=== PATIENT | male | born 1945 | race Caucasian/White ===

== ENCOUNTER 2020-11-25 13:39 | Inpatient (IN) | payer OTHER ==
--- NOTE | 2020-11-25 14:43 | RAD REPORT ---
EXAM DESCRIPTION: CT - Spine Lumbar Wo Con - 11/25/2020 2:12 pm CLINICAL HISTORY: PAIN COMPARISON: None. TECHNIQUE: Thin section axial imaging of the lumbar spine was performed. Sagittal and coronal recon struction images were generated and reviewed. All CT scans are performed using dose optimization technique as appropriate and may include automated exposure control or mA/KV adjustment according to patient size. FINDINGS: T11 body shows approximately 20% wedge compression deformity. Posterior wall height is pre served. L1 body shows 60- 70% loss in height. Wall height is reduced approximately 20%. Calcification s are present in the T12-L1 disc. Anterior spurs are present. L2 body shows approximately 40% cesar gill fracture deformity. There is some buckling the posterior wall along the inferior aspect. There i s bony encroachment into the central canal. There is no comparison imaging available. No acute fracture line seen in the T11, L1 or L2 bodies to indicate acute status. MR imaging is the best option for assessing any active marrow edema. L3-S1 vertebral bodies are normal in height. Bilateral sacral ala fractures are present. Fracture lines are more distinct which would favor an acu te or subacute status. T10-T11 disc level: Disc bulge and endplate spurring changes are present. Foraminal stenosis suspecte d but no significant central spinal stenosis. T11-12 level: Disc bulge and endplate spurring changes are present. There is prominent right-sided fa cet degenerative change. Right foraminal stenosis is present without central spinal stenosis. T12-L1 level: Disc bulge and endplate spurring changes in the central canal are present with prominen t facet hypertrophy and ligamentous thickening. Central spinal stenosis to the 8-9 mm. No significant foraminal stenosis. L1-L2 level: Prominent posterior endplate spurring changes are present. Calcified ligaments are prese nt with facet hypertrophy. Spinal stenosis to 9 mm is present. Mild bilateral foraminal encroachment changes are present. L2-L3 level: Disc bulge and endplate spurring changes are present with facet degenerative change and ligamentous thickening. Central canal is 11-12 mm. Disc bulge and endplate spurring changes cause chris ateral foraminal stenosis. L3-4 level: Disc bulge and endplate spurring changes cause partial bilateral foraminal stenosis with borderline central spinal stenosis. L4-5 level: Prominent facet hypertrophy and ligamentous thickening present. Protruding disc material, disc bulge and endplate spurring changes are present. Central spinal stenosis to 9 mm present. L5-S1 level: Disc bulge and endplate spurring changes are present. Bilateral foraminal stenosis resul ts from these degenerative changes. No significant central spinal stenosis. IMPRESSION: Significant L1 and L2 compression fracture deformities with partial wedge compression of the T11 body. No acute fracture lines are seen to confirm an acute status. No comparison is availabl e. Follow-up outpatient MRI imaging could be performed to assess for any active vertebral body marrow edema. Severe degenerative changes are present in the spine with multiple levels of canal and foramen stenos is. No emergent cord compression findings at the thoracolumbar junction. Bilateral sacral ala fractures favored to be acute or subacute. MRI imaging could also be used to dionte luate the sacral ala.
--- NOTE | 2020-11-25 14:56 | RAD REPORT ---
EXAM DESCRIPTION: RAD - Pelvis - 11/25/2020 2:23 pm CLINICAL HISTORY: TRAUMA COMPARISON: Spine Lumbar Wo Con dated 11/25/2020 TECHNIQUE: AP imaging of the pelvis was obtained. FINDINGS: No gross fracture deformity of the bony pelvis. Moderate severity SI joint degenerative ch anges are present along with bilateral hip joint degenerative change. No proximal femur fracture is s een. Patient has prominent lower lumbar degenerative change detailed in separate report. Sacral ala are to o obscured by overlying bowel for accurate assessment. Arterial tree calcifications are present. IMPRESSION: Degenerative change without an acute pelvis or hip joint finding. Sacral ala are too obscured by bowel for accurate assessment.
--- NOTE | 2020-11-25 15:20 | EDPHYS ---
Physician Documentation [facility] Name: Felix Rangel Age: 75 yrs Sex: Male : 1945 Arrival Date: 11/25/2020 Time: 13:49 Bed 25 Private MD: ED Physician Aurelio Selby HPI: 11/25 14:06 This 75 yrs old Male presents to ER via EMS with complaints of Fall Injury. jr8 14:06 Details of fall: The patient fell from an upright position, while standing. Onset: The jr8 symptoms/episode began/occurred acutely, 1 week(s) ago. Associated injuries: The patient sustained injury to the low back, pain, pain with movement. Severity of symptoms: At their worst the symptoms were mild, in the emergency department the symptoms are unchanged. The patient has not experienced similar symptoms in the past. The patient has not recently seen a physician. Patient stated that he had mechanical fall last week landing on his buttock. Since then has had pain that is not resolving to the left buttock and low back region. Denies any other trauma or pain at this time . Historical: - Allergies: 13:51 No Known Allergies; ss - PMHx: 13:51 None; ss - Immunization history:: Adult Immunizations unknown. - Social history:: Smoking status: Patient denies any tobacco usage or history of. ROS: 14:06 Eyes: Negative for injury, pain, redness, and discharge, ENT: Negative for injury, jr8 pain, and discharge, Neck: Negative for injury, pain, and swelling, Cardiovascular: Negative for chest pain, palpitations, and edema, Respiratory: Negative for shortness of breath, cough, wheezing, and pleuritic chest pain, Abdomen/GI: Negative for abdominal pain, nausea, vomiting, diarrhea, and constipation, MS/Extremity: Negative for injury and deformity, Skin: Negative for injury, rash, and discoloration, Neuro: Negative for headache, weakness, numbness, tingling, and seizure. 14:06 Back: Positive for pain at rest, pain with movement, of the left low back. Exam: 14:06 Constitutional: This is a well developed, well nourished patient who is awake, alert, jr8 and in no acute distress. Cardiovascular: Regular rate and rhythm with a normal S1 and S2. No gallops, murmurs, or rubs. Normal PMI, no JVD. No pulse deficits. Respiratory: Lungs have equal breath sounds bilaterally, clear to auscultation and percussion. No rales, rhonchi or wheezes noted. No increased work of breathing, no retractions or nasal flaring. Abdomen/GI: Soft, non-tender, with normal bowel sounds. No distension or tympany. No guarding or rebound. No evidence of tenderness throughout. Skin: Warm, dry with normal turgor. Normal color with no rashes, no lesions, and no evidence of cellulitis. MS/ Extremity: Pulses equal, no cyanosis. Neurovascular intact. Full, normal range of motion. Neuro: Awake and alert, GCS 15, oriented to person, place, time, and situation. Cranial nerves II-XII grossly intact. Motor strength 5/5 in all extremities. Sensory grossly intact. 14:06 Back: pain, that is mild, of the left low back and left buttock , ROM is painful, vertebral tenderness, is not appreciated. Vital Signs: 13:49 BP 140 / 76; Pulse 77; Resp 18 S; Temp 98.8(O); Pulse Ox 96% on R/A; ss 14:00 BP 139 / 79; Pulse 76; Resp 16 S; Pulse Ox 97% on R/A; aa5 15:00 BP 136 / 74; Pulse 74; Resp 18 S; Pulse Ox 95% on R/A; aa5 15:55 BP 125 / 73; Pulse 74; Resp 16 S; Pulse Ox 95% on R/A; aa5 17:30 BP 126 / 72; Pulse 75; Resp 18; Temp 98.5(TE); Pulse Ox 96% on R/A; aa5 MDM: 13:49 Patient medically screened. [facility] 15:01 Data reviewed: vital signs, nurses notes, radiologic studies, CT scan, plain films. [facility] Data interpreted: Pulse oximetry: on room air is 96 %. Interpretation: normal. 15:01 Data reviewed: lab test result(s). Counseling: I had a detailed discussion with the [facility] patient and/or guardian regarding: the historical points, exam findings, and any diagnostic results supporting the discharge/admit diagnosis, lab results, radiology results, the need for further work-up and treatment in the hospital. ED course: Consulted Dr. Montes De Oca who will see patient. Patient will be admitted to Dr. Selby for further evaluation and hopefully SNF unit placement as patient still cannot ambulate or do ADLs from the sacral fractures. 11/25 15:20 Order name: CBC with Diff; Complete Time: 18:04 [facility] 11/25 15:20 Order name: Basic Metabolic Panel; Complete Time: 16:42 [facility] 11/25 13:50 Order name: XRAY Pelvis; Complete Time: 15:01 [facility] 11/25 16:35 Order name: SARS-COV-2 RT PCR; Complete Time: 16:42 [facility] 11/25 18:02 Order name: Manual Differential; Complete Time: 18:04 [facility] 11/25 13:50 Order name: CT Lumbar Spine Wo Con; Complete Time: 14:49 [facility] 11/25 15:20 Order name: CT Head Brain wo Cont; Complete Time: 16:04 [facility] 11/25 15:20 Order name: IV; Complete Time: 15:32 [facility] 11/25 16:38 Order name: CONS Physician Consult EDMA Administered Medications: No medications were administered Disposition: 18:24 Co-signature as Attending Physician, Aurelio Selby MD. rn Disposition: 11/25/20 15:19 Hospitalization ordered by J Carlos Selby for Inpatient Admission. Preliminary diagnosis are Fracture of unspecified parts of lumbosacral spine and pelvis - Sacral Ala, Difficulty in walking, not elsewhere classified. - Bed requested for Telemetry/MedSurg (Inpatient). - Status is Inpatient Admission. aa5 - Condition is Stable. - Problem is new. - Symptoms have improved. Signatures: Dispatcher [employer] EDMA Aurelio Selby MD MD rn Calderon, Audri, RN RN aa5 Jo Manjarrez RN RN ss Roszak, Josh, PA PA [facility] Corrections: (The following items were deleted from the chart) 15:18 15:01 Counseling: I had a detailed discussion with the patient and/or guardian yael regarding: the historical points, exam findings, and any diagnostic results supporting the discharge/admit diagnosis, radiology results, the need for outpatient follow up, a orthopedic surgeon, to return to the emergency department if symptoms worsen or persist or if there are any questions or concerns that arise at home, yael 15:45 15:30 CORONAVIRUS+MR.LAB.BRZ ordered. EDMS EDMS 17:18 15:19 Hospitalization Ordered by J Carlos Selby MD for Inpatient Admission. Preliminary aa5 diagnosis is Fracture of unspecified parts of lumbosacral spine and pelvis - Sacral Ala; Difficulty in walking, not elsewhere classified. Bed requested for Telemetry/MedSurg (Inpatient). Status is Inpatient Admission. Condition is Stable. Problem is new. Symptoms have improved. jr8 18:18 17:18 11/25/2020 15:19 Hospitalization Ordered by J Carlos Selby MD for Inpatient aa5 Admission. Preliminary diagnosis is Fracture of unspecified parts of lumbosacral spine and pelvis - Sacral Ala; Difficulty in walking, not elsewhere classified. Bed requested for Telemetry/MedSurg (Inpatient). Status is Inpatient Admission. Condition is Stable. Problem is new. Symptoms have improved. aa5
--- NOTE | 2020-11-25 15:20 | ER ---
Nurse's Notes [facility] Name: Felix Rangel Age: 75 yrs Sex: Male : 1945 Arrival Date: 11/25/2020 Time: 13:49 Bed 25 Private MD: Diagnosis: Fracture of unspecified parts of lumbosacral spine and pelvis-Sacral Ala;Difficulty in walking, not elsewhere classified Presentation: 11/25 13:49 Chief complaint: Patient states: fell 1 week ago, denies head injury. Pt c/o pain to ss left buttocks and left low back. 13:49 Coronavirus screen: At this time, the client does not indicate any symptoms associated ss with coronavirus-19. Ebola Screen: Patient negative for fever greater than or equal to 101.5 degrees Fahrenheit, and additional compatible Ebola Virus Disease symptoms. Initial Sepsis Screen: Does the patient meet any 2 criteria? No. Patient's initial sepsis screen is negative. Does the patient have a suspected source of infection? No. Patient's initial sepsis screen is negative. Risk Assessment: Do you want to hurt yourself or someone else? Patient reports no desire to harm self or others. Onset of symptoms was October 2020. 13:49 Acuity: TARIQ 4 ss 13:49 Method Of Arrival: EMS: [facility] Historical: - Allergies: 13:51 No Known Allergies; ss - PMHx: 13:51 None; ss - Immunization history:: Adult Immunizations unknown. - Social history:: Smoking status: Patient denies any tobacco usage or history of. Screenin:50 Abuse screen: Denies threats or abuse. Nutritional screening: No deficits noted. aa5 Tuberculosis screening: No symptoms or risk factors identified. Fall Risk Fall in past 12 months (25 points). Ambulatory Aid- Crutches/Cane/Walker (15 pts). Total Oconnor Fall Scale indicates Low Risk Score (25-44 pts). Fall prevention measures have been instituted. Side Rails Up X 2 Placed close to Nursing Station. Assessment: 13:50 General: Appears comfortable, Behavior is calm, cooperative. Pain: Complains of pain in aa5 left lower back and left gluteus amarilis Pain currently is 0 out of 10 on a pain scale. Pain began 1 week ago Is intermittent, Aggravated by increased activity, repositioning. Neuro: Level of Consciousness is awake, alert, obeys commands, Oriented to person, place, time, situation. Cardiovascular: Patient's skin is warm and dry. Respiratory: Airway is patent Respiratory effort is even, unlabored, Respiratory pattern is regular, symmetrical. GI: Abdomen is round non-distended. : No signs and/or symptoms were reported regarding the genitourinary system. EENT: No signs and/or symptoms were reported regarding the EENT system. Derm: Skin is pink, warm \T\ dry. Musculoskeletal: Range of motion: intact in all extremities. 14:13 Reassessment: Pt at radiology. aa5 15:32 Reassessment: Patient is alert, oriented x 3, equal unlabored respirations, skin aa5 warm/dry/pink. Pt to radiology via stretcher . 15:48 Reassessment: Patient is alert, oriented x 3, equal unlabored respirations, skin aa5 warm/dry/pink. 16:30 Reassessment: Patient is alert, oriented x 3, equal unlabored respirations, skin aa5 warm/dry/pink. 17:30 Reassessment: Patient is alert, oriented x 3, equal unlabored respirations, skin aa5 warm/dry/pink. 18:15 Reassessment: Patient is alert, oriented x 3, equal unlabored respirations, skin aa5 warm/dry/pink. Vital Signs: 13:49 BP 140 / 76; Pulse 77; Resp 18 S; Temp 98.8(O); Pulse Ox 96% on R/A; ss 14:00 BP 139 / 79; Pulse 76; Resp 16 S; Pulse Ox 97% on R/A; aa5 15:00 BP 136 / 74; Pulse 74; Resp 18 S; Pulse Ox 95% on R/A; aa5 15:55 BP 125 / 73; Pulse 74; Resp 16 S; Pulse Ox 95% on R/A; aa5 17:30 BP 126 / 72; Pulse 75; Resp 18; Temp 98.5(TE); Pulse Ox 96% on R/A; aa5 ED Course: 13:49 Patient arrived in ED. ss 13:49 Fabio Saunders PA is PHCP. jr8 13:49 Aurelio Selby MD is Attending Physician. jr8 13:49 Arm band placed on Patient placed in an exam room, on a stretcher. ss 13:50 Triage completed. ss 13:50 Patient has correct armband on for positive identification. Placed in gown. Bed in low aa5 position. Call light in reach. Side rails up X2. Pulse ox on. NIBP on. 13:54 Jo Manjarrez, RN is Primary Nurse. ss 14:12 CT Lumbar Spine Wo Con In Process Unspecified. EDMS 14:21 XRAY Pelvis In Process Unspecified. EDMS 15:18 J Carlos Selby MD is Hospitalizing Provider. jr8 15:34 COVID swab sent to lab. aa5 15:38 CT Head Brain wo Cont In Process Unspecified. EDMS 15:48 Initial lab(s) drawn, by ky, sent to lab. Inserted saline lock: 20 gauge in left aa5 antecubital area, using aseptic technique. Blood collected. 18:15 No provider procedures requiring assistance completed. Patient admitted, IV remains in aa5 place. Administered Medications: No medications were administered Outcome: 15:19 Decision to Hospitalize by Provider. jrKeri 18:15 Admitted to Med/surg accompanied by tech, via stretcher, with chart, Report called to camilo fields RN 18:15 Condition: stable 18:15 Instructed on the need for admit. 18:18 Patient left the ED. [facility] Signatures: Dispatcher [employer] Va Fitzgerald, RN RN [facility] Jo Manjarrez, RN RN Fabio Saunders, MARLEN GEE jrKeri
--- NOTE | 2020-11-25 15:54 | RAD REPORT ---
EXAM DESCRIPTION: CT - Head Brain Wo Cont - 11/25/2020 3:38 pm CLINICAL HISTORY: DIZZINESS COMPARISON: <Comparisons> TECHNIQUE: Axial 5 mm thick images of the head were obtained without IV contrast. All CT scans are performed using dose optimization technique as appropriate and may include automated exposure control or mA/KV adjustment according to patient size. FINDINGS: No intracranial hemorrhage, mass, edema or shift of mid-line structures. No acute infarcti on changes seen. No cortical edema or sulcal effacement. Patient has moderate severity atrophy with v entricles in proportion. Moderate severity chronic ischemic changes are present and could potentially mask nonhemorrhagic CVA. The atrophy and chronic ischemic changes have progressed since 1999. Arteri al tree physiologic calcifications are present. Mastoid air cells and visualized portions of the paranasal sinuses are clear. No acute bony findings. IMPRESSION: Moderate severity atrophy and moderate severity chronic ischemic change showing progress ion from the 2009 study. No mass, hemorrhage or acute intracranial finding identifiable. Chronic ischemic changes can mask nonhemorrhagic acute infarction. MR brain followup can be obtained if there is ongoing concern for acute ischemia.
[2020-11-25 16:08] LABS: Absolute Lymphocytes (CBC) 1.7 K/uL (0.7-4.9); Basophils % 1.3 % (0-1.3); Hematocrit 49.1 % (39.6-49.0); Lymphocytes % 15.7 % (15.3-44.8); MPV 8.3 fL (7.6-11.3); RBC Red Blood Cell Count 5.13 M/uL (4.33-5.43)
[2020-11-25 16:37] LABS: BUN Blood Urea Nitrogen 16 mg/dL (7-18); Bicarbonate 29 mmol/L (21-32); Glucose Level 91 mg/dL (74-106); Potassium 3.4 mmol/L (3.5-5.1); Sodium Level 143 mmol/L (136-145)
--- NOTE | 2020-11-25 16:48 | P.HP ---
Certification for Inpatient Patient admitted to: Inpatient With expected LOS: >2 Midnights Practitioner: I am a practitioner with admitting privileges, knowledge of patient current condition, hospital course, and medical plan of care. Services: Services provided to patient in accordance with Admission requirements found in Title 42 Section 412.3 of the Code of Federal Regulations Patient History Date of Service: 11/25/20 Reason for admission: b/l sacral ala fractures History of Present Illness: 75yo M, no significant past medical history but hasn't been to doctor in over 20 years. Presents 1 week after fall. Patient states he was walking into his home when he mis-stepped and somewhat twisted his ankle and fell to ground. No LOC, did not hit his head, was not dizzy or lightheaded. He reports L buttock pain when he tries to sit up or stand up. Pain is too severe to ambulate. No pain when he lays still. He has chronic b/l knee pain, worse on Left knee. Otherwise ROS negative. He takes a multi-vitamin, vit d, and zinc. Workup in ED revealed bilateral sacral ala fractures noted to be acute or subacute. multiple old compression fractures of lumbar spine. ED PA spoke with orthopedic surgeon who stated he would see patient in consult. - Past Medical/Surgical History Past Medical History: Patient denies medical history -: R foot surgery - Family History Family History: Reviewed- Non-Contributory (unable to recall) - Social History Smoking Status: Former smoker Alcohol use: Yes Place of Residence: Home (with ) Review of Systems 10-point ROS is otherwise unremarkable Physical Examination - Studies Laboratory Data (last 24 hrs) 11/25/20 15:47: Sodium 143, Potassium 3.4 L, BUN 16, Creatinine 0.66, Glucose 91 11/25/20 15:47: WBC 11.10 H, Hgb 16.6, Hct 49.1 H, Plt Count 255 Assessment and Plan - Advance Directives Does patient have a Living Will: No Does patient have a Durable POA for Healthcare: No Physician Review Additional Text: Physical Exam: Gen: NAD, AAOx3 HEENT: mile L redness of sclera, EOMI CV: RRR, no murmur Pulm: clear to auscultation bilaterally, nonlabored Abd: soft, NTND Ext: no edema, no tenderness in lower extremities, old surgical scar on R foot Neuro: CN II-XII grossly intact, str 5/5 thoughout, difficult to fully assess LLE secondary to pain limitation at hip, sensation intact Problem List: Bilateral sacral ala fractures, acute vs subacute multiple lumbar compression fractures -admit to med/surg -ortho consulted -mac for VTE prophylaxis -gentle IVF, pt has had decreased PO intake, appears somewhat dry -obtain CXR -labs pending -does not take any prescription medications -PT consulted -SW consulted - pt agreeable to SNF placement if needed, states daughter works at [employer] VTE: lovenox Code: full Dispo: ortho and PT eval, anticipate dc to SNF in a few days Time Spent Managing Pts Care (In Minutes): 60
[2020-11-25] MEDS ORDERED: ACETAMINOPHEN 500 MG TAB PO PRN (17:22)
[2020-11-25 18:02] LABS: Blood Morphology Comment NOT SEEN (NOT SEEN); Platelet Estimate ADEQ
--- NOTE | 2020-11-25 18:42 | RAD REPORT ---
EXAM DESCRIPTION: RAD - Chest Single View - 11/25/2020 6:29 pm CLINICAL HISTORY: fall, rib pain, chest pain COMPARISON: None TECHNIQUE: AP portable chest image was obtained 11/25/2020 6:29 pm . FINDINGS: Lungs are clear. Heart and vasculature are normal. No measurable pleural effusion and no p neumothorax. No acute aortic findings suspected. No gross rib deformity seen. Ribcage is not fully evaluated on portable imaging. If clinically warran lawanda, dedicated rib films could be obtained. Patient has significant bilateral shoulder joint degenera tive change. IMPRESSION: No acute cardiopulmonary process. No acute bone finding identified. Dedicated rib films could be obtained if warranted for more sensiti ve ribcage assessment.
[2020-11-25] MEDS: NA CHLORIDE 0.9% 1,000 ML IV SCH (18:53)
[2020-11-25 20:24] LABS: Urine Appearance CLOUDY (Clear); Urine Bilirubin NEGATIVE (Negative); Urine Blood NEGATIVE (Negative); Urine Color ORANGE (Yellow); Urine Glucose NEGATIVE (Negative); Urine Protein NEGATIVE (Negative); Urine pH 5.5 (5.0-7.0)
[2020-11-25 20:26] VITALS: BMI 29.1
[2020-11-25 20:26] LABS: Urine Microscopic Reflex ORDER UMIC
[2020-11-25 20:41] LABS: Urine Bacteria >50 /HPF (NONE SEEN); Urine Mucus 4+ /HPF (NONE SEEN); Urine RBC <5 /HPF (NONE SEEN)
[2020-11-25] MEDS ORDERED: POTASSIUM CL SA 10 MEQ TAB PO ONE (21:00)
[2020-11-26 06:30] LABS: Protime INR 1.09
[2020-11-26 06:34] LABS: Absolute Lymphocytes (CBC) 1.8 K/uL (0.7-4.9); Basophils % 2.6 % (0-1.3); Hematocrit 44.7 % (39.6-49.0); Lymphocytes % 17.1 % (15.3-44.8); MPV 8.6 fL (7.6-11.3); RBC Red Blood Cell Count 4.66 M/uL (4.33-5.43)
[2020-11-26] MEDS: NA CHLORIDE 0.9% 1,000 ML IV SCH ×2 (06:37→07:54)
[2020-11-26 06:52] LABS: ALT/SGPT 86 U/L (12-78); AST/SGOT 50 U/L (15-37); Albumin 2.8 g/dL (3.4-5.0); Alkaline Phosphatase 103 U/L (45-117); BUN Blood Urea Nitrogen 17 mg/dL (7-18); Bicarbonate 28 mmol/L (21-32); Bilirubin Total 1.5 mg/dL (0.2-1.0); Glucose Level 86 mg/dL (74-106); Magnesium 1.9 mg/dL (1.8-2.4); Phosphorus 2.6 mg/dL (2.5-4.9); Potassium 4.1 mmol/L (3.5-5.1); Protein, Total 6.4 g/dL (6.4-8.2); Sodium Level 141 mmol/L (136-145)
[2020-11-26] MEDS: ENOXAPARIN 40 MG/0.4 ML SQ SCH (07:54)
--- NOTE | 2020-11-26 09:51 | P.PN ---
Subjective Date of Service: 11/26/20 Chief Complaint: b/l sacral ala fractures Subjective: No new changes (patient reports feeling well, no new complaints, pain with movement, no nausea/vomiting/diarrhea.) Review of Systems 10-point ROS is otherwise unremarkable Physical Examination - Vital Signs Temperature: 96.9 F Blood Pressure: 132/60 Pulse: 71 Respirations: 18 Pulse Ox (%): 92 - Studies Laboratory Data (last 24 hrs) 11/25/20 15:47: Sodium 143, Potassium 3.4 L, BUN 16, Creatinine 0.66, Glucose 91 11/25/20 15:47: WBC 11.10 H, Hgb 16.6, Hct 49.1 H, Plt Count 255 Assessment & Plan Physician Review Additional Text: Physical Exam: Gen: NAD, AAOx3 HEENT: sclera anicteric, EOMI CV: RRR, no murmur Pulm: clear to auscultation bilaterally, nonlabored Abd: soft, NTND Ext: no edema, no tenderness in lower extremities, old surgical scar on R foot Neuro: CN II-XII grossly intact, str 5/5 thoughout, sensation intact Problem List: Bilateral sacral ala fractures, acute vs subacute multiple lumbar compression fractures mild vascular dementia UTi, cystitis -ortho consulted -lovenox for VTE prophylaxis -dc IVF, pt tolerating diet well -does not take any prescription medications -PT consulted -SW consulted - pt agreeable to SNF placement if needed, states daughter works at [employer] -UA suggestive of UTI, pt reports urinating more frequently, but otherwise denies any other symptoms of UTI, empirically started IV rocephin for now, will repeat UA VTE: lovenox Code: full Dispo: ortho and PT eval, anticipate dc to SNF in a few days Time Spent Managing Pts Care (In Minutes): 35
[2020-11-26] MEDS: CEFTRIAXONE/SWI 1gm 1 GM/10 ML SYR IVP SCH (10:32)
--- NOTE | 2020-11-26 15:07 | CON ---
Date of Consultation: 11/26/2020 Subjective: This is my first time seeing this patient to my knowledge. He is a 75-year-old male, wh o prior to admission was using a scooter for ambulation and was having difficulties with his left kne e at times, but unfortunately he says he fell injuring his left hip. He was unable to move after bhragav t and was brought to the Emergency Department. X-rays and CT scan demonstrated fairly significant de generative changes of his lumbar spine as well as probable old compression fractures and possible new or subacute acute sacral ala fractures without significant displacement. For further information, lupe stewart refer to the CT scan for the report. It should be noted that I do not treat the spine __ for the sacral ala fractures. Physical Examination: He has full range of motion of both lower extremities. He has no pain with movement or manipulation of the hips, although he is complaining of left-sided hip pain. This pain is primarily posterior in the region of the SI joint or posterior sacrum. He denies any numbness or tingling. Pain is primari ly left-sided. Assessment: A 75-year-old male with complaints of pain in the left hip. The left hip is probably mo re related to the left hemipelvis or sacral area. Whether or not he has any overlap from lumbar spin e pathology is uncertain. I will speak with Dr. Selby regarding further care, but I believe with reg doron to his pelvis, he can be weightbearing as tolerated; however, we will need pain relieving medicat ions as well as a walker. The patient and family have a lot of questions regarding discharge and soc ial care. I am not really able to address this, only thing I am really able to tell him is about neal gnosis and that operative intervention is not necessary and that immobilization is encouraged. They state they under stand things as presented. SE/MODL Voice ID: [id number] Report ID: [id number]
[2020-11-26 15:38] LABS: Urine Appearance CLEAR (Clear); Urine Blood NEGATIVE (Negative); Urine Color DK YELLOW (Yellow); Urine Glucose NEGATIVE (Negative); Urine Protein NEGATIVE (Negative); Urine Urobilinogen >=8.0 mg/dL (0.2-1.0)
[2020-11-26 16:30] LABS: Urine Bilirubin NEGATIVE (Negative); Urine Microscopic Reflex ORDER UMIC
[2020-11-26 16:31] LABS: Urine Bacteria <20 /HPF (NONE SEEN); Urine Mucus LIGHT /HPF (NONE SEEN); Urine RBC NONE SEEN /HPF (NONE SEEN)
[2020-11-27] MEDS: ENOXAPARIN 40 MG/0.4 ML SQ SCH (08:10)
[2020-11-27] MEDS: CEFTRIAXONE/SWI 1gm 1 GM/10 ML SYR IVP SCH (08:11)
--- NOTE | 2020-11-27 12:01 | P.PN ---
Subjective Date of Service: 11/27/20 Chief Complaint: b/l sacral ala fractures Subjective: No new changes (feeling well, continues with L buttock pain with weightbearing / movement. otherwise without complaints. tolerating diet, reports urinating without issue) Review of Systems 10-point ROS is otherwise unremarkable Physical Examination - Vital Signs Temperature: 97.2 F Blood Pressure: 116/56 Pulse: 56 Respirations: 16 Pulse Ox (%): 96 Assessment & Plan Physician Review Additional Text: Physical Exam: Gen: NAD, AAOx3 HEENT: sclera anicteric, EOMI CV: RRR, no murmur Pulm: clear to auscultation bilaterally, nonlabored Abd: soft, NTND Ext: no edema, no tenderness in lower extremities, old surgical scar on R foot Neuro: CN II-XII grossly intact, str 5/5 thoughout, sensation intact in b/l legs Problem List: Bilateral sacral ala fractures, acute vs subacute multiple lumbar compression fractures mild vascular dementia UTi, cystitis -ortho consulted, ok for weightbearing as tolerated -lovenox for VTE prophylaxis -does not take any prescription medications -tramadol ordered to use prior to working with PT -PT consulted -SW consulted - pt agreeable to SNF placement if needed, states daughter works at [employer] -UA suggestive of UTI, pt reports urinating more frequently, but otherwise denies any other symptoms of UTI, empirically started IV rocephin for now -MRI ordered for today to eval multiple lumbar compression fractures of indeterminate age, eval compression - pt denies weakness/numbness/or lower back pain VTE: Lovenox Code: full Dispo: PT eval, anticipate dc to SNF in a few days Time Spent Managing Pts Care (In Minutes): 35
--- NOTE | 2020-11-27 12:12 | RAD REPORT ---
EXAM DESCRIPTION: MRI - Lumbar Spine Wo Con- 11/27/2020 11:13 am CLINICAL HISTORY: spinal stenosis, fracture age Back pain, radiculopathy COMPARISON: Spine Lumbar Wo Con dated 11/25/2020 FINDINGS: Significant compression deformities of L1 and L2 are noted, without significant marrow filemon ma, indicating that these are likely chronic. The conus medullaris terminates at a normal level. No thickening of the cauda equina or clumping of nerve roots seen. L1-2 level: Endplate osteophyte and posterior disc bulge with mild facet and ligamentum flavum hypert rophy mildly narrows the central canal. L2-3 level: Small endplate osteophyte with posterior disc bulge is seen and mild facet ligamentum fla vum hypertrophy moderately narrows the central canal. L3-4 level: Mild posterior disc bulge is seen with moderate facet hypertrophy. Mild central canal renee rowing is evident. L4-5 level: Left central/ paracentral 4-5 mm disc herniation is noted resulting in left lateral reces s stenosis and mild central canal narrowing. L5-S1 level: Moderate to large central disc herniation measuring 7 mm is present with moderate facet hypertrophy, resulting in right lateral recess stenosis. IMPRESSION: Significant L1 and L2 compression fractures have a chronic appearance. There is signific ant spondylosis and throughout the lumbar spine, most notable at L4-5 and L5-S1.
[2020-11-27] MEDS: TRAMADOL HCL 50 MG TAB PO PRN (13:08)
[2020-11-28] MEDS: CEFTRIAXONE/SWI 1gm 1 GM/10 ML SYR IVP SCH (07:49)
[2020-11-28] MEDS: ENOXAPARIN 40 MG/0.4 ML SQ SCH (07:50)
--- NOTE | 2020-11-28 09:34 | RAD REPORT ---
EXAM DESCRIPTION: US - Liver Only - 11/28/2020 9:24 am CLINICAL HISTORY: Elevated LFT COMPARISON: No comparisons TECHNIQUE: Sonographic evaluation of the right upper quadrant was performed as a dedicated liver ult rasound study. FINDINGS: Liver shows a diffuse coarsened increased hepatic echotexture with a decrease in sonograph ic penetrance. This is a pattern typical for prominent fatty infiltration. No focal liver lesions see n though sensitivity is decreased with this degree of fatty infiltration. No portal vein abnormality seen. The spleen is 15-16 cm in size. No abnormal capsule nodularity seen. Spleen is 11-12 cm with no focal splenic lesion identifiable. IMPRESSION: Diffuse fatty infiltration of a normal size liver. No focal liver lesions seen though se nsitivity is decreased with this degree of fatty infiltration.
[2020-11-28] MEDS: TRAMADOL HCL 50 MG TAB PO PRN (09:35)
--- NOTE | 2020-11-28 15:30 | P.PN ---
Subjective Date of Service: 11/28/20 Chief Complaint: b/l sacral ala fractures Patient reports significant pain with sitting. MRI of the pelvis result reviewed: Fractures appear to be chronic. Physical Examination - Vital Signs Temperature: 97.4 F Blood Pressure: 138/67 Pulse: 67 Respirations: 16 Pulse Ox (%): 96 - Physical Exam General: Alert, In no apparent distress, Oriented x3 HEENT: Mucous membr. moist/pink Respiratory: Clear to auscultation bilaterally, Normal air movement Cardiovascular: Regular rate/rhythm, Normal S1 S2, Edema (Bilateral lower extremities) Gastrointestinal: Soft and benign, Non-distended Musculoskeletal: No swelling Integumentary: No rashes Neurological: Normal strength at 5/5 x4 extr Assessment And Plan - Current Problems (Diagnosis) (1) Sacral fracture, closed Current Visit: Yes Status: Acute (2) Alcoholic liver disease Current Visit: Yes Status: Acute Physician Review Additional Text: Problem List: Bilateral sacral ala fractures, acute vs subacute multiple lumbar compression fractures mild vascular dementia UTi, cystitis -Seen by ortho ok for weightbearing as tolerated. No surgical intervention. -lovenox for VTE prophylaxis -pain medication as needed. Premedicate with analgesia before PT. -PT as tolerated. -SW consulted - pt agreeable to SNF placement if needed, states daughter works at [employer] -UA suggestive of UTI, pt reports urinating more frequently. Patient received a dose of IV Rocephin. Antibiotics switched to Macrobid. -elevated LFT. Liver ultrasound shows fatty liver likely secondary to chronic alcohol use. VTE: Lovenox Code: full Dispo: PT eval, anticipate dc to SNF.
[2020-11-28] MEDS: NITROFURAN MACRO 100 MG CAP PO SCH (16:51)
[2020-11-29 05:53] LABS: Absolute Lymphocytes (CBC) 2.5 K/uL (0.7-4.9); Basophils % 2.2 % (0-1.3); Hematocrit 41.5 % (39.6-49.0); Lymphocytes % 23.7 % (15.3-44.8); MPV 8.5 fL (7.6-11.3); RBC Red Blood Cell Count 4.36 M/uL (4.33-5.43)
[2020-11-29 06:15] LABS: BUN Blood Urea Nitrogen 15 mg/dL (7-18); Bicarbonate 27 mmol/L (21-32); Glucose Level 98 mg/dL (74-106); Potassium 3.4 mmol/L (3.5-5.1); Sodium Level 143 mmol/L (136-145)
[2020-11-29 08:09] LABS: Blood Morphology Comment NOT SEEN (NOT SEEN); Platelet Estimate ADEQ
[2020-11-29] MEDS: NITROFURAN MACRO 100 MG CAP PO SCH ×2 (08:32→16:32)
[2020-11-29] MEDS: ENOXAPARIN 40 MG/0.4 ML SQ SCH (08:33)
[2020-11-29] MEDS ORDERED: POTASSIUM CL SA 10 MEQ TAB PO ONE (09:00)
--- NOTE | 2020-11-29 13:07 | P.PN ---
Subjective Date of Service: 11/29/20 Chief Complaint: b/l sacral ala fractures Patient reports significant pain with sitting. No other complain. Physical Examination - Vital Signs Temperature: 98.2 F Blood Pressure: 136/73 Pulse: 62 Respirations: 16 Pulse Ox (%): 95 - Physical Exam General: Alert, In no apparent distress Neck: JVD not distended Respiratory: Clear to auscultation bilaterally, Normal air movement Cardiovascular: No edema, Regular rate/rhythm, Normal S1 S2 Gastrointestinal: Normal bowel sounds, Soft and benign, Non-distended, No tenderness Musculoskeletal: No swelling, No tenderness Integumentary: No rashes Neurological: Normal strength at 5/5 x4 extr Assessment And Plan - Current Problems (Diagnosis) (1) Sacral fracture, closed Current Visit: Yes Status: Acute (2) Alcoholic liver disease Current Visit: Yes Status: Acute Physician Review Additional Text: Problem List: Bilateral sacral ala fractures, acute vs subacute multiple lumbar compression fractures mild vascular dementia UTi, cystitis -Seen by ortho weightbearing as tolerated recommended. No surgical interven tion. -lovenox for VTE prophylaxis -pain medication as needed. Premedicate with analgesia before PT. -PT as tolerated. -SW consulted - pt agreeable to SNF placement if needed. -UA suggestive of UTI, pt reports urinating more frequently. Patient received a dose of IV Rocephin. Antibiotics switched to Macrobid. -elevated LFT. Liver ultrasound shows fatty liver likely secondary to chronic alcohol use. VTE: Lovenox Code: full Dispo: Anticipate dc to SNF.
[2020-11-29] MEDS: TRAMADOL HCL 50 MG TAB PO PRN (16:32)
[2020-11-30] MEDS: NITROFURAN MACRO 100 MG CAP PO SCH ×2 (07:39→16:54)
[2020-11-30] MEDS: ENOXAPARIN 40 MG/0.4 ML SQ SCH (07:40)
[2020-11-30] MEDS: TRAMADOL HCL 50 MG TAB PO PRN (10:17)
--- NOTE | 2020-11-30 17:43 | P.PN ---
Subjective Date of Service: 11/30/20 Chief Complaint: b/l sacral ala fractures No major changes from yesterday Physical Examination - Vital Signs Temperature: 97.3 F Blood Pressure: 132/60 Pulse: 59 Respirations: 18 Pulse Ox (%): 96 - Physical Exam General: Alert, In no apparent distress HEENT: Mucous membr. moist/pink Neck: JVD not distended Respiratory: Clear to auscultation bilaterally, Normal air movement Cardiovascular: No edema, Regular rate/rhythm, Normal S1 S2 Gastrointestinal: Normal bowel sounds, Soft and benign, No tenderness Neurological: Normal strength at 5/5 x4 extr, Cranial nerves 3-12 intact Assessment And Plan - Current Problems (Diagnosis) (1) Sacral fracture, closed Current Visit: Yes Status: Acute (2) Alcoholic liver disease Current Visit: Yes Status: Acute Physician Review Additional Text: Problem List: Bilateral sacral ala fractures, acute vs subacute multiple lumbar compression fractures mild vascular dementia UTi, cystitis -Seen by ortho. weightbearing as tolerated recommended. No surgical intervention. -lovenox for VTE prophylaxis -pain medication as needed. Premedicate with analgesia before PT. -PT as tolerated. -SW consulted - pt agreeable to SNF placement if needed. -UA suggestive of UTI, pt reports urinating more frequently. Patient received a dose of IV Rocephin. Antibiotics switched to Macrobid. -elevated LFT. Liver ultrasound shows fatty liver likely secondary to chronic alcohol use. VTE: Lovenox Code: full Dispo: Anticipate dc to SNF.
[2020-12-01] MEDS: ENOXAPARIN 40 MG/0.4 ML SQ SCH (08:14)
[2020-12-01] MEDS: NITROFURAN MACRO 100 MG CAP PO SCH ×2 (08:15→17:21)
--- NOTE | 2020-12-01 10:15 | P.PN ---
Subjective Date of Service: 12/01/20 Chief Complaint: b/l sacral ala fractures No major changes from yesterday. Patient report less pain. Physical Examination - Vital Signs Temperature: 97 F Blood Pressure: 118/57 Pulse: 64 Respirations: 16 Pulse Ox (%): 95 - Physical Exam General: Alert, In no apparent distress HEENT: Mucous membr. moist/pink Neck: JVD not distended Respiratory: Clear to auscultation bilaterally, Normal air movement Cardiovascular: No edema, Regular rate/rhythm, Normal S1 S2 Gastrointestinal: Soft and benign, Non-distended, No tenderness Musculoskeletal: No swelling Integumentary: No rashes Neurological: Normal strength at 5/5 x4 extr Assessment And Plan - Current Problems (Diagnosis) (1) Sacral fracture, closed Current Visit: Yes Status: Acute (2) Alcoholic liver disease Current Visit: Yes Status: Acute Physician Review Additional Text: Problem List: Bilateral sacral ala fractures, acute vs subacute multiple lumbar compression fractures mild vascular dementia UTi, cystitis -Weightbearing as tolerated recommended by ortho. No surgical intervention. -lovenox for VTE prophylaxis -pain medication as needed. Premedicate with analgesia before PT. -PT as tolerated. Increase activity as tolerated -UA suggestive of UTI, pt reports urinating more frequently. Patient received a dose of IV Rocephin. Antibiotics switched to Macrobid. -patient to complete 7 days of oral antibiotics. -elevated LFT. Liver ultrasound shows fatty liver likely secondary to chronic alcohol use. VTE: Lovenox Code: full Dispo: Awaiting SNF placement.
[2020-12-02] MEDS: NITROFURAN MACRO 100 MG CAP PO SCH ×2 (08:35→17:16)
[2020-12-02] MEDS: ENOXAPARIN 40 MG/0.4 ML SQ SCH (08:35)
--- NOTE | 2020-12-02 12:43 | P.PN ---
Subjective Date of Service: 12/02/20 Chief Complaint: b/l sacral ala fractures No new complain Patient has pain mostly with hip flexion. Physical Examination - Vital Signs Temperature: 97.3 F Blood Pressure: 129/64 Pulse: 68 Respirations: 18 Pulse Ox (%): 96 - Physical Exam General: Alert, In no apparent distress Neck: JVD not distended Respiratory: Clear to auscultation bilaterally, Normal air movement Cardiovascular: No edema, Regular rate/rhythm, Normal S1 S2 Gastrointestinal: Soft and benign, Non-distended, No tenderness Musculoskeletal: No swelling Neurological: Normal strength at 5/5 x4 extr Assessment And Plan - Current Problems (Diagnosis) (1) Sacral fracture, closed Current Visit: Yes Status: Acute (2) Alcoholic liver disease Current Visit: Yes Status: Acute Physician Review Additional Text: Problem List: Bilateral sacral ala fractures, acute vs subacute multiple lumbar compression fractures mild vascular dementia UTi, cystitis -Weightbearing as tolerated recommended by ortho. No surgical intervention. -lovenox for VTE prophylaxis -pain medication as needed. Premedicate with analgesia before PT. -PT as tolerated. Increase activity as tolerated -UA suggestive of UTI, pt reports urinating more frequently. Patient received a dose of IV Rocephin and then switched to Macrobid. -patient to complete 7 days of oral antibiotics. -elevated LFT. Liver ultrasound shows fatty liver likely secondary to chronic alcohol use. VTE: Lovenox Code: full Dispo: Awaiting SNF placement.
[2020-12-03 06:14] LABS: Absolute Lymphocytes (CBC) 2.1 K/uL (0.7-4.9); Basophils % 2.9 % (0-1.3); Lymphocytes % 18.8 % (15.3-44.8); MPV 8.3 fL (7.6-11.3); RBC Red Blood Cell Count 4.55 M/uL (4.33-5.43)
[2020-12-03 06:32] LABS: BUN Blood Urea Nitrogen 11 mg/dL (7-18); Bicarbonate 27 mmol/L (21-32); Glucose Level 99 mg/dL (74-106); Potassium 3.8 mmol/L (3.5-5.1); Sodium Level 143 mmol/L (136-145)
[2020-12-03 08:19] LABS: Phosphorus 2.9 mg/dL (2.5-4.9)
[2020-12-03] MEDS ORDERED: POTASSIUM 25 MEQ EFFERV TAB PO ONE (09:00)
[2020-12-03] MEDS: NITROFURAN MACRO 100 MG CAP PO SCH ×2 (09:28→16:39)
[2020-12-03] MEDS: ENOXAPARIN 40 MG/0.4 ML SQ SCH (09:29)
[2020-12-03 10:40] LABS: Blood Morphology Comment NOT SEEN (NOT SEEN); Platelet Estimate ADEQ; Platelets, Giant PRESENT
--- NOTE | 2020-12-03 13:03 | P.PN ---
Subjective Date of Service: 12/03/20 Chief Complaint: b/l sacral ala fractures No new complain Patient has pain mostly with hip flexion and sitting.. Physical Examination - Vital Signs Temperature: 97.2 F Blood Pressure: 123/56 Pulse: 57 Respirations: 16 Pulse Ox (%): 96 - Physical Exam General: Alert, In no apparent distress HEENT: Mucous membr. moist/pink Neck: JVD not distended Respiratory: Clear to auscultation bilaterally, Normal air movement Cardiovascular: No edema, Regular rate/rhythm, Normal S1 S2 Gastrointestinal: Soft and benign, Non-distended, No tenderness Musculoskeletal: No swelling Neurological: Normal strength at 5/5 x4 extr Assessment And Plan - Current Problems (Diagnosis) (1) Sacral fracture, closed Current Visit: Yes Status: Acute (2) Alcoholic liver disease Current Visit: Yes Status: Acute Physician Review Additional Text: Problem List: Bilateral sacral ala fractures, acute vs subacute multiple lumbar compression fractures mild vascular dementia UTi, cystitis -Weightbearing as tolerated recommended by ortho. -lovenox for VTE prophylaxis -pain medication as needed. Premedicate with analgesia before PT. -PT as tolerated. Increase activity as tolerated -UA suggestive of UTI. Patient received a dose of IV Rocephin and then switched to Macrobid. -patient to complete 7 days of oral antibiotics. -elevated LFT. Liver ultrasound shows fatty liver likely secondary to chronic alcohol use. VTE: Lovenox Code: full Dispo: Awaiting SNF placement.
[2020-12-04 06:34] LABS: BUN Blood Urea Nitrogen 14 mg/dL (7-18); Bicarbonate 31 mmol/L (21-32); Glucose Level 100 mg/dL (74-106); Potassium 3.8 mmol/L (3.5-5.1); Sodium Level 143 mmol/L (136-145)
[2020-12-04] MEDS: NITROFURAN MACRO 100 MG CAP PO SCH (08:47)
[2020-12-04] MEDS: ENOXAPARIN 40 MG/0.4 ML SQ SCH (08:48)
[2020-12-04] MEDS ORDERED: POTASSIUM 25 MEQ EFFERV TAB PO ONE (09:00)
[2020-12-04 09:25] VITALS: O2SAT 94
[2020-12-04] MEDS ORDERED: HYDROCODONE/APAP 5/325 MG TAB PO PRN (11:04)
--- NOTE | 2020-12-04 12:32 | P.DS ---
Admission Date: 11/25/20 Discharge Date: 12/04/20 Disposition: TRANSFER TO [facility] Discharge Condition: FAIR Reason for Admission: b/l sacral ala fractures - Problems (1) Sacral fracture, closed Status: Acute (2) Alcoholic liver disease Status: Acute (3) E. coli UTI Status: Acute (4) Compression fx, lumbar spine Status: Acute Brief History of Present Illness: 75 yo M, no significant past medical history but hasn't been to doctor in over 20 years. Presents 1 week after fall. Patient states he was walking into his home when he mis-stepped and somewhat twisted his ankle and fell to ground. No LOC, did not hit his head, was not dizzy or lightheaded. Pain had been too severe to ambulate per patient. No pain when he lays still. Workup in ED revealed bilateral sacral ala fractures noted to be acute or subacute. multiple old compression fractures of lumbar spine. Patient admitted to the medical floor with orthopedic consultation. Hospital Course: Bilateral sacral ala fractures, acute vs subacute multiple lumbar compression fractures mild vascular dementia UTi, cystitis -patient seen by orthopedic surgery Weightbearing as tolerated recommended by ortho. -placed on lovenox for VTE prophylaxis -pain medication treated with oral [place]. Recommended premedication with analgesia before PT. -pain most severe with hip flexion and sitting. He underwent multiple PT sessions. -UA suggestive of UTI. Patient received a dose of IV Rocephin and then switched to Macrobid. -he will need to complete 7 days of oral antibiotics. -elevated LFT. Liver ultrasound shows fatty liver likely secondary to chronic alcohol use. No alcohol withdrawal symptoms during the hospital stay. -patient clinically stable for discharge. Vital Signs/Physical Exam: Temp Pulse Resp BP Pulse Ox 97.4 F 62 18 137/60 96 12/04/20 08:00 12/04/20 08:00 12/04/20 12:14 12/04/20 08:00 12/04/20 12:14 General: Alert, In no apparent distress, Oriented x3 HEENT: Mucous membr. moist/pink Neck: JVD not distended Respiratory: Clear to auscultation bilaterally, Normal air movement Cardiovascular: No edema, Regular rate/rhythm, Normal S1 S2 Capillary refill: <2 Seconds Gastrointestinal: Normal bowel sounds, Soft and benign, Non-distended Musculoskeletal: No swelling, No contractures Integumentary: No erythema Neurological: Normal strength at 5/5 x4 extr Laboratory Data at Discharge: WBC 11.10 K/uL (4.3-10.9) H 12/03/20 05:34 Hgb 14.9 g/dL (13.6-17.9) 12/03/20 05:34 Hct 43.0 % (39.6-49.0) 12/03/20 05:34 Plt Count 245 K/uL (152-406) 12/03/20 05:34 PT 12.5 SECONDS (9.5-12.5) 11/26/20 05:22 INR 1.09 11/26/20 05:22 Sodium 143 mmol/L (136-145) 12/04/20 05:32 Potassium 3.8 mmol/L (3.5-5.1) 12/04/20 05:32 BUN 14 mg/dL (7-18) 12/04/20 05:32 Creatinine 0.61 mg/dL (0.55-1.3) 12/04/20 05:32 Glucose 100 mg/dL (74-106) 12/04/20 05:32 Phosphorus 2.9 mg/dL (2.5-4.9) 12/03/20 05:34 Magnesium 2.0 mg/dL (1.8-2.4) 12/03/20 05:34 Total Bilirubin 1.5 mg/dL (0.2-1.0) H 11/26/20 05:22 AST 50 U/L (15-37) H 11/26/20 05:22 ALT 86 U/L (12-78) H 11/26/20 05:22 Alkaline Phosphatase 103 U/L (45-117) 11/26/20 05:22 Home Medications: Enoxaparin Sodium [Lovenox 40 MG INJ*] 40 mg SQ DAILY #30 syr 12/04/20 Hydrocodone 5/APAP 325 [[place] 5/325*] 1 tab PO Q6H PRN #30 tab 12/04/20 Nitrofuran Macro [Macrobid*] 100 mg PO BIDWM #10 cap 12/04/20 New Medications: Enoxaparin Sodium [Lovenox 40 MG INJ*] 40 mg SQ DAILY #30 syr Nitrofuran Macro [Macrobid*] 100 mg PO BIDWM #10 cap Hydrocodone 5/APAP 325 [[place] 5/325*] 1 tab PO Q6H PRN #30 tab PRN Reason: Pain Scale 5-7 (Moderate) Diet: Regular Activity: Weight bearing as tolerated Followup: Po Montes De Oca MD [ACTIVE - CAN ADMIT] - NONE,NONE [Primary Care Provider] - Time spent managing pt's care (in minutes): 40
[2020-12-04 14:10] VITALS: BP 133/60; TEMP 98
== END 2020-12-04 13:49 | DRG 552 ==
LOC: ER 13:39 → ERHOLD 16:38 → 2ND 18:02
PROVIDERS: ADMIT Hospitalist; ATTEND Internal Medicine
DX: S32.10XA Unspecified fracture of sacrum, initial encounter for closed fracture (principal); N30.00 Acute cystitis without hematuria; S32.009A Unspecified fracture of unspecified lumbar vertebra, initial encounter for closed fracture; W19.XXXA Unspecified fall, initial encounter; F01.50 Vascular dementia, unspecified severity, without behavioral disturbance, psychotic disturbance, mood disturbance, and anxiety; K70.9 Alcoholic liver disease, unspecified; B96.20 Unspecified Escherichia coli [E. coli] as the cause of diseases classified elsewhere; Z20.828 Contact with and (suspected) exposure to other viral communicable diseases
CPT/HCPCS: 36415; 70450; 71045; 72131; 72148; 72170; 76705; 80048; 80053; 81003; 81015; 83735; 84100; 84132; 84145; 84439; 84443; 85025; 85610; 86140; 87077; 87086; 87088; 87186; 94760; 97110; 97161; 97530; 99285; J0696; J1650; J7030; U0003

== ENCOUNTER 2021-05-25 06:48 | Emergency (ER) | payer OTHER ==
--- NOTE | 2021-05-25 07:40 | RAD REPORT ---
EXAM DESCRIPTION: CT - [id number] - 05/25/2021 7:23 am CLINICAL HISTORY: Trauma, head and neck injury. fall COMPARISON: [id number] dated 02/17/2010; CTFACIAL BONES W MPR dated 02/17/2010; HEAD BRAIN W O CONTRAST dated 02/17/2010 TECHNIQUE: Axial 5 mm thick images of the head were obtained. Axial 2 mm thick images of the cervical spine were obtained with sagittal and coronal reconstruction images generated and reviewed. All CT scans are performed using dose optimization technique as appropriate and may include automated exposure control or mA/KV adjustment according to patient size. FINDINGS: CT HEAD WITHOUT CONTRAST: Moderate chronic small vessel ischemic changes. Cerebral atrophy. Age indeterminate right basal gangl ia lacunar infarct. Intracranial atherosclerosis. No acute intracranial hemorrhage. No mass effect or midline shift. The paranasal sinuses and mastoids are clear.The calvarium is intact. CT CERVICAL SPINE WITHOUT CONTRAST: No fracture or subluxation.No prevertebral soft tissues swelling is identified. Multilevel cervical s pondylosis with varying degrees of neural foraminal narrowing. IMPRESSION: No acute intracranial hemorrhage or skull fracture. Age-indeterminate but favored remote right basal ganglia lacunar infarct. No acute fracture or traumatic malalignment of the cervical spine.
--- NOTE | 2021-05-25 08:20 | RAD REPORT ---
EXAM DESCRIPTION: RAD - Pelvis - 05/25/2021 8:08 am CLINICAL HISTORY: fall COMPARISON: Pelvis dated 11/25/2020; Wrist Right 3 View dated 05/25/2021 FINDINGS: No acute fracture. No malalignment. Moderate bilateral acetabular degenerative changes. Pe ripheral vascular calcifications. Moderate stool in the rectum. Probably subacute left obturator ring fractures. IMPRESSION: No acute pelvic fractures identified. Subacute appearing healing obturator ring fracture s on the left noted.
--- NOTE | 2021-05-25 08:22 | RAD REPORT ---
EXAM DESCRIPTION: RAD - Wrist Right 3 View - 05/25/2021 8:08 am CLINICAL HISTORY: fall COMPARISON: No comparisons FINDINGS: No acute fracture. No malalignment. Radiocarpal and ulnar carpal joint space narrowing. No nspecific cystic changes in the lunate likely related to degenerative changes. IMPRESSION: No acute osseous abnormality involving the right wrist.
[2021-05-25] MEDS ORDERED: TETANUS & DIPHTHERIA TOX,ADULT 0.5 ML VIAL ONE (09:07)
--- NOTE | 2021-05-25 09:15 | ER ---
Nurse's Notes [facility] Name: Felix Rangel Age: 75 yrs Sex: Male : 1945 Arrival Date: 05/25/2021 Time: 06:50 Bed 5 Private MD: Diagnosis: Fall on same level, unspecified;Abrasion of right forearm;Abrasion of lower leg Presentation: 05/25 07:11 Chief complaint: Patient states: Tripped on raised ledge of rachele at 0330 this ll1 morning. Skin tears to R arm, and reports buttocks pain. Both knees have abrasions "from crawling" on the floor after the fall. No LOC or head injury. Coronavirus screen: Vaccine status: Patient reports receiving the 2nd dose of the covid vaccine. Client denies travel out of the [place] in the last 14 days. At this time, the client does not indicate any symptoms associated with coronavirus-19. Ebola Screen: Patient denies travel to an Ebola-affected area in the 21 days before illness onset. Initial Sepsis Screen: Does the patient have a suspected source of infection? Yes: Skin breakdown/wound. Risk Assessment: Do you want to hurt yourself or someone else? Patient reports no desire to harm self or others. Onset of symptoms was May 25, 2021. 07:11 Method Of Arrival: Wheelchair ll1 07:11 Acuity: TARIQ 3 ll1 09:29 Initial Sepsis Screen: Does the patient meet any 2 criteria? No. Patient's initial ap3 sepsis screen is negative. Historical: - Allergies: 07:10 No Known Allergies; ll1 - PMHx: 07:10 Hypertensive disorder; blockage L carotid; ll1 - Immunization history:: Client reports receiving the 2nd dose of the Covid vaccine. - Social history:: Smoking status: Patient/guardian denies using tobacco, the patient reports quitting approximately 20 years ago. Screenin:52 Abuse screen: Denies threats or abuse. Nutritional screening: No deficits noted. ap3 Tuberculosis screening: No symptoms or risk factors identified. Fall Risk Fall in past 12 months (25 points). Secondary diagnosis (15 points) impaired mobility, No IV (0 pts). Ambulatory Aid- None/Bed Rest/Nurse Assist (0 pts). Gait- Impaired (20 pts.). Mental Status- Oriented to own ability (0 pts). Total Oconnor Fall Scale indicates High Risk Score (45 or more points). Fall prevention measures have been instituted. Side Rails Up X 2 Placed Close to Nursing Station Frequent Obs/Assessments Occuring Family Present and informed to notify staff if the need to leave the bedside As available patient and family educated on Fall Prevention Program and Strategies. Assessment: 07:50 General: Appears in no apparent distress. Behavior is calm, cooperative. Pain: Denies ap3 pain. Neuro: Level of Consciousness is awake, alert, obeys commands, Oriented to person, place, time, situation. Cardiovascular: Patient's skin is warm and dry. Respiratory: Airway is patent. Derm: Wound noted right arm, left arm and left leg. Injury Description: fall from standing. 09:00 Reassessment: Patient and/or family updated on plan of care and expected duration. Pain ap3 level reassessed. Patient is alert, oriented x 3, equal unlabored respirations, skin warm/dry/pink. 09:09 Reassessment: Wound care completed to chris arms and chris knees per PA. Wound care to: 1 aa5 skin tear to right elbow, 1 skin tear to right upper arm, 1 small skin tears to left FA, and multiple abrasions to chris knees cleaned with saline, dressed with Neosporin/nonadherent dressing/and Tegaderm, pt tolerated well. . Vital Signs: 07:11 Weight 75.75 kg; Height 5 ft. 10 in. (177.80 cm); ll1 07:51 BP 152 / 102; Pulse 96; Resp 18; Temp 97.6(TE); Pulse Ox 97% on R/A; ap3 08:12 BP 91 / 63; Pulse 77; Pulse Ox 98% on R/A; ap3 09:00 BP 101 / 70; Pulse 92; Pulse Ox 99% on R/A; ap3 07:11 Body Mass Index 23.96 (75.75 kg, 177.80 cm) ll1 ED Course: 06:50 Patient arrived in ED. wm 07:01 Dylan Brown PA is PHCP. chepem 07:02 Jerrod De La Rosa MD is Attending Physician. jmm 07:10 Arm band placed on Patient placed in an exam room, on a stretcher. ll1 07:13 Triage completed. ll1 07:21 Dulce Millan is Primary Nurse. kc4 07:23 CT Head C Spine In Process Unspecified. EDMS 07:52 Patient has correct armband on for positive identification. Bed in low position. Call ap3 light in reach. Side rails up X2. Adult w/ patient. Pulse ox on. Sitter at bedside. Door closed. Noise minimized. Warm blanket given. 08:08 Pelvis XRAY In Process Unspecified. EDMS 08:08 Wrist Right 3 View XRAY In Process Unspecified. EDMS 09:29 Patient did not have IV access during this emergency room visit. ap3 09:29 No provider procedures requiring assistance completed. ap3 Administered Medications: 08:45 Drug: Tetanus-Diphtheria Toxoid Adult 0.5 ml {Steel Barrel [employer]amer: [employer]. Exp: aa5 12/08/2022. Lot #: [id number]. } Route: IM; Site: right deltoid; 09:23 Follow up: Response: No adverse reaction aa5 Outcome: 09:14 Discharge ordered by . [facility] 09:29 Discharged to home via wheelchair, with family. ap3 09:29 Condition: good 09:29 Discharge instructions given to patient, family, Instructed on discharge instructions, follow up and referral plans. Demonstrated understanding of instructions, follow-up care. 09:39 Patient left the ED. mh5 Signatures: Dispatcher [employer] EDMS Dylan Brown PA PA jmm Calderon, Audri, RN RN yaw5 Regina Dickerson 5 Andree Givens RN RN ap3 Reuben Hwang RN RN 1 Heather Loaiza Dulce Millan kc4
--- NOTE | 2021-05-25 09:15 | EDPHYS ---
Physician Documentation [facility] Name: Felix Rangel Age: 75 yrs Sex: Male : 1945 Arrival Date: 05/25/2021 Time: 06:50 Bed 5 Private MD: ED Physician Jerrod De La Rosa HPI: 05/25 08:27 This 75 yrs old Male presents to ER via Wheelchair with complaints of Fall jmm Injury. 08:27 Details of fall: The patient fell from an upright position. Onset: The symptoms/episode jmm began/occurred acutely. Associated injuries: The patient sustained. Patient complains of pain to his buttocks and right wrist after tripping from a standing position. Historical: - Allergies: 07:10 No Known Allergies; ll1 - PMHx: 07:10 Hypertensive disorder; blockage L carotid; ll1 - Immunization history:: Client reports receiving the 2nd dose of the Covid vaccine. - Social history:: Smoking status: Patient/guardian denies using tobacco, the patient reports quitting approximately 20 years ago. ROS: 08:27 Constitutional: Negative for fever, chills, and weight loss, Cardiovascular: Negative jmm for chest pain, palpitations, and edema, Respiratory: Negative for shortness of breath, cough, wheezing, and pleuritic chest pain. 08:27 MS/extremity: Positive for pain. 08:27 All other systems are negative. Exam: 08:27 Head/Face: atraumatic. Eyes: EOMI, no conjunctival erythema appreciated ENT: Moist jmm Mucus Membranes Neck: Trachea midline, Supple Chest/axilla: Normal chest wall appearance and motion. Cardiovascular: Regular rate and rhythm. No edema appreciated Respiratory: Normal respirations, no respiratory distress appreciated Abdomen/GI: Non distended, soft Back: Normal ROM 08:27 Constitutional: The patient appears in no acute distress, alert, awake. 08:27 Skin: injury, abrasion(s), right wrist, knees bilaterally. 08:27 Neuro: Orientation: is normal, Mentation: is normal, Memory: is normal. 08:27 Psych: Behavior/mood is pleasant, cooperative. Vital Signs: 07:11 Weight 75.75 kg; Height 5 ft. 10 in. (177.80 cm); ll1 07:51 BP 152 / 102; Pulse 96; Resp 18; Temp 97.6(TE); Pulse Ox 97% on R/A; ap3 08:12 BP 91 / 63; Pulse 77; Pulse Ox 98% on R/A; ap3 09:00 BP 101 / 70; Pulse 92; Pulse Ox 99% on R/A; ap3 07:11 Body Mass Index 23.96 (75.75 kg, 177.80 cm) ll1 MDM: 07:06 Patient medically screened. [facility] 08:30 Data reviewed: vital signs, nurses notes. Counseling: I had a detailed discussion with gustabo the patient and/or guardian regarding: the historical points, exam findings, and any diagnostic results supporting the discharge/admit diagnosis, radiology results, the need for outpatient follow up, to return to the emergency department if symptoms worsen or persist or if there are any questions or concerns that arise at home. 05/25 07:07 Order name: Pelvis XRAY; Complete Time: 08:23 [facility] 05/25 07:07 Order name: CT Head C Spine; Complete Time: 07:44 [facility] 05/25 07:07 Order name: Wrist Right 3 View XRAY; Complete Time: 08:23 [facility] 05/25 08:27 Order name: Wound Care; Complete Time: 09:09 [facility] Administered Medications: 08:45 Drug: Tetanus-Diphtheria Toxoid Adult 0.5 ml {Leather Skinner: [employer]. Exp: aa5 12/08/2022. Lot #: [id number]. } Route: IM; Site: right deltoid; 09:23 Follow up: Response: No adverse reaction aa5 Disposition: 05/26 04:43 Co-signature as Attending Physician, Jerrod De La Rosa MD. mh7 Disposition Summary: 05/25/21 09:14 Discharge Ordered Location: Home jm Condition: Stable jm Diagnosis - Fall on same level, unspecified jmm - Abrasion of right forearm jmm - Abrasion of lower leg jm Followup: [facility] - With: Private Physician - When: 2 - 3 days - Reason: Recheck today's complaints, Continuance of care, Re-evaluation by your physician Discharge Instructions: - Discharge Summary Sheet jmm - Abrasion jmm - Fall Prevention in the Home, Adult [facility] Forms: - Medication Reconciliation Form [facility] - Thank You Letter jmm - Antibiotic Education jmm - Prescription Opioid Use [facility] Signatures: Dispatcher [employer] Dylan Sorto PA PA jmm Calderon, Audri RN RN aa5 Reuben Hwang RN RN ll1 Jerrod De La Rosa MD MD mh7
[2021-05-25 09:45] VITALS: TEMP 97.6
[2021-05-25 09:48] VITALS: BP 101/70; O2SAT 99
== END 2021-05-25 09:39 | disposition home or self-care (01) ==
LOC: ER 06:48
DX: S50.811A Abrasion of right forearm, initial encounter (principal); S80.812A Abrasion, left lower leg, initial encounter; W01.0XXA Fall on same level from slipping, tripping and stumbling without subsequent striking against object, initial encounter; I10 Essential (primary) hypertension; Z23 Encounter for immunization
CPT/HCPCS: 70450; 72125; 72170; 90471; 90714; 99284

== ENCOUNTER → 2021-05-25 | Day surgery (SDC) | payer OTHER ==
[2021-05-24 11:00] LABS: Absolute Lymphocytes (CBC) 1.9 K/uL (0.7-4.9); Hematocrit 49.6 % (39.6-49.0); Lymphocytes % 18.1 % (15.3-44.8); MPV 8.3 fL (7.6-11.3); RBC Red Blood Cell Count 5.28 M/uL (4.33-5.43)
[2021-05-24 11:13] LABS: Protime INR 1.03
[2021-05-24 11:14] LABS: BUN Blood Urea Nitrogen 12 mg/dL (7-18); Bicarbonate 29 mmol/L (21-32); Glucose Level 123 mg/dL (74-106); Potassium 3.9 mmol/L (3.5-5.1); Sodium Level 144 mmol/L (136-145)
--- NOTE | 2021-05-24 11:38 | RAD REPORT ---
EXAM DESCRIPTION: RAD - Chest Pa And Lat (2 Views) - 05/24/2021 11:18 am CLINICAL HISTORY: PRE OP, pending heart catheterization COMPARISON: Portable November 25 TECHNIQUE: Frontal and lateral views of the chest were obtained. FINDINGS: The lungs are clear of mass or consolidation. No new or enlarging mediastinal or hilar mas s. Chronic interstitial lung pattern matches comparison. Heart size is normal and central vasculatu re is within normal limits. No pleural effusion or pneumothorax seen. No acute bony finding noted. No aortic abnormality. IMPRESSION: No acute cardiopulmonary process. No significant change from comparison study.
[2021-05-24 12:17] LABS: Blood Morphology Comment NOT SEEN (NOT SEEN); Platelet Estimate ADEQ; Platelets, Giant NOTED; White Blood Cell Scan OK (OK)
== END ==
LOC: CCL 05:37
DX: I67.9 Cerebrovascular disease, unspecified (principal); I48.91 Unspecified atrial fibrillation; R01.1 Cardiac murmur, unspecified; I49.3 Ventricular premature depolarization; Z20.822 Contact with and (suspected) exposure to COVID-19
CPT/HCPCS: 93005; 85025; 80048; 36415; 85610; 85730; 71046; U0003

== ENCOUNTER 2021-06-11 13:36 | Inpatient (IN) | payer OTHER ==
--- OUTSIDE RECORDS SUMMARY | 2021-06-11 13:39 | XMS REPORT | Continuity of Care Document ---
:1945 Author Organization [facility] t Address [address] [place] [address] [place] [id number] Care Team Providers Name Role Phone Unavailable Unavailable Unavailable Problems This patient has no known problems. Allergies, Adverse Reactions, Alerts This patient has no known allergies or adverse reactions. Medications This patient has no known medications. Procedures This patient has no known procedures. Results This patient has no known results.
[2021-06-11 14:15] LABS: Urine Blood Negative (Negative); Urine Glucose Negative (Negative); Urine Protein Negative (Negative); Urine Specific Gravity 1.025 (1.005-1.030); Urine pH 5.5 (5.0-7.0)
[2021-06-11] MEDS ORDERED: CEFTRIAXONE 1000 MG/VIAL ONE (14:48)
[2021-06-11] MEDS ORDERED: NA CHLORIDE 0.9% 1,000 ML ONE (14:48)
[2021-06-11 14:55] LABS: Absolute Lymphocytes (CBC) 1.6 K/uL (0.7-4.9); Basophils % 0.8 % (0-1.3); Hematocrit 39.5 % (39.6-49.0); Lymphocytes % 8.3 % (15.3-44.8); MPV 8.2 fL (7.6-11.3); RBC Red Blood Cell Count 4.17 M/uL (4.33-5.43)
[2021-06-11 15:07] LABS: Urine Bacteria LOADED /HPF (NONE SEEN); Urine RBC <5 /HPF (NONE SEEN)
[2021-06-11 15:07] LABS: BUN Blood Urea Nitrogen 21 mg/dL (7-18); Bicarbonate 30 mmol/L (21-32); Glucose Level 115 mg/dL (74-106); Potassium 3.5 mmol/L (3.5-5.1); Sodium Level 142 mmol/L (136-145)
[2021-06-11 15:09] LABS: Protime INR 1.21
--- NOTE | 2021-06-11 15:35 | ER ---
Nurse's Notes [facility] Name: Felix Rangel Age: 75 yrs Sex: Male : 1945 Arrival Date: 06/11/2021 Time: 13:40 Bed 17 Private MD: Diagnosis: UTI/ Urinary tract infection, site not specified;Delirium due to known physiological condition;Dehydration;Effusion, left knee;Effusion, right knee Presentation: 06/11 13:40 Chief complaint: EMS states: Presents to ED via [facility], patient transferred sl2 from home - lives with - chief c/o bilateral leg pain - as well as left knee pain. Patient fell 1 week ago and has not been able to ambulate secondary to severe pain. Patients family c/o foul smelling urine and requests to r/o UTI - however patient denies dysuria or urinary frequency. Coronavirus screen: Vaccine status: Patient reports receiving the 2nd dose of the covid vaccine. Ebola Screen: Patient negative for fever greater than or equal to 101.5 degrees Fahrenheit, and additional compatible Ebola Virus Disease symptoms Patient denies exposure to infectious person. Patient denies travel to an Ebola-affected area in the 21 days before illness onset. No symptoms or risks identified at this time. Initial Sepsis Screen: Does the patient meet any 2 criteria? No. Patient's initial sepsis screen is negative. Does the patient have a suspected source of infection? No. Patient's initial sepsis screen is negative. Risk Assessment: Do you want to hurt yourself or someone else? Patient reports no desire to harm self or others. Onset of symptoms is unknown. 13:40 Method Of Arrival: EMS: [facility] sl2 13:40 Acuity: TARIQ 2 sl2 Triage Assessment: 13:49 General: Appears uncomfortable, obese, unkempt, Behavior is calm, cooperative, sl2 appropriate for age. Pain: Complains of pain in right leg and left leg, left knee Pain does not radiate. Pain currently is 8 out of 10 on a pain scale. at worst was 10 out of 10 on a pain scale. Quality of pain is described as burning, aching, sharp, Pain began gradually, 1 week ago Is continuous, Alleviated by rest, Aggravated by increased activity, repositioning, weight bearing, Noted to be grimacing, resistant to movement, Also complains of decreased appetite. EENT: No deficits noted. Neuro: No deficits noted. Level of Consciousness is awake, alert, obeys commands, Oriented to person, place, time, situation, Appropriate for age. Cardiovascular: No deficits noted. Capillary refill Rhythm is regular. Respiratory: No deficits noted. Airway is patent Trachea midline Respiratory effort is even, labored, Respiratory pattern is regular, symmetrical. GI: Abdomen is round obese, Bowel sounds present X 4 quads. Abd is soft and non tender X 4 quads. : Reports foul smelling urine. Derm: No deficits noted. Musculoskeletal: Reports pain in right leg and left leg, left knee. 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 - Social history:: Smoking status: unknown. - Family history:: not pertinent. - Hospitalizations: : No recent hospitalization is reported. Screenin:45 Abuse screen: Denies threats or abuse. Nutritional screening: No deficits noted. tw2 Tuberculosis screening: No symptoms or risk factors identified. Fall Risk Secondary diagnosis (15 points) impaired mobility. Assessment: 17:20 Derm: Skin is fragile, is thin, with poor turgor has skin tears on bilateral upper sl2 extremities Skin is dry, Skin is pink, warm \\T\\ dry. Skin temperature is warm Wound noted pelvis, back of left arm, back of right arm, posterior chest, back of left leg, back of right leg and back Other: escoriation and skin tears in various stages of healing with scabbing noted to aforementioned areas. 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 17:20 Musculoskeletal: Reports. sl2 17:40 Reassessment: Bed bath given - patient has severe dry and flaky skin - multiple sl2 excoriations and skin tears noted to bilateral upper and lower extremities and back in various stages of healing with scabbing noted. Skin has poor turgor. Stage 1 pressure ulcer noted to gluteal folds and coccyx. Severe fungal ulceration noted to mons penis, posterior aspect of penile shaft and testicles, EDP Dr Zarate called to bedside for assessment of wound. Dry sterile dressing placed to skin tear to left upper extremity. 19:55 Reassessment: Patient appears in no apparent distress at this time. General: Appears in cc4 no apparent distress. Behavior is calm, cooperative. Pain: Denies pain. Neuro: No deficits noted. Level of Consciousness is awake, alert, obeys commands, Oriented to person, place, situation. Derm: Skin has skin tears on Multiple generalized hemorrhagic areas with multiple skin tears noted of skin; no active bleeding. Musculoskeletal: Capillary refill < 3 seconds, Range of motion: limited in all extremities, BLE with edema noted bilateral knees. # 20 g saline lock noted intact right FA with no s/sx's of infiltration noted of site.Report telephoned to EDER Matias OF med-surg \\T\\ transported via stretcher to # 216; NAD. Vital Signs: 13:40 BP 115 / 68; Pulse 93; Resp 18; Temp 98.4(O); Pulse Ox 97% on R/A; sl2 13:45 BP 115 / 68; Pulse 97; Resp 18; Temp 97.9(TE); Pulse Ox 97% on R/A; tw2 14:20 BP 102 / 66; Pulse 85; Resp 18; Pulse Ox 97% on R/A; sl2 15:00 BP 112 / 69; Pulse 94; Resp 18; Pulse Ox 97% on R/A; sl2 16:00 BP 106 / 66; Pulse 87; Resp 18; Pulse Ox 97% on R/A; sl2 17:00 BP 107 / 70; Pulse 88; Resp 18; Temp 98.6; Pulse Ox 100% on R/A; sl2 18:15 BP 102 / 58; Pulse 83; Resp 18; Temp 98.4; Pulse Ox 97% on R/A; sl2 18:40 BP 124 / 57; Pulse 82; Resp 18; Pulse Ox 97% on R/A; sl2 19:30 BP 101 / 59; Pulse 90; Resp 20; Temp 99.4; Pulse Ox 96% on R/A; cc4 ED Course: 13:40 Patient arrived in ED. 5 13:40 Virginia Nicholson, RN is Primary Nurse. sl2 13:42 Aurelio Selby MD is Attending Physician. rn 13:42 Patient has correct armband on for positive identification. Bed in low position. Call 5 light in reach. Side rails up X2. Pillow given. graduate student instructor on. Pulse ox on. NIBP on. 13:48 Triage completed. sl2 13:49 Arm band placed on. sl2 14:04 COVID-19 SARS RT PCR (Document "Date of Onset" if Symptomatic) Sent. [facility] 14:04 COVID swab sent to lab. [facility] 14:18 Urine Dipstick-Ancillary Sent. [facility] 14:19 Urine Culture Sent. [facility] 14:19 Urine Microscopic Only Sent. [facility] 14:30 Initial lab(s) drawn, by sc, sent to lab. First set of blood cultures drawn by sc, 2 Second set of blood cultures drawn by sc, Urine collected: clean catch specimen, clear, tea colored. Inserted saline lock: 20 gauge in right forearm, using aseptic technique. 15:33 Abrahan Fall MD is Hospitalizing Provider. rn 16:14 XRAY Knee LEFT 3 view In Process Unspecified. EDMS 16:14 XRAY Knee RIGHT 3 view In Process Unspecified. EDMS 16:15 XRAY Ankle LEFT 3 view In Process Unspecified. EDMS 16:15 XRAY Ankle RIGHT 3 view In Process Unspecified. EDMS 18:29 No provider procedures requiring assistance completed. sl2 19:55 Patient admitted, IV remains in place. cc4 Administered Medications: 14:34 Drug: NS 0.9% 1000 ml Route: IV; Rate: 1000 ml; Site: right forearm; sl2 17:07 Follow up: Response: No adverse reaction; IV Status: Completed infusion; IV Intake: sl2 1000ml 14:45 Drug: Rocephin (cefTRIAXone) 1 grams Route: IV; Rate: calculated rate; Site: right sl2 forearm; 17:07 Follow up: Response: No adverse reaction; IV Status: Completed infusion; IV Intake: [id number] Intake: 17:07 IV: 10ml; Total: 10ml. sl2 17:07 IV: 1000ml; Total: 1010ml. sl2 Outcome: 15:34 Decision to Hospitalize by Provider. rn 19:55 Admitted to Med/surg accompanied by tech, via stretcher, room 216, Report called to cc4 EDER Matias. 19:55 Condition: stable 19:55 Instructed on the need for admit, Demonstrated understanding of instructions. 20:04 Patient left the ED. em Signatures: Dispatcher [employer] Lico Kennedy, RN RN Aurelio Carroll MD MD rn Alee Maldonado, RN RN tw2 Regina Dickerson [facility] Sabine Hernandez RN RN cc4 Virginia Nicholson, RN RN sl2
--- NOTE | 2021-06-11 15:35 | EDPHYS ---
Physician Documentation [facility] Name: Felix Rangel Age: 75 yrs Sex: Male : 1945 Arrival Date: 06/11/2021 Time: 13:40 Bed 17 Private MD: ED Physician Aurelio Selby HPI: 06/11 14:35 This 75 yrs old Male presents to ER via EMS with complaints of Altered mental rn status. 14:35 The patient presents with confusion, hallucinations. Onset: The symptoms/episode rn began/occurred at an unknown time. Possible causes: unknown. Associated signs and symptoms: Pertinent positives: confusion, weakness, Pertinent negatives: abdominal pain, chest pain, headache, seizure. Current symptoms: In the emergency department the patient's symptoms are unchanged from the initial presentation. The patient has experienced similar episodes in the past. The patient has not recently seen a physician. Daughter states patient with altered mental status and hallucinating for the last few days. Has seen spiders crawling on him and on the ceiling. History of recurrent UTIs. No fever. No head injury. States fell about 2 weeks ago and has been staying in bed since then due to bilateral knee pain. Also not eating or drinking much lately.. 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 - Social history:: Smoking status: unknown. - Family history:: not pertinent. - Hospitalizations: : No recent hospitalization is reported. ROS: 14:35 Constitutional: Negative for fever, chills, and weight loss, Eyes: Negative for injury, rn pain, redness, and discharge, Neck: Negative for injury, pain, and swelling, Cardiovascular: Negative for chest pain, palpitations, and edema, Respiratory: Negative for shortness of breath, cough, wheezing, and pleuritic chest pain, Abdomen/GI: Negative for abdominal pain, nausea, vomiting, diarrhea, and constipation, Back: Negative for injury and pain, : + strong odor to urine MS/Extremity: + pain to bilateral knees Skin: Negative for injury, rash, and discoloration, Neuro: Negative for headache, numbness, tingling, and seizure. Exam: 14:35 Constitutional: This is a well developed, well nourished patient who is awake, alert, rn and in no acute distress. Head/Face: Normocephalic, atraumatic. Eyes: Periorbital areas with no swelling, redness, or edema. ENT: dry MM Cardiovascular: Regular rate and rhythm. No pulse deficits. Respiratory: No increased work of breathing, no retractions or nasal flaring. Abdomen/GI: Soft, non-tender Skin: Warm, dry MS/ Extremity: Pulses equal, no cyanosis. Neurovascular intact. Painful ROM bilateral knees with bilateral knee effusions Vital Signs: 13:40 BP 115 / 68; Pulse 93; Resp 18; Temp 98.4(O); Pulse Ox 97% on R/A; sl2 13:45 BP 115 / 68; Pulse 97; Resp 18; Temp 97.9(TE); Pulse Ox 97% on R/A; tw2 14:20 BP 102 / 66; Pulse 85; Resp 18; Pulse Ox 97% on R/A; sl2 15:00 BP 112 / 69; Pulse 94; Resp 18; Pulse Ox 97% on R/A; sl2 16:00 BP 106 / 66; Pulse 87; Resp 18; Pulse Ox 97% on R/A; sl2 17:00 BP 107 / 70; Pulse 88; Resp 18; Temp 98.6; Pulse Ox 100% on R/A; sl2 18:15 BP 102 / 58; Pulse 83; Resp 18; Temp 98.4; Pulse Ox 97% on R/A; sl2 18:40 BP 124 / 57; Pulse 82; Resp 18; Pulse Ox 97% on R/A; sl2 19:30 BP 101 / 59; Pulse 90; Resp 20; Temp 99.4; Pulse Ox 96% on R/A; cc4 MDM: 13:42 Patient medically screened. rn 15:32 Differential Diagnosis: electrolyte abnormality, UTI, volume depletion. Data reviewed: rn vital signs, nurses notes, lab test result(s), and as a result, I will admit patient. Data interpreted: environmental monitoring specialist: rate is 94 beats/min, rhythm is normal sinus rhythm, regular, with no ectopy, Interpretation: normal rate, normal rhythm, Pulse oximetry: on room air is 97 %. Interpretation: normal. Counseling: I had a detailed discussion with the patient and/or guardian regarding: the historical points, exam findings, and any diagnostic results supporting the discharge/admit diagnosis, lab results, the need for further work-up and treatment in the hospital. Response to treatment: the patient's symptoms have mildly improved after treatment, and as a result, I will admit patient. Admission orders: after a detailed discussion of the patient's condition and case, the admit orders are written by me. 06/11 13:50 Order name: CBC with Diff; Complete Time: 15:30 06/11 13:50 Order name: Basic Metabolic Panel; Complete Time: 15:30 06/11 13:50 Order name: Protime (+inr); Complete Time: 15:30 06/11 13:50 Order name: Ptt, Activated; Complete Time: 15:30 06/11 13:50 Order name: Urine Culture 06/11 13:50 Order name: Urine Microscopic Only; Complete Time: 15:30 06/11 13:50 Order name: Procalcitonin; Complete Time: 17:29 06/11 13:50 Order name: Lactate; Complete Time: 15:30 06/11 13:50 Order name: Blood Culture Adult (2) 06/11 13:50 Order name: COVID-19 SARS RT PCR (Document "Date of Onset" if Symptomatic); Complete rn Time: 17:29 06/11 14:15 Order name: Urine Dipstick-Ancillary; Complete Time: 14:33 [facility] 06/11 14:15 Order name: Urine Dipstick-Ancillary [facility] 06/11 15:06 Order name: XRAY Knee LEFT 3 view; Complete Time: 17:29 06/11 19:41 Order name: Lactate Sepsis 2 HR Follow-up [facility] 06/11 13:50 Order name: IV Start; Complete Time: 14:44 06/11 13:50 Order name: Urine Dipstick-Ancillary (obtain specimen); Complete Time: 14:18 06/11 15:06 Order name: XRAY Knee RIGHT 3 view; Complete Time: 17:29 06/11 15:30 Order name: XRAY Ankle LEFT 3 view; Complete Time: 17:29 06/11 15:30 Order name: XRAY Ankle RIGHT 3 view; Complete Time: 17:29 rn 06/11 17:53 Order name: Physical Therapy Consult; Complete Time: 19:32 EDMS Administered Medications: 14:34 Drug: NS 0.9% 1000 ml Route: IV; Rate: 1000 ml; Site: right forearm; sl2 17:07 Follow up: Response: No adverse reaction; IV Status: Completed infusion; IV Intake: sl2 1000ml 14:45 Drug: Rocephin (cefTRIAXone) 1 grams Route: IV; Rate: calculated rate; Site: right sl2 forearm; 17:07 Follow up: Response: No adverse reaction; IV Status: Completed infusion; IV Intake: [id number] Disposition Summary: 06/11/21 15:34 Hospitalization Ordered Hospitalization Status: Inpatient Admission rn Provider: Abrahan Fall rn [facility] rn Condition: Stable rn Problem: new rn Symptoms: have improved rn Bed/Room Type: Standard rn Room Assignment: 216(06/11/21 19:24) cg Diagnosis - UTI/ Urinary tract infection, site not specified rn - Delirium due to known physiological condition rn - Dehydration rn - Effusion, left knee rn - Effusion, right knee rn Forms: - Medication Reconciliation Form rn - SBAR form rn Signatures: Dispatcher [employer] EDMS Aurelio Selby MD MD rn Garcia, Cindy, RN RN Sabine Villaseñor RN RN 4 Virginia Nicholson RN RN sl2 Corrections: (The following items were deleted from the chart) 19:24 15:34 rn cg
--- NOTE | 2021-06-11 17:11 | RAD REPORT ---
EXAM DESCRIPTION: RAD - Knee Right 3 View - 06/11/2021 4:14 pm CLINICAL HISTORY: Pain;Swelling COMPARISON: No comparisons FINDINGS: No fracture, dislocation or periosteal reaction.Moderately large joint effusion is present . There is significant lateral compartment narrowing with concavity to the lateral tibial plateau. Mo derately prominent lateral compartment marginal spurs are present. Mild medial compartment marginal s purring. There significant spurs along the margins of the patella. Meniscal and chondral calcificatio ns are present in the medial compartment. Dense arterial tree calcifications are present. No suspicious soft tissue finding. IMPRESSION: Severe right knee joint degenerative changes most pronounced in the lateral compartment. Moderate severity joint effusion. Clinical concerns for internal derangement or occult bony injury could be further assessed with MR im aging.
--- NOTE | 2021-06-11 17:12 | RAD REPORT ---
EXAM DESCRIPTION: RAD - Knee Left 3 View - 06/11/2021 4:14 pm CLINICAL HISTORY: Pain;Swelling COMPARISON: No comparisons FINDINGS: No fracture, dislocation or periosteal reaction.Moderate-sized joint effusion is present. Medial and lateral compartment narrowing is present with mild to moderate marginal spurs. There is co ncavity to the lateral tibial plateau. Compartmental degenerative changes are less pronounced than se en in the right knee. Patella marginal spurs are present. No soft tissue abnormality. IMPRESSION: Prominent multi compartment knee joint degenerative change with moderate size joint effu gill. No acute findings seen. Clinical concerns for internal derangement or occult bony injury could be further assessed with MR im aging.
--- NOTE | 2021-06-11 17:19 | RAD REPORT ---
EXAM DESCRIPTION: RAD - Ankle Right 3 View - 06/11/2021 4:15 pm CLINICAL HISTORY: PAIN COMPARISON: No comparisons FINDINGS: No fracture, dislocation or periosteal reaction. Osteopenic changes are evident. Tibiotala r joint space is preserved. Degenerative marginal spurring changes are present around the ankle joint . No pathologic change. No significant soft tissue swelling. IMPRESSION: Right ankle osteopenic and degenerative changes with no acute finding.
--- NOTE | 2021-06-11 17:21 | RAD REPORT ---
EXAM DESCRIPTION: RAD - Ankle Left 3 View - 06/11/2021 4:15 pm CLINICAL HISTORY: PAIN COMPARISON: Ankle Right 3 View dated 06/11/2021 FINDINGS: No fracture, dislocation or periosteal reaction. No joint effusion seen. No joint space na rrowing. No significant degenerative changes seen around the ankle joint. Moderate-sized plantar spur is present. IMPRESSION: No acute left ankle finding. No significant degenerative change. Moderate-sized plantar spur.
--- NOTE | 2021-06-11 17:48 | P.HP ---
Certification for Inpatient Patient admitted to: Inpatient With expected LOS: >2 Midnights Patient will require the following post-hospital care: None Practitioner: I am a practitioner with admitting privileges, knowledge of patient current condition, hospital course, and medical plan of care. Services: Services provided to patient in accordance with Admission requirements found in Title 42 Section 412.3 of the Code of Federal Regulations Patient History Date of Service: 06/11/21 Reason for admission: Bilateral knee joint effusion; UTI; altered mental status History of Present Illness: This patient is a 75-year-old gentleman who came to the hospital with altered mental status. He was not feeling like himself and his brought him into the emergency room for further evaluation. In the emergency room patient had bilateral joint effusion. She also has a urinary tract infection. Patient is current on IV antibiotic therapy. Initial also needs arthrocentesis. Will probably do injections of long winter no purulent drainage. Patient be admitted to the hospital for further evaluation. Will get physical therapy evaluation as well. Allergies No Known Allergies Allergy (Verified 05/24/21 10:07) Home Medications: Enoxaparin Sodium [Lovenox 40 MG INJ*] 40 mg SQ DAILY #30 syr 12/04/20 Hydrocodone 5/APAP 325 [[place] 5/325*] 1 tab PO Q6H PRN #30 tab 12/04/20 Nitrofuran Macro [Macrobid*] 100 mg PO BIDWM #10 cap 12/04/20 - Past Medical/Surgical History Diabetic: No -: none -: R foot surgery - Family History Father Family History: Reviewed- Non-Contributory Mother Medical History: Hypertension - Social History Smoking Status: Never smoker Alcohol use: Yes CD- Drugs: No Review of Systems 10-point ROS is otherwise unremarkable Physical Examination - Vital Signs Temperature: 98 F Blood Pressure: 140/80 Pulse: 80 Respirations: 18 Pulse Ox (%): 96 - Physical Exam General: Alert, In no apparent distress, Oriented x3 HEENT: Atraumatic, PERRLA, Mucous membr. moist/pink, EOMI, Sclerae nonicteric Neck: Supple, 2+ carotid pulse no bruit, No LAD, Without JVD or thyroid abnormality Respiratory: Clear to auscultation bilaterally, Normal air movement Cardiovascular: Regular rate/rhythm, Normal S1 S2, No murmurs Gastrointestinal: Normal bowel sounds, Soft and benign, Non-distended, No tenderness Musculoskeletal: No clubbing, Swelling (bilateral knee), Tenderness (bilateral knee) Integumentary: No rashes Neurological: Normal speech, Normal tone, Sensation intact, Cranial nerves 3-12 intact, Normal affect, Abnormal gait, Abnormal strength Lymphatics: No axilla or inguinal lymphadenopathy - Studies Laboratory Data (last 24 hrs) 06/11/21 14:18: PT 14.0 H, INR 1.21, APTT 31.1 06/11/21 14:18: Sodium 142, Potassium 3.5, BUN 21 H, Creatinine 0.69, Glucose 115 H 06/11/21 14:18: WBC 19.70 H, Hgb 13.1 L, Hct 39.5 L, Plt Count 491 H Assessment & Plan - Problems (Diagnosis) (1) AMS (altered mental status) Current Visit: Yes Status: Acute (2) Bilateral knee effusions Current Visit: Yes Status: Acute (3) UTI (urinary tract infection) Current Visit: Yes Status: Acute (4) Toxic encephalopathy Current Visit: Yes Status: Acute - Plan 1. Continue with IV antibiotic 2. Monitor electrolytes 3. Orthopedic consultations if there is concern for septic effusion 4. Gentle IV hydration 5. Monitor CBC 6. Strict blood sugar monitoring 7. Pain control 8. Arthrocentesis in the morning 9. GI and DVT prophylaxis Discharge Plan: Home Plan to discharge in: Greater than 2 days - Advance Directives Does patient have a Living Will: No Does patient have a Durable POA for Healthcare: No - Code Status/Comfort Care Code Status Assessed: Yes Code Status: Full Code Critical Care: No Time Spent Managing PTS Care (In Minutes): 45
[2021-06-11] MEDS ORDERED: ACETAMINOPHEN 500 MG TAB PO PRN (17:49)
[2021-06-11] MEDS ORDERED: ONDANSETRON 4 MG/2 ML VIAL IV PRN (17:49)
[2021-06-11] MEDS ORDERED: HYDROCORTISONE SUC 100 MG INJ IV ONE (17:53)
[2021-06-11 20:51] VITALS: BMI 25.9
[2021-06-11] MEDS: NA CHLORIDE 0.9% 1,000 ML IV SCH (20:53)
[2021-06-11] MEDS: HYDROCORTISONE SUC 100 MG INJ IV SCH (20:53)
[2021-06-11] MEDS ORDERED: POTASSIUM 25 MEQ EFFERV TAB PO ONE (22:42)
[2021-06-11] MEDS: CEFTRIAXONE 1,000 MG in NA CHLORIDE 0.9% 50 ML IVPB SCH (23:12)
[2021-06-12 05:41] LABS: Absolute Lymphocytes (CBC) 1.5 K/uL (0.7-4.9); Basophils % 0.6 % (0-1.3); Hematocrit 28.1 % (39.6-49.0); Lymphocytes % 10.7 % (15.3-44.8); MPV 7.9 fL (7.6-11.3); RBC Red Blood Cell Count 2.99 M/uL (4.33-5.43)
[2021-06-12 06:05] LABS: ALT/SGPT 73 U/L (12-78); AST/SGOT 46 U/L (15-37); Albumin 1.3 g/dL (3.4-5.0); Alkaline Phosphatase 112 U/L (45-117); BUN Blood Urea Nitrogen 22 mg/dL (7-18); Bicarbonate 29 mmol/L (21-32); Glucose Level 101 mg/dL (74-106); Magnesium 2.1 mg/dL (1.8-2.4); NT PRO-BNP 294 pg/mL (<450); Potassium 3.7 mmol/L (3.5-5.1); Protein, Total 5.1 g/dL (6.4-8.2); Sodium Level 144 mmol/L (136-145)
[2021-06-12 06:15] LABS: Protime INR 1.26
[2021-06-12] MEDS ORDERED: POTASSIUM 25 MEQ EFFERV TAB PO ONE (06:25)
[2021-06-12] MEDS: NA CHLORIDE 0.9% 1,000 ML IV SCH ×2 (06:39→20:27)
[2021-06-12 08:49] LABS: Blood Morphology Comment NOT SEEN (NOT SEEN); Platelet Estimate ADEQ
[2021-06-12 08:53] LABS: Phosphorus 3.3 mg/dL (2.5-4.9)
[2021-06-12] MEDS: HYDROCORTISONE SUC 100 MG INJ IV SCH ×2 (09:22→20:26)
[2021-06-12] MEDS ORDERED: LIDOCAINE 1% MPF 5 ML VIAL IM ONE (10:08)
[2021-06-12] MEDS ORDERED: TRIAMCINOLONE ACETON 40 MG/ML VIAL IM ONE (10:30)
[2021-06-12 10:52] VITALS: O2SAT 97
[2021-06-12] MEDS: CEFTRIAXONE 1,000 MG in NA CHLORIDE 0.9% 50 ML IVPB SCH ×2 (11:26→21:53)
[2021-06-12] MEDS: ENOXAPARIN 40 MG/0.4 ML SQ SCH (17:35)
[2021-06-12] MEDS ORDERED: CEFTRIAXONE 1000 MG/VIAL ONE (21:44)
[2021-06-12] MEDS ORDERED: NA CHLORIDE 0.9% 50 ML ONE (21:46)
[2021-06-13] MEDS: HYDROCORTISONE SUC 100 MG INJ IV SCH ×2 (09:39→20:18)
[2021-06-13] MEDS: ENOXAPARIN 40 MG/0.4 ML SQ SCH (09:40)
[2021-06-13] MEDS ORDERED: NA CHLORIDE 0.9% 50 ML ONE (10:56)
[2021-06-13] MEDS ORDERED: CEFTRIAXONE 1000 MG/VIAL ONE (10:56)
[2021-06-13] MEDS: CEFTRIAXONE 1,000 MG in NA CHLORIDE 0.9% 50 ML IVPB SCH (10:59)
[2021-06-13] MEDS: NA CHLORIDE 0.9% 1,000 ML IV SCH ×2 (11:00→23:59)
[2021-06-13] MEDS ORDERED: TRIAMCINOLONE ACETON 40 MG/ML VIAL IM ONE (15:39)
[2021-06-13] MEDS ORDERED: LIDOCAINE 1% MPF 5 ML VIAL IM ONE (15:40)
[2021-06-13] MEDS: AMOX/K CLAV 875 MG TAB PO SCH (20:18)
[2021-06-14 04:45] LABS: ALT/SGPT 52 U/L (12-78); AST/SGOT 34 U/L (15-37); Albumin 1.3 g/dL (3.4-5.0); Alkaline Phosphatase 89 U/L (45-117); BUN Blood Urea Nitrogen 18 mg/dL (7-18); Bicarbonate 26 mmol/L (21-32); Bilirubin Total 0.6 mg/dL (0.2-1.0); Glucose Level 101 mg/dL (74-106); Magnesium 2.1 mg/dL (1.8-2.4); Phosphorus 3.1 mg/dL (2.5-4.9); Potassium 3.6 mmol/L (3.5-5.1); Protein, Total 4.8 g/dL (6.4-8.2); Sodium Level 143 mmol/L (136-145)
[2021-06-14] MEDS ORDERED: POTASSIUM CL SA 10 MEQ TAB PO ONE (04:55)
[2021-06-14] MEDS: AMOX/K CLAV 875 MG TAB PO SCH (09:39)
[2021-06-14] MEDS: HYDROCORTISONE SUC 100 MG INJ IV SCH (09:39)
[2021-06-14] MEDS: ENOXAPARIN 40 MG/0.4 ML SQ SCH (09:39)
--- NOTE | 2021-06-14 10:12 | P.PN ---
Subjective Date of Service: 06/12/21 Patient is doing well. Will proceed with aspiration of the left knee today. Continue with physical therapy and arranging for residential facility. Review of Systems 10-point ROS is otherwise unremarkable Physical Examination - Vital Signs Temperature: 97.1 F Blood Pressure: 125/63 Pulse: 58 Respirations: 20 Pulse Ox (%): 99 - Physical Exam General: Alert, In no apparent distress, Oriented x3 HEENT: Atraumatic, PERRLA, EOMI Neck: Supple, JVD not distended Respiratory: Diminished Cardiovascular: Regular rate/rhythm, Normal S1 S2, No murmurs Gastrointestinal: Normal bowel sounds, Soft and benign, Non-distended, No tenderness Musculoskeletal: No clubbing, Swelling, Erythema, Tenderness, Warmth Integumentary: No rashes Neurological: Normal speech, Normal tone, Sensation intact, Cranial nerves 3-12 intact, Abnormal gait, Abnormal strength - Studies Microbiology Data (last 24 hrs): 06/11/21 14:10 Clean Catch Urine [place] Count - Final >100,000 CFU/ML. 06/11/21 14:10 Clean Catch Urine - Final Escherichia Coli Gram Neg [facility] Medications List Reviewed: Yes Assessment & Plan - Problems (Diagnosis) (1) AMS (altered mental status) Current Visit: Yes Status: Acute (2) Bilateral knee effusions Current Visit: Yes Status: Acute (3) UTI (urinary tract infection) Current Visit: Yes Status: Acute (4) Toxic encephalopathy Current Visit: Yes Status: Acute - Plan Continue with plan of care as mentioned below: 1. Continue with IV antibiotic; neuro status has improved 2. Continue with Monitoring electrolytes 3. No evidence of septic joint. Most likely gouty arthropathy; IV steroids and lidocaine injection 4. Hep-Lock IV in the morning 5. Monitor CBC 6. Strict blood sugar monitoring 7. Pain control 8. GI and DVT prophylaxis Discharge Plan: Home Plan to discharge in: Greater than 2 days - Advance Directives Does patient have a Living Will: No Does patient have a Durable POA for Healthcare: No - Code Status/Comfort Care Code Status: Full Code Critical Care: No Time Spent Managing PTS Care (In Minutes): 35
--- NOTE | 2021-06-14 10:13 | P.OP ---
Preoperative diagnosis: Left knee joint effusion Postoperative diagnosis: Gouty arthropathy Primary procedure: Left knee arthrocentesis Anesthesia: 1% lidocaine Estimated blood loss: 0 Operative Technique: Left knee arthrocentesis Complications: None Fluids & blood products: 35 cc of joint effusion removed; clear Transferred to: Other (Bedside) Condition: Good
--- NOTE | 2021-06-14 10:15 | P.PN ---
Subjective Date of Service: 06/13/21 Right knee pain is improved. Plan to perform left knee arthrocentesis today. Patient denies any complaints. Review of Systems 10-point ROS is otherwise unremarkable Physical Examination - Vital Signs Temperature: 97.1 F Blood Pressure: 125/63 Pulse: 58 Respirations: 20 Pulse Ox (%): 99 - Physical Exam General: Alert, In no apparent distress HEENT: Atraumatic, PERRLA, EOMI Neck: Supple, JVD not distended Respiratory: Clear to auscultation bilaterally, Normal air movement Cardiovascular: Regular rate/rhythm, Normal S1 S2 Gastrointestinal: Normal bowel sounds, No tenderness Musculoskeletal: Swelling (Right knee effusion), Tenderness Integumentary: Other (Diffuse bruising) Neurological: Sensation intact, Cranial nerves 3-12 intact - Studies Microbiology Data (last 24 hrs): 06/11/21 14:10 Clean Catch Urine [place] Count - Final >100,000 CFU/ML. 06/11/21 14:10 Clean Catch Urine - Final Escherichia Coli Gram Neg [facility] Medications List Reviewed: Yes Assessment & Plan - Problems (Diagnosis) (1) AMS (altered mental status) Current Visit: Yes Status: Acute (2) Bilateral knee effusions Current Visit: Yes Status: Acute (3) UTI (urinary tract infection) Current Visit: Yes Status: Acute (4) Toxic encephalopathy Current Visit: Yes Status: Acute - Plan Continue with plan of care as mentioned below: 1. Continue with IV antibiotic; neuro status has improved 2. Continue with Monitoring electrolytes 3. Right knee arthrocentesis today 4. Hep-Lock IV in the morning 5. Monitor CBC 6. Strict blood sugar monitoring 7. Pain control 8. GI and DVT prophylaxis Discharge Plan: Home Plan to discharge in: Greater than 2 days - Advance Directives Does patient have a Living Will: No Does patient have a Durable POA for Healthcare: No - Code Status/Comfort Care Code Status: Full Code Critical Care: No Time Spent Managing PTS Care (In Minutes): 35
--- NOTE | 2021-06-14 10:17 | P.OP ---
Preoperative diagnosis: Right knee joint effusion Postoperative diagnosis: Right knee joint effusion-gouty arthropathy Primary procedure: right knee arthrocentesis Anesthesia: 1% lidocaine Estimated blood loss: 0 Operative Technique: Right knee arthrocentesis Complications: None Transferred to: Other (At bedside) Condition: Good
[2021-06-14 20:01] VITALS: BP 135/63; TEMP 98.6
--- NOTE | 2021-06-17 19:59 | P.DS ---
Discharge Date: 06/14/21 Disposition: TRANSFER TO SNF - MEDICAL Discharge Condition: GOOD Reason for Admission: Bilateral knee joint effusion; UTI; altered mental status - Problems (1) AMS (altered mental status) Status: Acute (2) Bilateral knee effusions Status: Acute (3) UTI (urinary tract infection) Status: Acute (4) Toxic encephalopathy Status: Acute Brief History of Present Illness: This patient is a 75-year-old gentleman who came to the hospital with altered mental status. He was not feeling like himself and his brought him into the emergency room for further evaluation. In the emergency room patient had bilateral joint effusion. She also has a urinary tract infection. Patient is current on IV antibiotic therapy. Initial also needs arthrocentesis. Will probably do injections of long winter no purulent drainage. Patient be admitted to the hospital for further evaluation. Will get physical therapy evaluation as well. Hospital Course: Patient is clinically doing well. Patient had bilateral arthrocentesis. Patient is feeling better and pain is improving. Continue with physical therapy. Patient needs outpatient follow with Orthopedic for surgery. Patient mentation is improved to and will continue with antibiotic therapy. Vital Signs/Physical Exam: Temp Pulse Resp BP Pulse Ox 98.6 F 90 16 135/63 94 06/14/21 12:00 06/14/21 12:00 06/14/21 12:00 06/14/21 12:00 06/14/21 12:00 General: Alert, In no apparent distress, Oriented x3 Laboratory Data at Discharge: WBC 13.90 K/uL (4.3-10.9) H D 06/12/21 05:08 Hgb 9.4 g/dL (13.6-17.9) L D 06/12/21 05:08 Hct 28.1 % (39.6-49.0) L D 06/12/21 05:08 Plt Count 313 K/uL (152-406) D 06/12/21 05:08 PT 14.5 SECONDS (9.5-12.5) H 06/12/21 05:08 INR 1.26 06/12/21 05:08 APTT 25.9 SECONDS (24.3-36.9) 06/12/21 05:08 Sodium 143 mmol/L (136-145) 06/14/21 03:58 Potassium 3.6 mmol/L (3.5-5.1) 06/14/21 03:58 BUN 18 mg/dL (7-18) 06/14/21 03:58 Creatinine 0.47 mg/dL (0.55-1.3) L 06/14/21 03:58 Glucose 101 mg/dL (74-106) 06/14/21 03:58 Phosphorus 3.1 mg/dL (2.5-4.9) 06/14/21 03:58 Magnesium 2.1 mg/dL (1.8-2.4) 06/14/21 03:58 Total Bilirubin 0.6 mg/dL (0.2-1.0) 06/14/21 03:58 AST 34 U/L (15-37) 06/14/21 03:58 ALT 52 U/L (12-78) 06/14/21 03:58 Alkaline Phosphatase 89 U/L (45-117) 06/14/21 03:58 Home Medications: Carvedilol [Coreg] 1 tab PO BID 06/12/21 Allopurinol 300 mg PO DAILY #30 tablet 06/14/21 Amox/Clavulanate [Augmentin 875-125 Tab*] 875 mg PO BID #14 tab 06/14/21 Colchicine [Colcrys *] 0.6 mg PO BID #20 tab 06/14/21 predniSONE [Prednisone*] 20 mg PO DAILY #7 tab 06/14/21 New Medications: Allopurinol 300 mg PO DAILY #30 tablet Amox/Clavulanate [Augmentin 875-125 Tab*] 875 mg PO BID #14 tab Colchicine [Colcrys *] 0.6 mg PO BID #20 tab predniSONE [Prednisone*] 20 mg PO DAILY #7 tab Physician Discharge Instructions: OK TO DC IV AND DC HOME FOLLOW-UP WITH PRIMARY CARE PROVIDER IN 1-2 WEEKS FOLLOW-UP WITH Orthopedic surgery in 2 weeks RETURN TO THE ER IF symptoms worsen CALL or TEXT DR. JUNE AT [phone] IF ANY QUESTIONS REGARDING HOSPITAL STAY. PLEASE CALL THE FLOOR AT [phone] IF ANY MEDICATION OR NURSING QUESTIONS. Diet: AHA Activity: Weight bearing as tolerated Followup: JULIA PORTER [Primary Care Provider] - Time spent managing pt's care (in minutes): 35
== END 2021-06-14 13:48 | DRG 689 ==
LOC: ER 13:36 → ERHOLD 17:49 → 2ND 19:31
PROVIDERS: ADMIT Hospitalist; ATTEND Hospitalist
PROC: 0S9D3ZX Drainage of Left Knee Joint, Percutaneous Approach, Diagnostic (ICD-10-PCS; principal; 2021-06-12)
PROC: 0S9C3ZX Drainage of Right Knee Joint, Percutaneous Approach, Diagnostic (ICD-10-PCS; 2021-06-13)
DX: N39.0 Urinary tract infection, site not specified (principal); G92.9 Unspecified toxic encephalopathy; B96.20 Unspecified Escherichia coli [E. coli] as the cause of diseases classified elsewhere; M10.9 Gout, unspecified; E86.0 Dehydration; Z20.822 Contact with and (suspected) exposure to COVID-19
CPT/HCPCS: 36415; 80048; 80053; 81003; 81015; 83605; 83735; 83880; 84100; 84145; 84439; 84443; 85025; 85610; 85730; 87040; 87070; 87077; 87086; 87088; 87186; 96365; 96366; 97110; 97161; 99285; J1650; J1720; J3301; J7030; U0003

== ENCOUNTER 2021-07-19 15:57 | Emergency (ER) | payer OTHER ==
--- OUTSIDE RECORDS SUMMARY | 2021-07-19 16:00 | XMS REPORT | Continuity of Care Document ---
:1945 Author Organization [facility] t Address [address] [place] [address] [place] [id number] Care Team Providers Name Role Phone Unavailable Unavailable Unavailable Problems This patient has no known problems. Allergies, Adverse Reactions, Alerts This patient has no known allergies or adverse reactions. Medications This patient has no known medications. Procedures This patient has no known procedures. Results This patient has no known results.
[2021-07-19] MEDS ORDERED: ACETAMINOPHEN 500 MG TAB ONE (16:55)
[2021-07-19] MEDS ORDERED: NA CHLORIDE 0.9% 1,000 ML ONE (17:04)
[2021-07-19 17:39] LABS: BUN Blood Urea Nitrogen 24 mg/dL (7-18); Bicarbonate 28 mmol/L (21-32); Glucose Level 98 mg/dL (74-106); Potassium 3.9 mmol/L (3.5-5.1); Sodium Level 138 mmol/L (136-145)
[2021-07-19 17:42] LABS: Absolute Lymphocytes (CBC) 1.7 K/uL (0.7-4.9); Hematocrit 37.2 % (39.6-49.0); Lymphocytes % 26.8 % (15.3-44.8); MPV 7.9 fL (7.6-11.3); RBC Red Blood Cell Count 3.91 M/uL (4.33-5.43)
--- NOTE | 2021-07-19 18:04 | RAD REPORT ---
EXAM DESCRIPTION: Christian Single View07/19/2021 5:54 pm CLINICAL HISTORY: cough COMPARISON: April 2021 FINDINGS: The lungs appear clear of acute infiltrate. The heart is normal size IMPRESSION: No acute abnormalities displayed
--- NOTE | 2021-07-19 18:14 | ER ---
Nurse's Notes [facility] Name: Felix Rangel Age: 75 yrs Sex: Male : 1945 Arrival Date: 07/19/2021 Time: 16:05 Bed 19 Private MD: Diagnosis: SARS-associated coronavirus as the cause of diseases classified elsewhere Presentation: 07/19 16:17 Chief complaint: Patient states: COVID +. Pt has no complaints at this time other than ss he is just tired. assisted staff told EMS personnel that they would like him to have antibiotics. Coronavirus screen: Client presents with at least one sign or symptom that may indicate coronavirus-19. Standard/surgical mask placed on the client. Provider contacted for isolation considerations. Ebola Screen: Patient denies exposure to infectious person. Patient denies travel to an Ebola-affected area in the 21 days before illness onset. Initial Sepsis Screen: Does the patient meet any 2 criteria? No. Patient's initial sepsis screen is negative. Does the patient have a suspected source of infection? No. Patient's initial sepsis screen is negative. Risk Assessment: Do you want to hurt yourself or someone else? Patient reports no desire to harm self or others. Onset of symptoms is unknown. 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 - Social history:: Smoking status: Patient denies any tobacco usage or history of. Screenin:40 Abuse screen: Denies threats or abuse. Nutritional screening: No deficits noted. tw2 Tuberculosis screening: No symptoms or risk factors identified. Fall Risk Secondary diagnosis (15 points) impaired mobility. Assessment: 16:52 Reassessment: provider at bedside at this time. tw2 17:15 General: Appears in no apparent distress. Behavior is calm, cooperative, appropriate tw2 for age. Pain: Denies pain. Neuro: Level of Consciousness is awake, alert, obeys commands, Oriented to person, place, time, situation. Cardiovascular: Patient's skin is warm and dry. Respiratory: Reports shortness of breath at rest cough that is persistent Breath sounds with wheezes bilaterally. Derm: Skin is dry, multiple skin tears noted. pt has right foot wrapped with kerlix upon arrival to er. 17:44 Reassessment: Patient appears in no apparent distress at this time. No changes from tw2 previously documented assessment. Patient and/or family updated on plan of care and expected duration. Pain level reassessed. 18:18 Reassessment: Patient appears in no apparent distress at this time. No changes from tw2 previously documented assessment. Patient and/or family updated on plan of care and expected duration. Pain level reassessed. 18:18 Reassessment: spoke to EDER Bartlett at [facility] to inform of pts discharge back to their 2 facility. she stated that they could not take the pt back because he was covid positive. pt arrived covid positive and i stated he was seen, treated, being discharged and transportation has been arranged back to their facility. she said she would have their DON call back. 19:00 Reassessment: Spoke with [facility] Heather GALEAS who states they cannot ss accommodate patient at this time because he has COVID and are working with patients family and their health data administrator to have patient transferred to another facility. 07/20 07:12 Reassessment: Spoke with [facility] staff member who states that they are ss unaware of any arrangements made for patient to return and states that the Heather RICE will be in at 0800 this morning. 08:20 Reassessment: Diet tray ordered for patient. GUDELIA Romero states that patient eats a regular diet. Pt has been accepted according to Heather to [facility] in [place] and states that she is waiting to here back from Facility when payment plan has been set up and Nurse to Nurse reports has been given and transportation arranged. Unknown ETA. Vital Signs: 07/19 16:17 BP 107 / 69; Pulse 90; Resp 16; Temp 100.7(O); Pulse Ox 95% on R/A; Weight 78.02 kg; ss Pain 0/10; 17:42 BP 95 / 54; Pulse 88; Resp 17; Pulse Ox 95% on R/A; tw2 18:17 BP 101 / 62; Pulse 86; Resp 20; Pulse Ox 95% on R/A; tw2 18:44 Temp 99.3(O); tw2 23:00 BP 104 / 68; Pulse 72; Resp 19; Temp 98.4; Pulse Ox 96% on R/A; mr2 07/20 02:00 BP 108 / 64; Pulse 66; Resp 17; Temp 98.3; Pulse Ox 98% on R/A; mr2 06:43 BP 94 / 51; Pulse 71; Resp 19; Temp 98.4; Pulse Ox 96% on R/A; mr2 07:42 BP 99 / 59; Pulse 68; Resp 18; Pulse Ox 95% on R/A; tw2 10:33 BP 99 / 54; Pulse 87; Temp 98.9(O); Pulse Ox 95% on R/A; tw2 12:55 BP 109 / 51; Pulse 83; Resp 17; Pulse Ox 95% on R/A; tw2 ED Course: 07/19 16:05 Patient arrived in ED. eb 16:05 Bed in low position. Call light in reach. flight superintendent on. Pulse ox on. NIBP on. tw2 Warm blanket given. 16:19 Triage completed. ss 16:19 Arm band placed on right wrist. ss 16:40 Alee Maldonado, RN is Primary Nurse. tw2 16:43 Fabio Saunders PA is PHCP. jr8 16:43 Hugo Solomon MD is Attending Physician. jr8 17:15 Inserted saline lock: 20 gauge in right antecubital area, using aseptic technique. tw2 Blood collected. 17:17 Basic Metabolic Panel Sent. tw2 17:17 CBC with Diff Sent. tw2 17:54 XRAY Chest (1 view) In Process Unspecified. EDMS 18:20 No provider procedures requiring assistance completed. tw2 20:30 Primary Nurse role handed off by Alee Maldonado, EDER cs9 07/20 06:43 Caleb Blackwood, RN is Primary Nurse. mr2 07:42 Primary Nurse role handed off by Caleb Blackwood RN tw2 07:42 Alee Maldonado RN is Primary Nurse. tw2 10:34 Report given to EDER Crisostomo at [facility]. tw2 12:56 IV discontinued, intact, bleeding controlled, No redness/swelling at site. Pressure tw2 dressing applied. Administered Medications: 07/19 17:15 Drug: Tylenol 1000 mg Route: PO; tw2 18:44 Follow up: Temp 99.3 Oral tw2 17:17 Drug: NS 0.9% 1000 ml Route: IV; Rate: 1 bolus; Site: right antecubital; tw2 18:44 Follow up: Response: No adverse reaction; IV Status: Completed infusion; IV Intake: tw2 1000ml Intake: 18:44 IV: 1000ml; Total: 1000ml. tw2 Outcome: 18:14 Discharge ordered by MD. conley 07/20 12:56 Transferred by ground EMS tw2 Condition: stable Instructed on the need for transfer. 12:56 Patient left the ED. tw2 Signatures: Dispatcher [employer] EDMS Jo Manjarrez RN RN Fabio Saunders PA PA jr8 Alee Maldonado RN RN tw2 Latrice Marrufo Mike RN RN mr2 Alena Engle [facility]
--- NOTE | 2021-07-19 18:14 | EDPHYS ---
Physician Documentation [facility] Name: Felix Rangel Age: 75 yrs Sex: Male : 1945 Arrival Date: 07/19/2021 Time: 16:05 Bed 19 Private MD: ED Physician Hugo Solomon HPI: 07/19 17:17 This 75 yrs old Unknown Male presents to ER via EMS with complaints of fever. jr8 17:17 The patient reports fever, with an emergency department temperature of 100.7 degrees jr8 Fahrenheit. Onset: The symptoms/episode began/occurred acutely, today. This is a 75-year-old male patient that presented to the emergency room for evaluation for Covid. [facility] staff stated that someone had tested positive so have been testing other residents. Patient was rapid tested at his alf today and tested positive. Patient denies any symptoms at this time but family wanted him further evaluated. Upon arrival to emergency room patient hemodynamically stable but does have mild fever present. Continues to remain asymptomatic otherwise at this time.. 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 - Social history:: Smoking status: Patient denies any tobacco usage or history of. ROS: 17:17 Eyes: Negative for injury, pain, redness, and discharge, ENT: Negative for injury, jr8 pain, and discharge, Neck: Negative for injury, pain, and swelling, Cardiovascular: Negative for chest pain, palpitations, and edema, Respiratory: Negative for shortness of breath, cough, wheezing, and pleuritic chest pain, Abdomen/GI: Negative for abdominal pain, nausea, vomiting, diarrhea, and constipation, Back: Negative for injury and pain, MS/Extremity: Negative for injury and deformity, Skin: Negative for injury, rash, and discoloration, Neuro: Negative for headache, weakness, numbness, tingling, and seizure. Exam: 17:17 Constitutional: This is a well developed, well nourished patient who is awake, alert, jr8 and in no acute distress. Neck: Trachea midline, no thyromegaly or masses palpated, and no cervical lymphadenopathy. Supple, full range of motion without nuchal rigidity, or vertebral point tenderness. No Meningismus. Cardiovascular: Regular rate and rhythm with a normal S1 and S2. No gallops, murmurs, or rubs. Normal PMI, no JVD. No pulse deficits. Respiratory: Lungs have equal breath sounds bilaterally, clear to auscultation and percussion. No rales, rhonchi or wheezes noted. No increased work of breathing, no retractions or nasal flaring. Abdomen/GI: Soft, non-tender, with normal bowel sounds. No distension or tympany. No guarding or rebound. No evidence of tenderness throughout. Skin: Warm, dry with normal turgor. Normal color with no rashes, no lesions, and no evidence of cellulitis. MS/ Extremity: Pulses equal, no cyanosis. Neurovascular intact. Full, normal range of motion. Mild erythema noted to the right foot with bandage covering. Patient has been on antibiotics for infected foot. Neuro: Awake and alert, GCS 15, oriented to person, place, time, and situation. Cranial nerves II-XII grossly intact. Motor strength 5/5 in all extremities. Sensory grossly intact. Vital Signs: 16:17 BP 107 / 69; Pulse 90; Resp 16; Temp 100.7(O); Pulse Ox 95% on R/A; Weight 78.02 kg; ss Pain 0/10; 17:42 BP 95 / 54; Pulse 88; Resp 17; Pulse Ox 95% on R/A; tw2 18:17 BP 101 / 62; Pulse 86; Resp 20; Pulse Ox 95% on R/A; tw2 18:44 Temp 99.3(O); tw2 23:00 BP 104 / 68; Pulse 72; Resp 19; Temp 98.4; Pulse Ox 96% on R/A; mr2 07/20 02:00 BP 108 / 64; Pulse 66; Resp 17; Temp 98.3; Pulse Ox 98% on R/A; mr2 06:43 BP 94 / 51; Pulse 71; Resp 19; Temp 98.4; Pulse Ox 96% on R/A; mr2 07:42 BP 99 / 59; Pulse 68; Resp 18; Pulse Ox 95% on R/A; tw2 10:33 BP 99 / 54; Pulse 87; Temp 98.9(O); Pulse Ox 95% on R/A; tw2 12:55 BP 109 / 51; Pulse 83; Resp 17; Pulse Ox 95% on R/A; tw2 MDM: 07/19 16:43 Patient medically screened. jr8 18:13 Data reviewed: vital signs, nurses notes, lab test result(s), radiologic studies, plain jr8 films. Data interpreted: Pulse oximetry: on room air is 95 %. Interpretation: normal. Counseling: I had a detailed discussion with the patient and/or guardian regarding: the historical points, exam findings, and any diagnostic results supporting the discharge/admit diagnosis, lab results, radiology results, the need for outpatient follow up, a family practitioner, to return to the emergency department if symptoms worsen or persist or if there are any questions or concerns that arise at home. ED course: Hemodynamically stable. Oxygen saturation between 95 to 97%. Fever is coming down. Patient has no increased work of breathing and currently remains asymptomatic at this time. There is no focal pneumonia on chest x-ray. We will send him home to follow-up with his PCP at the alf and to continue symptomatic treatment for Covid.. 07/19 17:02 Order name: CBC with Diff; Complete Time: 18:26 tw2 07/19 17:02 Order name: Basic Metabolic Panel; Complete Time: 18:12 tw2 07/19 17:03 Order name: XRAY Chest (1 view); Complete Time: 18:12 tw2 07/19 18:22 Order name: CBC Smear Scan; Complete Time: 18:26 EDMS 07/19 17:02 Order name: IV Start; Complete Time: 17:17 tw2 07/20 08:05 Order name: Diet Mech. Soft (chopped); Complete Time: 08:05 eb Administered Medications: 17:15 Drug: Tylenol 1000 mg Route: PO; tw2 18:44 Follow up: Temp 99.3 Oral tw2 17:17 Drug: NS 0.9% 1000 ml Route: IV; Rate: 1 bolus; Site: right antecubital; tw2 18:44 Follow up: Response: No adverse reaction; IV Status: Completed infusion; IV Intake: tw2 1000ml Disposition Summary: 07/19/21 18:14 Discharge Ordered Location: Home jr8 Problem: new jr8 Symptoms: have improved jr8 Condition: Stable jr8 Diagnosis - SARS-associated coronavirus as the cause of diseases classified elsewhere jr8 Followup: jr8 - With: Private Physician - When: 5 - 6 days - Reason: Recheck today's complaints, Continuance of care, Re-evaluation by your physician Discharge Instructions: - Discharge Summary Sheet jr8 - COVID-19 jr8 - 10 Things You Can Do to Manage Your COVID-19 Symptoms at Home - [facility] jr8 Forms: - Medication Reconciliation Form jr8 - Thank You Letter jr8 - Antibiotic Education jr8 - Prescription Opioid Use jr8 - SBAR form tw2 Addendum: 07/24/2021 13:12 Co-signature as Attending Physician, Hugo Solomon MD I agree with the assessment and k dr plan of care. Signatures: Dispatcher [employer] EDMS Hugo Solomon MD MD [facility] Jo Manjarrez RN RN Fabio Saunders PA PA jr8 Alee Maldonado RN RN tw2 Corrections: (The following items were deleted from the chart) 07/19 17:19 17:17 This is a 75-year-old male patient that presented to the emergency room for jr8 evaluation for Covid. Patient was rapid tested at his alf today and tested positive. Patient denies any symptoms at this time but family wanted him further evaluated. Upon arrival to emergency room patient hemodynamically stable but does have mild fever present. Continues to remain asymptomatic otherwise at this time.. jr8
[2021-07-19 18:22] LABS: Blood Morphology Comment NOT SEEN (NOT SEEN); Platelet Estimate ADEQ; White Blood Cell Scan OK (OK)
[2021-07-20 13:13] VITALS: O2SAT 95
[2021-07-20 13:15] VITALS: TEMP 98.9
[2021-07-20 13:16] VITALS: BP 109/51
== END 2021-07-20 12:56 | disposition home or self-care (01) ==
LOC: ER 15:57
DX: U07.1 COVID-19 (principal); I10 Essential (primary) hypertension
CPT/HCPCS: 85025; 80048; 36415; 71045; 96360; 99285; J7030

== ENCOUNTER 2023-08-22 03:35 | Inpatient (IN) | payer OTHER ==
--- OUTSIDE RECORDS SUMMARY | 2023-08-22 03:40 | XMS REPORT | Continuity of Care Document ---
Author Name Unknown Address [address] [facility] [address] [place] [address] [facility] Address [address] [facility] [address] [place] [address] Care Team Providers Care Plate Washer Name Role Phone PCP, PATIENT DOES NOT HAVE A Primary Care Physic kervin Unavailable ALISSON MEZA Attending Clinician Unavailumberto aragon _BAHC_Todd_J Attending Clinician Unavailable CLAYTON MONTES DE OCA Attending Clinician Unavailable Alisson Meza MD Attending Clinician [phone] Doctor Unassigned, Sattley Attending Clinician Bibi Galindo Attending Clinician [phone] Dony Neville MD Attending Clinician [phone] DONY NEVILLE Attending Clinician UnavailDONY Mata Attending Clinician UnavailBIBI Mckeon Attending Clinician Unavailable Lashawn Dior MD Attending Clinician [phone] LASHAWN DIOR Attending Clinician Unavailable ELIJAH SORIA Attending Clinician Unavailable ELIJAH SORIA Attending Clinician Unavailable Logan WHITLEY, Afmia Attending Clinician [phone] Joyce Castellon MD Attending Clinician [phone] GC_[email or web address]_J Admitting Clinician Unavailable JOYCE CASTELLON Admitting Clinician Unavail able Joyce Castellon MD Admitting Clinician [phone] ALISSON MEZA Admitting Clinician Unavaila ble Payers Payer Name Policy Type Policy Number Effective Date Expirati on Date Source [place]: [employer] [id number] 2010 00:00:00 [employer] [place]MEDICA[place]PLACEMENT - HMO) [id number] 2022 00:00:00 2023 00:00:00 MEDICARE PART A \\T\\ B [id number] 2010 00:00:00 [facility] [id number] 2022 00:00:00 2023 00:00:00 MED[place] [id number] Problems Condition Name Condition Details Condition Category Status Onset Date Resolution Date Last Treatment Date Treating Clinician Comments Source Essential hypertensi on Essential hypertensi on Disease Active 09-06 00:00: 00 Overview: Formattin g of this note might be different from the original. Added automatic ally from request for surgery [id number] [facility] Encounter for pre-operat brenda cardiovasc ular clearance Encounter for pre-operat brenda cardiovasc ular clearance Disease Active 09-06 00:00: 00 Overview: Formattin g of this note might be different from the original. Added automatic ally from request for surgery [id number] [facility] Abnormal ECG Abnormal ECG Disease Active 09-06 00:00: 00 Overview: Formattin g of this note might be different from the original. Added automatic ally from request for surgery [id number] [facility] ECHEVARRIA (dyspnea on exertion) ECHEVARRIA (dyspnea on exertion) Disease Active 09-06 00:00: 00 Overview: Formattin g of this note might be different from the original. Added automatic ally from request for surgery [id number] [facility] Stenosis of carotid artery, unspecifie d laterality Stenosis of carotid artery, unspecifie d laterality Disease Active 09-06 00:00: 00 Overview: Formattin g of this note might be different from the original. Added automatic ally from request for surgery [id number] [facility] Abnormal nuclear stress test Abnormal nuclear stress test Disease Active 09-06 00:00: 00 Overview: Formattin g of this note might be different from the original. Added automatic ally from request for surgery [id number] [facility] No known active problems No known active problems Disease [facility] Allergies, Adverse Reactions, Alerts Allergy Name Allergy Type Status Severity Reaction(s) Onset Date Inactive Date Treating Clinician Comments Source NO KNOWN ALLERGIE S Drug Class Active [facility] Social History Social Habit Start Date Stop Date Quantity Comments Source History SDOH Social Connections Get Together [facility] History SDOH Social Connections J[facility] History SDOH Social Connections Membership [facility] History SDOH Social Connections Meetings [facility] Gender identity [facility] Sexual orientation U [facility] History of Social function 2023-05-05 00:00:00 2023-05-05 00:00:00 [facility] History SDOH Alcohol Frequency 2022-10-12 00:00:00 2022-10-12 00:00:00 1 [facility] History SDOH Alcohol Std Drinks 2022-10-12 00:00:00 2022-10-12 00:00:00 0 [facility] History SDOH Alcohol Binge 2022-10-12 00:00:00 2022-10-12 00:00:00 1 [facility] History SDOH Social Connections Phone 2022-10-12 00:00:00 2022-10-12 00:00:00 5 [facility] History SDOH Social Connections Living 2022-10-12 00:00:00 2022-10-12 00:00:00 3 [facility] History SDOH Physical Activity DPW 2022-10-12 00:00:00 2022-10-12 00:00:00 0 [facility] History SDOH Physical Activity MPS 2022-10-12 00:00:00 2022-10-12 00:00:00 0 [facility] History SDOH Financial 2022-10-12 00:00:00 2022-10-12 00:00:00 5 [facility] History SDOH Food Worry 2022-10-12 00:00:00 2022-10-12 00:00:00 1 [facility] History SDOH Food Scarcity 2022-10-12 00:00:00 2022-10-12 00:00:00 1 [facility] History SDOH Transport Med 2022-10-12 00:00:00 2022-10-12 00:00:00 2 [facility] History SDOH Transport Non-Med 2022-10-12 00:00:00 2022-10-12 00:00:00 2 [facility] Exposure to SARS-CoV-2 (event) 2022-10-01 00:00:00 2022-10-11 08:37:00 Not sure [facility] Tobacco use and exposure 2022-10-11 00:00:00 2022-10-11 00:00:00 Smokeless tobacco non-user [facility] Sex Assigned At 1945 00:00:00 1945 00:00:00 [facility] Smoking Status Start Date Stop Date Source Tobacco smoking consumption unknown [facility] Never smoked tobacco [facility] Medications Ordered Medication Name Filled Medication Name Start Date Stop Date Current Medication? Ordering Clinician Indication Dosage Frequency Signature (SIG) Comments Components Source memantine (NAMENDA) 10 mg tablet 2022-07 14:38: 14 Yes 10mg Take 1 tablet by mouth in the morning. [facility] LORATADINE ORAL 2022-07 14:38: 14 Yes Take by mouth. [facility] carboxymeth ylcellulose sodium (REFRESH TEARS OPHTHALMIC) 2022-07 14:38: [address] in each eye. [facility] SENNOSIDES ORAL 2022-07 14:38: 14 Yes Take by mouth. [facility] memantine (NAMENDA) 10 mg tablet 2022-07 14:38: 14 Yes 10mg Take 1 tablet by mouth in the morning. [facility] LORATADINE ORAL 2022-07 14:38: 14 Yes Take by mouth. [facility] carboxymeth ylcellulose sodium (REFRESH TEARS OPHTHALMIC) 2022-07 14:38: [address] in each eye. [facility] SENNOSIDES ORAL 2022-07 14:38: 14 Yes Take by mouth. [facility] memantine (NAMENDA) 10 mg tablet 2022-07 14:38: 14 Yes 10mg Take 1 tablet by mouth in the morning. [facility] LORATADINE ORAL 2022-07 14:38: 14 Yes Take by mouth. [facility] carboxymeth ylcellulose sodium (REFRESH TEARS OPHTHALMIC) 2022-07 14:38: [address] in each eye. [facility] SENNOSIDES ORAL 2022-07 14:38: 14 Yes Take by mouth. [facility] memantine (NAMENDA) 10 mg tablet 2022-07 14:38: 14 Yes 10mg Take 1 tablet by mouth in the morning. [facility] aspirin 81 mg EC tablet 2022-07 14:34: 56 Yes 81mg Take 1 tablet by mouth in the morning. [facility] atorvastati n 40 mg tablet 2022-07 14:34: 56 Yes 40mg Take 1 tablet by mouth at bedtime. [facility] acetaminoph en (TYLENOL ORAL) 2022-07 14:34: 56 Yes Take by mouth. [facility] aspirin 81 mg EC tablet 2022-07 14:34: 56 Yes 81mg Take 1 tablet by mouth in the morning. [facility] atorvastati n 40 mg tablet 2022-07 14:34: 56 Yes 40mg Take 1 tablet by mouth at bedtime. [facility] acetaminoph en (TYLENOL ORAL) 2022-07 14:34: 56 Yes Take by mouth. [facility] aspirin 81 mg EC tablet 2022-07 14:34: 56 Yes 81mg Take 1 tablet by mouth in the morning. [facility] atorvastati n 40 mg tablet 2022-07 14:34: 56 Yes 40mg Take 1 tablet by mouth at bedtime. [facility] acetaminoph en (TYLENOL ORAL) 2022-07 14:34: 56 Yes Take by mouth. [facility] aspirin 81 mg EC tablet 2022-07 14:34: 56 Yes 81mg Take 1 tablet by mouth in the morning. [facility] atorvastati n 40 mg tablet 2022-07 14:34: 56 Yes 40mg Take 1 tablet by mouth at bedtime. [facility] aspirin 81 mg EC tablet 2022-07 14:13: 53 Yes 81mg Take 1 tablet by mouth in the morning. [facility] atorvastati n 40 mg tablet 2022-07 14:13: 53 Yes 40mg Take 1 tablet by mouth at bedtime. [facility] aspirin 81 mg EC tablet 2022-07 14:13: 53 Yes 81mg Take 1 tablet by mouth in the morning. [facility] atorvastati n 40 mg tablet 2022-07 14:13: 53 Yes 40mg Take 1 tablet by mouth at bedtime. [facility] aspirin 81 mg EC tablet 2022-07 14:13: 53 Yes 81mg Take 1 tablet by mouth in the morning. [facility] atorvastati n 40 mg tablet 2022-07 14:13: 53 Yes 40mg Take 1 tablet by mouth at bedtime. [facility] aspirin 81 mg EC tablet 2022-07 14:13: 53 Yes 81mg Take 1 tablet by mouth in the morning. [facility] atorvastati n 40 mg tablet 2022-07 0 14:13: 53 Yes 40mg Take 1 tablet by mouth at bedtime. [facility] atropine 1 % ophthalmic drops 2022-07 0 00:00: 00 Yes [facility] atropine 1 % ophthalmic drops 2022-07 0 00:00: 00 Yes [facility] atropine 1 % ophthalmic drops 2022-07 0 00:00: 00 Yes [facility] triamcinolo ne acetonide (KENALOG) injection 40 mg 2022-07 0 22:45: 00 05-05 21:50 :00 No [id number] 40mg Unive rs [facility] triamcinolo ne acetonide (KENALOG) injection 40 mg 2022-07 0 22:45: 00 05-05 21:50 :00 No [id number] 40mg 40 mg, Intramuscu lar, ONCE, 1 dose, On Fri05/05/23 at 1745, Routine [facility] triamcinolo ne acetonide (KENALOG) injection 40 mg 2022-07 0 22:45: 00 05-05 21:50 :00 No [id number] 40mg Unive [facility] triamcinolo ne acetonide (KENALOG) injection 40 mg 2022-07 22:45: 00 05-05 21:50 :00 No [id number] 40mg 40 mg, Intramuscu lar, ONCE, 1 dose, On Fri05/05/23 at 1745, Routine [facility] clotrimazol e-betametha sone cream 03-19 00:00: 00 Yes [id number] Apply to area(s) 2 (two) times daily. [facility] clotrimazol e-betametha sone cream 0 03-19 00:00: 00 Yes [id number] Apply to area(s) 2 (two) times daily. [facility] clotrimazol e-betametha sone cream 0 03-19 00:00: 00 Yes [id number] Apply to area(s) 2 (two) times daily. [facility] clotrimazol e-betametha sone cream 03-19 00:00: 00 Yes [id number] Apply to area(s) 2 (two) times daily. [facility] clotrimazol e-betametha sone cream 3-0 8-23 00:00: 00 Yes [id number] Apply to area(s) 2 (two) times daily. [facility] clotrimazol e-betametha sone cream 3-0 823 00:00: 00 Yes [id number] Apply to area(s) 2 (two) times daily. [facility] clotrimazol e-betametha sone cream 2022-0 823 00:00: 00 Yes [id number] Apply to area(s) 2 (two) times daily. [facility] clotrimazol e-betametha sone cream 2022-0 8 00:00: 00 Yes [id number] Apply to area(s) 2 (two) times daily. [facility] clotrimazol e-betametha sone cream 3-0 8 00:00: 00 Yes [id number] Apply to area(s) 2 (two) times daily. [facility] clotrimazol e-betametha sone cream 3-0 8 00:00: 00 Yes [id number] Apply to area(s) 2 (two) times daily. [facility] clotrimazol e-betametha sone cream 3-0 823 00:00: 00 Yes [id number] Apply to area(s) 2 (two) times daily. [facility] clotrimazol e-betametha sone cream 3-0 823 00:00: 00 Yes [id number] Apply to area(s) 2 (two) times daily. [facility] clotrimazol e-betametha sone cream 3-0 8-23 00:00: 00 Yes [id number] Apply to area(s) 2 (two) times daily. [facility] clotrimazol e-betametha sone cream 2023-0 8-23 00:00: 00 Yes [id number] Apply to area(s) 2 (two) times daily. [facility] clotrimazol e-betametha sone cream 03-19 00:00: 00 03-30 04:59 :00 No [id number] Apply to area(s) 2 (two) times daily for 10 days. [facility] clotrimazol e-betametha sone cream 03-19 00:00: 00 03-30 04:59 :00 No [id number] Apply to area(s) 2 (two) times daily for 10 days. [facility] clotrimazol e-betametha sone cream 0 03-19 00:00: 00 03-19 00:00 :00 No [id number] Apply to area(s) 2 (two) times daily for 10 days. [facility] clotrimazol e-betametha sone cream 03-19 00:00: 00 03-19 00:00 :00 No [id number] Apply to area(s) 2 (two) times daily for 10 days. [facility] memantine (NAMENDA) 10 mg tablet 2022-0 03-18 14:33: 34 Yes 10mg Take 1 tablet by mouth in the morning. [facility] memantine (NAMENDA) 10 mg tablet 2022-0 - 14:33: 34 Yes 10mg Take 1 tablet by mouth in the morning. [facility] memantine (NAMENDA) 10 mg tablet 2022-0 8- 14:33: 34 Yes 10mg Take 1 tablet by mouth in the morning. [facility] memantine (NAMENDA) 10 mg tablet 2022-0 8- 14:33: 34 Yes 10mg Take 1 tablet by mouth in the morning. [facility] memantine (NAMENDA) 10 mg tablet 2022-0 8- 14:33: 34 Yes 10mg Take 1 tablet by mouth in the morning. [facility] memantine (NAMENDA) 10 mg tablet 2022-0 8-22 14:33: 34 Yes 10mg Take 1 tablet by mouth in the morning. [facility] memantine (NAMENDA) 10 mg tablet 2022-0 03-18 14:33: 34 Yes 10mg Take 1 tablet by mouth in the morning. [facility] memantine (NAMENDA) 10 mg tablet 2022-0 03-18 14:33: 34 Yes 10mg Take 1 tablet by mouth in the morning. [facility] memantine (NAMENDA) 10 mg tablet 2022-0 03-18 14:33: 34 Yes 10mg Take 1 tablet by mouth in the morning. [facility] memantine (NAMENDA) 10 mg tablet 2022-0 03-18 14:33: 34 Yes 10mg Take 1 tablet by mouth in the morning. [facility] memantine (NAMENDA) 10 mg tablet 2022-0 03-18 14:33: 34 Yes 10mg Take 1 tablet by mouth in the morning. [facility] memantine (NAMENDA) 10 mg tablet 0 03-18 14:33: 34 Yes 10mg Take 1 tablet by mouth in the morning. [facility] aspirin 81 mg EC tablet 2022-0 03-18 14:30: 43 Yes 81mg Take 1 tablet by mouth in the morning. [facility] atorvastati n 40 mg tablet 2022-0 03-18 14:30: 43 Yes 40mg Take 1 tablet by mouth at bedtime. [facility] aspirin 81 mg EC tablet 2022-0 03-18 14:30: 43 Yes 81mg Take 1 tablet by mouth in the morning. [facility] atorvastati n 40 mg tablet 2022-0 03-18 14:30: 43 Yes 40mg Take 1 tablet by mouth at bedtime. [facility] aspirin 81 mg EC tablet 2022-0 03-18 14:30: 43 Yes 81mg Take 1 tablet by mouth in the morning. [facility] atorvastati n 40 mg tablet 2022-0 03-18 14:30: 43 Yes 40mg Take 1 tablet by mouth at bedtime. [facility] aspirin 81 mg EC tablet 2022-0 03-18 14:30: 43 Yes 81mg Take 1 tablet by mouth in the morning. [facility] atorvastati n 40 mg tablet 3-0 03-18 14:30: 43 Yes 40mg Take 1 tablet by mouth at bedtime. [facility] aspirin 81 mg EC tablet 3-0 03-18 14:30: 43 Yes 81mg Take 1 tablet by mouth in the morning. [facility] atorvastati n 40 mg tablet 3-0 03-18 14:30: 43 Yes 40mg Take 1 tablet by mouth at bedtime. [facility] aspirin 81 mg EC tablet 3-0 03-18 14:30: 43 Yes 81mg Take 1 tablet by mouth in the morning. [facility] atorvastati n 40 mg tablet 3-0 03-18 14:30: 43 Yes 40mg Take 1 tablet by mouth at bedtime. [facility] aspirin 81 mg EC tablet 3-0 03-18 14:30: 43 Yes 81mg Take 1 tablet by mouth in the morning. [facility] atorvastati n 40 mg tablet 3-0 03-18 14:30: 43 Yes 40mg Take 1 tablet by mouth at bedtime. [facility] aspirin 81 mg EC tablet 2022-0 03-18 14:30: 43 Yes 81mg Take 1 tablet by mouth in the morning. [facility] atorvastati n 40 mg tablet 2022-0 03-18 14:30: 43 Yes 40mg Take 1 tablet by mouth at bedtime. [facility] hydrocortis one 10 mg tablet 3-0 02-25 00:00: 00 Yes [facility] hydrocortis one 10 mg tablet 3-0 8 00:00: 00 Yes [facility] hydrocortis one 10 mg tablet 3-0 02-25 00:00: 00 Yes [facility] hydrocortis one 10 mg tablet 3-0 02-25 00:00: 00 Yes [facility] hydrocortis one 10 mg tablet 3-0 8 00:00: 00 Yes [facility] hydrocortis one 10 mg tablet 3-0 8- 00:00: 00 Yes [facility] hydrocortis one 10 mg tablet 3-0 8- 00:00: 00 Yes [facility] hydrocortis one 10 mg tablet 3-0 8- 00:00: 00 Yes [facility] hydrocortis one 10 mg tablet 2022-0 8- 00:00: 00 Yes [facility] hydrocortis one 10 mg tablet 3-0 8- 00:00: 00 Yes [facility] hydrocortis one 10 mg tablet 3-0 8- 00:00: 00 Yes [facility] hydrocortis one 10 mg tablet 2022-0 8- 00:00: 00 Yes [facility] hydrocortis one 10 mg tablet 3-0 8- 00:00: 00 Yes [facility] hydrocortis one 10 mg tablet 3-0 8- 00:00: 00 Yes [facility] hydrocortis one 10 mg tablet 2022-0 8- 00:00: 00 Yes [facility] hydrocortis one 10 mg tablet 3-0 8- 00:00: 00 Yes [facility] albuterol 90 mcg/actuati on inhaler 3-0 6-25 00:00: 00 Yes [facility] albuterol 90 mcg/actuati on inhaler 3-0 6- 00:00: 00 Yes [facility] albuterol 90 mcg/actuati on inhaler 2023-0 6-25 00:00: 00 Yes [facility] albuterol 90 mcg/actuati on inhaler 3-0 6-25 00:00: 00 Yes [facility] albuterol 90 mcg/actuati on inhaler 3-0 6-25 00:00: 00 Yes [facility] albuterol 90 mcg/actuati on inhaler 2023-0 6- 00:00: 00 Yes [facility] albuterol 90 mcg/actuati on inhaler 3-0 6-25 00:00: 00 Yes [facility] albuterol 90 mcg/actuati on inhaler 2022-0 625 00:00: 00 Yes [facility] albuterol 90 mcg/actuati on inhaler 2022-0 625 00:00: 00 Yes [facility] albuterol 90 mcg/actuati on inhaler 0 6 00:00: 00 Yes [facility] albuterol 90 mcg/actuati on inhaler 2022-0 6-25 00:00: 00 Yes [facility] albuterol 90 mcg/actuati on inhaler 2022-0 6 00:00: 00 Yes [facility] albuterol 90 mcg/actuati on inhaler 2022-0 01-19 00:00: 00 Yes [facility] albuterol 90 mcg/actuati on inhaler 0 01-19 00:00: 00 Yes [facility] albuterol 90 mcg/actuati on inhaler 0 01-19 00:00: 00 Yes [facility] albuterol 90 mcg/actuati on inhaler 0 01-19 00:00: 00 Yes [facility] clopidogreL (PLAVIX) 75 mg tablet 75 mg 10-13 14:00: 00 Yes 75mg 75 mg, Oral, DAILY, First dose on 10/13/22 at 0900, Until Discontinu ed, Routine [facility] clopidogreL (PLAVIX) 75 mg tablet 75 mg 10-13 14:00: 00 10-12 23:01 :02 No 75mg 75 mg, Oral, DAILY, First dose on 10/13/22 at 0900, Until Discontinu ed, Routine [facility] atorvastati n (LIPITOR) tablet 40 mg 10-13 02:00: 00 Yes 40mg 40 mg, Oral, QHS, First dose on 10/12/22 at 2100, Until Discontinu ed, Routine [facility] atorvastati n (LIPITOR) tablet 40 mg 10-13 02:00: 00 10-12 23:01 :02 No 40mg 40 mg, Oral, QHS, First dose on 10/12/22 at 2100, Until Discontinu ed, Routine [facility] clopidogreL 75 mg tablet 3-0 3-19 00:00: 00 01-12 04:59 :00 No [id number] 75mg Take 1 tablet by mouth in the morning for 90 days. [facility] clopidogreL 75 mg tablet 2022-0 -19 00:00: 00 01-12 04:59 :00 No [id number] 75mg Take 1 tablet by mouth in the morning for 90 days. [facility] clopidogreL 75 mg tablet 2022-0 -19 00:00: 00 01-12 04:59 :00 No [id number] 75mg Take 1 tablet by mouth in the morning for 90 days. [facility] clopidogreL 75 mg tablet 2022-0 19 00:00: 00 01-12 04:59 :00 No [id number] 75mg Take 1 tablet by mouth in the morning for 90 days. [facility] clopidogreL 75 mg tablet 2022-0 19 00:00: 00 01-12 04:59 :00 No [id number] 75mg Take 1 tablet by mouth in the morning for 90 days. [facility] aspirin 81 mg EC tablet 2022-0 18 16:00: 58 Yes 81mg Take 1 tablet by mouth in the morning. [facility] atorvastati n 40 mg tablet 2022-0 18 16:00: 58 Yes 40mg Take 1 tablet by mouth at bedtime. [facility] aspirin 81 mg EC tablet 2022-0 18 16:00: 58 Yes 81mg Take 1 tablet by mouth in the morning. [facility] atorvastati n 40 mg tablet 2022-0 18 16:00: 58 Yes 40mg Take 1 tablet by mouth at bedtime. [facility] aspirin 81 mg EC tablet 2022-0 18 16:00: 58 Yes 81mg Take 1 tablet by mouth in the morning. [facility] atorvastati n 40 mg tablet 2022-0 18 16:00: 58 Yes 40mg Take 1 tablet by mouth at bedtime. [facility] aspirin 81 mg EC tablet 0 10-12 16:00: 58 Yes 81mg Take 1 tablet by mouth in the morning. [facility] atorvastati n 40 mg tablet 2022-0 18 16:00: 58 Yes 40mg Take 1 tablet by mouth at bedtime. [facility] aspirin 81 mg EC tablet 10-12 16:00: 58 Yes 81mg Take 1 tablet by mouth in the morning. [facility] atorvastati n 40 mg tablet 2022-0 10-12 16:00: 58 Yes 40mg Take 1 tablet by mouth at bedtime. [facility] allopurinoL (ZYLOPRIM) tablet 100 mg 10-12 14:00: 00 Yes 100mg 100 mg, Oral, DAILY, First dose on 10/12/22 at 0900, Until Discontinu ed, Routine [facility] aspirin chewable tablet 81 mg 10-12 14:00: 00 Yes 81mg 81 mg, Oral, DAILY, First dose on 10/12/22 at 0900, Until Discontinu ed, Routine [facility] clopidogreL (PLAVIX) 300 mg tablet 300 mg 10-12 14:00: 00 10-12 13:55 :00 No 300mg 300 mg, Oral, ONCE, 1 dose, On 10/12/22 at 0900, Routine [facility] allopurinoL (ZYLOPRIM) tablet 100 mg 10-12 14:00: 00 10-12 23:01 :02 No 100mg 100 mg, Oral, DAILY, First dose on 10/12/22 at 0900, Until Discontinu ed, Routine [facility] clopidogreL (PLAVIX) 300 mg tablet 300 mg 10-12 14:00: 00 10-12 13:55 :00 No 300mg 300 mg, Oral, ONCE, 1 dose, On 10/12/22 at 0900, Routine [facility] aspirin chewable tablet 81 mg 18 14:00: 00 10-12 23:01 :02 No 81mg 81 mg, Oral, DAILY, First dose on Fri10/12/22 at 0900, Until Discontinu ed, Routine [facility] carvediloL (COREG) tablet 3.125 mg 3-0 18 13:30: 00 Yes 3.125mg 3.125 mg, Oral, BID MEALS, First dose on Fri10/12/22 at 0830, Until Discontinu ed, Routine [facility] carvediloL (COREG) tablet 3.125 mg 2022-0 18 13:30: 00 10-12 23:01 :02 No 3.125mg 3.125 mg, Oral, BID MEALS, First dose on 10/12/22 at 0830, Until Discontinu ed, Routine [facility] melatonin (MELATIN) tablet 3 mg 2022-0 18 02:00: 00 Yes 3mg 3 mg, Oral, QHS, First dose on Fri10/11/22 at 2100, Until Discontinu ed, Routine [facility] mirtazapine (REMERON) tablet 15 mg 2022-0 18 02:00: 00 Yes 15mg 15 mg, Oral, QHS, First dose on Fri10/11/22 at 2100, Until Discontinu ed, Routine [facility] donepeziL (ARICEPT) tablet 10 mg 2022-0 18 02:00: 00 Yes 10mg 10 mg, Oral, QHS, First dose on Fri10/11/22 at 2100, Until Discontinu ed, Routine [facility] melatonin (MELATIN) tablet 3 mg 2022-0 18 02:00: 00 10-12 23:01 :02 No 3mg 3 mg, Oral, QHS, First dose on Fri10/11/22 at 2100, Until Discontinu ed, Routine [facility] mirtazapine (REMERON) tablet 15 mg 3-0 -18 02:00: 00 10-12 23:01 :02 No 15mg 15 mg, Oral, QHS, First dose on Fri10/11/22 at 2100, Until Discontinu ed, [facility] 10 mg 10-12 02:00: 00 10-12 23:01 :02 No 10mg 10 mg, Oral, QHS, First dose on Fri10/11/22 at 2100, Until Discontinu ed, [facility]BRILINTA[facility] tablet 90 mg 10-12 01:00: 00 10-12 02:45 :00 No 90mg 90 mg, Oral, BID, 1 dose, First dose on Fri10/11/22 at 2000, Routine [facility] ticagrelor (BRILINTA) tablet 90 mg 10-12 01:00: 00 10-12 02:45 :00 No 90mg 90 mg, Oral, BID, 1 dose, First dose on Fri10/11/22 at 2000, Routine [facility] NaCl 0.9% (NS) IV infusion 1,000 mL 10-11 23:00: 00 Yes 1000mL at 75 mL/hr, IV Infusion, CONTINUOUS , Starting on Fri10/11/22 at 1800, Until Discontinu ed, Routine [facility] NaCl 0.9% (NS) IV infusion 1,000 mL 10-11 23:00: 00 10-12 23:01 :02 No 1000mL at 75 mL/hr, IV Infusion, CONTINUOUS , Starting on Fri10/11/22 at 1800, Until Fri10/12/22 at 1801, Routine [facility] famotidine (PEPCID AC) tablet 20 mg 10-11 22:45: 24 Yes 20mg 20 mg, Oral, BIDPRN, Starting on Fri10/11/22 at 1745, Until Discontinu ed, Routine, Indigestio n, Heartburn [facility] ondansetron (ZOFRAN (PF)) injection 4 mg 10-11 22:45: 24 Yes 4mg 4 mg, Slow IV Push, Q6HPRN, Starting on Fri10/11/22 at 1745, Until Discontinu ed, Routine, Nausea and Vomiting (N/V) [facility] bisacodyL (DULCOLAX) tablet 10 mg 2022-10-11 22:45: 24 Yes 10mg 10 mg, Oral, QDAILYPRN, Starting on Fri10/11/22 at 1745, Until Discontinu ed, Routine, Constipati on [facility] morpHINE (2 mg/mL) injection 4 mg 10-11 22:45: 24 10-12 22:44 :24 No 4mg 4 mg, Slow IV Push, Q4HPRN, Starting on Fri10/11/22 at 1745, Until 10/12/22 at 1744, Routine, Pain (scale 7-10) [facility] famotidine (PEPCID AC) tablet 20 mg 10-11 22:45: 24 10-12 23:01 :02 No 20mg 20 mg, Oral, BIDPRN, Starting on Fri10/11/22 at 1745, Until 10/12/22 at 1801, Routine, Indigestio n, Heartburn [facility] ondansetron (ZOFRAN (PF)) injection 4 mg 10-11 22:45: 24 10-12 23:01 :02 No 4mg 4 mg, Slow IV Push, Q6HPRN, Starting on Fri10/11/22 at 1745, Until 10/12/22 at 1801, Routine, Nausea and Vomiting (N/V) [facility] bisacodyL (DULCOLAX) tablet 10 mg 10-11 22:45: 24 10-12 23:01 :02 No 10mg 10 mg, Oral, QDAILYPRN, Starting on Fri10/11/22 at 1745, Until 10/12/22 at 1801, Routine, Constipati on [facility] morpHINE (2 mg/mL) injection 4 mg 2022-10-11 22:45: 24 10-12 22:44 :24 No 4mg 4 mg, Slow IV Push, Q4HPRN, Starting on Fri10/11/22 at 1745, Until 10/12/22 at 1744, Routine, Pain (scale 7-10) [facility] acetaminoph en (TYLENOL) tablet 650 mg 10-11 22:45: 23 Yes 650mg 650 mg, Oral, Q6HPRN, Starting on Fri10/11/22 at 1745, Until Discontinu ed, Routine, Pain (scale 1-3) [facility] HYDROcodone -acetaminop hen (NORCO 5) 5-325 mg tablet 1 tablet 10-11 22:45: 23 10-13 22:44 :23 No 1{tbl} 1 tablet, Oral, Q6HPRN, Starting on Fri10/11/22 at 1745, Until 10/13/22 at 1744, Routine, Pain (scale 4-6) [facility] HYDROcodone -acetaminop hen (NORCO 5) 5-325 mg tablet 1 tablet 10-11 22:45: 23 10-12 23:01 :02 No 1{tbl} 1 tablet, Oral, Q6HPRN, Starting on Fri10/11/22 at 1745, Until 10/12/22 at 1801, Routine, Pain (scale 4-6) [facility] acetaminoph en (TYLENOL) tablet 650 mg 10-11 22:45: 23 10-12 23:01 :02 No 650mg 650 mg, Oral, Q6HPRN, Starting on Fri10/11/22 at 1745, Until 10/12/22 at 1801, Routine, Pain (scale 1-3) [facility] atorvastati n (LIPITOR) tablet 40 mg 10-11 19:15: 00 10-12 02:45 :00 No 40mg 40 mg, Oral, ONCE, 1 dose, On Fri10/11/22 at 1415, Routine [facility] atorvastati n (LIPITOR) tablet 40 mg 10-11 19:15: 00 10-12 02:45 :00 No 40mg 40 mg, Oral, ONCE, 1 dose, On Fri10/11/22 at 1415, Routine [facility] iopamidol (ISOVUE 370-500 mL) injection 10-11 18:16: 28 10-11 18:17 :17 No ONCE INTRA PROCEDURE, Starting on Fri10/11/22 at 1316, Until Fri10/11/22 at 1317, Routine, CV Intraproce dure [facility] ticagrelor (BRILINTA) tablet 10-11 17:51: 37 10-11 18:17 :17 No ONCE INTRA PROCEDURE, Starting on Fri10/11/22 at 1251, Until Fri10/11/22 at 1317, Routine, CV Intraproce dure [facility] NaCl 0.9% (NS) bolus infusion 10-11 17:41: 36 10-11 17:41 :36 No CONTINUOUS PRN, Starting on Fri10/11/22 at 1241, Until Discontinu ed, STAT, CV Intraproce dure [facility] heparin 1,000 unit/mL injection 10-11 17:35: 12 10-11 18:17 :17 No ONCE INTRA PROCEDURE, Starting on Fri10/11/22 at 1235, Until Fri10/11/22 at 1317, Routine, CV Intraproce dure [facility] nitroglycer in (TRIDIL) 2 mg in 10 mL D5W for Cardiac Cath 10-11 17:34: 48 10-11 18:17 :17 No ONCE INTRA PROCEDURE, Starting on Fri10/11/22 at 1234, Until Fri10/11/22 at 1317, Routine, CV Intraproce dure [facility] lidocaine 1% (PF) (XYLOCAINE) injection 10-11 17:32: 51 10-11 18:17 :17 No ONCE INTRA PROCEDURE, Starting on Fri10/11/22 at 1232, Until Fri10/11/22 at 1317, Routine, CV Intraproce dure [facility] midazolam (VERSED) injection 10-11 17:30: 38 10-11 18:17 :17 No ONCE INTRA PROCEDURE, Starting on Fri10/11/22 at 1230, Until Fri10/11/22 at 1317, Routine, CV Intraproce dure [facility] FENTanyl PF (SUBLIMAZE (PF)) injection 10-11 17:30: 25 10-11 18:17 :17 No ONCE INTRA PROCEDURE, Starting on Fri10/11/22 at 1230, Until Fri10/11/22 at 1317, Routine, CV Intraproce dure [facility] aspirin tablet 325 mg 10-11 15:45: 00 10-11 15:08 :00 No 325mg 325 mg, Oral, ONCE, 1 dose, On Fri10/11/22 at 1045, Routine [facility] aspirin tablet 325 mg 10-11 15:45: 00 10-11 15:08 :00 No 325mg 325 mg, Oral, ONCE, 1 dose, On Fri10/11/22 at 1045, Routine [facility] aspirin 81 mg EC tablet 2021-07 12:49: 19 Yes 81mg Take 81 mg by mouth in the morning. [facility] atorvastati n (LIPITOR) 40 mg tablet 2021-07 12:49: 19 Yes 40mg Take 40 mg by mouth at bedtime. [facility] aspirin 81 mg EC tablet 2021-07 12:49: 19 Yes 81mg Take 81 mg by mouth in the morning. [facility] atorvastati n (LIPITOR) 40 mg tablet 2021-07 12:49: 19 Yes 40mg Take 40 mg by mouth at bedtime. [facility] aspirin 81 mg EC tablet 2021-07 12:49: 19 Yes 81mg Take 81 mg by mouth in the morning. [facility] atorvastati n (LIPITOR) 40 mg tablet 2021-07 12:49: 19 Yes 40mg Take 40 mg by mouth at bedtime. [facility] aspirin 81 mg EC tablet 2021-07 12:49: 19 Yes 81mg Take 81 mg by mouth in the morning. [facility] atorvastati n (LIPITOR) 40 mg tablet 2021-07 12:49: 19 Yes 40mg Take 40 mg by mouth at bedtime. [facility] aspirin 81 mg EC tablet 2021-07 12:49: 19 Yes 81mg Take 81 mg by mouth in the morning. [facility] atorvastati n (LIPITOR) 40 mg tablet 2021-07 12:49: 19 Yes 40mg Take 40 mg by mouth at bedtime. [facility] aspirin 81 mg EC tablet 2021-07 12:49: 19 Yes 81mg Take 81 mg by mouth in the morning. [facility] atorvastati n (LIPITOR) 40 mg tablet 2021-07 12:49: 19 Yes 40mg Take 40 mg by mouth at bedtime. [facility] aspirin 81 mg EC tablet 2021-07 12:49: 19 Yes 81mg Take 81 mg by mouth in the morning. [facility] atorvastati n (LIPITOR) 40 mg tablet 2021-07 12:49: 19 Yes 40mg Take 40 mg by mouth at bedtime. [facility] aspirin 81 mg EC tablet 2021-07 12:49: 19 Yes 81mg Take 81 mg by mouth in the morning. [facility] atorvastati n (LIPITOR) 40 mg tablet 2021-07 12:49: 19 Yes 40mg Take 40 mg by mouth at bedtime. [facility] aspirin 81 mg EC tablet 2021-07 12:49: 19 Yes 81mg Take 81 mg by mouth in the morning. [facility] atorvastati n (LIPITOR) 40 mg tablet 2021-07 12:49: 19 Yes 40mg Take 40 mg by mouth at bedtime. [facility] aspirin 81 mg EC tablet 2021-07 12:49: 19 Yes 81mg Take 81 mg by mouth in the morning. [facility] atorvastati n (LIPITOR) 40 mg tablet 2021-07 12:49: 19 Yes 40mg Take 40 mg by mouth at bedtime. [facility] aspirin 81 mg EC tablet 2021-07 12:49: 19 Yes 81mg Take 81 mg by mouth in the morning. [facility] atorvastati n (LIPITOR) 40 mg tablet 2021-07 12:49: 19 Yes 40mg Take 40 mg by mouth at bedtime. [facility] tc 99m-pertech netate injection 42.5 millicurie 2021-07 17:00: 00 07-09 16:49 :00 No [id number] 42.5mCi 42.5 millicurie , Intravenou s, ONCE, 1 dose, On Fri07/09/22 at 1100, Routine [facility] regadenoson (LEXISCAN) injection 0.4 mg 2021-07 16:30: 00 07-09 16:49 :00 No [id number] .4mg 0.4 mg, IV Push, ONCE, 1 dose, On Fri07/09/22 at 1030, Routine
retail team member approving Restricted medication : ALISSON MEZA [facility] tc 99m-tetrofo smin (MYOVIEW) injection 16 millicurie 2021-07 15:15: 00 07-09 15:04 :00 No [id number] 16mCi 16 millicurie , Intravenou s, ONCE, 1 dose, On Fri07/09/22 at 0915, Routine [facility] iopamidol (ISOVUE 370-500 mL) injection 85 mL 2021-07 17:00: 00 07-05 15:40 :00 No [id number] 85mL 85 mL, Intravenou s, ONCE, 1 dose, On Fri07/05/22 at 1100, Routine [facility] donepeziL 10 mg tablet 04-19 00:00: 00 Yes [id number] [facility] donepeziL 10 mg tablet 04-19 00:00: 00 Yes [id number] [facility] donepeziL 10 mg tablet 2-0 04-19 00:00: 00 Yes [id number] [facility] donepeziL 10 mg tablet 2-0 04-19 00:00: 00 Yes [id number] [facility] donepeziL 10 mg tablet 2-0 04-19 00:00: 00 Yes [id number] [facility] donepeziL 10 mg tablet 2-0 04-19 00:00: 00 Yes [id number] [facility] donepeziL 10 mg tablet 2-0 04-19 00:00: 00 Yes [id number] [facility] donepeziL 10 mg tablet 2-0 04-19 00:00: 00 Yes [id number] [facility] donepeziL 10 mg tablet 2-0 04-19 00:00: 00 Yes [id number] [facility] donepeziL 10 mg tablet 2-0 04-19 00:00: 00 Yes [id number] [facility] donepeziL 10 mg tablet 2-0 04-19 00:00: 00 Yes [id number] [facility] donepeziL 10 mg tablet 2021-0 04-19 00:00: 00 Yes [facility] donepeziL 10 mg tablet 2021-0 04-19 00:00: 00 Yes [id number] [facility] donepeziL 10 mg tablet 2-0 04-19 00:00: 00 Yes [id number] [facility] donepeziL 10 mg tablet 2-0 04-19 00:00: 00 Yes [id number] [facility] donepeziL 10 mg tablet 2-0 04-19 00:00: 00 Yes [id number] [facility] donepeziL 10 mg tablet 2-0 04-19 00:00: 00 Yes [id number] [facility] donepeziL 10 mg tablet 2-0 04-19 00:00: 00 Yes [id number] [facility] donepeziL 10 mg tablet 2-0 04-19 00:00: 00 Yes [id number] [facility] donepeziL 10 mg tablet 2022-0 04-19 00:00: 00 Yes [id number] [facility] donepeziL 10 mg tablet 2-0 04-19 00:00: 00 Yes [id number] [facility] donepeziL 10 mg tablet 2-0 04-19 00:00: 00 Yes [id number] [facility] donepeziL 10 mg tablet 2022-0 04-19 00:00: 00 Yes [id number] [facility] donepeziL 10 mg tablet 2-0 04-19 00:00: 00 Yes [id number] [facility] donepeziL 10 mg tablet 2-0 04-19 00:00: 00 Yes [id number] [facility] donepeziL 10 mg tablet 2-0 04-19 00:00: 00 Yes [id number] [facility] donepeziL 10 mg tablet 2-0 04-19 00:00: 00 Yes [id number] [facility] donepeziL 10 mg tablet 2-0 04-19 00:00: 00 Yes [id number] [facility] donepeziL 10 mg tablet 2-0 04-19 00:00: 00 Yes [id number] [facility] donepeziL 10 mg tablet 2-0 04-19 00:00: 00 Yes [id number] [facility] donepeziL 10 mg tablet 2-0 04-19 00:00: 00 Yes [id number] [facility] donepeziL 10 mg tablet 2-0 04-19 00:00: 00 Yes [id number] [facility] donepeziL 10 mg tablet 2-0 04-19 00:00: 00 Yes [id number] [facility] donepeziL 10 mg tablet 2-0 04-19 00:00: 00 Yes [id number] [facility] donepeziL 10 mg tablet 2-0 04-19 00:00: 00 Yes [id number] [facility] donepeziL 10 mg tablet 2022-0 04-19 00:00: 00 Yes [id number] [facility] donepeziL 10 mg tablet 0 04-19 00:00: 00 Yes [id number] [facility] donepeziL 10 mg tablet 0 04-19 00:00: 00 Yes [id number] [facility] donepeziL 10 mg tablet 0 04-19 00:00: 00 Yes [id number] [facility] donepeziL 10 mg tablet 0 04-19 00:00: 00 Yes [id number] [facility] donepeziL 10 mg tablet 0 04-19 00:00: 00 Yes [id number] [facility] donepeziL 10 mg tablet 0 04-19 00:00: 00 Yes [id number] [facility] donepeziL 10 mg tablet 0 04-19 00:00: 00 Yes [id number] [facility] donepeziL 10 mg tablet 0 04-19 00:00: 00 Yes [id number] [facility] donepeziL 10 mg tablet 0 04-19 00:00: 00 Yes [id number] [facility] donepeziL 10 mg tablet 0 04-19 00:00: 00 Yes [id number] [facility] allopurinoL 300 mg tablet 0 04-09 00:00: 00 Yes [id number] [facility] allopurinoL 300 mg tablet 0 04-09 00:00: 00 Yes [id number] [facility] allopurinoL 300 mg tablet 0 04-09 00:00: 00 Yes [id number] [facility] allopurinoL 300 mg tablet 0 04-09 00:00: 00 Yes [id number] [facility] allopurinoL 300 mg tablet 0 04-09 00:00: 00 Yes [id number] [facility] allopurinoL 300 mg tablet 0 04-09 00:00: 00 Yes [id number] [facility] allopurinoL 300 mg tablet 0 04-09 00:00: 00 Yes [id number] [facility] allopurinoL 300 mg tablet 2021-0 04-09 00:00: 00 Yes [id number] [facility] allopurinoL 300 mg tablet 0 04-09 00:00: 00 Yes [id number] [facility] allopurinoL 300 mg tablet 0 04-09 00:00: 00 Yes [facility] allopurinoL 300 mg tablet 0 04-09 00:00: 00 Yes [id number] [facility] allopurinoL 300 mg tablet 0 04-09 00:00: 00 Yes [id number] [facility] allopurinoL 300 mg tablet 0 04-09 00:00: 00 Yes [id number] [facility] allopurinoL 300 mg tablet 0 04-09 00:00: 00 Yes [id number] [facility] allopurinoL 300 mg tablet 0 04-09 00:00: 00 Yes [id number] [facility] allopurinoL 300 mg tablet 0 04-09 00:00: 00 Yes [id number] [facility] allopurinoL 300 mg tablet 0 04-09 00:00: 00 Yes [id number] [facility] allopurinoL 300 mg tablet 0 04-09 00:00: 00 Yes [id number] [facility] allopurinoL 300 mg tablet 0 04-09 00:00: 00 Yes [id number] [facility] allopurinoL 300 mg tablet 0 04-09 00:00: 00 Yes [id number] [facility] allopurinoL 300 mg tablet 2021-0 04-09 00:00: 00 Yes [id number] [facility] allopurinoL 300 mg tablet 0 04-09 00:00: 00 Yes [id number] [facility] allopurinoL 300 mg tablet 2021-0 04-09 00:00: 00 Yes [id number] [facility] allopurinoL 300 mg tablet 2021-0 04-09 00:00: 00 Yes [id number] [facility] allopurinoL 300 mg tablet 2021-0 13 00:00: 00 Yes [id number] [facility] allopurinoL 300 mg tablet 2021-0 04-09 00:00: 00 Yes [id number] [facility] allopurinoL 300 mg tablet 2021-0 04-09 00:00: 00 Yes [id number] [facility] allopurinoL 300 mg tablet 2021-0 04-09 00:00: 00 Yes [id number] [facility] allopurinoL 300 mg tablet 2021-0 04-09 00:00: 00 Yes [id number] [facility] allopurinoL 300 mg tablet 2021-0 04-09 00:00: 00 Yes [id number] [facility] allopurinoL 300 mg tablet 2021-0 04-09 00:00: 00 Yes [id number] [facility] allopurinoL 300 mg tablet 2021-0 04-09 00:00: 00 Yes [id number] [facility] allopurinoL 300 mg tablet 2021-0 04-09 00:00: 00 Yes [id number] [facility] allopurinoL 300 mg tablet 2021-0 04-09 00:00: 00 Yes [id number] [facility] allopurinoL 300 mg tablet 2021-0 04-09 00:00: 00 Yes [id number] [facility] allopurinoL 300 mg tablet 2021-0 04-09 00:00: 00 Yes [id number] [facility] allopurinoL 300 mg tablet 2021-0 04-09 00:00: 00 Yes [id number] [facility] allopurinoL 300 mg tablet 2021-0 04-09 00:00: 00 Yes [id number] [facility] allopurinoL 300 mg tablet 2021-0 04-09 00:00: 00 Yes [id number] [facility] allopurinoL 300 mg tablet 2021-0 04-09 00:00: 00 Yes [id number] [facility] allopurinoL 300 mg tablet 2021-0 04-09 00:00: 00 Yes [id number] [facility] allopurinoL 300 mg tablet 2021-0 -13 00:00: 00 Yes [id number] [facility] allopurinoL 300 mg tablet 2021-0 -13 00:00: 00 Yes [id number] [facility] allopurinoL 300 mg tablet 2-0 -13 00:00: 00 Yes [id number] [facility] allopurinoL 300 mg tablet 2021-0 -13 00:00: 00 Yes [id number] [facility] allopurinoL 300 mg tablet 2-0 13 00:00: 00 Yes [id number] [facility] carvediloL 6.25 mg tablet 2021-0 03-31 00:00: 00 Yes [id number] [facility] carvediloL 6.25 mg tablet 2-0 - 00:00: 00 Yes [id number] [facility] carvediloL 6.25 mg tablet 2-0 -04 00:00: 00 Yes [id number] [facility] carvediloL 6.25 mg tablet 2021-0 -04 00:00: 00 Yes [id number] [facility] carvediloL 6.25 mg tablet 2021-0 -04 00:00: 00 Yes [id number] [facility] carvediloL 6.25 mg tablet 2021-0 -04 00:00: 00 Yes [id number] [facility] carvediloL 6.25 mg tablet 2-0 9-04 00:00: 00 Yes [id number] [facility] carvediloL 6.25 mg tablet 2-0 9-04 00:00: 00 Yes [id number] [facility] carvediloL 6.25 mg tablet 2-0 -04 00:00: 00 Yes [id number] [facility] carvediloL 6.25 mg tablet 2-0 -04 00:00: 00 Yes [id number] [facility] carvediloL 6.25 mg tablet 2-0 9-04 00:00: 00 Yes [facility] carvediloL 6.25 mg tablet 2-0 04 00:00: 00 Yes [id number] [facility] carvediloL 6.25 mg tablet 2021-0 904 00:00: 00 Yes [id number] [facility] carvediloL 6.25 mg tablet 2021-0 03-31 00:00: 00 Yes [id number] [facility] carvediloL 6.25 mg tablet 2021-0 03-31 00:00: 00 Yes [id number] [facility] carvediloL 6.25 mg tablet 2021-0 03-31 00:00: 00 Yes [id number] [facility] carvediloL 6.25 mg tablet 2021-0 03-31 00:00: 00 Yes [id number] [facility] carvediloL 6.25 mg tablet 2021-0 03-31 00:00: 00 Yes [id number] [facility] carvediloL 6.25 mg tablet 2021-0 - 00:00: 00 Yes [id number] [facility] carvediloL 6.25 mg tablet 2021-0 03-31 00:00: 00 Yes [id number] [facility] carvediloL 6.25 mg tablet 2021-0 03-31 00:00: 00 Yes [id number] [facility] carvediloL 6.25 mg tablet 2021-0 03-31 00:00: 00 Yes [id number] [facility] carvediloL 6.25 mg tablet 2021-0 9-04 00:00: 00 Yes [id number] [facility] carvediloL 6.25 mg tablet 2021-0 9-04 00:00: 00 Yes [id number] [facility] carvediloL 6.25 mg tablet 2-0 -04 00:00: 00 Yes [id number] [facility] carvediloL 6.25 mg tablet 2021-0 9-04 00:00: 00 Yes [id number] [facility] carvediloL 6.25 mg tablet 2-0 9-04 00:00: 00 Yes [id number] [facility] carvediloL 6.25 mg tablet 0 03-31 00:00: 00 Yes [id number] [facility] carvediloL 6.25 mg tablet 03-31 00:00: 00 Yes [id number] [facility] carvediloL 6.25 mg tablet 03-31 00:00: 00 Yes [id number] [facility] carvediloL 6.25 mg tablet 03-31 00:00: 00 Yes [id number] [facility] carvediloL 6.25 mg tablet 03-31 00:00: 00 Yes [id number] [facility] carvediloL 6.25 mg tablet 03-31 00:00: 00 Yes [id number] [facility] carvediloL 6.25 mg tablet 03-31 00:00: 00 Yes [id number] [facility] carvediloL 6.25 mg tablet 03-31 00:00: 00 Yes [id number] [facility] carvediloL 6.25 mg tablet 03-31 00:00: 00 Yes [id number] [facility] carvediloL 6.25 mg tablet 03-31 00:00: 00 Yes [id number] [facility] carvediloL 6.25 mg tablet 0 03-31 00:00: 00 Yes [id number] [facility] carvediloL 6.25 mg tablet 0 03-31 00:00: 00 Yes [id number] [facility] carvediloL 6.25 mg tablet 0 03-31 00:00: 00 Yes [id number] [facility] carvediloL 6.25 mg tablet 03-31 00:00: 00 Yes [id number] [facility] carvediloL 6.25 mg tablet 0 03-31 00:00: 00 Yes [id number] [facility] carvediloL 6.25 mg tablet 03-31 00:00: 00 Yes [id number] [facility] [place] [facility] carvediloL 6.25 mg tablet 03-31 00:00: 00 Yes [id number] [facility] [place] [facility] carvediloL 6.25 mg tablet 03-31 00:00: 00 Yes [id number] [facility] carvediloL 6.25 mg tablet 03-31 00:00: 00 Yes [id number] [facility] mirtazapine 15 mg tablet 03-30 00:00: 00 Yes [id number] [facility] mirtazapine 15 mg tablet 03-30 00:00: 00 Yes [id number] [facility] mirtazapine 15 mg tablet 03-30 00:00: 00 Yes [id number] [facility] mirtazapine 15 mg tablet 03-30 00:00: 00 Yes [id number] [facility] [place] [facility] mirtazapine 15 mg tablet 03-30 00:00: 00 Yes [id number] [facility] mirtazapine 15 mg tablet 03-30 00:00: 00 Yes [id number] [facility] mirtazapine 15 mg tablet 03-30 00:00: 00 Yes [id number] [facility] mirtazapine 15 mg tablet 03-30 00:00: 00 Yes [id number] [facility] mirtazapine 15 mg tablet 03-30 00:00: 00 Yes [id number] [facility] mirtazapine 15 mg tablet 03-30 00:00: 00 Yes [id number] [facility] mirtazapine 15 mg tablet 03-30 00:00: 00 Yes [id number] [facility] mirtazapine 15 mg tablet 03-30 00:00: 00 Yes [id number] [facility] mirtazapine 15 mg tablet 03-30 00:00: 00 Yes [id number] [facility] mirtazapine 15 mg tablet 0 03-30 00:00: 00 Yes [facility] mirtazapine 15 mg tablet 0 03-30 00:00: 00 Yes [id number] [facility] mirtazapine 15 mg tablet 0 03-30 00:00: 00 Yes [id number] [facility] mirtazapine 15 mg tablet 0 03-30 00:00: 00 Yes [id number] [facility] mirtazapine 15 mg tablet 0 03-30 00:00: 00 Yes [id number] [facility] mirtazapine 15 mg tablet 0 03-30 00:00: 00 Yes [id number] [facility] mirtazapine 15 mg tablet 03-30 00:00: 00 Yes [id number] [facility] mirtazapine 15 mg tablet 0 03-30 00:00: 00 Yes [id number] [facility] mirtazapine 15 mg tablet 03-30 00:00: 00 Yes [id number] [facility] mirtazapine 15 mg tablet 03-30 00:00: 00 Yes [id number] [facility] mirtazapine 15 mg tablet 03-30 00:00: 00 Yes [id number] [facility] mirtazapine 15 mg tablet 0 03-30 00:00: 00 Yes [id number] [facility] mirtazapine 15 mg tablet 0 03-30 00:00: 00 Yes [id number] [facility] mirtazapine 15 mg tablet 0 03-30 00:00: 00 Yes [id number] [facility] mirtazapine 15 mg tablet 0 03-30 00:00: 00 Yes [id number] [facility] mirtazapine 15 mg tablet 0 03-30 00:00: 00 Yes [id number] [facility] mirtazapine 15 mg tablet 03-30 00:00: 00 Yes [id number] [facility] mirtazapine 15 mg tablet 0 03-30 00:00: 00 Yes [id number] [facility] mirtazapine 15 mg tablet 03-30 00:00: 00 Yes [id number] [facility] mirtazapine 15 mg tablet 0 03-30 00:00: 00 Yes [id number] [facility] mirtazapine 15 mg tablet 0 03-30 00:00: 00 Yes [id number] [facility] mirtazapine 15 mg tablet 03-30 00:00: 00 Yes [id number] [facility] mirtazapine 15 mg tablet 03-30 00:00: 00 Yes [id number] [facility] mirtazapine 15 mg tablet 03-30 00:00: 00 Yes [id number] [facility] mirtazapine 15 mg tablet 03-30 00:00: 00 Yes [id number] [facility] mirtazapine 15 mg tablet 03-30 00:00: 00 Yes [id number] [facility] mirtazapine 15 mg tablet 03-30 00:00: 00 Yes [id number] [facility] mirtazapine 15 mg tablet 03-30 00:00: 00 Yes [id number] [facility] mirtazapine 15 mg tablet 03-30 00:00: 00 Yes [id number] [facility] mirtazapine 15 mg tablet 0 03-30 00:00: 00 Yes [id number] [facility] mirtazapine 15 mg tablet 03-30 00:00: 00 Yes [id number] [facility] mirtazapine 15 mg tablet 03-30 00:00: 00 Yes [id number] [facility] mirtazapine 15 mg tablet 0 03-30 00:00: 00 Yes [id number] [facility] cephALEXin 250 mg capsule 2-0 8-20 00:00: 00 Yes [id number] [facility] cephALEXin 250 mg capsule 2-0 8-20 00:00: 00 Yes [id number] [facility] cephALEXin 250 mg capsule 2-0 8-20 00:00: 00 Yes [id number] [facility] cephALEXin 250 mg capsule 2-0 8-20 00:00: 00 Yes [id number] [facility] cephALEXin 250 mg capsule 2-0 8-20 00:00: 00 Yes [id number] [facility] cephALEXin 250 mg capsule 2-0 8-20 00:00: 00 Yes [id number] [facility] cephALEXin 250 mg capsule 2-0 8-20 00:00: 00 Yes [id number] [facility] cephALEXin 250 mg capsule 2-0 8-20 00:00: 00 Yes [id number] [facility] cephALEXin 250 mg capsule 2-0 8-20 00:00: 00 Yes [id number] [facility] cephALEXin 250 mg capsule 2-0 8-20 00:00: 00 Yes [id number] [facility] cephALEXin 250 mg capsule 2-0 8-20 00:00: 00 Yes [facility] cephALEXin 250 mg capsule 2-0 8-20 00:00: 00 Yes [id number] [facility] cephALEXin 250 mg capsule 2-0 8-20 00:00: 00 Yes [id number] [facility] cephALEXin 250 mg capsule 2-0 8-20 00:00: 00 Yes [id number] [facility] cephALEXin 250 mg capsule 2-0 8-20 00:00: 00 Yes [id number] [facility] cephALEXin 250 mg capsule 2-0 8-20 00:00: 00 07-16 00:00 :00 No [id number] [facility] Vital Signs Vital Name Observation Time Observation Value Comments S ource Systolic blood pressure 2023-06-12 20:38:00 117 mm[Hg] [facility] Diastolic blood pressure 2023-06-12 20:38:00 60 mm[Hg] [facility] Heart rate 2023-06-12 20:38:00 83 /[facility] 2023-06-12 20:38:00 18 /min [facility] Body height 2023-06-12 20:38:00 180.3 cm [facility] weight 2023-06-12 20:38:00 74.844 kg [facility] 2023-06-12 20:38:00 23.01 kg/m2 [facility] Systolic blood pressure 2023-05-26 19:16:00 109 mm[Hg] [facility] Diastolic blood pressure 2023-05-26 19:16:00 60 mm[Hg] [facility] Heart rate 2023-05-26 19:16:00 88 /min [facility] 2023-05-26 19:16:00 180.3 cm [facility] 2023-05-26 19:16:00 74.844 kg [facility] BMI 2023-05-26 19:16:00 23.01 kg/m2 [facility] Oxygen saturation in Arterial blood by Pulse oximetry 2023-05-26 19:16:00 84 /min [facility] Systolic blood pressure 2023-05-26 19:16:00 109 mm[Hg] [facility] Diastolic blood pressure 2023-05-26 19:16:00 60 mm[Hg] [facility] Heart rate 2023-05-26 19:16:00 88 /min [facility] height 2023-05-26 19:16:00 180.3 cm [facility] weight 2023-05-26 19:16:00 74.844 kg [facility] BMI 2023-05-26 19:16:00 23.01 kg/m2 [facility] O[facility] saturation in Arterial blood by Pulse oximetry 2023-05-26 19:16:00 84 /min [facility] Body weight 2023-05-05 21:15:00 80.74 kg [facility] BMI 2023-05-05 21:15:00 24.83 kg/m2 [facility] Systolic blood pressure 2023-03-18 19:29:00 129 mm[Hg] [facility] Diastolic blood pressure 2023-03-18 19:29:00 72 mm[Hg] [facility] Heart rate 2023-03-18 19:29:00 86 /min Unive [facility] Body temperature 2023-03-18 19:29:00 36.83 Jessie [facility] Respiratory rate 2023-03-18 19:29:00 18 /min [facility] Oxygen saturation in Arterial blood by Pulse oximetry 2023-03-18 19:29:00 93 /min [facility] Systolic blood pressure 2022-10-12 16:33:00 115 mm[Hg] [facility] Diastolic blood pressure 2022-10-12 16:33:00 52 mm[Hg] [facility] Heart rate 2022-10-12 16:33:00 59 /min Unive [facility] Body temperature 2022-10-12 16:33:00 36.83 Jessie [facility] Respiratory rate 2022-10-12 16:33:00 16 /min [facility] Oxygen saturation in Arterial blood by Pulse oximetry 2022-10-12 16:33:00 95 /min [facility] Body height 2022-10-12 00:36:00 180.3 cm [facility] Body weight 2022-10-12 00:36:00 81.103 kg [facility] BMI 2022-10-12 00:36:00 24.94 kg/m2 [facility] Systolic blood pressure 2022-10-11 14:24:00 105 mm[Hg] [facility] Diastolic blood pressure 2022-10-11 14:24:00 45 mm[Hg] [facility] Heart rate 2022-10-11 14:24:00 74 /min Unive [facility] Body temperature 2022-10-11 14:24:00 36.56 Jessie [facility] Respiratory rate 2022-10-11 14:24:00 10 /min [facility] Body height 2022-10-11 14:24:00 180.3 cm [facility] Body weight 2022-10-11 14:24:00 83.915 kg [facility] BMI 2022-10-11 14:24:00 24.94 kg/m2 [facility] Oxygen saturation in Arterial blood by Pulse oximetry 2022-10-11 14:24:00 88 /min [facility] Systolic blood pressure 2022-07-15 16:17:00 120 mm[Hg] [facility] Diastolic blood pressure 2022-07-15 16:17:00 62 mm[Hg] [facility] Heart rate 2022-07-15 16:17:00 83 /min Unive [facility] Body temperature 2022-07-15 16:17:00 36.61 Jessie [facility] Respiratory rate 2022-07-15 16:17:00 18 /min [facility] Body weight 2022-07-15 16:17:00 83.915 kg [facility] BMI 2022-07-15 16:17:00 25.80 kg/m2 [facility] Oxygen saturation in Arterial blood by Pulse oximetry 2022-07-15 16:17:00 96 /min [facility] Systolic blood pressure 2022-04-22 16:43:00 134 mm[Hg] [facility] Diastolic blood pressure 2022-04-22 16:43:00 64 mm[Hg] [facility] Heart rate 2022-04-22 16:43:00 87 /min Unive [facility] Body temperature 2022-04-22 16:43:00 36.33 Jessie [facility] Respiratory rate 2022-04-22 16:43:00 20 /min [facility] Body height 2022-04-22 16:43:00 180.3 cm [facility] Body weight 2022-04-22 16:43:00 83.915 kg [facility] BMI 2022-04-22 16:43:00 25.80 kg/m2 [facility] Oxygen saturation in Arterial blood by Pulse oximetry 2022-04-22 16:43:00 93 /min [facility] Procedures Procedure Date / Time Performed Performing Clinician Source HB ECG ROUTINE & RHYTHM STRIP 2023-05-26 19:12:12 Alisson Meza [facility] AUTHORIZATION TO RELEASE PHI TO [facility] 2023-05-26 05:01:00 Doctor Unassigned, Sattley [facility] CONSENT/REFUSAL FOR DIAGNOSIS AND TREATMENT 2023-05-05 21:06:09 Doctor Unassigned, [place]ley [facility] MAGNESIUM 2022-10-12 09:57:00 Etsella [facility] BASIC METABOLIC PANEL (NA, K, CL, CO2, GLUCOSE, BUN, CREATININE, CA) 2022-10-12 09:57:00 Estella [facility] LIPID PANEL (40501)(TOTAL CHOLESTEROL, TRIGLYCERIDES, HDL) 2022-10-12 09:57:00 Kaleigh Jcarlos [facility] CBC WITH DIFF 2022-10-12 09:57:00 [facility] 2022-10-12 09:57:00 Estella [facility] BASIC METABOLIC PANEL (NA, K, CL, CO2, GLUCOSE, BUN, CREATININE, CA) 2022-10-12 09:57:00 Estella [facility] LIPID PANEL (91121)(TOTAL CHOLESTEROL, TRIGLYCERIDES, HDL) 2022-10-12 09:57:00 Kaleigh Jcarlos [facility] CBC WITH DIFF 2022-10-12 09:57:00 Elijah Soria [facility] POCT ACT LOW RANGE 2022-10-11 19:08:00 Estella [facility] CARDIAC CATHETERIZATION 2022-10-11 18:09:00 Se teresa Meza [facility] CARDIAC CATHETERIZATION 2022-10-11 18:09:00 Se teresa Meza [facility] CATH PROCEDURE LOG 2022-10-11 17:32:41 Alisson Meza [facility] CATH PROCEDURE LOG 2022-10-11 17:32:41 Alisson Meza [facility] POCT ACT LOW RANGE 2022-10-11 17:04:00 LoganShawnmia [facility] BASIC METABOLIC PANEL (NA, K, CL, CO2, GLUCOSE, BUN, CREATININE, CA) 2022-10-11 14:01:00 [facility] CBC WITHOUT DIFF 2022-10-11 14:01:00 [facility] 2022-10-11 14:01:00 Logan, A faq [facility] BASIC METABOLIC PANEL (NA, K, CL, CO2, GLUCOSE, BUN, CREATININE, CA) 2022-10-11 14:01:00 [facility] CBC WITHOUT DIFF 2022-10-11 14:01:00 [facility]ylar [facility]illa [facility] 2022-10-11 14:01:00 Logan, A faq [facility] CONSENT/REFUSAL FOR DIAGNOSIS AND TREATMENT 2022-10-11 13:39:35 Doctor Unassigned, [place]ley [facility] EXTERNAL PROVIDER - ADC CARDIOLOGY 2022-10-07 05:01:00 Doctor Unassigned, [place] [facility] EXTERNAL PROVIDER - [facility] CARDIOLOGY 2022-10-02 06:01:00 Doctor Unassigned, [place] [facility] AUTHORIZATION FOR RELEASE OF PHI 2022-07-16 06:01:00 Doctor Unassigned, Sattley [facility] MYOCARDIUM PERFUSION STRESS AND REST 2022-07-09 17:33:00 Alisson Meza [facility] MYOCARDIUM PERFUSION STRESS AND REST 2022-07-09 17:33:00 Alisson Meza [facility] MYOCARDIUM PERFUSION STRESS AND REST 2022-07-09 17:33:00 Alisson Meza [facility] MYOCARDIUM PERFUSION STRESS AND REST 2022-07-09 17:33:00 Alisson Meza [facility] HB CREATININE SERUM/BLOOD FOR IMAGING 2022-07-05 16:18:00 Alisson Meza [facility] CT ANGIOGRAM NECK 2022-07-05 15:40:00 Alisson Meza [facility] MEDICAL RELEASE/CLEARANCE FORMS 2022-06-14 06:01:00 Doctor Unassigned, [place] [facility] HB ECG ROUTINE & RHYTHM STRIP 2022-04-22 16:51:22 Alisson Meza [facility] ASSIGNMENT OF BENEFITS 2022-04-22 16:27:17 Docto r Unassigned, [place]ley [facility] Encounters Start Date/Time End Date/Time Encounter Type Admission Type Attending Clinicians Care Facility Care Department Encounter ID Source 2023-08-18 00:00:00 2023-08-18 00:00:00 Outpatient GC_BAHC_Tod d_J PRIV PRIV [id number] [facility] 2023-08-14 00:00:00 2023-08-14 00:00:00 Outpatient GC_BAHC_Tod d_J PRIV PRIV [id number] [facility] 2023-08-09 00:00:00 2023-08-09 00:00:00 Outpatient GC_BAHC_Tod d_J PRIV PRIV [id number] [facility] 2023-06-12 14:45:00 2023-06-12 14:57:44 Outpatient R CLAYTON MONTES DE OCA [facility] [id number] [facility] 2023-06-12 14:45:00 2023-06-12 14:57:44 Office Visit Clayton Montes De Oca [facility] 1.2.840.114 350.1.13.10 4.2.7.2.686 [id number] [facility] 2023-06-05 00:00:00 2023-06-05 00:00:00 Outpatient GC_BAHC_Tod d_J PRIV PRIV [id number] [facility] 2023-06-05 00:00:00 2023-06-05 00:00:00 Outpatient GC_BAHC_Tod d_J [facility] [id number] [facility] 2023-06-05 00:00:00 2023-06-05 00:00:00 Outpatient GC_BAHC_Tod d_J [facility] [id number] [facility] 2023-06-05 00:00:00 2023-06-05 00:00:00 Outpatient GC_BAHC_Tod d_J [facility] [id number] [facility] 2023-05-29 13:45:00 2023-05-29 13:45:00 Outpatient R CLAYTON MONTES DE O[facility] [id number] [facility] 2023-05-27 00:00:00 2023-05-27 00:00:00 Telephone Alisson Meza [facility] 1..840.114 350.1.13.10 4.2.7.2.686 [id number] [facility] 2023-05-26 14:00:00 2023-05-26 14:30:47 Outpatient R LAISSON MEZA [facility] [id number] [facility] 2023-05-26 14:00:00 2023-05-26 14:30:47 Office Visit Alisson Meza [facility] 1..840.114 350.1.13.10 4.2.7.2.686 [id number] [facility] 2023-05-26 00:00:00 2023-05-26 00:00:00 Orders Only Doctor Unassigned, Sattley [facility] 1..840.114 350.1.13.10 4.2.7.2.686 [id number] [facility] 2023-05-14 00:00:00 2023-05-14 00:00:00 Outpatient GC_BAHC_Tod d_J [facility] [id number] [facility] 2023-05-14 00:00:00 2023-05-14 00:00:00 Outpatient GC_BAHC_Tod d_J PRIV PRIV [id number] [facility] 2023-05-14 00:00:00 2023-05-14 00:00:00 Outpatient GC_BAHC_Tod d_J PRIV PRIV [id number] [facility] 2023-05-05 16:17:05 2023-05-05 23:59:00 Hospital Encounter Bibi Kimble Jayne [facility] 1.2.840.114 350.1.13.10 4.2.7.2.686 [id number] [facility] 2023-05-05 16:15:00 2023-05-05 16:30:00 Office Visit Bibi Kimble Craig L [facility] 1.2.840.114 350.1.13.10 4.2.7.2.686 [id number] [facility] 2023-05-05 16:15:00 2023-05-05 16:15:00 Outpatient DONY PAUL CRAIG [facility] [id number] [facility] 2023-05-05 00:00:00 2023-05-05 00:00:00 Orders Only Doctor Unassigned, [place] [facility] 1.2.840.114 350.1.13.10 4.2.7.2.686 [id number] [facility] 2023-04-24 13:00:00 2023-04-24 13:00:00 Outpatient BIBI DUMONT [facility] [id number] [facility] 2023-04-12 00:00:00 2023-04-12 00:00:00 Outpatient GC_BAHC_Tod d_J PRIV PRIV [id number] [facility] 2023-04-12 00:00:00 2023-04-12 00:00:00 Outpatient GC_BAHC_Tod d_J PRIV PRIV [id number] [facility] 2023-04-12 00:00:00 2023-04-12 00:00:00 Outpatient GC_BAHC_Tod d_J PRIV PRIV [id number] [facility] 2023-04-03 00:00:00 2023-04-03 00:00:00 Outpatient GC_BAHC_Tod d_J PRIV PRIV [id number] [facility] 2023-04-03 00:00:00 2023-04-03 00:00:00 Outpatient GC_BAHC_Tod d_J PRIV PRIV [id number] [facility] 2023-03-19 00:00:00 2023-03-19 00:00:00 [facility] 1.2.840.114 350.1.13.10 4.2.7.2.686 [id number] [facility] 2023-03-18 14:30:00 2023-03-18 15:00:07 [id number] 2023-03-18 14:30:00 2023-03-18 15:00:07 Office Visit Fei Diorth [facility] 1.2.840.114 350.1.13.10 4.2.7.2.686 [id number] [facility] 2023-03-13 00:00:00 2023-03-13 00:00:00 Outpatient GC_BAHC_Tod d_J PRIV PRIV [id number] [facility] 2023-03-13 00:00:00 2023-03-13 00:00:00 Outpatient GC_BAHC_Tod d_J PRIV PRIV [id number] [facility] 2023-03-13 00:00:00 2023-03-13 00:00:00 Outpatient GC_BAHC_Tod d_J PRIV PRIV [id number] [facility] 2023-03-13 00:00:00 2023-03-13 00:00:00 Outpatient GC_BAHC_Tod d_J PRIV PRIV [id number] [facility] 2023-02-05 00:00:00 2023-02-05 00:00:00 Outpatient GC_BAHC_Tod d_J PRIV PRIV [id number] [facility] 2023-02-05 00:00:00 2023-02-05 00:00:00 Outpatient GC_BAHC_Tod d_J PRIV PRIV [id number] [facility] 2023-02-05 00:00:00 2023-02-05 00:00:00 Outpatient GC_BAHC_Tod d_J PRIV PRIV [id number] [facility] 2023-02-05 00:00:00 2023-02-05 00:00:00 Outpatient GC_BAHC_Tod d_J PRIV PRIV [id number] [facility] 2023-02-05 00:00:00 2023-02-05 00:00:00 Outpatient GC_BAHC_Tod d_J PRIV PRIV [id number] [facility] 2023-02-05 00:00:00 2023-02-05 00:00:00 Outpatient GC_BAHC_Tod d_J PRIV PRIV [id number] [facility] 2023-02-05 00:00:00 2023-02-05 00:00:00 Outpatient GC_BAHC_Tod d_J PRIV PRIV [id number] [facility] 2023-01-27 00:00:00 2023-01-27 00:00:00 Outpatient GC_BAHC_Tod d_J PRIV PRIV [id number] [facility] 2023-01-27 00:00:00 2023-01-27 00:00:00 Outpatient GC_BAHC_Tod d_J PRIV PRIV [id number] [facility] 2023-01-17 00:00:00 2023-01-17 00:00:00 Outpatient GC_BAHC_Tod d_J PRIV PRIV [id number] [facility] 2023-01-17 00:00:00 2023-01-17 00:00:00 Outpatient GC_BAHC_Tod d_J PRIV PRIV [id number] [facility] 2023-01-17 00:00:00 2023-01-17 00:00:00 Outpatient GC_BAHC_Tod d_J PRIV PRIV [id number] [facility] 2022-12-27 00:00:00 2022-12-27 00:00:00 Outpatient GC_BAHC_Tod d_J PRIV PRIV [id number] [facility] 2022-12-27 00:00:00 2022-12-27 00:00:00 Outpatient GC_BAHC_Tod d_J PRIV PRIV [id number] [facility] 2022-12-27 00:00:00 2022-12-27 00:00:00 Outpatient GC_BAHC_Tod d_J PRIV PRIV [id number] [facility] 2022-12-27 00:00:00 2022-12-27 00:00:00 Outpatient GC_BAHC_Tod d_J PRIV PRIV [id number] [facility] 2022-12-27 00:00:00 2022-12-27 00:00:00 Outpatient GC_BAHC_Tod d_J PRIV PRIV [id number] [facility] 2022-12-25 00:00:00 2022-12-25 00:00:00 Outpatient GC_BAHC_Tod d_J PRIV PRIV [id number] [facility] 2022-12-20 00:00:00 2022-12-20 00:00:00 Outpatient GC_BAHC_Tod d_J PRIV PRIV [id number] [facility] 2022-12-20 00:00:00 2022-12-20 00:00:00 Outpatient GC_BAHC_Tod d_J PRIV PRIV [id number] [facility] 2022-12-19 00:00:00 2022-12-19 00:00:00 Outpatient GC_BAHC_Tod d_J PRIV [facility] [id number] [facility] 2022-10-13 00:00:00 2022-10-13 00:00:00 Case Management Alisson Meza [facility] 1.2840.114 350.1.13.10 4.2.7.2.686 [id number] [facility] 2022-10-11 08:44:00 2022-10-12 15:00:00 Outpatient R ESTELLA, ELIJAH SORIA, ELIJAH [facility] JUDY [id number] [facility] 2022-10-11 08:44:00 2022-10-12 15:00:00 [facility] 1.2.840.114 350.1.13.10 4.2.7.2.686 [id number] [facility] 2022-10-11 10:51:00 2022-10-11 11:51:[address] [facility] ([facility]) 1.2.840.114 350.1.13.10 4.2.7.2.686 [id number] [facility] 2022-10-11 00:00:00 2022-10-11 00:00:00 Orders Only Doctor Unassigned, [place] [facility] 1.2840.114 350.1.13.10 4.2.7.2.686 [id number] [id number] [facility] 2022-10-07 00:00:00 2022-10-07 00:00:00 Orders Only Doctor Unassigned, [place] [facility] 1.2840.114 350.1.13.10 4.2.7.2.686 [id number] [facility] 2022-10-02 11:00:00 2022-10-02 11:00:00 Outpatient R ALISSON MEZA [facility] [id number] [facility] 2022-10-02 00:00:00 2022-10-02 00:00:00 Orders Only Doctor Unassigned, [place] [facility] 1.2.840.114 350.1.13.10 4.2.7.2.686 [id number] [id number] [facility] 2022-10-01 00:00:00 2022-10-01 00:00:00 Telephone Alisson Meza JohnsonFernanda [facility] 1.2.840.114 350.1.13.10 4.2.7.2.686 [id number] [facility] 2022-08-15 00:00:00 2022-08-15 00:00:00 Telephone Alisson Meza LoriFernandaFernanda [facility] 1.2.840.114 350.1.13.10 4.2.7.2.686 [id number] [id number] [facility] 2022-07-16 00:00:00 2022-07-16 00:00:00 Telephone Nilo Enrikemiguel angel JohnsonFernanda [facility] 1.2.840.114 350.1.13.10 4.2.7.2.686 [id number] [id number] [facility] 2022-07-16 00:00:00 2022-07-16 00:00:00 Orders Only Doctor Unassigned, [place] [facility] 1.2.840.114 350.1.13.10 4.2.7.2.686 [id number] [id number] [facility] 2022-07-15 10:00:00 2022-07-15 10:35:47 Outpatient R ALISSON MEZA [facility] [id number] [facility] 2022-07-15 10:00:00 2022-07-15 10:35:47 Office Visit Alisson Meza [facility] 1.2.840.114 350.1.13.10 4.2.7.2.686 [id number] [facility] 2022-07-11 00:00:00 2022-07-11 00:00:00 Telephone Alisson Meza [facility] 1.2.840.114 350.1.13.10 4.2.7.2.686 [id number] [facility] 2022-07-09 09:01:24 2022-07-09 23:59:00 Hospital Encounter Alisson Meza [facility] 1.2.840.114 350.1.13.10 4.2.7.2.686 [id number] [facility] 2022-07-09 08:59:51 2022-07-09 09:00:00 Hospital Encounter Alisson Meza [facility] 1.2.840.114 350.1.13.10 4.2.7.2.686 [id number] [facility] 2022-07-09 08:58:59 2022-07-09 08:58:59 Hospital Encounter Alisson Meza [facility] 1.2.840.114 350.1.13.10 4.2.7.2.686 [id number] [facility] 2022-07-09 08:58:12 2022-07-09 08:58:12 Hospital Encounter Alisson Meza [facility] 1.2.840.114 350.1.13.10 4.2.7.2.686 [id number] [facility] 2022-07-09 08:58:12 2022-07-09 08:58:12 Outpatient R ALISSON MEZA [facility] [id number] [facility] 2022-07-05 08:52:21 2022-07-05 23:59:00 Outpatient R ALISSON MEZA [facility] [id number] [facility] 2022-07-05 08:52:21 2022-07-05 23:59:00 Hospital Encounter Alisson Meza [facility] 1.2.840.114 350.1.13.10 4.2.7.2.686 [id number] [facility] 2022-06-19 00:00:00 2022-06-19 00:00:00 Telephone Alisson Meza [facility] 1.2.840.114 350.1.13.10 4.2.7.2.686 [id number] [facility] 2022-06-14 00:00:00 2022-06-14 00:00:00 Orders Only Doctor Unassigned, [place] [facility] 1.2.840.114 350.1.13.10 4.2.7.2.686 [id number] [id number] [facility] 2022-06-13 00:00:00 2022-06-13 00:00:00 Telephone Alisson MezaFernanda [facility] 1.2.840.114 350.1.13.10 4.2.7.2.686 [id number] [facility] 2022-06-05 10:00:00 2022-06-05 23:59:00 Outpatient R ALISSON MEZA [facility] [id number] [facility] 2022-05-20 09:00:00 2022-05-20 09:00:00 Outpatient ALISSON THURMAN [facility] [id number] [facility] 2022-05-16 09:00:00 2022-05-16 09:00:00 Outpatient R ALISSON MEZA [facility] [id number] [facility] 2022-05-03 11:00:00 2022-05-03 11:00:00 Outpatient R ALISSON MEZA [facility] [id number] [facility] 2022-04-24 00:00:00 2022-04-24 00:00:00 Telephone Alisson MezaFernanda [facility] 1.2.840.114 350.1.13.10 4.2.7.2.686 [id number] [facility] 2022-04-22 11:30:00 2022-04-22 15:42:32 Outpatient R ALISSON MEZA [facility] [id number] [facility] 2022-04-22 11:30:00 2022-04-22 15:42:32 Office Visit Alisson MezaFernanda [facility] 1.2.840.114 350.1.13.10 4.2.7.2.686 [id number] [facility] 2022-04-22 00:00:00 2022-04-22 00:00:00 Orders Only Doctor Unassigned, [place] [facility] 1.2.840.114 350.1.13.10 4.2.7.2.686 [id number] [facility] Results Test Description Test Time Test Comments Results Result Co mments Source [facility] LOW [id number] 22:49:52* Test Item Value Reference Range Interpretation Comme nts ACTLR (test code = 0296019596) 187 See_Comment H [Automated messa ge] The system which generated this result transmitted reference range: 89 - 169 Seconds. The reference range was not used to interpret this result as normal/abnormal. Lab Interpretation (test code = 22909-4) Abnormal [facility]OL[facility] PAN[facility] (NA, K, CL, CO2, GLUCOSE, BUN, CREATININE, CA)2022-10-11 14:33:11* Test Item Value Reference Range Interpretation Comme nts NA (test code = 8327449415) 138 mmol/L 135-145 K (test code = 7619691786) 3.7 mmol/L 3.5-5.0 CL (test code = 6964479122) 104 mmol/L 98-108 CO2 TOTAL (test code = 2287139194) 31 mmol/L 23-31 AGAP (test code = 8724494738) 3 2-16 BUN (test code = 7093829961) 17 mg/dL 7-23 GLUCOSE (test code = 3203823989) 100 mg/dL 70-110 CREATININE (test code = 3055679737) 0.87 mg/dL 0.60-1.25 CALCIUM (test code = 1982815831) 8.6 mg/dL 8.6-10.6 eGFR (test code = 0914072347) 85.3 mL/min/1.73m2 RUBEN (test code = RUBEN) Association of Glomerular Filtration Rate (GFR) and Staging of Kidney Disease* + + +- +| GFR (mL/min/1.73 m2) ?| With Kidney Damage ?| ?Without Kidney Damage+ ------+ ----+ ------+| ?>90 ?| ?Stage one ?| ? Normal ?+ -+ + -+| ?60-89 ?| ?Stage two ?| ? Decreased GFR ? + + +- +| ?30-59 ?| ?Stage three ?| ? Stage three ? + + +- +| ?15-29 ?| ?Stage four ? | ? Stage four ?+ -+ + -+| ?<15 (or dialysis) ? ?| ?Stage five ? | ? Stage five ?+ -+ + -+ *Each stage assumes the associated GFR level has been in effect for at least three months. ?Stages 1 to 5, with or without kidney disease, indicate chronic kidney disease. Notes: Determination of stages one and two (with eGFR >59mL/min/1.73 m2) requires estimation of kidney damage for at least three months as defined by structural or functional abnormalities of the kidney, manifested by either:Pathological abnormalities or Markers of kidney damage (including abnormalities in the composition of the blood or urine or abnormalities in imaging tests). [facility] METABOLIC PANEL (NA, K, CL, CO2, GLUCOSE, BUN, CREATININE, CA)2022-10-11 14:33:11* Test Item Value Reference Range Interpretation Comme nts NA (test code = 3471314434) 138 mmol/L 135-145 K (test code = 9856906932) 3.7 mmol/L 3.5-5.0 CL (test code = 5061414469) 104 mmol/L 98-108 CO2 TOTAL (test code = 2376637777) 31 mmol/L 23-31 AGAP (test code = 5337117128) 3 2-16 BUN (test code = 0300282210) 17 mg/dL 7-23 GLUCOSE (test code = 3314192002) 100 mg/dL 70-110 CREATININE (test code = 9971864307) 0.87 mg/dL 0.60-1.25 CALCIUM (test code = 5050589377) 8.6 mg/dL 8.6-10.6 eGFR (test code = 3384605789) 85.3 mL/min/1.73m2 RUBEN (test code = RUBEN) Association of Glomerular Filtration Rate (GFR) and Staging of Kidney Disease* + + +- +| GFR (mL/min/1.73 m2) ?| With Kidney Damage ?| ?Without Kidney Damage+ ------+ ----+ ------+| ?>90 ?| ?Stage one ?| ? Normal ?+ -+ + -+| ?60-89 ?| ?Stage two ?| ? Decreased GFR ? + + +- +| ?30-59 ?| ?Stage three ?| ? Stage three ? + + +- +| ?15-29 ?| ?Stage four ? | ? Stage four ?+ -+ + -+| ?<15 (or dialysis) ? ?| ?Stage five ? | ? Stage five ?+ -+ + -+ *Each stage assumes the associated GFR level has been in effect for at least three months. ?Stages 1 to 5, with or without kidney disease, indicate chronic kidney disease. Notes: Determination of stages one and two (with eGFR >59mL/min/1.73 m2) requires estimation of kidney damage for at least three months as defined by structural or functional abnormalities of the kidney, manifested by either:Pathological abnormalities or Markers of kidney damage (including abnormalities in the composition of the blood or urine or abnormalities in imaging tests). [facility] Time / [id number] 14:28:09* Test Item Value Reference Range Interpretation Comme nts PROTIME PATIENT (test code = 5964-2) 12.9 See_Comment H [Automated [employer]] The system which generated this result transmitted reference range: 10.1 - 12.6 Seconds. The reference range was not used to interpret this result as normal/abnormal. INR (test code = 6301-6) 1.2 Normal INR <1.1; Warfarin Therapeutic range 2.0 to 3.0 or 2.5 to 3.5, depending upon the indications. Lab Interpretation (test code = 24056-0) Abnormal [facility] Time / [id number] 14:28:09* Test Item Value Reference Range Interpretation Comme nts PROTIME PATIENT (test code = 5964-2) 12.9 See_Comment H [Automated [employer]] The system which generated this result transmitted reference range: 10.1 - 12.6 Seconds. The reference range was not used to interpret this result as normal/abnormal. INR (test code = 6301-6) 1.2 Normal INR <1.1; Warfarin Therapeutic range 2.0 to 3.0 or 2.5 to 3.5, depending upon the indications. Lab Interpretation (test code = 35219-3) Abnormal [facility] WITHOUT [id number] 14:09:49* Test Item Value Reference Range Interpretation Comme nts WBC (test code = 6690-2) 13.18 See_Comment H [Automated message] The system which generated this result transmitted reference range: 4.20 - 10.70 10*3/?L. The reference range was not used to interpret this result as normal/abnormal. RBC (test code = 789-8) 4.45 See_Comment [Automated message] The system which generated this result transmitted reference range: 4.26 - 5.52 10*6/?L. The reference range was not used to interpret this result as normal/abnormal. HGB (test code = 718-7) 13.1 g/dL 12.2-16.4 HCT (test code = 4544-3) 42.4 % 38.4-49.3 MCH (test code = 785-6) 29.4 pg 26.1-32.7 MCV (test code = 787-2) 95.3 fL 81.7-95.6 MCHC (test code = 786-4) 30.9 g/dL 31.2-35.0 L PLT (test code = 777-3) 277 See_Comment [Automated message] The system which generated this result transmitted reference range: 150 - 328 10*3/?L. The reference range was not used to interpret this result as normal/abnormal. MPV (test code = 56697-9) 9.3 fL 9.8-13.0 L RDW-CV (test code = 788-0) 15.3 % 12.1-15.4 RDW-SD (test code = 34017-4) 53.8 fL 38.5-51.6 H NRBC x10^3 (test code = 2781916935) See_Comment [Automated messa ge] The system which generated this result transmitted reference range: 10*3/?L. The reference range was not used to interpret this result as normal/abnormal. NRBC/100 WBC (test code = 1216825148) 0.0 See_Comment [Automated [employer] ge] The system which generated this result transmitted reference range: 0.0 - 10.0 /100 WBCs. The reference range was not used to interpret this result as normal/abnormal. IPF % (test code = 4896711355) Lab Interpretation (test code = 96144-0) Abnormal [facility] WITHOUT [id number] 14:09:49* Test Item Value Reference Range Interpretation Comme nts WBC (test code = 6690-2) 13.18 See_Comment H [Automated message] The system which generated this result transmitted reference range: 4.20 - 10.70 10*3/?L. The reference range was not used to interpret this result as normal/abnormal. RBC (test code = 789-8) 4.45 See_Comment [Automated message] The system which generated this result transmitted reference range: 4.26 - 5.52 10*6/?L. The reference range was not used to interpret this result as normal/abnormal. HGB (test code = 718-7) 13.1 g/dL 12.2-16.4 HCT (test code = 4544-3) 42.4 % 38.4-49.3 MCH (test code = 785-6) 29.4 pg 26.1-32.7 MCV (test code = 787-2) 95.3 fL 81.7-95.6 MCHC (test code = 786-4) 30.9 g/dL 31.2-35.0 L PLT (test code = 777-3) 277 See_Comment [Automated message] The system which generated this result transmitted reference range: 150 - 328 10*3/?L. The reference range was not used to interpret this result as normal/abnormal. MPV (test code = 93385-1) 9.3 fL 9.8-13.0 L RDW-CV (test code = 788-0) 15.3 % 12.1-15.4 RDW-SD (test code = 24800-5) 53.8 fL 38.5-51.6 H NRBC x10^3 (test code = 2832412327) See_Comment [Automated [employer]] The system which generated this result transmitted reference range: 10*3/?L. The reference range was not used to interpret this result as normal/abnormal. NRBC/100 WBC (test code = 1587200413) 0.0 See_Comment [Automated [employer] ge] The system which generated this result transmitted reference range: 0.0 - 10.0 /100 WBCs. The reference range was not used to interpret this result as normal/abnormal. IPF % (test code = 3728041169) Lab Interpretation (test code = 90496-5) Abnormal [facility] [id number] 17:59:13* Test Item Value Reference Range Interpretation Comme nts POCT Creatinine (test code = 9657304080) 0.9 mg/dL 0.6-1.3 Lab Interpretation (test cod e = 15182-4) [facility] Notes Date/Time Note Provider Source 2023-03-19 09:17:35 39a2U0H25ePuMQH0U6TS ouegXyzB/dXt/Dz xWn8d4s+hHa3Rj3aXSzRjRPc8DojA4183-0 09:17:35 RX resent at this time and spouse notified. 77179-1Rekzvmpml encounter IimwZQ8089-61-75E16:18:54Telephone encounter NoteTXT1.2.840.405303.1.13.104.2.7. 2.556309|[id number] for patient qzjk49267-9ByosOPMILDGQ[address] HbrrL[id number] 8UZFWGIENHJQOIIXZSVNVRQ0322-10-94Q0 9:18:541.2.840.766130.1.72.3.15|1.2 .840.754622.1.13.104.2.7.2.727879_1 [id number] [facility] 2023-03-19 08:56:39 yIBxgUGEEP0j6eFKv7q4 nYTlXJChBW2ZGbL hOvgzxLNnPDd4tGaK9JtPFQfUlu7S2007-4 08:56:39 Patient called asking about cream that was said to be prescribed but the pharmacy states no medication was called in. Please advise. 87869-8Gbdgncecp encounter EulzFG6520-23-87L64:08:14Telephone encounter NoteTXT1.2.840.949751.1.13.104.2.7. 2.089037|[id number] for patient psxa42650-5WcnuLL875457430Enyxcz L [address] UlzfRjhqevbmyEigdzqovzTMMK411593933 9EERWRYDHUMDOAFENGTHYTA5071-29-99A5 9:08:141.2.840.225367.1.72.3.15|1.2 .840.984358.1.13.104.2.7.2.727879_1 [id number] [address] [place]ada [facility]"
[2023-08-22] MEDS ORDERED: NA CHLORIDE 0.9% 500 ML ONE (04:07)
[2023-08-22 04:45] LABS: Absolute Lymphocytes (CBC) 1.4 K/uL (0.7-4.9); Hematocrit 27.2 % (39.6-49.0); Lymphocytes % 10.9 % (15.3-44.8); MCV 87.6 fL (80-100); MPV 8.1 fL (7.6-11.3); Platelets 217 thou/uL (152-406); RBC Red Blood Cell Count 3.11 M/uL (4.33-5.43)
[2023-08-22 04:48] LABS: Protime INR 1.15
[2023-08-22] MEDS ORDERED: CEFTRIAXONE 1000 MG/VIAL ONE (04:53)
[2023-08-22] MEDS ORDERED: VANCOMYCIN 1 GM/VIAL ONE ×2 (04:53→11:16)
[2023-08-22] MEDS ORDERED: NA CHLORIDE 0.9% 50 ML ONE (04:54)
[2023-08-22] MEDS ORDERED: NA CHLORIDE 0.9% 250 ML ONE ×3 (04:54→11:18)
[2023-08-22 04:55] LABS: Albumin 1.7 g/dL (3.4-5.0); Bilirubin Total 0.6 mg/dL (0.2-1.0); Protein, Total 5.4 g/dL (6.4-8.2)
[2023-08-22 04:56] LABS: Potassium 2.5 mEq/L (3.5-5.1)
[2023-08-22 04:57] LABS: Specific Gravity 1.011 (1.005-1.030); Urine Bacteria None Seen /HPF (<20); Urine Bilirubin NEGATIVE (Negative); Urine Blood 3+ (Negative); Urine Clarity Extremely Turbid (Clear); Urine Color Yellow (Yellow); Urine Glucose NEGATIVE (Negative); Urine Mucus Slight /HPF (None Seen); Urine Protein NEGATIVE (Negative); Urine RBC 21-50 /HPF (None Seen); Urine Urobilinogen Normal (Normal)
[2023-08-22] MEDS ORDERED: KCL 20 MEQ/100 mL IVPB 100 ML IV ONE (06:12)
[2023-08-22] MEDS ORDERED: NOREPINEPHRINE BITARTRATE/D5W 4 MG/250 ML BAG IV ONE ×2 (07:01→21:48)
[2023-08-22 07:05] LABS: Platelet Estimate ADEQ
[2023-08-22 07:06] LABS: Anisocytosis 1+; Blood Morphology Comment NOTED (NOT SEEN)
--- NOTE | 2023-08-22 07:13 | EDPHYS ---
Physician Documentation [facility] Name: Felix Rangel Age: 77 yrs Sex: Male : 1945 Arrival Date: 08/22/2023 Time: 03:35 Bed 5 Private MD: ED Physician Hugo Solomon HPI: 08/22 03:53 This 77 yrs old Male presents to ER via Unassigned with complaints of weakness. kdr 05:59 Patient was brought to the hospital by EMS who [facility]. Patient is reported to normally be ANO x 3 but tonight was lethargic. He was noted to be 88% on room air. EMS placed the patient on 2 L nasal cannula and he improved his oxygenation. According to EMS he was poorly conversive however he did seem to answer questions posed in the very simple fashion with mostly yes or noes. Patient otherwise did not appear acutely ill. Patient has significant ecchymosis throughout his body.. Onset: The symptoms/episode began/occurred just prior to arrival. Severity of symptoms: At their worst the symptoms were mild moderate just prior to arrival, in the emergency department the symptoms are unchanged. It is unknown whether or not the patient has had similar symptoms in the past. It is unknown whether or not the patient has recently seen a physician. Historical: - Allergies: 04:16 No Known Allergies; tm6 - PMHx: 04:16 blockage L carotid; Hypertensive disorder; Congestive heart failure; Dementia; tm6 hyperlipidemia; Gout; - PSHx: 04:16 Stented artery; tm6 - Immunization history:: Adult Immunizations up to date. - Social history:: Smoking status: unknown. ROS: 05:59 Unable to obtain ROS due to altered mental status, baseline dementia, kdr Exam: 06:18 Constitutional: This is a well developed, well nourished patient who is awake, slow to kdr respond but in no acute distress. Very mildly verbal - answers questions with simple responses Head/Face: Normocephalic, atraumatic. Eyes: Pupils equal round and reactive to light, extra-ocular motions intact. Lids and lashes normal. Conjunctiva and sclera are non-icteric and not injected. Cornea within normal limits. Periorbital areas with no swelling, redness, or edema. Neck: Trachea midline, no thyromegaly or masses palpated, and no cervical lymphadenopathy. Supple, full range of motion without nuchal rigidity, or vertebral point tenderness. No Meningismus. Chest/axilla: Normal chest wall appearance and motion. Nontender with no deformity. No lesions are appreciated. Cardiovascular: Regular rate and rhythm with a normal S1 and S2. No gallops, murmurs, or rubs. Normal PMI, no JVD. No pulse deficits. 06:18 Respiratory: the patient does not display signs of respiratory distress, Respirations: normal, Breath sounds: rales, rhonchi, that are mild, are heard in the right posterior upper lobe, right posterior middle lobe and right posterior lower lobe, Vital Signs: 04:14 BP 98 / 50; Pulse 80; Resp 18; Temp 97.9(O); Pulse Ox 100% on 3 lpm NC; tm6 04:29 BP 92 / 40; Pulse 71; Pulse Ox 100% on 3 lpm NC; tm6 05:06 BP 87 / 44; Pulse 77; Resp 17; Temp 98.2; Pulse Ox 100% on 3 lpm NC; tm6 06:19 BP 92 / 58; Pulse 86; Resp 18; Temp 98.2(Ca); Pulse Ox 100% on 2 lpm NC; tm6 06:21 Weight 98.88 kg; Height 5 ft. 11 in. ; tm6 07:01 BP 76 / 43; Pulse 67; Resp 18; Pulse Ox 98% on R/A; ld1 07:14 BP 128 / 53; Pulse 67; Resp 18; Pulse Ox 100% on 2 lpm NC; ld1 07:24 BP 121 / 54; Pulse 67; Resp 18; Pulse Ox 100% on R/A; ld1 06:21 Body Mass Index 30.40 (98.88 kg, 180.34 cm) tm6 Procedures: 05:40 Central Line: the site was prepped with Betadine, a triple lumen catheter was inserted, kdr in the right femoral vein, in 2 attempts. placement was verified, by blood return, the site was dressed with Tegaderm, using sterile technique, the patient tolerated the procedure, well. MDM: 05:40 Data reviewed: vital signs, nurses notes, lab test result(s), radiologic studies. kdr Consideration of Admission/Observation Patient was admitted/placed on observation. Escalation of care including admission/observation considered. Management of patient was discussed with the following:. 07:12 Patient medically screened. kdr 08/22 03:52 Order name: Blood Culture Adult (2) kdr 08/22 03:52 Order name: CBC with Diff; Complete Time: 07:07 kdr 08/22 03:52 Order name: CMP; Complete Time: 05:55 kdr 08/22 03:52 Order name: Lactate w/ 2H reflex if indic.; Complete Time: 05:55 kdr 08/22 03:52 Order name: Protime (+inr); Complete Time: 05:55 kdr 08/22 03:52 Order name: Ptt, Activated; Complete Time: 05:55 kdr 08/22 03:52 Order name: Urinalysis w/ reflexes; Complete Time: 05:55 kdr 08/22 04:48 Order name: Manual Differential; Complete Time: 07:07 EDMS 08/22 05:18 Order name: Urine Culture EDMS 08/22 08:37 Order name: Basic Metabolic Panel EDMS 08/22 08:37 Order name: Basic Metabolic Panel EDMS 08/22 08:37 Order name: Basic Metabolic Panel EDMS 08/22 08:37 Order name: Basic Metabolic Panel EDMS 08/22 08:37 Order name: Basic Metabolic Panel EDMS 08/22 08:37 Order name: CBC with Automated Diff EDMS 08/22 08:37 Order name: CBC with Automated Diff EDMS 08/22 08:37 Order name: CBC with Automated Diff EDMS 08/22 08:37 Order name: CBC with Automated Diff EDMS 08/22 08:37 Order name: CBC with Automated Diff EDMS 08/22 08:37 Order name: Magnesium EDMS 08/22 08:37 Order name: Magnesium EDMS 08/22 08:37 Order name: Magnesium EDMS 08/22 08:37 Order name: Magnesium EDMS 08/22 08:37 Order name: Magnesium EDMS 08/22 08:37 Order name: NT PRO-BNP EDMS 08/22 08:37 Order name: NT PRO-BNP EDMS 08/22 08:37 Order name: NT PRO-BNP EDMS 08/22 08:37 Order name: NT PRO-BNP EDMS 08/22 08:37 Order name: NT PRO-BNP EDMS 08/22 09:42 Order name: Troponin High Sensitivity EDMS 08/22 09:42 Order name: NT PRO-BNP EDMS 08/22 09:42 Order name: Lactate w/ 2H reflex if indic. EDMT 08/22 03:52 Order name: Chest Single View XRAY [facility] 08/22 05:02 Order name: Chest Abd Pelvis Wo Con EDMT 08/22 03:52 Order name: EKG; Complete Time: 03:53 [facility] 08/22 08:33 Order name: CONS Physician Consult [facility] 08/22 03:52 Order name: Accucheck; Complete Time: 05:52 [facility] 08/22 03:52 Order name: Cardiac monitoring; Complete Time: 04:14 [facility] 08/22 03:52 Order name: EKG - Nurse/Tech; Complete Time: 04:47 [facility] 08/22 03:52 Order name: IV Saline Lock - Large Bore; Complete Time: 04:33 [facility] 08/22 03:52 Order name: Labs collected and sent; Complete Time: 04:33 [facility] 08/22 03:52 Order name: O2 Per Protocol; Complete Time: 04:14 [facility] 08/22 03:52 Order name: O2 Sat Monitoring; Complete Time: 04:14 [facility] 08/22 03:52 Order name: Vital Signs; Complete Time: 04:33 [facility] 08/22 03:55 Order name: Ramirez; Complete Time: 04:14 kdr Administered Medications: 04:14 Drug: NS 0.9% IV 500 ml IV at bolus once Route: IV; Rate: bolus; Site: right hand; tm6 05:04 Drug: Rocephin - Rocephin (cefTRIAXone) IVPB 1 grams IVPB once over 30 mins; (mix in 50 tm6 mL NS) Route: IVPB; Infused Over: 30 mins; Site: left hand; 06:18 Drug: vancoMYCIN IVPB 1 grams IVPB once over 2 hrs Route: IVPB; Infused Over: 2 hrs; tm6 Site: left hand; 06:18 Drug: Potassium Chloride IV 20 mEq IV at calculated rate once; administer over 1-2 tm6 hours Route: IV; Rate: calculated rate; Site: right femoral; 07:05 Drug: Norepinephrine IV 0.1 mcg/kg/min IV at calculated rate See Administration ld1 Instructions; (Standard concentration 4 mg / 250 mL D5W); Recommended max rate 3 mcg/kg/min; Titrate 0.05 mcg/kg/min as often as every 5 minutes to achieve goal (see titration policy); Goal parameter MAP greater than 65 mmHg. Route: IV; Rate: calculated rate; Site: right femoral; Disposition Summary: 08/22/23 07:12 Hospitalization Ordered Notes: Hospitalization Status: Inpatient Admission kdr Provider: Abrahan Fall Location: Intensive Care Unit kdr Condition: Guarded kdr Problem: new kdr Symptoms: have improved kdr Bed/Room Type: Standard [facility] Room Assignment: 4-(08/22/23 09:07) eb Diagnosis - Altered mental status, unspecified kdr - Hypokalemia kdr - Renal Insufficiency kdr - UTI/ Urinary tract infection, site not specified kdr - Pneumonia, unspecified organism kdr - Hypotension, unspecified kdr Forms: - Medication Reconciliation Form kdr - SBAR form kdr - Leadership Thank You Letter kdr Signatures: Dispatcher [employer] EDMT Hugo Solomon MD MD kdr Botello, Elizabeth eb Sims, Lauren RN RN ld1 Mary Snell RN RN tm6 Corrections: (The following items were deleted from the chart) 05:02 04:01 Chest Abdomen Pelvis W Con+CT.RAD.BRZ ordered. [facility] EDMT 09:07 07:12 kdr eb
--- NOTE | 2023-08-22 07:13 | ER ---
Nurse's Notes [facility] Name: Felix Rangel Age: 77 yrs Sex: Male : 1945 Arrival Date: 08/22/2023 Time: 03:35 Bed 5 Private MD: Diagnosis: Altered mental status, unspecified;Hypokalemia;Renal Insufficiency;UTI/ Urinary tract infection, site not specified;Pneumonia, unspecified organism;Hypotension, unspecified Presentation: 08/22 04:14 Chief complaint: EMS states: toned out by nursing facility. Patient is normally A\\T\\Ox3, tm6 but lethargic overnight. Was 88% on RA, EMS placed 2L NC. Coronavirus screen: Vaccine status: Patient reports receiving the 2nd dose of the covid vaccine. Ebola Screen: Patient negative for fever greater than or equal to 101.5 degrees Fahrenheit, and additional compatible Ebola Virus Disease symptoms Patient denies exposure to infectious person. Patient denies travel to an Ebola-affected area in the 21 days before illness onset. No symptoms or risks identified at this time. Initial Sepsis Screen: Does the patient meet any 2 criteria? Systolic BP < 90 mmHg. Altered Mental Status. Yes Does the patient have a suspected source of infection? Yes: Skin breakdown/wound. Risk Assessment: Do you want to hurt yourself or someone else? Patient reports no desire to harm self or others. Onset of symptoms was August 22, 2023. 04:14 Method Of Arrival: EMS: [facility] tm6 04:14 Acuity: TARIQ 2 tm6 Triage Assessment: 04:16 General: Appears in no apparent distress. Behavior is calm, cooperative, quiet. Pain: tm6 Denies pain. EENT: No signs and/or symptoms were reported regarding the EENT system. Neuro: Level of Consciousness is awake, obeys commands, lethargic, Oriented to none. Cardiovascular: Capillary refill < 3 seconds Patient's skin is warm and dry. Rhythm is atrial fibrillation. 04:29 Respiratory: Airway is patent Respiratory effort is even, unlabored, Respiratory tm6 pattern is regular, symmetrical, Parent/caregiver reports the patient having 88% on RA. GI: Abdomen is round non-distended. : No signs and/or symptoms were reported regarding the genitourinary system. Derm: Skin has skin tears on throughout body. Musculoskeletal: No signs and/or symptoms reported regarding the musculoskeletal system. Historical: - Allergies: 04:16 No Known Allergies; tm6 - PMHx: 04:16 blockage L carotid; Hypertensive disorder; Congestive heart failure; Dementia; tm6 hyperlipidemia; Gout; - PSHx: 04:16 Stented artery; tm6 - Immunization history:: Adult Immunizations up to date. - Social history:: Smoking status: unknown. Screenin:[facility] ED Fall Risk Assessment (Adult) History of falling in the last 3 months, tm6 including since admission No falls in past 3 months (0 pts). Abuse screen: Denies threats or abuse. Denies injuries from another. Nutritional screening: No deficits noted. Tuberculosis screening: No symptoms or risk factors identified. Assessment: 04:31 Reassessment: see triage assessment. tm6 07:00 Reassessment: blood and saturation noted to patients right femoral central line rs5 dressing, noted. . 07:05 Reassessment:. General: Appears in no apparent distress. Behavior is calm, cooperative. rs5 Pain: Denies pain. Neuro: Level of Consciousness is awake, alert, obeys commands, Oriented to person, place, time, situation. Cardiovascular: Heart tones S1 S2 present Patient's skin is warm and dry. Rhythm is regular. Respiratory: Reports cough that is productive, Airway is patent Respiratory effort is even, unlabored, Respiratory pattern is regular, symmetrical. GI: Bowel sounds present X 4 quads. Abd is soft and non tender X 4 quads. Patient currently denies nausea, vomiting. : Ramirez in place to gravity drainage 300 ml of clear jean carlos urine noted in urine collection chamber. EENT: No signs and/or symptoms were reported regarding the EENT system. Derm: Skin has skin tears on numerous skin tears noted throughout patients body Skin is pink, warm \\T\\ dry. Musculoskeletal: No signs and/or symptoms reported regarding the musculoskeletal system. 07:30 Reassessment: To bedside for central line dressing change, dressing removed, central rs5 line cleansed, and clean central line dressing applied using sterile procedure. Pt tolerated procedure well, denies pain. Gurgling noted to back of patient throat. Pt suctioned. Clear secretions noted in suction container. Pt states "Before I felt mucous or secretions in the back of my throat, I feel much better now.". 08:35 Reassessment: Patient and/or family updated on plan of care and expected duration. Pain rs5 level reassessed. Patient is alert, oriented x 3, equal unlabored respirations, skin warm/dry/pink. Patient denies pain at this time. Family at bedside. 09:20 Neuro: Level of Consciousness is awake, alert, obeys commands, Oriented to person, rs5 place, time, situation. Cardiovascular: Rhythm is regular. Respiratory: Respiratory effort is even, unlabored, Respiratory pattern is regular, symmetrical. Vital Signs: 04:14 BP 98 / 50; Pulse 80; Resp 18; Temp 97.9(O); Pulse Ox 100% on 3 lpm NC; tm6 04:29 BP 92 / 40; Pulse 71; Pulse Ox 100% on 3 lpm NC; tm6 05:06 BP 87 / 44; Pulse 77; Resp 17; Temp 98.2; Pulse Ox 100% on 3 lpm NC; tm6 06:19 BP 92 / 58; Pulse 86; Resp 18; Temp 98.2(Ca); Pulse Ox 100% on 2 lpm NC; tm6 06:21 Weight 98.88 kg; Height 5 ft. 11 in. ; tm6 07:01 BP 76 / 43; Pulse 67; Resp 18; Pulse Ox 98% on R/A; ld1 07:14 BP 128 / 53; Pulse 67; Resp 18; Pulse Ox 100% on 2 lpm NC; ld1 07:24 BP 121 / 54; Pulse 67; Resp 18; Pulse Ox 100% on R/A; ld1 06:21 Body Mass Index 30.40 (98.88 kg, 180.34 cm) tm6 ED Course: 03:50 Patient arrived in ED. kmf 03:50 Hguo Solomon MD is Attending Physician. kdr 04:16 Triage completed. tm6 04:28 Chest Single View XRAY In Process Unspecified. EDMS 04:29 Arm band placed on right wrist. tm6 04:31 Patient has correct armband on for positive identification. Placed in gown. Bed in low tm6 position. Side rails up X2. Provided Education on: plan of care. Client placed on continuous cardiac and pulse oximetry monitoring. NIBP monitoring applied. nuclear monitoring technician on. Noise minimized. Warm blanket given. 04:31 No provider procedures requiring assistance completed. Inserted saline lock: 20 gauge tm6 in right antecubital area, using aseptic technique. Maintain EMS IV. Dressing intact. Good blood return noted. Site clean \\T\\ dry. Gauge \\T\\ site: 20g L hand. 05:00 Assisted provider with central line placement. Set up central line tray. Triple lumen ld1 line placed in right femoral. Line placed by Hugo Solomon MD Placement verified by blood return, Dressed with Tegaderm, Patient tolerated well. 05:04 Mary Snell RN is Primary Nurse. tm6 05:05 Ramirez cath inserted, using sterile technique, 16 Fr., by mn, balloon inflated, to tm6 gravity drainage, urine specimen collected. returned jean carlos urine. Patient tolerated well. 06:05 Chest Abd Pelvis Wo Con In Process Unspecified. EDMS 07:09 Abrahan Fall MD is Hospitalizing Provider. kdr 09:50 Patient admitted, IV remains in place. ld1 Administered Medications: 04:14 Drug: NS 0.9% IV 500 ml IV at bolus once Route: IV; Rate: bolus; Site: right hand; tm6 05:04 Drug: Rocephin - Rocephin (cefTRIAXone) IVPB 1 grams IVPB once over 30 mins; (mix in 50 tm6 mL NS) Route: IVPB; Infused Over: 30 mins; Site: left hand; 06:18 Drug: vancoMYCIN IVPB 1 grams IVPB once over 2 hrs Route: IVPB; Infused Over: 2 hrs; tm6 Site: left hand; 06:18 Drug: Potassium Chloride IV 20 mEq IV at calculated rate once; administer over 1-2 tm6 hours Route: IV; Rate: calculated rate; Site: right femoral; 07:05 Drug: Norepinephrine IV 0.1 mcg/kg/min IV at calculated rate See Administration ld1 Instructions; (Standard concentration 4 mg / 250 mL D5W); Recommended max rate 3 mcg/kg/min; Titrate 0.05 mcg/kg/min as often as every 5 minutes to achieve goal (see titration policy); Goal parameter MAP greater than 65 mmHg. Route: IV; Rate: calculated rate; Site: right femoral; Medication: 04:31 VIS not applicable for this client. tm6 Output: 05:05 Urine: 1700ml (Ramirez); Total: 1700ml. tm6 Outcome: 07:12 Decision to Hospitalize by Provider. kdr 09:49 Admitted to ICU accompanied by nurse, accompanied by tech, via stretcher, room 4, ld1 Report called to EDER Guerrero 09:49 Condition: stable 09:49 Instructed on the need for admit, 09:50 Patient left the ED. ld1 Signatures: Dispatcher [employer] EDMS Hugo Solomon MD MD [facility] Shirley Scott RN RN ld1 Michele Lima RN RN rs5 Ginna Ordoñez [facility] Mary Snell RN RN tm6 Corrections: (The following items were deleted from the chart) 08:23 07:30 Reassessment: To bedside for central line dressing change, pt tolerated procedure rs5 well. rs5
--- NOTE | 2023-08-22 07:58 | P.HP ---
Certification for Inpatient Patient admitted to: Inpatient With expected LOS: >2 Midnights <Abrahan Fall - Last Filed: 08/22/23 23:32> Patient History Date of Service: 08/22/23 Reason for admission: hypotensive History of Present Illness: 77-year-old male with past medical history significant for hypertensive disorder, left carotid blockage s/p stents who came to the hospital from the custodial with complaints of cough. Patient was found to be hypotensive while in the ER (75/51). He was treated and was fluid responsive. Patient was seem with is at the bedside, both parties are poor historians, - Past Medical/Surgical History Diabetic: No -: Cardiac stent 10/11/22 -: HTN -: R foot surgery - Family History Mother -: Hypertension - Social History Alcohol use: Yes CD- Drugs: No Caffeine use: Yes <Ivon Gonzales - Last Filed: 08/22/23 08:56> Date of Service: 08/22/23 <Abrahan Fall - Last Filed: 08/22/23 23:32> Allergies No Known Allergies Allergy (Verified 05/24/21 10:07) Home Medications: Allopurinol 300 mg PO DAILY #30 tablet 06/14/21 Acetaminophen [Tylenol Extra Strength] 1,000 mg PO DAILY 10/19/22 Ammonium Lactate [Skin Treatment] 1 luana TD DAILY 10/19/22 Aspirin 81 mg PO DAILY 10/19/22 Atorvastatin Calcium [Lipitor] 40 mg PO DAILY 10/19/22 Clopidogrel Bisulfate [Plavix] 75 mg PO DAILY 10/19/22 Donepezil HCl [Aricept] 10 mg PO DAILY 10/19/22 Loratadine [Claritin*] 10 mg PO DAILY 10/19/22 Memantine HCl [Namenda] 10 mg PO BID 10/19/22 Mirtazapine [Remeron] 15 mg PO BEDTIME 10/19/22 Polyvinyl Alcohol [Artificial Tears] 2 drop OPTH TID PRN 10/19/22 guaiFENesin [Celsa-Tussin] 10 ml PO Q6HP PRN 10/19/22 Albuterol Neb [Proventil 0.083% Neb Soln] 2.5 mg NEB [id number] PRN amp 04/08/23 Ensure Enlive 237 ml PO BID can 11/02/22 Hydrocortisone [Cortef*] 10 mg PO BID #0 tab 11/02/22 Ipratropium Neb [Atrovent*] 0.5 mg NEB [id number] PRN amp 11/02/22 Mark [Mark*] 1 pkt PO BID 11/02/22 Senosides [Senokot*] 17.2 mg PO BID tab 11/02/22 Physical Examination - Studies Laboratory Data (last 24 hrs) 08/22/23 08/22/23 08/22/23 04:24 04:24 04:24 WBC 13.30 H Hgb 8.8 L Hct 27.2 L Plt Count 217 PT 12.6 H INR 1.15 APTT 26.7 Sodium 142 Potassium 2.5 L* BUN 30 H Creatinine 1.96 H Glucose 90 Total Bilirubin 0.6 AST 13 L ALT 12 L Alkaline Phosphatase 84 <Ivon Gonzales - Last Filed: 08/22/23 08:56> - Studies Laboratory Data (last 24 hrs) 08/22/23 08/22/23 08/22/23 04:24 04:24 04:24 WBC 13.30 H Hgb 8.8 L Hct 27.2 L Plt Count 217 PT 12.6 H INR 1.15 APTT 26.7 Sodium 142 Potassium 2.5 L* BUN 30 H Creatinine 1.96 H Glucose 90 Total Bilirubin 0.6 AST 13 L ALT 12 L Alkaline Phosphatase 84 <Abrahan Fall - Last Filed: 08/22/23 23:32> Assessment and Plan - Plan - Plan Assessment/Plan Severe sepsis with no shock UTI Hypertension NSTEMI LIZ Chronic wound Plan Admit to ICU on Levophed, goal MAP of 65 Continue IV antibiotics Levaquin, Zosyn Continue IV fluids, albumin Nephrology consulted recommendation appreciated Cardiology consulted recommendations appreciated Infectious disease consulted recommendations appreciated Blood cultures and urine cultures pending Troponin and lactic pending Wound care consulted for wound management DVT PPX- heparin subq Full code Discharge Plan: [facility] Plan to discharge in: 48 Hours Discharge Plan: [facility] - Advance Directives Does patient have a Living Will: No Does patient have a Durable POA for Healthcare: No - Code Status/Comfort Care Code Status: Full Code Critical Care: No Time Spent Managing Pts Care (In Minutes): 55 <Ivon Gonzales - Last Filed: 08/22/23 08:56> Critical Care: Yes Time Spent Managing Pts Care (In Minutes): 60 <Abrahan Fall - Last Filed: 08/22/23 23:32> Date of Service: 08/22/23 Chart is been reviewed. Patient was seen and examined in the intensive care unit. Agree with findings as mentioned above. Patient is a 77-year-old gentleman who came to the hospital with severe hypotension. Patient was living at the custodial and was found to be very lethargic. Patient normally is awake and alert oriented to person place and time. However, patient was difficult to arouse. When they checked his blood pressure in the intensive care unit his blood pressure was found to be 70s over 50s. Patient is laying in bed and very slow to interact. Family is at bedside. They state he normally has much more interactive. Patient with diffuse ecchymoses on his arms and chest wall and his lower extremity. Patient's coagulations are slightly elevated and patient's platelets are normal. Patient is also anemic with a normocytic normochromic anemia. Patient was also found to have some acute renal insufficiency with severe hypoalbuminemia. There is no proteinuria. This may be related to severe malnourishment although over the last year patient's weight is actually increased from 170 pounds to 210 pounds. This may be a lot of th ird spacing creating the weight. At this time, there is multiple consultants on the case including nephrology for patient's prerenal azotemia, infectious disease for possible atypical pneumonia, as well as pulmonary. Patient also is hypotensive and requiring vasopressor support with Levophed. Will continue to wean this down. Will hold off on any antihypertensives at this time. Echocardiogram was done a year ago with normal ejection fraction, but this will need to be repeated as it has been greater than a year. Patient's diffusely weak and emaciated and will need aggressive physical therapy. Patient's long- term prognosis is poor if patient's physical activity does not increase. At this time, patient will need management in the intensive care unit. Critical care time spent on patient's care throughout the day was approximately 60 minutes. Neuro: Altered mental status secondary to unknown etiology. Possible toxic encephalopathy. CT head pending. Patient's pro time and albumin level are altered so we will check an ammonia level as well. Patient with a questionable history of dementia as per home medication list has a mention of Aricept and Namenda. senior care medications are pending review. Cardiovascular: Patient is hypotensive; will need hemodynamic support with Levophed. Echocardiogram pending. Monitor hemodynamics and rhythm closely. Pulmonary: Possible atypical pneumonia on CT imaging. Patient slightly hypoxic. Continue with antibiotic support and check a procalcitonin level. Monitor O2 sats closely as well as hypercapnia. Gastrointestinal/nutrition: Patient with severe malnutrition; continue with protein supplementation. Monitor albumin level. Will need to do a calorie count. Questionable liver pathology. Patient with elevated coagulation profile and hypoalbuminemia. However bilirubin is normal. Abdominal ultrasound Nephrology/FEN: Patient with prerenal azotemia. Patient also with severe hypoalbuminemia most likely related to malnourishment. Will get a renal ultrasound as well. Family concerned about postobstructive renal failure. Strict I's and O's. Gentle hydration and monitor closely for third spacing. Electrolytes with severe hypokalemia and so we will supplement. Nutritional support as mentioned above. Calorie count pending. Dermatology; patient with diffuse ecchymosis; could be related to coagulation. Protime slightly elevated. Rheumatologic; patient with a history of gouty arthropathy; continue with allopurinol Endocrinology: Patient with a questionable history of adrenal insufficiency; check cortisol level. Try to get home medication list from nursing facility. Possibly has been on cortisone. Will also check thyroid studies. Should be able to reverse hypotension if patient is agreeable insufficient with aggressive IV hydrocortisone. Hematologic; patient with anemia and leukocytosis. Anemia workup pending. Continue with antibiotic for leukocytosis. Psychiatry; continue with Remeron for depression. May be able to assist with appetite. <Abrahan Fall - Last Filed: 08/22/23 23:32>
[2023-08-22] MEDS ORDERED: ALBUTEROL 2.5 MG/3 ML NEB SOL NEB PRN (08:32)
[2023-08-22] MEDS ORDERED: IPRATROPIUM BROM 0.5MG/2.5ML NEB PRN (08:32)
[2023-08-22] MEDS ORDERED: ACETAMINOPHEN 500 MG TAB PO PRN (08:32)
[2023-08-22] MEDS ORDERED: ONDANSETRON 4 MG/2 ML VIAL IV PRN (08:32)
[2023-08-22] MEDS ORDERED: ALBUMIN HUMAN 25% 100 ML IV ONE ×2 (08:44→23:07)
[2023-08-22] MEDS ORDERED: Levofloxacin 750mg IV 750 MG/150 ML BAG IV SCH (09:00)
[2023-08-22] MEDS ORDERED: PIPER TAZO 3.375 GM in NA CHLORIDE 0.9% 100 ML IV SCH (09:00)
--- NOTE | 2023-08-22 09:10 | P.CNS ---
Date of Consult: 08/22/23 Reason for Consult: Abnormal CT scan Chief Complaint: hypotensive History of Present Illness: Patient is 77 years of age lives in a prison nonverbal at the bedside both of them are very poor historians apparently he was experiencing low blood pressure came into the emergency room patient denies any complaints although he is severely bruised in his arms and his legs leave his head by a wheelchair of congestive heart failure Allergies No Known Allergies Allergy (Verified 05/24/21 10:07) Home Medications: Allopurinol 300 mg PO DAILY #30 tablet 06/14/21 Acetaminophen [Tylenol Extra Strength] 1,000 mg PO DAILY 10/19/22 Ammonium Lactate [Skin Treatment] 1 luana TD DAILY 10/19/22 Aspirin 81 mg PO DAILY 10/19/22 Atorvastatin Calcium [Lipitor] 40 mg PO DAILY 10/19/22 Clopidogrel Bisulfate [Plavix] 75 mg PO DAILY 10/19/22 Donepezil HCl [Aricept] 10 mg PO DAILY 10/19/22 Loratadine [Claritin*] 10 mg PO DAILY 10/19/22 Memantine HCl [Namenda] 10 mg PO BID 10/19/22 Mirtazapine [Remeron] 15 mg PO BEDTIME 10/19/22 Polyvinyl Alcohol [Artificial Tears] 2 drop OPTH TID PRN 10/19/22 guaiFENesin [Celsa-Tussin] 10 ml PO Q6HP PRN 10/19/22 Albuterol Neb [Proventil 0.083% Neb Soln] 2.5 mg NEB [id number] PRN amp 11/02/22 Ensure Enlive 237 ml PO BID can 11/02/22 Hydrocortisone [Cortef*] 10 mg PO BID #0 tab 11/02/22 Ipratropium Neb [Atrovent*] 0.5 mg NEB [id number] PRN amp 11/02/22 Mark [Mark*] 1 pkt PO BID 11/02/22 Senosides [Senokot*] 17.2 mg PO BID tab 11/02/22 - Past Medical/Surgical History Diabetic: No -: Cardiac stent 10/11/22 -: HTN -: Dementia -: History of carotid artery stenosis -: R foot surgery - Family History Mother Medical History: Hypertension - Social History Smoking Status: Unknown if ever smoked Alcohol use: Yes CD- Drugs: No Caffeine use: Yes Review of Systems is unable to be obtained Physical Examination General: Alert, Cooperative Respiratory: Clear to auscultation bilaterally Cardiovascular: Regular rate/rhythm, Abnormal S3, Edema (Significant edema with bruising) Gastrointestinal: Normal bowel sounds, Soft and benign, Non-distended Laboratory Data (last 24 hrs) 08/22/23 08/22/23 08/22/23 04:24 04:24 04:24 WBC 13.30 H Hgb 8.8 L Hct 27.2 L Plt Count 217 PT 12.6 H INR 1.15 APTT 26.7 Sodium 142 Potassium 2.5 L* BUN 30 H Creatinine 1.96 H Glucose 90 Total Bilirubin 0.6 AST 13 L ALT 12 L Alkaline Phosphatase 84 - Problems (1) Hypotension Current Visit: Yes Status: Acute Plan: Patient is 77 years of age a poor historian admitted with hypotension and findings and close severe generalized bruising may be due to the Plavix she is got significant lower extremity edema advises oxygenation is satisfactory chest x-ray is clear no significant findings on CT scan of the chest hypokalemia noted renal failure possibly acute last creatinine in October was normal patient is mildly anemic white count elevated most likely he has urosepsis DC Zosyn there is no evidence of pneumonia instead add vancomycin due to hypotension continue with levofloxacin agree with low-dose IV fluids for now no evidence of diverticulitis on CT scan Qualifiers: Hypotension type: other hypotension type Qualified Code(s): I95.89 - Other hypotension
--- NOTE | 2023-08-22 09:11 | P.CNS ---
Date of Consult: 08/22/23 Reason for Consult: septic shock Chief Complaint: hypotensive History of Present Illness: Patient is a 77 yo male with a past medical history of hypertension, left carotid blockage s/p stents. dementia and recurrent UTIs who presented to the ED from [facility] with complaints of cough and altered mental status. He was found to be hypotensive in the ED with BP of 76/43. WBC 13.3. acute kidney injury Cr 1.96. Patient was admitted to ICU for sepsis secondary to suspected urinary tract infection, started on levophed. Urinalysis suggestive of UTI. Urine and blood cultures ordered. Patient was started on empiric antibiotics. Infectious disease consulted. Allergies No Known Allergies Allergy (Verified 05/24/21 10:07) Home medications list reviewed: Yes Home Medications: Allopurinol 300 mg PO DAILY #30 tablet 06/14/21 Acetaminophen [Tylenol Extra Strength] 1,000 mg PO DAILY 10/19/22 Ammonium Lactate [Skin Treatment] 1 luana TD DAILY 10/19/22 Aspirin 81 mg PO DAILY 10/19/22 Atorvastatin Calcium [Lipitor] 40 mg PO DAILY 10/19/22 Clopidogrel Bisulfate [Plavix] 75 mg PO DAILY 10/19/22 Donepezil HCl [Aricept] 10 mg PO DAILY 10/19/22 Loratadine [Claritin*] 10 mg PO DAILY 10/19/22 Memantine HCl [Namenda] 10 mg PO BID 10/19/22 Mirtazapine [Remeron] 15 mg PO BEDTIME 10/19/22 Polyvinyl Alcohol [Artificial Tears] 2 drop OPTH TID PRN 10/19/22 guaiFENesin [Celsa-Tussin] 10 ml PO Q6HP PRN 10/19/22 Albuterol Neb [Proventil 0.083% Neb Soln] 2.5 mg NEB [id number] PRN amp 11/02/22 Ensure Enlive 237 ml PO BID can 11/02/22 Hydrocortisone [Cortef*] 10 mg PO BID #0 tab 11/02/22 Ipratropium Neb [Atrovent*] 0.5 mg NEB [id number] PRN amp 11/02/22 Mark [Mark*] 1 pkt PO BID 11/02/22 Senosides [Senokot*] 17.2 mg PO BID tab 11/02/22 - Past Medical/Surgical History Diabetic: No -: Cardiac stent 10/11/22 -: HTN -: R foot surgery - Family History Mother Medical History: Hypertension - Social History Smoking Status: Unknown if ever smoked Alcohol use: Yes CD- Drugs: No Caffeine use: Yes Review of Systems is unable to be obtained Physical Examination General: In no apparent distress, Oriented x1, Confused, Other (lethargic) HEENT: Atraumatic, Normocephalic, Other (dry mucous membranes) Respiratory: Diminished, Other (Unlabored respirations on 2L nasal cannula) Cardiovascular: Regular rate/rhythm, Edema (BLE 2+) Gastrointestinal: Normal bowel sounds, Non-distended, No tenderness Integumentary: Other (ecchymosis generalized/scattered bilateral upper and lower extremities. Skin tears. ) Neurological: Dementia Urinary: Ramirez catheter Laboratory Data 08/22/23 08/22/23 08/22/23 04:24 04:24 04:24 WBC 13.30 H Hgb 8.8 L Hct 27.2 L Plt Count 217 PT 12.6 H INR 1.15 APTT 26.7 Sodium 142 Potassium 2.5 L* BUN 30 H Creatinine 1.96 H Glucose 90 Total Bilirubin 0.6 AST 13 L ALT 12 L Alkaline Phosphatase 84 Microbiology Data - Reviewed Imagings Data: - CT chest abdomen pelvis without contrast 08/22: "There are a few scattered reticular-nodular and mild groundglass opacities bilaterally which are nonspecific but can been seen with atypical infection. Right middle lobe and bibasilar atelectasis. Peribronchial thickening. Sigmoid diverticulitis." - Venous ultrasound 08/22: No DVT in either lower extremity noted Conclusions/Impression: Problem List Sepsis secondary to acute urinary tract infection Acute Kidney Injury Hypotension Hypokalemia Hypocalcemia Dementia Hx carotid stents Sepsis secondary to suspected urinary tract infection - Urinalysis 08/22: [extremely turbid; LE 250 ; RBC 21-50 ; WBC 10-20] - Urine culture 08/22: pending - Blood cultures 08/22: pending - Currently on Cefepime and Vancomycin (started 08/22) Concern for Pneumonia - CT chest abdomen pelvis without contrast 08/22: "There are a few scattered reticular-nodular and mild groundglass opacities bilaterally which are nonspecific but can been seen with atypical infection. Right middle lobe and bibasilar atelectasis. Peribronchial thickening. Sigmoid diverticulitis." - O2 saturation on room air 88%. Currently on 2L nasal cannula spo2 100%. - Covid Pending - influenza pending - pulmonology following Leukocytosis with left shift Afebrile LIZ: - nephrology following Recommendations - Continue Cefepime and Vancomycin for now. - Follow up with final culture results. Will adjust antibiotics as appropriate. - renally dose medications - electrolyte replacement per protocol - wean off supplemental O2 as tolerated - daily CBC and BMP Case discussed with Carmen Beckford
[2023-08-22] MEDS ORDERED: VANCOMYCIN 1 GM in NA CHLORIDE 0.9% 250 ML IVPB ONE (09:15)
[2023-08-22 09:41] LABS: Troponin High Sensitivity 19.8 pg/mL (<58.9)
--- NOTE | 2023-08-22 11:10 | P.CNS ---
Date of Consult: 08/22/23 Reason for Consult: LIZ, hypokalemia Requesting Physician: Ivon Gonzales Chief Complaint: hypotensive History of Present Illness: Pt is a 77-year-old [place] male who is a chronic [facility] resident and who is not able to provide any significant medical history but per the records has a hx of possible hypertensive disorder, chronic peripheral edema, multiple skin bruising/tears and other who was referred to the ER it appears for hypotension and other. Pt was admitted to the ICU for suspected sepsis and renal service consulted for LIZ, hypokalemia. Ramirez placed in the ER, UA abnormal. Pt is currently on pressor support. Allergies No Known Allergies Allergy (Verified 05/24/21 10:07) Home Medications: Allopurinol 300 mg PO DAILY #30 tablet 06/14/21 Acetaminophen [Tylenol Extra Strength] 1,000 mg PO DAILY 10/19/22 Ammonium Lactate [Skin Treatment] 1 luana TD DAILY 10/19/22 Aspirin 81 mg PO DAILY 10/19/22 Atorvastatin Calcium [Lipitor] 40 mg PO DAILY 10/19/22 Clopidogrel Bisulfate [Plavix] 75 mg PO DAILY 10/19/22 Donepezil HCl [Aricept] 10 mg PO DAILY 10/19/22 Loratadine [Claritin*] 10 mg PO DAILY 10/19/22 Memantine HCl [Namenda] 10 mg PO BID 10/19/22 Mirtazapine [Remeron] 15 mg PO BEDTIME 10/19/22 Polyvinyl Alcohol [Artificial Tears] 2 drop OPTH TID PRN 10/19/22 guaiFENesin [Celsa-Tussin] 10 ml PO Q6HP PRN 10/19/22 Albuterol Neb [Proventil 0.083% Neb Soln] 2.5 mg NEB [id number] PRN amp 11/02/22 Ensure Enlive 237 ml PO BID can 11/02/22 Hydrocortisone [Cortef*] 10 mg PO BID #0 tab 11/02/22 Ipratropium Neb [Atrovent*] 0.5 mg NEB [id number] PRN amp 11/02/22 Mark [Mark*] 1 pkt PO BID 11/02/22 Senosides [Senokot*] 17.2 mg PO BID tab 11/02/22 - Past Medical/Surgical History Diabetic: No -: Cardiac stent 10/11/22 -: HTN -: Dementia -: History of carotid artery stenosis -: R foot surgery - Family History Mother Medical History: Hypertension - Social History Smoking Status: Unknown if ever smoked Alcohol use: Yes CD- Drugs: No Caffeine use: Yes Review of Systems is unable to be obtained Physical Examination Temp Pulse Resp BP Pulse Ox 98.2 F 67 18 121/54 L 08/22/23 06:19 08/22/23 07:24 08/22/23 07:24 08/22/23 07:24 General: Other (Appears chronically ill) HEENT: Atraumatic, Normocephalic, Other (LFNC, dry mucosa) Neck: Supple Respiratory: Normal air movement, Other (Non tachypnec, no rales anteriorly) Cardiovascular: Regular rate/rhythm, Edema Gastrointestinal: Soft and benign, Non-distended, No tenderness Musculoskeletal: Other (Pitting edema of the distal LE, shins are non tender) Integumentary: Other (Significant ecchymoses, bruising, poor skin turgor, skin tears, other blotchy non raised purplish patches across LE) Neurological: Other (Lethargic but awake, responds briefly, consfused, unclear baseline) Laboratory Data (last 24 hrs) 08/22/23 08/22/23 08/22/23 04:24 04:24 04:24 WBC 13.30 H Hgb 8.8 L Hct 27.2 L Plt Count 217 PT 12.6 H INR 1.15 APTT 26.7 Sodium 142 Potassium 2.5 L* BUN 30 H Creatinine 1.96 H Glucose 90 Total Bilirubin 0.6 AST 13 L ALT 12 L Alkaline Phosphatase 84 Conclusions/Impression: A/P) 1. Acute or sub-acute Stage 1 LIZ 2nd to hypotension, intravascular volume depletion, sepsis, other. Cont gentle hydration and trend renal function tests 2. Non oliguric with abnormal findings in urine unspecified. Possibly representing cystitis vs other active sediment. Will check spot urine 3. Hypotension in the setting of suspected septic shock with possible sources of infection including urine and skin tears. Blood and urine collected for cultures, empiric Abx ordered by primary team 4. Severe hypokalemia presumably in the setting of chronic diuretic use at [facility] for chronic peripheral edema. Will obtain med list from [facility]. Cont repletion with IV KCl. Check Mg level. Check phos level 5. Pressor support management per primary team 6. Rash unspecified -blotchy purplish patches across LE aside from other extensive ecchymoses. Unclear if representing possible livedo reticularis or other vasculitic rash, will check complement and limited serology Robert Pond MD, MARK
[2023-08-22] MEDS: POTASSIUM CL 40 MEQ in NA CHLORIDE 0.9% 500 ML IV SCH ×2 (11:20→18:38)
[2023-08-22] MEDS: NA CHLORIDE 0.9% 1,000 ML IV SCH (11:20)
--- NOTE | 2023-08-22 12:11 | RAD REPORT ---
EXAM DESCRIPTION: US - Extrem Venous W Compress Smith - 08/22/2023 11:41 am CLINICAL HISTORY: Bilateral lower extremity edema COMPARISON: None. TECHNIQUE: Real-time sonographic evaluation of the bilateral lower extremity deep venous systems was performed. FINDINGS: Normal compressibility, flow augmentation, phasic flow and spontaneous flow is identified in both the left and right lower extremity deep venous systems. No intraluminal filling defects seen. IMPRESSION: No DVT in either lower extremity.
--- NOTE | 2023-08-22 13:37 | RAD REPORT ---
EXAM DESCRIPTION: CT - Chest Abd Pelvis Wo Con - 08/22/2023 6:41 am CLINICAL HISTORY: The patient is 77 years old and is Male; sepsis TECHNIQUE: Axial computed tomography images of the chest, abdomen and pelvis without intravenous con trast. Sagittal and coronal reformatted images were created and reviewed. This CT exam was perfor med using one or more of the following dose reduction techniques: automated exposure control, adjus tment of the mA and/or kV according to patient size, and/or use of iterative reconstruction technique . COMPARISON: No relevant prior studies available. FINDINGS: CHEST: Lungs: There are a few scattered reticular-nodular and mild groundglass opacities bilaterally whi ch are nonspecific but can be seen with atypical infection. Right middle lobe and bibasilar atelectasis. Peribronchial thickening. Pleural space: Unremarkable. No significant effusion. No pneumothorax. Heart: Coronary artery calcification. No cardiomegaly. No significant pericardial effusion. ABDOMEN: Liver: Unremarkable. Gallbladder and bile ducts: Unremarkable. No calcified stones. No ductal dilation. Pancreas: Unremarkable. No ductal dilation. Spleen: Unremarkable. No splenomegaly. Adrenals: Unremarkable. No mass. Kidneys and ureters: Nonobstructing calcifications in the kidneys. Stomach and bowel: Sigmoid diverticulosis. No obstruction. No mucosal thickening. PELVIS: Appendix: No findings to suggest acute appendicitis. Bladder: Ramirez catheter in the bladder. No stones. Reproductive: Unremarkable as visualized. CHEST, ABDOMEN and PELVIS: Intraperitoneal space: Unremarkable. No significant fluid collection. No free air. Bones/joints: Old rib fractures bilaterally. Disc space narrowing with degenerative endplate changes in the spine. 70% vertebral body height loss centrally at L2. 70% vertebral body height loss centrally at L1. No dislocation. Soft tissues: Gynecomastia. Vasculature: Scattered atherosclerotic vascular calcifications. Lymph nodes: Unremarkable. No enlarged lymph nodes. Tubes, lines and devices: Right femoral venous catheter. IMPRESSION: 1. There are a few scattered reticular-nodular and mild groundglass opacities bilatera lly which are nonspecific but can be seen with atypical infection. 2. Right middle lobe and bibasilar atelectasis. 3. Peribronchial thickening. 4. Sigmoid diverticulosis. 5. Additional non-emergent findings as above. Electronically signed by: Felix Bolton MD 08/22/2023 06:31 AM GREY STOCK RECORDER Due to temporary technical issues with the PACS/Fluency reporting system, reports are being signed by the in house radiologists without review as a courtesy to insure prompt reporting. The interpreting radiologist is fully responsible for the content of the report.
[2023-08-22] MEDS: CEFEPIME 1 GM in NA CHLORIDE 0.9% 100 ML IV SCH ×2 (14:52→22:29)
[2023-08-22] MEDS: NOREPINEPHRINE BITARTRATE/D5W 4 MG/250 ML BAG IV SCH ×2 (14:53→22:29)
--- NOTE | 2023-08-22 19:47 | RAD REPORT ---
EXAM DESCRIPTION: RAD - Chest Single View - 08/22/2023 4:26 am CLINICAL HISTORY: 77 years Male, possible sepsis COMPARISON: Chest x-ray report performed on 10/28/2022. The image was unavailable for review. TECHNIQUE: Single portable x-ray view of the chest performed on 08/22/2023 4:15 AM FINDINGS: Lungs are well expanded. There are interstitial and alveolar opacities within the inferior hemithoraces greater on the right and there appears to be obscuration of the right lateral costophre lorenzo sulcus. Findings may be due to fibrosis, atelectasis and/or inflammatory changes. There is no raquel dence of a pneumothorax. The cardiac silhouette is normal in size and configuration. The mediastinal contours are normal. No acute osseous abnormality is identified. There are degenerative changes of the shoulders. No focal soft tissue abnormalities are seen. Lines and tubes: None. Free air: None identified, IMPRESSION: Interstitial and alveolar opacities within the inferior hemithoraces greater on the righ t and there appears to be obscuration of the right lateral costophrenic sulcus. Findings may be due t o fibrosis, atelectasis and/or inflammatory changes. Electronically signed by: Lala Drake DO 08/22/2023 04:30 AM PAYROLL REPRESENTATIVE Due to temporary technical issues with the PACS/Fluency reporting system, reports are being signed by the in house radiologists without review as a courtesy to insure prompt reporting. The interpreting radiologist is fully responsible for the content of the report.
[2023-08-22] MEDS ORDERED: NA CHLORIDE 0.9% 100 ML ONE (21:48)
[2023-08-22] MEDS ORDERED: CEFEPIME 1 GM/VIAL ONE (21:48)
[2023-08-23] MEDS ORDERED: NA CHLORIDE 0.9% 1,000 ML ONE (01:45)
[2023-08-23] MEDS ORDERED: NOREPINEPHRINE BITARTRATE/D5W 4 MG/250 ML BAG IV ONE ×3 (01:45→18:33)
[2023-08-23] MEDS ORDERED: ALBUMIN HUMAN 25% 0 ML IV ONE (01:46)
[2023-08-23] MEDS: NA CHLORIDE 0.9% 1,000 ML IV SCH (01:48)
[2023-08-23] MEDS: NOREPINEPHRINE BITARTRATE/D5W 4 MG/250 ML BAG IV SCH ×3 (03:15→18:34)
[2023-08-23 04:52] LABS: Absolute Lymphocytes (CBC) 1.8 K/uL (0.7-4.9); Hematocrit 25.8 % (39.6-49.0); Lymphocytes % 11.5 % (15.3-44.8); MCV 87.3 fL (80-100); MPV 8.3 fL (7.6-11.3); Platelets 276 thou/uL (152-406); RBC Red Blood Cell Count 2.96 M/uL (4.33-5.43)
[2023-08-23 04:54] LABS: RBC Red Blood Cell Count 2.94 M/uL (4.33-5.43)
[2023-08-23 05:09] LABS: Protime INR 1.23
[2023-08-23 05:26] LABS: AST/SGOT 22 U/L (15-37); Alkaline Phosphatase 69 U/L (45-117); BUN Blood Urea Nitrogen 15 mg/dL (7-18); Bicarbonate 26 mEq/L (21-32); Bilirubin Direct 0.3 mg/dL (0-0.2); Bilirubin Indirect, Calculated 0.5 mg/dL (0.2-0.8); Bilirubin Total 0.8 mg/dL (0.2-1.0); Glomerular Filtration Rate 88 ml/min (=/>90); Glucose Level 137 mg/dL (74-106); Magnesium 1.5 mg/dL (1.6-2.4); NT PRO-BNP 2041 pg/mL (<450); Potassium 2.8 mEq/L (3.5-5.1); Protein, Total 5.3 g/dL (6.4-8.2); Sodium Level 143 mEq/L (136-145)
[2023-08-23 05:28] LABS: ALT/SGPT < 10 U/L (16-61)
[2023-08-23 05:38] LABS: C-Reactive Protein 79.8 mg/L (<3.00); Ferritin 1117.7 ng/mL (26-388); Troponin High Sensitivity 27.5 pg/mL (<58.9)
[2023-08-23 05:43] LABS: Thyroid Stimulating Hormone 5.95 uIU/mL (0.358-3.740)
--- NOTE | 2023-08-23 09:16 | RAD REPORT ---
EXAM DESCRIPTION: [facility] Single View08/23/2023 5:48 am CLINICAL HISTORY: Chest pain COMPARISON: August 22, 2023 FINDINGS: Mild bilateral pulmonary opacities partially resolved Heart is normal size IMPRESSION: Partial resolution the mild bilateral pulmonary opacities
[2023-08-23] MEDS: CEFEPIME 1 GM in NA CHLORIDE 0.9% 100 ML IV SCH ×2 (10:20→21:01)
--- NOTE | 2023-08-23 11:49 | P.PN ---
Subjective Date of Service: 08/23/23 Chief Complaint: Shock Patient's condition is stable still he still requiring Levophed. Alert responsive cooperative Review of Systems General: Weakness Physical Examination - Vital Signs Temperature: 97.2 F Blood Pressure: 102/40 Pulse: 63 Respirations: 20 Pulse Ox (%): 95 - Physical Exam General: Alert, Oriented x3 Neck: Supple Respiratory: Clear to auscultation bilaterally Cardiovascular: Edema Integumentary: Other (Patient has extensive bruising) Neurological: Normal speech Assessment And Plan - Current Problems (Diagnosis) (1) Hypotension Current Visit: Yes Status: Acute Plan: Patient is 77 years of age extensive bruising admitted with hypotension so far cultures are all negative still on Levophed we will add low-dose of IV steroids white count is elevated patient's chest x-ray is clear able to tolerate a bolus of normal saline on his home medication he is on hydrocortisone at home may have underlying adrenal insufficiency doubt sepsis she has extensive bruising Qualifiers: Hypotension type: other hypotension type Qualified Code(s): I95.89 - Other hypotension
[2023-08-23] MEDS ORDERED: ALBUMIN HUMAN 25% 200 ML IV ONE (12:00)
[2023-08-23] MEDS ORDERED: HYDROCORTISONE SUC 100 MG INJ IV ONE (12:00)
[2023-08-23] MEDS ORDERED: WATER FOR INJ,STERILE 10 ML ONE (12:36)
[2023-08-23] MEDS ORDERED: HYDROCORTISONE SUC 100 MG INJ ONE ×2 (12:36→20:59)
[2023-08-23] MEDS ORDERED: NA CHLORIDE 0.9% 500 ML ONE (12:37)
[2023-08-23] MEDS ORDERED: ALBUMIN HUMAN 25% 50 ML IV ONE ×2 (12:37→12:54)
[2023-08-23] MEDS ORDERED: NA CHLORIDE 0.9% 500 ML IV ONE (12:38)
[2023-08-23] MEDS ORDERED: ALBUTEROL 2.5 MG/3 ML NEB SOL NEB PRN (12:39)
[2023-08-23] MEDS ORDERED: IPRATROPIUM BROM 0.5MG/2.5ML NEB PRN (12:40)
[2023-08-23] MEDS: JUVEN PACKET PO SCH ×2 (12:49→21:01)
[2023-08-23] MEDS: allopurinoL 300 MG TAB PO SCH (13:01)
[2023-08-23] MEDS: NACHLORIDE 0.45% 1,000 ML with POTASSIUM CL 40 MEQ IV SCH ×2 (15:20)
[2023-08-23 15:37] LABS: Magnesium 1.4 mg/dL (1.6-2.4); Potassium 2.7 mEq/L (3.5-5.1)
--- NOTE | 2023-08-23 16:08 | PN ---
Date of Progress Note: 08/23/2023 Subjective: The patient is seen and examined at bedside. He is not on any pressors at this time, bu t he is getting intermittent boluses of IV fluids. Blood pressures are running in the 100-120 range. He is not on any pressors. Objective: HEENT: Atraumatic head. Lungs: Clear to auscultation. Diminished breath sounds. Extremities: Extensive bruising and extensive skin ulceration and tears in his lower extremities and much worse in right lower extremity than left lower extremity. He appears to be poorly conditioned and his is at bedside giving much of the history. Laboratory Data: At this time showing creatinine of 0.89, improving from 1.96. Potassium still winston ins low at 2.8 from 2.5 after receiving 100 mEq of potassium chloride. His iron levels are consisten t with some iron deficiency and current signs of inflammation with increased ferritin. C-reactive pr otein was noted to be elevated. Procalcitonin was also noted to be high. CBC showing WBC count of 1 5,000, hemoglobin of 8.4, hematocrit of 25.8, and platelet count of 276. Current Medications: Include albumin p.r.n. for hypotension, he is receiving hydrocortisone 50 mg ev amber 12 hours, vancomycin 1.75 g every 36 hours and he was on Levophed and he is also on cefepime 1 g every 12 hours. Impression: 1.Hypokalemia, likely secondary to use of diuretics as outpatient and ongoing sepsis. At this point , the patient will need aggressive potassium replacement. I have requested Nursing to recheck his po tassium levels again as he has not gotten any replacement since morning with a potassium of 2.7. He will possibly need maintenance IV fluids with potassium to improve his hypokalemia. Encourage p.o. i ntake. 2.Hypotension secondary to sepsis, possibly from skin infection versus UTI. The patient is currentl y getting antibiotics and will be monitored closely. Plan: Overall the patient's prognosis remains poor. He has very poor hygiene with very severe decon ditioning noted. We will recheck his potassium and magnesium levels and continue to replace his pota ssium with gentle hydration. Antibiotics have been given for treatment of sepsis and we will continu e to follow up closely. VV/MODL Voice ID: [id number] Report ID: [id number]
[2023-08-23] MEDS ORDERED: POTASSIUM CL 40 MEQ in NA CHLORIDE 0.9% 500 ML IV ONE (17:00)
[2023-08-23] MEDS ORDERED: VANCOMYCIN 1.75 GM in NA CHLORIDE 0.9% 500 ML IVPB SCH (21:00)
[2023-08-23] MEDS ORDERED: KCL 20 MEQ/100 mL IVPB 20 MEQ/100 ML BAG IV SCH (21:00)
[2023-08-23] MEDS: MIRTAZAPINE 15 MG TAB PO SCH (21:02)
[2023-08-23] MEDS: HYDROCORTISONE SUC 100 MG INJ IV SCH (21:02)
[2023-08-23] MEDS ORDERED: Magnesium Sulfate 2gm IVPB 2 G/50 ML BAG IV ONE (23:00)
[2023-08-24 00:24] LABS: UR PROTEIN 17.7 mg/dL (<11.9)
[2023-08-24 01:15] LABS: Urine Protein/Creatinine Ratio 1.36 ratio (<0.15)
[2023-08-24] MEDS: NOREPINEPHRINE BITARTRATE/D5W 4 MG/250 ML BAG IV SCH (04:04)
[2023-08-24] MEDS: NACHLORIDE 0.45% 1,000 ML with POTASSIUM CL 40 MEQ IV SCH ×6 (04:05→23:40)
[2023-08-24 05:07] LABS: Absolute Lymphocytes (CBC) 0.8 K/uL (0.7-4.9); Hematocrit 23.1 % (39.6-49.0); Lymphocytes % 7.7 % (15.3-44.8); MCV 87.2 fL (80-100); MPV 8.3 fL (7.6-11.3); Platelets 222 thou/uL (152-406); RBC Red Blood Cell Count 2.65 M/uL (4.33-5.43)
[2023-08-24 05:10] LABS: Protime INR 1.1
[2023-08-24 05:28] LABS: Potassium 3.2 mEq/L (3.5-5.1)
[2023-08-24 07:25] LABS: Blood Morphology Comment NOTED (NOT SEEN); Hypochromasia 1+; Ovalocytes 1+; Platelet Estimate ADEQ
[2023-08-24] MEDS ORDERED: POTASSIUM CL SA 10 MEQ TAB PO ONE (08:13)
[2023-08-24] MEDS ORDERED: HYDROCORTISONE SUC 100 MG INJ ONE ×2 (08:24→20:29)
[2023-08-24] MEDS ORDERED: KCL 20 MEQ/100 mL IVPB 300 ML IV ONE (08:35)
[2023-08-24] MEDS: JUVEN PACKET PO SCH ×2 (08:40→20:33)
[2023-08-24] MEDS: CEFEPIME 1 GM in NA CHLORIDE 0.9% 100 ML IV SCH ×2 (08:40→20:32)
[2023-08-24] MEDS: HYDROCORTISONE SUC 100 MG INJ IV SCH ×2 (08:40→20:32)
[2023-08-24] MEDS: allopurinoL 300 MG TAB PO SCH (08:40)
[2023-08-24] MEDS: KCL 20 MEQ/100 mL IVPB 20 MEQ/100 ML BAG IV SCH ×3 (08:40→12:00)
[2023-08-24] MEDS ORDERED: NA CHLORIDE 0.9% 500 ML IV ONE ×2 (09:44→10:33)
[2023-08-24] MEDS ORDERED: NA CHLORIDE 0.9% 500 ML ONE (09:47)
[2023-08-24 10:48] VITALS: BMI 26.9
[2023-08-24] MEDS ORDERED: ALBUMIN HUMAN 25% 200 ML IV ONE (12:00)
[2023-08-24] MEDS: MIRTAZAPINE 15 MG TAB PO SCH (20:32)
[2023-08-24] MEDS: ENSURE HIGH PROTEIN 237 ML CAN PO SCH (20:33)
[2023-08-25 05:14] LABS: Absolute Lymphocytes (CBC) 0.7 K/uL (0.7-4.9); Hematocrit 20.7 % (39.6-49.0); MCV 86.9 fL (80-100); MPV 8.4 fL (7.6-11.3); Platelets 181 thou/uL (152-406); RBC Red Blood Cell Count 2.38 M/uL (4.33-5.43)
[2023-08-25 05:31] LABS: Protime INR 1.09
[2023-08-25 05:38] LABS: Magnesium 1.6 mg/dL (1.6-2.4); Potassium 3.9 mEq/L (3.5-5.1)
[2023-08-25 06:01] LABS: Phosphorus 1.4 mg/dL (2.5-4.9)
--- NOTE | 2023-08-25 06:29 | P.PN ---
Date of Service: 08/23/23 Subjective Patient is clinically doing well. Patient denies any new complaints. Patient looks to be doing a little bit better. Patient did eat a little bit of food last night. Will consult dietary for nutritional support Physical Examination -Vitals Reviewed -Physical exam General: Pleasantly confused but he does answer a lot of her questions. HEENT: Normocephalic/atraumatic Respiratory: Basilar crackles Cardiovascular: Regular rate/rhythm, Edema (BLE 2+) Gastrointestinal: Normal bowel sounds, Non-distended, No tenderness Integumentary: Ecchymosis generalized/scattered bilateral upper and lower extremities. Skin tears Neurological: Dementia; patient does answer questions fairly well. Patient moves all extremities Urinary: Ramirez catheter Assessment and Plan -Assessment/Plan Assessment/Plan Severe sepsis/septic shock UTI Dementia Toxic encephalopathy NSTEMI LIZ Chronic wound Anemia Gout Depression Neuro: Altered mental status secondary to unknown etiology. Possible toxic encephalopathy. CT head pending. Patient's pro time and albumin level are altered so we will check an ammonia level as well. Patient with a questionable history of dementia as per home medication list has a mention of Aricept and Namenda. long-term medications are pending review. Patient mental status has improved. Cardiovascular: Patient is hypotensive; will need hemodynamic support with Levophed. Echocardiogram pending. Monitor hemodynamics and rhythm closely. Continue weaning off of Levophed. Pulmonary: Possible atypical pneumonia on CT imaging. Patient slightly hypoxic. Continue with antibiotic support and check a procalcitonin level. Monitor O2 sats closely as well as hypercapnia. Respiratory status is stable. Gastrointestinal/nutrition: Patient with severe malnutrition; continue with protein supplementation. Monitor albumin level. Will need to do a calorie count. Questionable liver pathology. Patient with elevated coagulation profile and hypoalbuminemia. However bilirubin is normal. Abdominal ultrasound pending. Nutritional status has improved. Nephrology/FEN: Renal function improved. Electrolytes seem to be stable. P otassium was corrected. Dermatology; patient with diffuse ecchymosis; could be related to coagulation. Protime slightly elevated. Monitor skin condition. Rheumatologic; patient with a history of gouty arthropathy; continue with allopurinol Endocrinology: Patient with a questionable history of adrenal insufficiency; check cortisol level. Try to get home medication list from nursing facility. Possibly has been on cortisone. Will also check thyroid studies. Started on IV steroids and patient's blood pressure is improved. Hematologic; patient with anemia and leukocytosis. Anemia workup pending. Continue with antibiotic for leukocytosis. Labs continue to correct. Psychiatry; continue with Remeron for depression. May be able to assist with appetite. Seems to be fairly stable Critical Care: Yes Time Spent Managing Pts Care (In Minutes): 35
--- NOTE | 2023-08-25 06:40 | P.PN ---
Date of Service: 08/24/23 Subjective Patient continues to improve. Patient nutritional status has improved. Blood pressure is also improved. Patient's blood pressure is stable and patient has been weaned off of Levophed. Physical Examination -Vitals Reviewed -Physical exam General: Pleasantly confused but he does answer a lot of her questions. HEENT: WNL Respiratory: Minimal crackles but otherwise clear Cardiovascular: Regular rate/rhythm, Edema (BLE 2+) Gastrointestinal: Normal bowel sounds, Non-distended, No tenderness Integumentary: Ecchymosis generalized/scattered bilateral upper and lower extremities. Skin tears Neurological: Dementia; patient does answer questions fairly well. Patient moves all extremities; lower extremity weakness Urinary: Ramirez catheter Assessment and Plan -Assessment/Plan Assessment/Plan Severe sepsis/septic shock UTI Dementia Toxic encephalopathy NSTEMI LIZ Chronic wound Anemia Gout Depression Neuro: Altered mental status secondary to unknown etiology. Possible toxic encephalopathy. CT head pending. Patient's pro time and albumin level are altered so we will check an ammonia level as well. Patient with a questionable history of dementia as per home medication list has a mention of Aricept and Namenda. prison medications are pending review. Patient mental status has improved. Patient with generalized weakness of the lower extremities. Will start physical therapy Cardiovascular: Patient is hypotensive; will need hemodynamic support with Levophed. Echocardiogram pending. Monitor hemodynamics and rhythm closely. Co ntinue weaning off of Levophed. Pulmonary: Possible atypical pneumonia on CT imaging. Patient slightly hypoxic. Continue with antibiotic support and check a procalcitonin level. Monitor O2 sats closely as well as hypercapnia. Respiratory status is stable. Repeat chest x-ray Gastrointestinal/nutrition: Patient with severe malnutrition; continue with protein supplementation. Monitor albumin level. Will need to do a calorie count. Questionable liver pathology. Patient with elevated coagulation profile and hypoalbuminemia. However bilirubin is normal. Abdominal ultrasound pending. Nutritional status has improved. Continue monitoring nutritional status. Nephrology/FEN: Renal function improved. Electrolytes seem to be stable. Potassium was corrected. Dermatology; patient with diffuse ecchymosis; could be related to coagulation. Protime slightly elevated. Monitor skin condition. Rheumatologic; patient with a history of gouty arthropathy; continue with allopurinol Endocrinology: Patient with a questionable history of adrenal insufficiency; check cortisol level. Try to get home medication list from nursing facility. Possibly has been on cortisone. Will also check thyroid studies. Started on IV steroids and patient's blood pressure is improved. Hematologic; patient with anemia and leukocytosis. Anemia workup pending. Continue with antibiotic for leukocytosis. Labs continue to correct. Psychiatry; continue with Remeron for depression. May be able to assist with appetite. Seems to be fairly stable Critical Care: Yes Time Spent Managing Pts Care (In Minutes): 35
[2023-08-25] MEDS ORDERED: MAGNESIUM SULFATE 1 gm IVPB 1 GM/100 ML BAG IV ONE ×2 (07:00→09:29)
--- NOTE | 2023-08-25 07:17 | ECHO ---
HEIGHT: 5 ft 11 in WEIGHT: 193 lb 3.2 oz DATE OF STUDY: 08/22/[address]: Ivon Gonzales 2-DIMENSIONAL: YES M.MODE: YES DOPPLER: YES COLOR FLOW: YES TDS: YES PORTABLE: YES DEFINITY: BUBBLE STUDY: DIAGNOSIS: EVALUATE HEART FAILURE CARDIAC HISTORY: CATHERIZATION: YES SURGERY: PROSTHETIC VALVE: PACEMAKER: MEASUREMENTS (cm) DIASTOLIC (NORMALS) SYSTOLIC (NORMALS) IVSd 1.0 (0.6-1.2) LA Diam 3.6 (1.9-4.0) LVEF 64% LVIDd 3.9 (3.5-5.7) LVIDs 2.6 (2.0-3.5) %FS 35% LVPWd 1.1 (0.6-1.2) Ao Diam 2.6 (2.0-3.7) 2 DIMENSIONAL ASSESSMENT: RIGHT ATRIUM: NORMAL LEFT ATRIUM: NORMAL RIGHT VENTRICLE: NORMAL LEFT VENTRICLE: NORMAL TRICUSPID VALVE: NORMAL MITRAL VALVE: NORMAL PULMONIC VALVE: NOT SEEN AORTIC VALVE: CALCIFIED PERICARDIAL EFFUSION: NONE AORTIC ROOT: NORMAL LEFT VENTRICULAR WALL MOTION: APPEARS NORMAL DOPPLER/COLOR FLOW: SEE BELOW COMMENTS: 1. VERY POOR STUDY 2. OVERALL LEFT VENTRICULAR EJECTION FRACTION APPEARS NORMAL TECHNOLOGIST: FERN ERVIN
[2023-08-25] MEDS ORDERED: POTASSIUM PHOS 30 MM in NA CHLORIDE 0.9% 500 ML IV ONE (08:00)
--- NOTE | 2023-08-25 08:28 | P.PN ---
Subjective Date of Service: 08/25/23 Chief Complaint: hypotensive Patient is doing well no new complaints off vasopressors with slight decline in his hemoglobin Review of Systems Unremarkable General: Weakness Physical Examination - Vital Signs Temperature: 97.8 F Blood Pressure: 130/44 Pulse: 55 Respirations: 22 Pulse Ox (%): 98 - Physical Exam General: Alert, Oriented x3 Respiratory: Clear to auscultation bilaterally Cardiovascular: No edema, Regular rate/rhythm, Normal S1 S2 - Studies Microbiology Data (last 24 hrs): 08/22/23 04:35 Clean Catch Urine Lisle Count - Final No growth. 08/22/23 04:35 Clean Catch Urine - Final No growth. Assessment And Plan - Current Problems (Diagnosis) (1) Hypotension Current Visit: Yes Status: Acute Plan: Patient developed an episode of hypotension is currently off vasopressor able to be transferred to the floor there is no clinical evidence of sepsis all cultures are negative hypotension may be can Stanley to relative adrenal insufficiency patient is anemic transfuse 1 unit of packed red blood cells no obvious signs of bleeding Qualifiers: Hypotension type: other hypotension type Qualified Code(s): I95.89 - Other hypotension
[2023-08-25 08:55] LABS: Ferritin 585.6 ng/mL (26-388)
[2023-08-25] MEDS ORDERED: HYDROCORTISONE 10 MG TAB PO SCH (09:00)
[2023-08-25] MEDS: ENSURE HIGH PROTEIN 237 ML CAN PO SCH ×2 (09:00→20:29)
[2023-08-25] MEDS: JUVEN PACKET PO SCH ×2 (09:00→20:29)
[2023-08-25] MEDS ORDERED: HYDROCORTISONE SUC 100 MG INJ ONE (09:29)
[2023-08-25] MEDS ORDERED: NACHLORIDE 0.45% 1,000 ML IV ONE (09:53)
--- NOTE | 2023-08-25 09:53 | P.PN ---
Date of Service: 08/25/23 Chief Complaint: hypotensive Subjective: Improving. No acute events overnight. Patient seen and examined at bedside. In no apparent distress. Breathing comfortably on room air. Denies any shortness of breath, chest pain or cough at this time. Denies nause, vomiting, diarrhea or abdominal pain. Denies any pain. Physical Examination Temp Pulse Resp BP Pulse Ox 97.8 F 55 22 H 130/44 L 98 08/25/23 08:29 08/25/23 08:29 08/25/23 08:08/25/23 08:08/25/23 08:29 General: In no apparent distress, Oriented x1-2, Confused. HEENT: Atraumatic, Normocephalic. Respiratory: Diminished at bases. On room air, unlabored respirations. Cardiovascular: Bradycardic. BLE edema 1+. Gastrointestinal: Normal bowel sounds, Non-distended, No tenderness Integumentary: Ecchymosis generalized/scattered bilateral upper and lower extremities. Skin tears. Laboratory Data - Reviewed Microbiology Data - Reviewed Imagings Data: - CT chest abdomen pelvis without contrast 08/22: "There are a few scattered reticular-nodular and mild groundglass opacities bilaterally which are nonspecific but can been seen with atypical infection. Right middle lobe and bibasilar atelectasis. Peribronchial thickening. Sigmoid diverticulitis." - Venous ultrasound 08/22: No DVT in either lower extremity noted Medications List: Reviewed Assessment and Plan Problem List Sepsis secondary to acute urinary tract infection Acute Kidney Injury Hypotension Hypocalcemia Hx carotid stents Dementia Sepsis secondary to suspected urinary tract infection - Urinalysis 08/22: [extremely turbid; LE 250 ; RBC 21-50 ; WBC 10-20] - Urine culture 08/22: no growth to date - Blood cultures 08/22: no growth to date - Previously on empiric Cefepime and Vancomycin (08/22-08/24). Discontinued given negative cultures. - Afebrile - Leukocytosis resolved. Concern for Pneumonia COVID19 positive - CT chest abdomen pelvis without contrast 08/22: "There are a few scattered reticular-nodular and mild groundglass opacities bilaterally which are nonspecific but can been seen with atypical infection. Right middle lobe and bibasilar atelectasis. Peribronchial thickening. Sigmoid diverticulitis." - positive COVID 08/22/23. Reportedly tested positive for covid about 1 month ago. - negative influenza - pulmonology following; see note for further recommendations. - On room air, unlabored respirations. Recommendations - Improving. Off antibiotics since 08/24. Off Levophed. Continue to monitor for worsening s/s of infection - renally dose medications - electrolyte replacement per protocol - Nutritional supplementation - Aspiration precautions - Continue supportive care. Case discussed with Carmen Beckford
[2023-08-25] MEDS: NACHLORIDE 0.45% 1,000 ML IV SCH ×2 (09:57→17:00)
[2023-08-25] MEDS: HYDROCORTISONE 10 MG TAB PO SCH ×2 (10:00→20:28)
[2023-08-25] MEDS: allopurinoL 300 MG TAB PO SCH (10:00)
[2023-08-25] MEDS ORDERED: NA CHLORIDE 0.9% 250 ML ONE (11:04)
--- NOTE | 2023-08-25 13:13 | P.PN ---
Subjective Date of Service: 08/25/23 Chief Complaint: hypotensive Pt is resting comfortably in bed. SOCIAL SECURITY BENEFITS INTERVIEWER cleared him t o have pureed diet and thin liquids but pt coughed while taking thin liquid. Will need MBS. H eis off abx. No other complaints. Will transfer to the floor. Review of Systems Unremarkable General: Unremarkable Eyes: Unremarkable ENT: Unremarkable Respiratory: Unremarkable Cardiovascular: Unremarkable Gastrointestinal: Unremarkable Genitourinary: Unremarkable Musculoskeletal: Unremarkable Integumentary: Lesions Neurological: Unremarkable Lymphatics: Unremarkable Physical Examination - Vital Signs Temperature: 97.8 F Blood Pressure: 119/46 Pulse: 70 Respirations: 25 Pulse Ox (%): 99 - Physical Exam General: Alert, In no apparent distress, Oriented x3 HEENT: Atraumatic, Normocephalic Neck: Supple, 2+ carotid pulse no bruit Respiratory: Clear to auscultation bilaterally, Normal air movement Cardiovascular: No edema, Normal pulses, Regular rate/rhythm, Normal S1 S2 Capillary refill: <2 Seconds Gastrointestinal: Normal bowel sounds, Soft and benign, Non-distended Musculoskeletal: No clubbing, No swelling Integumentary: No rashes, Skin breakdown Neurological: Normal speech, Normal strength at 5/5 x4 extr, Normal tone Lymphatics: No axilla or inguinal lymphadenopathy Assessment And Plan - Plan Severe sepsis/septic shock 2/2 UTI: off abx. ID is following. Off levophed. AMS: Likely due to toxic encephalopathy. CT head is pending. Ammonia is 15. Pt likely has underlying dementia. He takes aricept and namemda at home. Dementia: Continue namenda and aricept. Elevated BNP: Echo is poorly visualised but shows normal EF. LIZ: cr is 0.77. Will avoid nephrotoxins and monitor renal function. Diffuse ecchymosis: It is chronic. It could be related to coagulation. Protime slightly elevated. Will monitor skin condition. Anemia: Hgb is 6.7. Will give 1 unit of blood. John transfuse when Hgb < 7. Depression: Continue remeron Gout: allopurinol Hx of Adrenal insufficiency: Will continue hyrocortisone 20mg po BID. Follow up cortisol and TSH. Dysphagia: Will continue pureed diet and thick liquid. Will consult SOCIAL SECURITY BENEFITS INTERVIEWER for MBS. Severe malnutrition: Will continue diet Questionable liver pathology. Patient with elevated coagulation profile and hypoalbuminemia. However bilirubin is normal. Abdominal ultrasound pending. Possible atypical pneumonia on CT imaging. Pulm is following. Pulm stopped abx. Will monitor oxygen saturation. DVT ppx: SCD Dispo: Pending hospital course
[2023-08-25] MEDS ORDERED: FUROSEMIDE 20 MG/ 2ML VIAL IV ONE (17:43)
--- NOTE | 2023-08-25 17:47 | P.PN ---
Nephrology note (S) Pt remains in the ICU, off Levophed, transfused 1 unit PRBC earlier today for drop in Hb < 7, repeat > 8. No reports of melena. Renal function tests improved over the weekend. (O) Vitals reviewed in the EMR General: Other (Appears chronically ill) HEENT: Atraumatic, Normocephalic, not on O2 currently Neck: Supple Respiratory: Mild tachypnea, no rales anteriorly Cardiovascular: Regular rate/rhythm, Edema Gastrointestinal: Soft and benign, Non-distended, No tenderness Musculoskeletal: Other (Non pitting edema of the distal LE, shins are non tender) Integumentary: Other (Significant ecchymoses, bruising, poor skin turgor, skin tears, other blotchy non raised purplish patches across LE) Neurological: Other (Lethargic but awake, responds briefly Conclusions/Impression: A/P) 1. Acute or sub-acute Stage 1 LIZ POA 2nd to hypotension, intravascular volume depletion, sepsis, other. Resolved s/p hydration Positive fluid balance with hydration, BNP level upward rising. D/c IVF, dose Lasix x 1, received PRBC transfusion earlier. Cont to monitor I/O blance closely. 2. Abnormal findings in urine unspecified. Possibly representing cystitis vs other active sediment. Did check spot urine, some proteinuria. UCx neg for growth 3. Hypotension POA in the setting of suspected septic shock with possible sources of infection including urine and skin tears. Blood and urine collected for cultures, empiric Abx ordered by primary team. Hypotension resolved, off pressor support 4. Severe hypokalemia presumably in the setting of chronic diuretic use at [place] for chronic peripheral edema. Resolved. Mg and Phos repleted this AM. 5. Rash unspecified -blotchy purplish patches across LE aside from other extensive ecchymoses. Unclear if representing possible livedo reticularis or other vasculitic rash, did order complement and limited serology Robert Pond MD, MARK
[2023-08-25] MEDS ORDERED: FUROSEMIDE 20 MG/ 2ML VIAL ONE (17:51)
[2023-08-25] MEDS: MIRTAZAPINE 15 MG TAB PO SCH (20:29)
[2023-08-26 05:29] LABS: Absolute Lymphocytes (CBC) 1.3 K/uL (0.7-4.9); Hematocrit 26.2 % (39.6-49.0); Lymphocytes % 11.6 % (15.3-44.8); MCV 86.2 fL (80-100); MPV 8.4 fL (7.6-11.3); Platelets 201 thou/uL (152-406); RBC Red Blood Cell Count 3.03 M/uL (4.33-5.43)
[2023-08-26 05:43] LABS: Protime INR 1.08
[2023-08-26 05:54] LABS: Magnesium 1.5 mg/dL (1.6-2.4); Phosphorus 2.1 mg/dL (2.5-4.9); Potassium 3.4 mEq/L (3.5-5.1)
[2023-08-26] MEDS ORDERED: POTASSIUM CL SA 10 MEQ TAB PO ONE (06:57)
[2023-08-26] MEDS: ENSURE HIGH PROTEIN 237 ML CAN PO SCH ×2 (08:38→21:42)
[2023-08-26] MEDS: JUVEN PACKET PO SCH ×2 (08:39→21:42)
[2023-08-26] MEDS: HYDROCORTISONE 10 MG TAB PO SCH ×2 (08:39→21:41)
[2023-08-26] MEDS: allopurinoL 300 MG TAB PO SCH (08:40)
--- NOTE | 2023-08-26 08:41 | P.PN ---
Date of Service: 08/26/23 Chief Complaint: hypotensive Subjective: No acute events overnight. In no apparent distress. no new or worsening complaints at this time. Physical Examination Temp Pulse Resp BP Pulse Ox 96.9 F 57 24 H 125/50 L 99 08/26/23 04:00 08/26/23 04:00 08/26/23 04:00 08/26/23 04:00 08/26/23 04:00 General: In no apparent distress, Oriented x1-2. HEENT: Atraumatic, Normocephalic. Respiratory: Diminished at bases. On room air, unlabored respirations. Cardiovascular: Irregular rate/rhythm, Bradycardic. BLE edema 1+. Gastrointestinal: Normal bowel sounds, Non-distended, No tenderness Integumentary: Ecchymosis generalized/scattered with skin tears of bilateral upper and lower extremities. : Ramirez catheter. Laboratory Data - Reviewed Microbiology Data - Reviewed Imagings Data: - CT chest abdomen pelvis without contrast 08/22: "There are a few scattered reticular-nodular and mild groundglass opacities bilaterally which are nonspecific but can been seen with atypical infection. Right middle lobe and bibasilar atelectasis. Peribronchial thickening. Sigmoid diverticulitis." - Venous ultrasound 08/22: No DVT in either lower extremity noted Medications List: Reviewed Assessment and Plan Problem List Sepsis secondary to acute urinary tract infection Acute Kidney Injury Hypotension Hypocalcemia Hx carotid stents Dementia Sepsis secondary to suspected urinary tract infection - Urinalysis 08/22: [extremely turbid; LE 250 ; RBC 21-50 ; WBC 10-20] - Urine culture 08/22: no growth to date - Blood cultures 08/22: no growth to date - Previously on empiric Cefepime and Vancomycin (08/22-08/24). Discontinued given negative cultures. - Afebrile - Leukocytosis resolved. Concern for Pneumonia COVID19 positive - CT chest abdomen pelvis without contrast 08/22: "There are a few scattered reticular-nodular and mild groundglass opacities bilaterally which are nonspecific but can been seen with atypical infection. Right middle lobe and bibasilar atelectasis. Peribronchial thickening. Sigmoid diverticulitis." - positive COVID 08/22/23. Reportedly tested positive for covid about 1 month ago. - negative influenza - pulmonology following; see note for further recommendations. - On room air, unlabored respirations. Recommendations - Improving. Off antibiotics since 08/24. Off Levophed. - Continue to monitor for worsening s/s of infection - Nutritional supplementation - Aspiration precautions - Pressure offloading measures. Turn patient q2h. Low air-loss mattress. - Continue supportive care. Case discussed with Carmen Beckford
[2023-08-26] MEDS ORDERED: Magnesium Sulfate 2gm IVPB 2 G/50 ML BAG IV ONE (11:00)
--- NOTE | 2023-08-26 11:10 | P.PN ---
Subjective Date of Service: 08/26/23 Chief Complaint: hypotensive Pt is resting comfortably in bed. EXPORT ADMINISTRATOR cleared him to have pureed diet and thin liquids but pt coughed while taking thin liquid. Will need MBS. He is off abx. No other complaints. Will transfer to the floor. Review of Systems Unremarkable General: Unremarkable Eyes: Unremarkable ENT: Unremarkable Respiratory: Unremarkable Cardiovascular: Unremarkable Gastrointestinal: Unremarkable Genitourinary: Unremarkable Musculoskeletal: Unremarkable Integumentary: Lesions Neurological: Unremarkable Lymphatics: Unremarkable Physical Examination - Vital Signs Temperature: 96.9 F Blood Pressure: 125/50 Pulse: 57 Respirations: 24 Pulse Ox (%): 99 - Physical Exam General: Alert, In no apparent distress, Oriented x3 HEENT: Atraumatic, Normocephalic, PERRLA Neck: Supple, 2+ carotid pulse no bruit Respiratory: Clear to auscultation bilaterally, Normal air movement Cardiovascular: No edema, Normal pulses, Normal S1 S2 Capillary refill: <2 Seconds Gastrointestinal: Normal bowel sounds, Soft and benign, Non-distended Musculoskeletal: No clubbing, No swelling Integumentary: No rashes, No breakdown Neurological: Normal speech, Normal strength at 5/5 x4 extr, Sensation intact Lymphatics: No axilla or inguinal lymphadenopathy Assessment And Plan - Plan Severe sepsis/septic shock 2/2 UTI: off abx. ID is following. Off levophed. WBC is 10.9. AMS: Likely due to toxic encephalopathy. CT head is pending. Ammonia is 15. Pt likely has underlying dementia. He takes aricept and namemda at home. Dementia: Continue namenda and aricept. Elevated BNP: Echo is poorly visualised but shows normal EF. LIZ: Cr is 0.77. Will avoid nephrotoxins and monitor renal function. Diffuse ecchymosis: It is chronic. It could be related to coagulation. Protime slightly elevated. Will monitor skin condition. Anemia: Hgb is 8.6 <- 6.7 s/p 1 unit of blood. Will transfuse when Hgb < 7. Depression: Continue remeron Gout: allopurinol Hx of Adrenal insufficiency: Will continue hydrocortisone 20mg po BID. Follow up cortisol and TSH. Dysphagia: Will continue pureed diet and thick liquid. Will consult EXPORT ADMINISTRATOR for MBS. Severe malnutrition: Will continue diet Questionable liver pathology. Patient with elevated coagulation profile and hypoalbuminemia. However, bilirubin is normal. Abdominal ultrasound pending. Possible atypical pneumonia on CT imaging. Pulm is following. Pulm stopped abx. Will monitor oxygen saturation. DVT ppx: SCD Dispo: Pending hospital course
--- NOTE | 2023-08-26 11:33 | P.PN ---
Nephrology note (S) Pt remains in the ICU, off Levophed, transfused 1 unit PRBC yesterday for drop in Hb < 7, repeat > 8. No reports of melena. Renal function tests improved over the weekend. Remains off O2 (O) Vitals reviewed in the EMR General: Other (Appears chronically ill) HEENT: Atraumatic, Normocephalic, not on O2 currently Neck: Supple Respiratory: Mild tachypnea, no rales anteriorly Cardiovascular: Regular rate/rhythm, Edema Gastrointestinal: Soft and benign, Non-distended, No tenderness Musculoskeletal: Other (Non pitting edema of the distal LE, shins are non tender) Integumentary: Other (Significant ecchymoses, bruising, poor skin turgor, skin tears, other blotchy non raised purplish patches across LE) Neurological: Other (Lethargic but awake, responds briefly Conclusions/Impression: A/P) 1. Acute or sub-acute Stage 1 LIZ POA 2nd to hypotension, intravascular volume depletion, sepsis, other. Resolved s/p hydration Positive fluid balance post hydration, BNP level upward rising. D/c IVF, dosed yesterday Lasix x 1/cont PRN, received PRBC transfusion earlier yesterday. Cont to monitor I/O blance closely. 2. Abnormal findings in urine unspecified. Possibly representing cystitis vs other active sediment. Did check spot urine, some proteinuria. UCx neg for growth 3. Hypotension POA in the setting of suspected septic shock with possible sources of infection including urine and skin tears. Blood and urine collected for cultures, empiric Abx ordered by primary team. Hypotension resolved, off pressor support 4. Severe hypokalemia presumably in the setting of chronic diuretic use at [place] for chronic peripheral edema. Repleting. Mg and Phos also being repleted 5. Rash unspecified -blotchy purplish patches across LE aside from other extensive ecchymoses. Unclear if representing possible livedo reticularis or other vasculitic rash, did order complement and limited serology Robert Pond MD, MARK
--- NOTE | 2023-08-26 12:26 | P.PN ---
Subjective Date of Service: 08/26/23 Chief Complaint: hypotensive Doing much better normotensive. Denies any complaints Review of Systems General: Weakness Physical Examination - Vital Signs Temperature: 96.9 F Blood Pressure: 114/55 Pulse: 57 Respirations: 19 Pulse Ox (%): 96 - Physical Exam General: Alert, Oriented x3 Neck: Supple Respiratory: Clear to auscultation bilaterally Gastrointestinal: Normal bowel sounds, Soft and benign Assessment And Plan - Current Problems (Diagnosis) (1) Hypotension Current Visit: Yes Status: Acute Plan: Hypotension now resolved I suspect is from adrenal insufficiency his labs reviewed no evidence of sepsis given some diuretic yesterday condition satisfactory for patient to be transferred to the floor Qualifiers: Hypotension type: other hypotension type Qualified Code(s): I95.89 - Other hypotension
[2023-08-26] MEDS: MIRTAZAPINE 15 MG TAB PO SCH (21:41)
[2023-08-27 05:17] LABS: Absolute Lymphocytes (CBC) 1.3 K/uL (0.7-4.9); Hematocrit 28.8 % (39.6-49.0); Lymphocytes % 12.4 % (15.3-44.8); MCV 87.1 fL (80-100); Platelets 213 thou/uL (152-406); RBC Red Blood Cell Count 3.31 M/uL (4.33-5.43)
[2023-08-27 05:24] LABS: Potassium 3.8 mEq/L (3.5-5.1)
[2023-08-27 06:13] LABS: Magnesium 1.6 mg/dL (1.6-2.4); Phosphorus 2.2 mg/dL (2.5-4.9)
[2023-08-27] MEDS ORDERED: Magnesium Sulfate 2gm IVPB 2 G/50 ML BAG IV ONE ×2 (06:47→07:56)
[2023-08-27] MEDS: POTASS/SODIUM PHOSPHATE 1 PKT POWD.PACK PO SCH ×3 (07:00→09:00)
[2023-08-27] MEDS ORDERED: MAGNESIUM SULFATE 1 gm IVPB 1 GM/100 ML BAG IV ONE ×2 (07:47→11:49)
[2023-08-27 07:49] VITALS: O2SAT 99
[2023-08-27] MEDS ORDERED: POTASSIUM 25 MEQ EFFERV TAB ONE (07:56)
[2023-08-27] MEDS ORDERED: POTASS/SODIUM PHOSPHATE 1 PKT POWD.PACK ONE (07:56)
[2023-08-27] MEDS ORDERED: HYDROCORTISONE SUC 100 MG INJ ONE (07:56)
[2023-08-27] MEDS ORDERED: POTASSIUM 25 MEQ EFFERV TAB PO ONE (08:00)
[2023-08-27] MEDS: allopurinoL 300 MG TAB PO SCH (08:02)
[2023-08-27] MEDS: HYDROCORTISONE 10 MG TAB PO SCH (08:02)
[2023-08-27] MEDS: ENSURE HIGH PROTEIN 237 ML CAN PO SCH (08:03)
[2023-08-27] MEDS: JUVEN PACKET PO SCH (08:03)
[2023-08-27] MEDS ORDERED: POTASS/SODIUM PHOSPHATE 1 PKT POWD.PACK PO SCH (09:00)
[2023-08-27] MEDS ORDERED: POTASSIUM PHOS IN 0.9 % NACL 15 MMOL/250 ML BAG IV ONE (10:05)
--- NOTE | 2023-08-27 10:05 | P.PN ---
Subjective Date of Service: 08/27/23 Chief Complaint: hypotensive Pt is resting comfortably in bed. Waiting for [employer]ER eval before discharge because pt coughed while taking thin liquid. He is off abx. No other complaints. Review of Systems Unremarkable General: Unremarkable Eyes: Unremarkable ENT: Unremarkable Respiratory: Unremarkable Cardiovascular: Unremarkable Gastrointestinal: Unremarkable Genitourinary: Unremarkable Musculoskeletal: Unremarkable Integumentary: Unremarkable Neurological: Unremarkable Lymphatics: Unremarkable Physical Examination - Vital Signs Temperature: 97.0 F Blood Pressure: 101/42 Pulse: 82 Respirations: 24 Pulse Ox (%): 97 - Physical Exam General: Alert, In no apparent distress, Oriented x3 HEENT: Atraumatic, Normocephalic, PERRLA Neck: Supple, 2+ carotid pulse no bruit Respiratory: Clear to auscultation bilaterally, Normal air movement Cardiovascular: No edema, Normal pulses, Regular rate/rhythm, Normal S1 S2 Capillary refill: <2 Seconds Gastrointestinal: Normal bowel sounds, Soft and benign, Non-distended Musculoskeletal: No clubbing, No swelling Integumentary: No rashes, No breakdown Neurological: Normal speech, Normal strength at 5/5 x4 extr, Normal tone, Sensation intact Lymphatics: No axilla or inguinal lymphadenopathy - Studies Microbiology Data (last 24 hrs): 08/22/23 04:35 Blood - Blood Aerobic Blood Culture - Final No growth in 5 days. 08/22/23 04:35 Blood - Blood Anaerobic Blood Culture - Final No growth in 5 days. 08/22/23 04:24 Blood - Blood Aerobic Blood Culture - Final No growth in 5 days. 08/22/23 04:24 Blood - Blood Anaerobic Blood Culture - Final No growth in 5 days. Assessment And Plan - Plan Severe sepsis/septic shock 2/ UTI: off abx. ID is following. Off levophed. WBC is 10.4. AMS: Likely due to toxic encephalopathy. CT head is pending. Ammonia is 15. Pt likely has underlying dementia. He takes aricept and namemda at home. Dementia: Continue namenda and aricept. Elevated BNP: Echo is poorly visualised but shows normal EF. LIZ: Cr is 0.67. Will avoid nephrotoxins and monitor renal function. Diffuse ecchymosis: It is chronic. It could be related to coagulation. Protime slightly elevated. Will monitor skin condition. Anemia: Hgb is 9.4 <- 8.6 <- 6.7 s/p 1 unit of blood. Will transfuse when Hgb < 7. Depression: Continue remeron Gout: allopurinol Hx of Adrenal insufficiency: Will continue hydrocortisone 20mg po BID. Follow up cortisol and TSH. Dysphagia: Will continue pureed diet and thick liquid. Will consult K[employer]ER for MBS. Severe malnutrition: Will continue diet Questionable liver pathology. Patient with elevated coagulation profile and hypoalbuminemia. However, bilirubin is normal. Abdominal ultrasound pending. Possible atypical pneumonia on CT imaging. Pulm is following. Pulm stopped abx. Will monitor oxygen saturation. DVT ppx: SCD Dispo: Pending hospital course. Will dc pt soon.
--- NOTE | 2023-08-27 12:11 | P.DS ---
Admission Date: 08/22/23 Discharge Date: 08/27/23 Disposition: TRANSFER TO DETENTION Discharge Condition: GOOD Reason for Admission: hypotensive Brief History of Present Illness: 77-year-old male with past medical history significant for hypertensive disorder, left carotid blockage s/p stents who came to the hospital from the detention with complaints of cough. Patient was found to be hypotensive while in the ER (75/51). He was treated and was fluid responsive. Patient was seem with is at the bedside, both parties are poor historians. Hospital Course: Pt is a 77 yo male with past medical history of hypertensive disorder, left carotid blockage s/p stents who came to the hospital from the detention with complaints of cough. Patient was found to be hypotensive while in the ER (75/51). He was treated IVF and was fluid responsive. We admitted him in the ICU for septic shock due to UTI. Pt received levophed overnight before it was stopped. His BP improved. Further evaluation showed that pt had adrenal insuffiiciency and we started hydrocortisone 20mg po BID. The AMS was complicated by underlying dementia. We could not obtain CT head. Ammonia level was 15. Echo showed normal EF even though it was poorly visualized. Speech therapist evaluated pt and recommended pureed diet and thin liquid diet. It was changed to nectar thick liquid. Pt received 1 unit of blood and Hgb improved from 6.7 to 9.4. Assistant Signal Maintainer discontinued antibiotics. We continued home meds for other chronic medical problems. Pt was in NAD prior to discharge to SNF. Vital Signs/Physical Exam: Temp Pulse Resp BP Pulse Ox 97.0 F 82 24 H 101/42 L 97 08/27/23 10:05 08/27/23 10:05 08/27/23 10:05 08/27/23 10:05 08/27/23 10:05 Laboratory Data at Discharge: WBC 10.40 thou/uL (4.3-10.9) 08/27/23 04:35 Hgb 9.4 g/dL (13.6-17.9) L D 08/27/23 04:35 Hct 28.8 % (39.6-49.0) L 08/27/23 04:35 Plt Count 213 thou/uL (152-406) 08/27/23 04:35 PT 11.9 SECONDS (9.5-12.5) 08/26/23 04:45 INR 1.08 08/26/23 04:45 APTT 26.1 SECONDS (24.3-36.9) 08/23/23 04:17 Sodium 141 mEq/L (136-145) 08/27/23 04:35 Potassium 3.8 mEq/L (3.5-5.1) 08/27/23 04:35 BUN 16 mg/dL (7-18) 08/27/23 04:35 Creatinine 0.67 mg/dL (0.70-1.30) L 08/27/23 04:35 Glucose 104 mg/dL (74-106) 08/27/23 04:35 Phosphorus 2.2 mg/dL (2.5-4.9) L 08/27/23 04:35 Magnesium 1.6 mg/dL (1.6-2.4) 08/27/23 04:35 Total Bilirubin 0.8 mg/dL (0.2-1.0) 08/23/23 04:17 AST 22 U/L (15-37) 08/23/23 04:17 ALT < 10 U/L (16-61) L 08/23/23 04:17 Alkaline Phosphatase 69 U/L (45-117) 08/23/23 04:17 Home Medications: Allopurinol 300 mg PO DAILY #30 tablet 06/14/21 Acetaminophen [Tylenol Extra Strength] 1,000 mg PO DAILY 10/19/22 Aspirin 81 mg PO DAILY 10/19/22 Atorvastatin Calcium [Lipitor] 40 mg PO BEDTIME 10/19/22 Donepezil HCl [Aricept] 10 mg PO BEDTIME 10/19/22 Memantine HCl [Namenda] 10 mg PO BID 10/19/22 Mirtazapine [Remeron] 30 mg PO BEDTIME 10/19/22 guaiFENesin [Celsa-Tussin] 10 ml PO Q6HP PRN 10/19/22 Hydrocortisone [Cortef*] 10 mg PO BID #0 tab 11/02/22 Albuterol Neb [Proventil 0.083% Neb Soln] 2.5 mg NEB [id number] PRN 08/23/23 Albuterol Sulfate [Proair Hfa] 8.5 gm IH Q4H PRN 08/23/23 Ascorbic Acid 500 mg PO DAILY 08/23/23 Atropine Sulfate/Pf [Atropine 1% Eye Drops] 5 each OP Q4H PRN 08/23/23 Carboxymethylcellulose Sodium [Refresh Tears] 2 drops OPTH Q8H PRN 08/23/23 Cholecalciferol (Vitamin D3) [Vitamin D 1000 Iu Tab*] 1,000 unit PO DAILY 08/23/23 Dextromethorphan HBr [Tussin Long-Acting] 10 ml PO Q6H PRN 08/23/23 Sennosides [Senokot] 8.6 mg PO BID 08/23/23 Zinc Amino Acid Chelate [Zinc] 50 mg PO BEDTIME 08/23/23 Physician Discharge Instructions: Continue ad cherise activity. Take home meds a s prescribed. Follow up with PCP within 1 - 2 weeks Diet: AHA Activity: Ad cherise Followup: Soy Friedman DO [Primary Care Provider] -
--- NOTE | 2023-08-27 12:28 | P.PN ---
Nephrology note (S) Still getting electrolyte replacement but otherwise remains in stable condition (O) Vitals reviewed in the EMR General: Other (Appears chronically ill) HEENT: Atraumatic, Normocephalic, not on O2 currently Neck: Supple Respiratory: Mild tachypnea, no rales anteriorly Cardiovascular: Regular rate/rhythm, Edema Gastrointestinal: Soft and benign, Non-distended, No tenderness Musculoskeletal: Other (Non pitting edema of the distal LE, shins are non tender) Integumentary: Other (Significant ecchymoses, bruising, poor skin turgor, skin tears, other blotchy non raised purplish patches across LE) Neurological: Other (Lethargic but awake, responds briefly Conclusions/Impression: A/P) 1. Acute or sub-acute Stage 1 LIZ POA 2nd to hypotension, intravascular volume depletion, sepsis, other. Resolved s/p hydration 2. Abnormal findings in urine unspecified. Possibly representing cystitis vs other active sediment. Did check spot urine, some proteinuria. UCx neg for growth 3. Hypotension POA in the setting of suspected septic shock with possible sources of infection including urine and skin tears. Blood and urine collected for cultures, empiric Abx ordered by primary team. Hypotension resolved, off pressor support 4. Severe hypokalemia presumably in the setting of chronic diuretic use at [place] for chronic peripheral edema. Repleted. Mg and Phos also being repleted 5. Rash unspecified -blotchy purplish patches across LE aside from other extensive ecchymoses. Unclear if representing possible livedo reticularis or other vasculitic rash, did order complement and limited serology. C3 low possibly due to infection, other ordered serologies neg Robert Pond MD, MARK
[2023-08-27 12:52] VITALS: BP 104/45; TEMP 98
--- NOTE | 2023-08-27 13:48 | P.PN ---
Date of Service: 08/27/23 Chief Complaint: hypotensive Subjective: Patient seen and examined in ICU. at bedside. Patient denies any new or worsening complaints. In no apparent distress. No acute events overnight. Physical Examination Temp Pulse Resp BP Pulse Ox 98.0 F 79 20 104/45 L 99 08/27/23 12:00 08/27/23 12:00 08/27/23 12:00 08/27/23 12:00 08/27/23 12:00 General: In no apparent distress, Oriented x1-2. HEENT: Atraumatic, Normocephalic. Missing teeth. Respiratory: Diminished at bases. On room air, unlabored respirations. Cardiovascular: Irregular rate/rhythm. BLE edema 1+. Gastrointestinal: Normal bowel sounds, Non-distended, No tenderness Integumentary: Ecchymosis generalized/scattered with skin tears of bilateral upper and lower extremities. : Ramirez catheter draining clear yellow urine. Laboratory Data - Reviewed Microbiology Data - Reviewed Imagings Data: - CT chest abdomen pelvis without contrast 08/22: "There are a few scattered reticular-nodular and mild groundglass opacities bilaterally which are nonspecific but can been seen with atypical infection. Right middle lobe and bibasilar atelectasis. Peribronchial thickening. Sigmoid diverticulitis." - Venous ultrasound 08/22: No DVT in either lower extremity noted Medications List: Reviewed Assessment and Plan Problem List Sepsis secondary to acute urinary tract infection Acute Kidney Injury Hypotension Hypocalcemia Hx carotid stents Dementia Sepsis secondary to suspected urinary tract infection - Urinalysis 08/22: [extremely turbid; LE 250 ; RBC 21-50 ; WBC 10-20] - Urine culture 08/22: no growth to date - Blood cultures 08/22: no growth to date - Previously on empiric Cefepime and Vancomycin (08/22-08/24). Discontinued given negative cultures. - Afebrile - Leukocytosis resolved. Concern for Pneumonia COVID19 positive - CT chest abdomen pelvis without contrast 08/22: "There are a few scattered reticular-nodular and mild groundglass opacities bilaterally which are nonspecific but can been seen with atypical infection. Right middle lobe and bibasilar atelectasis. Peribronchial thickening. Sigmoid diverticulitis." - positive COVID 08/22/23. Reportedly tested positive for covid about 1 month ago. - negative influenza - pulmonology following; see note for further recommendations. - On room air, unlabored respirations. Recommendations Current plan for discharge back to [facility] today. - Off antibiotics since 08/24. No leukocytosis. Afebrile. Blood and urine cultures negative. - Nutritional supplementation - Aspiration precautions - Pressure offloading measures. Turn patient q2h. Low air-loss mattress. - Continue supportive care. Case discussed with Carmen Beckford
[2023-08-27] MEDS ORDERED: MAGNESIUM OXIDE 400 MG TAB PO SCH (16:00)
--- NOTE | 2023-08-28 13:54 | EKG ---
Test Date: 2023-08-22 Test Time: 04:43:31 Music Promoter: SKIP MEASUREMENT RESULTS: Intervals: Rate: 71 VA: 198 QRSD: 102 QT: 312 QTc: 339 [place]: P: 34 VA: 198 QRS: 20 T: -30 INTERPRETIVE STATEMENTS: Sinus rhythm with premature atrial complexes in a pattern of bigeminy Nonspecific T wave abnormality Abnormal ECG Compared to ECG 10/28/2022 17:17:27 T-wave abnormality now present Sinus bradycardia no longer present Electronically Signed On 08-28-23 13:30:41 [employer] by Rehan Hicks
== END 2023-08-27 15:10 | DRG 871 ==
LOC: ER 03:35 → ERHOLD 08:29 → 3RD-ICU 09:38
PROVIDERS: ADMIT Hospitalist; ATTEND Hospitalist
PROC: 0T9B70Z Drainage of Bladder with Drainage Device, Via Natural or Artificial Opening (ICD-10-PCS; 2023-08-22)
PROC: 3E043XZ Introduction of Vasopressor into Central Vein, Percutaneous Approach (ICD-10-PCS; principal; 2023-08-25)
PROC: 30233N1 Transfusion of Nonautologous Red Blood Cells into Peripheral Vein, Percutaneous Approach (ICD-10-PCS; 2023-08-25)
DX: A41.9 Sepsis, unspecified organism (principal); E43 Unspecified severe protein-calorie malnutrition; I21.4 Non-ST elevation (NSTEMI) myocardial infarction; U07.1 COVID-19; R65.21 Severe sepsis with septic shock; G92.9 Unspecified toxic encephalopathy; J12.82 Pneumonia due to coronavirus disease 2019; N39.0 Urinary tract infection, site not specified; N17.9 Acute kidney failure, unspecified; F03.93 Unspecified dementia, unspecified severity, with mood disturbance; M10.9 Gout, unspecified; E78.5 Hyperlipidemia, unspecified; E88.09 Other disorders of plasma-protein metabolism, not elsewhere classified; I10 Essential (primary) hypertension; D64.9 Anemia, unspecified; E87.6 Hypokalemia; R13.10 Dysphagia, unspecified; Z95.5 Presence of coronary angioplasty implant and graft; Z68.27 Body mass index [BMI] 27.0-27.9, adult; Z79.82 Long term (current) use of aspirin; Z79.02 Long term (current) use of antithrombotics/antiplatelets; Z79.899 Other long term (current) drug therapy
CPT/HCPCS: 36415; 36430; 71045; 71250; 74176; 80048; 80053; 80076; 80202; 81001; 82140; 82533; 82570; 82607; 82728; 83540; 83605; 83735; 83880; 84100; 84132; 84145; 84156; 84439; 84443; 84466; 84484; 85014; 85018; 85025; 85044; 85379; 85610; 85730; 86021; 86038; 86140; 86160; 86850; 86900; 86901; 86920; 87040; 87086; 87088; 87635; 87804; 92610; 93005; 93306; 93970; 96374; 96375; 97110; 97161; 97530; 99285; J0692; J0696; J1720; J1940; J3475; J3480; J7030; J7040; J7050; P9016; P9047

== ENCOUNTER 2023-09-15 22:11 | Emergency (ER) | payer OTHER ==
[2023-09-15] MEDS ORDERED: NOREPINEPHRINE BITARTRATE/D5W 4 MG/250 ML BAG IV ONE (22:14)
--- OUTSIDE RECORDS SUMMARY | 2023-09-15 22:17 | XMS REPORT | Continuity of Care Document ---
Author Name Unknown Address [address] [facility] [address] [place] [address] [facility] Address [address] [facility] [address] [place] [address] Care Team Providers Care Event Producer Name Role Phone PCP, PATIENT DOES NOT HAVE A Primary Care Physic kervin Unavailable ALISSON MEZA Attending Clinician Unavailumberto aragon _BAHC_Todd_J Attending Clinician Unavailable CLAYTON MONTES DE OCA Attending Clinician Unavailable Alisson Meza MD Attending Clinician [phone] Doctor Unassigned, Lee Attending Clinician Bibi Galindo Attending Clinician [phone] Dony Neville MD Attending Clinician [phone] DONY NEVILLE Attending Clinician UnavailDONY Mata Attending Clinician UnavailBIBI Mckeon Attending Clinician Unavailable Lashawn Dior MD Attending Clinician [phone] LASHAWN DIOR Attending Clinician Unavailable ELIJAH SORIA Attending Clinician Unavailable ELIJAH SORIA Attending Clinician Unavailable Logan WHITLEY, Afmia Attending Clinician [phone] Joyce Castellon MD Attending Clinician [phone] GC_BAHC_Todd_J Admitting Clinician Unavailable JOYCE CASTELLON Admitting Clinician Unavail able Joyce Castellon MD Admitting Clinician [phone] ALISSON MEZA Admitting Clinician Unavaila ble Payers Payer Name Policy Type Policy Number Effective Date Expirati on Date Source [place]IC[place]: [employer] [id number] 2010 00:00:00 [employer] [place]MEDICA[place]PLACEMENT - HMO) [id number] 2022 00:00:00 2023 00:00:00 MEDICARE PART A \\T\\ B [id number] 2010 [facility]00[facility] [id number] 2022 00:00:00 2023 00:00:00 MEDICAID OF [place] [id number] Problems Condition Name Condition Details Condition Category Status Onset Date Resolution Date Last Treatment Date Treating Clinician Comments Source Essential hypertensi on Essential hypertensi on Disease Active 09-06 00:00: 00 Overview: Formattin g of this note might be different from the original. Added automatic ally from request for surgery [id number] [facility] Encounter for pre-operat brenda cardiovasc ular clearance Encounter for pre-operat brenda cardiovasc ular clearance Disease Active 09-06 00:00: 00 Overview: Formattin g of this note might be different from the original. Added automatic ally from request for surgery [id number] [facility] Abnormal ECG Abnormal ECG Disease Active 09-06 00:00: 00 Overview: Formattin g of this note might be different from the original. Added automatic ally from request for surgery [id number] [facility] ECHEVARRIA (dyspnea on exertion) ECHEVARRIA (dyspnea on exertion) Disease Active 09-06 00:00: 00 Overview: Formattin g of this note might be different from the original. Added automatic ally from request for surgery [id number] [facility] Stenosis of carotid artery, unspecifie d laterality Stenosis of carotid artery, unspecifie d laterality Disease Active 09-06 00:00: 00 Overview: Formattin g of this note might be different from the original. Added automatic ally from request for surgery [id number] [facility] Abnormal nuclear stress test Abnormal nuclear stress test Disease Active 09-06 00:00: 00 Overview: Formattin g of this note might be different from the original. Added automatic ally from request for surgery [id number] [facility] No known active problems No known active problems Disease [facility] Allergies, Adverse Reactions, Alerts Allergy Name Allergy Type Status Severity Reaction(s) Onset Date Inactive Date Treating Clinician Comments Source NO KNOWN ALLERGIE S Drug Class Active [facility] Social History Social Habit Start Date Stop Date Quantity Comments Source History SDOH Social Connections Get Together [facility] History SDOH Social Connections [facility] History SDOH Social Connections Membership [facility] History SDOH Social Connections Meetings [facility] Gender identity [facility] Sexual orientation [facility] History of Social function 2023-05-05 00:00:00 2023-05-05 00:00:00 [facility] History SDOH Alcohol Frequency 2022-10-12 00:00:00 2022-10-12 00:00:00 1 [facility] History SDOH Alcohol Std Drinks 2022-10-12 00:00:00 2022-10-12 00:00:00 0 [facility] History SDOH Alcohol Binge 2022-10-12 00:00:00 2022-10-12 00:00:00 1 [facility] History SDOH Social Connections Phone 2022-10-12 00:00:00 2022-10-12 00:00:00 5 [facility] History SDOH Social Connections Living 2022-10-12 00:00:00 2022-10-12 00:00:00 3 [facility] History SDOH Physical Activity DPW 2022-10-12 00:00:00 2022-10-12 00:00:00 0 [facility] History SDOH Physical Activity MPS 2022-10-12 00:00:00 2022-10-12 00:00:00 0 [facility] History SDOH Financial 2022-10-12 00:00:00 2022-10-12 00:00:00 5 [facility] History SDOH Food Worry 2022-10-12 00:00:00 2022-10-12 00:00:00 1 [facility] History SDOH Food Scarcity 2022-10-12 00:00:00 2022-10-12 00:00:00 1 [facility] History SDOH Transport Med 2022-10-12 00:00:00 2022-10-12 00:00:00 2 [facility] History SDOH Transport Non-Med 2022-10-12 00:00:00 2022-10-12 00:00:00 2 [facility] Exposure to SARS-CoV-2 (event) 2022-10-01 00:00:00 2022-10-11 08:37:00 Not sure [facility] Tobacco use and exposure 2022-10-11 00:00:00 2022-10-11 00:00:00 Smokeless tobacco non-user [facility] Sex Assigned At 1945 00:00:00 1945 00:00:00 [facility] Smoking Status Start Date Stop Date Source Tobacco smoking consumption unknown [facility] Never smoked tobacco [facility] Medications Ordered Medication Name Filled Medication Name Start Date Stop Date Current Medication? Ordering Clinician Indication Dosage Frequency Signature (SIG) Comments Components Source memantine (NAMENDA) 10 mg tablet 2022-07 14:38: 14 Yes 10mg Take 1 tablet by mouth in the morning. [facility] LORATADINE ORAL 2022-07 14:38: 14 Yes Take by mouth. [facility] carboxymeth ylcellulose sodium (REFRESH TEARS OPHTHALMIC) 2022-07 14:38: [address] each eye. [facility] SENNOSIDES ORAL 2022-07 14:38: 14 Yes Take by mouth. [facility] memantine (NAMENDA) 10 mg tablet 2022-07 14:38: 14 Yes 10mg Take 1 tablet by mouth in the morning. [facility] LORATADINE ORAL 2022-07 14:38: 14 Yes Take by mouth. [facility] carboxymeth ylcellulose sodium (REFRESH TEARS OPHTHALMIC) 2022-07 14:38: [address] in each eye[address] [facility] SENNOSIDES ORAL 2022-07 14:38: 14 Yes Take by mouth. [facility] memantine (NAMENDA) 10 mg tablet 2022-07 14:38: 14 Yes 10mg Take 1 tablet by mouth in the morning. [facility] LORATADINE ORAL 2022-07 14:38: 14 Yes Take by mouth. [facility] carboxymeth ylcellulose sodium (REFRESH TEARS OPHTHALMIC) 2022-07 14:38: [address] in each eye. [facility] SENNOSIDES ORAL 2022-07 14:38: 14 Yes Take by mouth. [facility] memantine (NAMENDA) 10 mg tablet 2022-07 14:38: 14 Yes 10mg Take 1 tablet by mouth in the morning. [facility] aspirin 81 mg EC tablet 2022-07 14:34: 56 Yes 81mg Take 1 tablet by mouth in the morning. [facility] atorvastati n 40 mg tablet 2022-07 14:34: 56 Yes 40mg Take 1 tablet by mouth at bedtime. [facility] acetaminoph en (TYLENOL ORAL) 2022-07 14:34: 56 Yes Take by mouth. [facility] aspirin 81 mg EC tablet 2022-07 14:34: 56 Yes 81mg Take 1 tablet by mouth in the morning. [facility] atorvastati n 40 mg tablet 2022-07 14:34: 56 Yes 40mg Take 1 tablet by mouth at bedtime. [facility] acetaminoph en (TYLENOL ORAL) 2022-07 14:34: 56 Yes Take by mouth. [facility] aspirin 81 mg EC tablet 2022-07 14:34: 56 Yes 81mg Take 1 tablet by mouth in the morning. [facility] atorvastati n 40 mg tablet 2022-07 14:34: 56 Yes 40mg Take 1 tablet by mouth at bedtime. [facility] acetaminoph en (TYLENOL ORAL) 2022-07 14:34: 56 Yes Take by mouth. [facility] aspirin 81 mg EC tablet 2022-07 14:34: 56 Yes 81mg Take 1 tablet by mouth in the morning. [facility] atorvastati n 40 mg tablet 2022-07 14:34: 56 Yes 40mg Take 1 tablet by mouth at bedtime. [facility] aspirin 81 mg EC tablet 2022-07 14:13: 53 Yes 81mg Take 1 tablet by mouth in the morning. [facility] atorvastati n 40 mg tablet 2022-07 14:13: 53 Yes 40mg Take 1 tablet by mouth at bedtime. [facility] aspirin 81 mg EC tablet 2022-07 14:13: 53 Yes 81mg Take 1 tablet by mouth in the morning. [facility] atorvastati n 40 mg tablet 2022-07 14:13: 53 Yes 40mg Take 1 tablet by mouth at bedtime. [facility] aspirin 81 mg EC tablet 2022-07 14:13: 53 Yes 81mg Take 1 tablet by mouth in the morning. [facility] atorvastati n 40 mg tablet 2022-07 14:13: 53 Yes 40mg Take 1 tablet by mouth at bedtime. [facility] aspirin 81 mg EC tablet 2022-07 14:13: 53 Yes 81mg Take 1 tablet by mouth in the morning. [facility] atorvastati n 40 mg tablet 2022-07 0 14:13: 53 Yes 40mg Take 1 tablet by mouth at bedtime. [facility] atropine 1 % ophthalmic drops 2022-07 0 00:00: 00 Yes [facility] atropine 1 % ophthalmic drops 2022-07 0 00:00: 00 Yes [facility] atropine 1 % ophthalmic drops 2022-07 0 00:00: 00 Yes [facility] triamcinolo ne acetonide (KENALOG) injection 40 mg 2022-07 0 22:45: 00 05-05 21:50 :00 No [id number] 40mg [address] [facility] triamcinolo ne acetonide (KENALOG) injection 40 mg 2022-07 0 22:45: 00 05-05 21:50 :00 No [id number] 40mg 40 mg, Intramuscu lar, ONCE, 1 dose, On Fri05/05/23 at 1745, Routine [facility] triamcinolo ne acetonide (KENALOG) injection 40 mg 2022-07 0 22:45: 00 05-05 21:50 :00 No [id number] 40mg Un[facility] triamcinolo ne acetonide (KENALOG) injection 40 mg 2022-07 22:45: 00 05-05 21:50 :00 No [id number] 40mg 40 mg, Intramuscu lar, ONCE, 1 dose, On Fri05/05/23 at 1745, Routine [facility] clotrimazol e-betametha sone cream 03-19 00:00: 00 Yes [id number] Apply to area(s) 2 (two) times daily. [facility] clotrimazol e-betametha sone cream 0 03-19 00:00: 00 Yes [id number] Apply to area(s) 2 (two) times daily. [facility] clotrimazol e-betametha sone cream 0 03-19 00:00: 00 Yes [id number] Apply to area(s) 2 (two) times daily. [facility] clotrimazol e-betametha sone cream 03-19 00:00: 00 Yes [id number] Apply to area(s) 2 (two) times daily. [facility] clotrimazol e-betametha sone cream 3-0 8-23 00:00: 00 Yes [id number] Apply to area(s) 2 (two) times daily. [facility] clotrimazol e-betametha sone cream 3-0 823 00:00: 00 Yes [id number] Apply to area(s) 2 (two) times daily. [facility] clotrimazol e-betametha sone cream 2022-0 823 00:00: 00 Yes [id number] Apply to area(s) 2 (two) times daily. [facility] clotrimazol e-betametha sone cream 2022-0 8 00:00: 00 Yes [id number] Apply to area(s) 2 (two) times daily. [facility] clotrimazol e-betametha sone cream 3-0 8 00:00: 00 Yes [id number] Apply to area(s) 2 (two) times daily. [facility] clotrimazol e-betametha sone cream 3-0 8 00:00: 00 Yes [id number] Apply to area(s) 2 (two) times daily. [facility] clotrimazol e-betametha sone cream 3-0 823 00:00: 00 Yes [id number] Apply to area(s) 2 (two) times daily. [facility] clotrimazol e-betametha sone cream 3-0 823 00:00: 00 Yes [id number] Apply to area(s) 2 (two) times daily. [facility] clotrimazol e-betametha sone cream 3-0 8-23 00:00: 00 Yes [id number] Apply to area(s) 2 (two) times daily. [facility] clotrimazol e-betametha sone cream 2023-0 8-23 00:00: 00 Yes [id number] Apply to area(s) 2 (two) times daily. [facility] clotrimazol e-betametha sone cream 03-19 00:00: 00 03-30 04:59 :00 No [id number] Apply to area(s) 2 (two) times daily for 10 days. [facility] clotrimazol e-betametha sone cream 03-19 00:00: 00 03-30 04:59 :00 No [id number] Apply to area(s) 2 (two) times daily for 10 days. [facility] clotrimazol e-betametha sone cream 0 03-19 00:00: 00 03-19 00:00 :00 No [id number] Apply to area(s) 2 (two) times daily for 10 days. [facility] clotrimazol e-betametha sone cream 03-19 00:00: 00 03-19 00:00 :00 No [id number] Apply to area(s) 2 (two) times daily for 10 days. [facility] memantine (NAMENDA) 10 mg tablet 2022-0 03-18 14:33: 34 Yes 10mg Take 1 tablet by mouth in the morning. [facility] memantine (NAMENDA) 10 mg tablet 2022-0 - 14:33: 34 Yes 10mg Take 1 tablet by mouth in the morning. [facility] memantine (NAMENDA) 10 mg tablet 2022-0 8- 14:33: 34 Yes 10mg Take 1 tablet by mouth in the morning. [facility] memantine (NAMENDA) 10 mg tablet 2022-0 8- 14:33: 34 Yes 10mg Take 1 tablet by mouth in the morning. [facility] memantine (NAMENDA) 10 mg tablet 2022-0 8- 14:33: 34 Yes 10mg Take 1 tablet by mouth in the morning. [facility] memantine (NAMENDA) 10 mg tablet 2022-0 8-22 14:33: 34 Yes 10mg Take 1 tablet by mouth in the morning. [facility] memantine (NAMENDA) 10 mg tablet 2022-0 03-18 14:33: 34 Yes 10mg Take 1 tablet by mouth in the morning. [facility] memantine (NAMENDA) 10 mg tablet 2022-0 03-18 14:33: 34 Yes 10mg Take 1 tablet by mouth in the morning. [facility] memantine (NAMENDA) 10 mg tablet 2022-0 03-18 14:33: 34 Yes 10mg Take 1 tablet by mouth in the morning. [facility] memantine (NAMENDA) 10 mg tablet 2022-0 03-18 14:33: 34 Yes 10mg Take 1 tablet by mouth in the morning. [facility] memantine (NAMENDA) 10 mg tablet 2022-0 03-18 14:33: 34 Yes 10mg Take 1 tablet by mouth in the morning. [facility] memantine (NAMENDA) 10 mg tablet 0 03-18 14:33: 34 Yes 10mg Take 1 tablet by mouth in the morning. [facility] aspirin 81 mg EC tablet 2022-0 03-18 14:30: 43 Yes 81mg Take 1 tablet by mouth in the morning. [facility] atorvastati n 40 mg tablet 2022-0 03-18 14:30: 43 Yes 40mg Take 1 tablet by mouth at bedtime. [facility] aspirin 81 mg EC tablet 2022-0 03-18 14:30: 43 Yes 81mg Take 1 tablet by mouth in the morning. [facility] atorvastati n 40 mg tablet 2022-0 03-18 14:30: 43 Yes 40mg Take 1 tablet by mouth at bedtime. [facility] aspirin 81 mg EC tablet 2022-0 03-18 14:30: 43 Yes 81mg Take 1 tablet by mouth in the morning. [facility] atorvastati n 40 mg tablet 2022-0 03-18 14:30: 43 Yes 40mg Take 1 tablet by mouth at bedtime. [facility] aspirin 81 mg EC tablet 2022-0 03-18 14:30: 43 Yes 81mg Take 1 tablet by mouth in the morning. [facility] atorvastati n 40 mg tablet 3-0 03-18 14:30: 43 Yes 40mg Take 1 tablet by mouth at bedtime. [facility] aspirin 81 mg EC tablet 3-0 03-18 14:30: 43 Yes 81mg Take 1 tablet by mouth in the morning. [facility] atorvastati n 40 mg tablet 3-0 03-18 14:30: 43 Yes 40mg Take 1 tablet by mouth at bedtime. [facility] aspirin 81 mg EC tablet 3-0 03-18 14:30: 43 Yes 81mg Take 1 tablet by mouth in the morning. [facility] atorvastati n 40 mg tablet 3-0 03-18 14:30: 43 Yes 40mg Take 1 tablet by mouth at bedtime. [facility] aspirin 81 mg EC tablet 3-0 03-18 14:30: 43 Yes 81mg Take 1 tablet by mouth in the morning. [facility] atorvastati n 40 mg tablet 3-0 03-18 14:30: 43 Yes 40mg Take 1 tablet by mouth at bedtime. [facility] aspirin 81 mg EC tablet 2022-0 03-18 14:30: 43 Yes 81mg Take 1 tablet by mouth in the morning. [facility] atorvastati n 40 mg tablet 2022-0 03-18 14:30: 43 Yes 40mg Take 1 tablet by mouth at bedtime. [facility] hydrocortis one 10 mg tablet 3-0 02-25 00:00: 00 Yes [facility] hydrocortis one 10 mg tablet 3-0 8 00:00: 00 Yes [facility] hydrocortis one 10 mg tablet 3-0 02-25 00:00: 00 Yes [facility] hydrocortis one 10 mg tablet 3-0 02-25 00:00: 00 Yes [facility] hydrocortis one 10 mg tablet 3-0 8 00:00: 00 Yes [facility] hydrocortis one 10 mg tablet 3-0 8- 00:00: 00 Yes [facility] hydrocortis one 10 mg tablet 3-0 8- 00:00: 00 Yes [facility] hydrocortis one 10 mg tablet 3-0 8- 00:00: 00 Yes [facility] hydrocortis one 10 mg tablet 2022-0 8- 00:00: 00 Yes [facility] hydrocortis one 10 mg tablet 3-0 8- 00:00: 00 Yes [facility] hydrocortis one 10 mg tablet 3-0 8- 00:00: 00 Yes [facility] hydrocortis one 10 mg tablet 2022-0 8- 00:00: 00 Yes [facility] hydrocortis one 10 mg tablet 3-0 8- 00:00: 00 Yes [facility] hydrocortis one 10 mg tablet 3-0 8- 00:00: 00 Yes [facility] hydrocortis one 10 mg tablet 2022-0 8- 00:00: 00 Yes [facility] hydrocortis one 10 mg tablet 3-0 8- 00:00: 00 Yes [facility] albuterol 90 mcg/actuati on inhaler 3-0 6-25 00:00: 00 Yes [facility] albuterol 90 mcg/actuati on inhaler 3-0 6- 00:00: 00 Yes [facility] albuterol 90 mcg/actuati on inhaler 2023-0 6-25 00:00: 00 Yes [facility] albuterol 90 mcg/actuati on inhaler 3-0 6-25 00:00: 00 Yes [facility] albuterol 90 mcg/actuati on inhaler 3-0 6-25 00:00: 00 Yes [facility] albuterol 90 mcg/actuati on inhaler 2023-0 6- 00:00: 00 Yes [facility] albuterol 90 mcg/actuati on inhaler 3-0 6-25 00:00: 00 Yes [facility] albuterol 90 mcg/actuati on inhaler 2022-0 625 00:00: 00 Yes [facility] albuterol 90 mcg/actuati on inhaler 2022-0 625 00:00: 00 Yes [facility] albuterol 90 mcg/actuati on inhaler 0 6 00:00: 00 Yes [facility] albuterol 90 mcg/actuati on inhaler 2022-0 6-25 00:00: 00 Yes [facility] albuterol 90 mcg/actuati on inhaler 2022-0 6 00:00: 00 Yes [facility] albuterol 90 mcg/actuati on inhaler 2022-0 01-19 00:00: 00 Yes [facility] albuterol 90 mcg/actuati on inhaler 0 01-19 00:00: 00 Yes [facility] albuterol 90 mcg/actuati on inhaler 0 01-19 00:00: 00 Yes [facility] albuterol 90 mcg/actuati on inhaler 0 01-19 00:00: 00 Yes [facility] clopidogreL (PLAVIX) 75 mg tablet 75 mg 10-13 14:00: 00 Yes 75mg 75 mg, Oral, DAILY, First dose on 10/13/22 at 0900, Until Discontinu ed, Routine [facility] clopidogreL (PLAVIX) 75 mg tablet 75 mg 10-13 14:00: 00 10-12 23:01 :02 No 75mg 75 mg, Oral, DAILY, First dose on 10/13/22 at 0900, Until Discontinu ed, Routine [facility] atorvastati n (LIPITOR) tablet 40 mg 10-13 02:00: 00 Yes 40mg 40 mg, Oral, QHS, First dose on 10/12/22 at 2100, Until Discontinu ed, Routine [facility] atorvastati n (LIPITOR) tablet 40 mg 10-13 02:00: 00 10-12 23:01 :02 No 40mg 40 mg, Oral, QHS, First dose on 10/12/22 at 2100, Until Discontinu ed, Routine [facility] clopidogreL 75 mg tablet 3-0 3-19 00:00: 00 01-12 04:59 :00 No [id number] 75mg Take 1 tablet by mouth in the morning for 90 days. [facility] clopidogreL 75 mg tablet 2022-0 -19 00:00: 00 01-12 04:59 :00 No [id number] 75mg Take 1 tablet by mouth in the morning for 90 days. [facility] clopidogreL 75 mg tablet 2022-0 -19 00:00: 00 01-12 04:59 :00 No [id number] 75mg Take 1 tablet by mouth in the morning for 90 days. [facility] clopidogreL 75 mg tablet 2022-0 19 00:00: 00 01-12 04:59 :00 No [id number] 75mg Take 1 tablet by mouth in the morning for 90 days. [facility] clopidogreL 75 mg tablet 2022-0 19 00:00: 00 01-12 04:59 :00 No [id number] 75mg Take 1 tablet by mouth in the morning for 90 days. [facility] aspirin 81 mg EC tablet 2022-0 18 16:00: 58 Yes 81mg Take 1 tablet by mouth in the morning. [facility] atorvastati n 40 mg tablet 2022-0 18 16:00: 58 Yes 40mg Take 1 tablet by mouth at bedtime. [facility] aspirin 81 mg EC tablet 2022-0 18 16:00: 58 Yes 81mg Take 1 tablet by mouth in the morning. [facility] atorvastati n 40 mg tablet 2022-0 18 16:00: 58 Yes 40mg Take 1 tablet by mouth at bedtime. [facility] aspirin 81 mg EC tablet 2022-0 18 16:00: 58 Yes 81mg Take 1 tablet by mouth in the morning. [facility] atorvastati n 40 mg tablet 2022-0 18 16:00: 58 Yes 40mg Take 1 tablet by mouth at bedtime. [facility] aspirin 81 mg EC tablet 0 10-12 16:00: 58 Yes 81mg Take 1 tablet by mouth in the morning. [facility] atorvastati n 40 mg tablet 2022-0 18 16:00: 58 Yes 40mg Take 1 tablet by mouth at bedtime. [facility] aspirin 81 mg EC tablet 10-12 16:00: 58 Yes 81mg Take 1 tablet by mouth in the morning. [facility] atorvastati n 40 mg tablet 2022-0 10-12 16:00: 58 Yes 40mg Take 1 tablet by mouth at bedtime. [facility] allopurinoL (ZYLOPRIM) tablet 100 mg 10-12 14:00: 00 Yes 100mg 100 mg, Oral, DAILY, First dose on 10/12/22 at 0900, Until Discontinu ed, Routine [facility] aspirin chewable tablet 81 mg 10-12 14:00: 00 Yes 81mg 81 mg, Oral, DAILY, First dose on 10/12/22 at 0900, Until Discontinu ed, Routine [facility] clopidogreL (PLAVIX) 300 mg tablet 300 mg 10-12 14:00: 00 10-12 13:55 :00 No 300mg 300 mg, Oral, ONCE, 1 dose, On 10/12/22 at 0900, Routine [facility] allopurinoL (ZYLOPRIM) tablet 100 mg 10-12 14:00: 00 10-12 23:01 :02 No 100mg 100 mg, Oral, DAILY, First dose on 10/12/22 at 0900, Until Discontinu ed, Routine [facility] clopidogreL (PLAVIX) 300 mg tablet 300 mg 10-12 14:00: 00 10-12 13:55 :00 No 300mg 300 mg, Oral, ONCE, 1 dose, On 10/12/22 at 0900, Routine [facility] aspirin chewable tablet 81 mg 18 14:00: 00 10-12 23:01 :02 No 81mg 81 mg, Oral, DAILY, First dose on Fri10/12/22 at 0900, Until Discontinu ed, Routine [facility] carvediloL (COREG) tablet 3.125 mg 3-0 18 13:30: 00 Yes 3.125mg 3.125 mg, Oral, BID MEALS, First dose on Fri10/12/22 at 0830, Until Discontinu ed, Routine [facility] carvediloL (COREG) tablet 3.125 mg 2022-0 18 13:30: 00 10-12 23:01 :02 No 3.125mg 3.125 mg, Oral, BID MEALS, First dose on 10/12/22 at 0830, Until Discontinu ed, Routine [facility] melatonin (MELATIN) tablet 3 mg 2022-0 18 02:00: 00 Yes 3mg 3 mg, Oral, QHS, First dose on Fri10/11/22 at 2100, Until Discontinu ed, Routine [facility] mirtazapine (REMERON) tablet 15 mg 2022-0 18 02:00: 00 Yes 15mg 15 mg, Oral, QHS, First dose on Fri10/11/22 at 2100, Until Discontinu ed, Routine [facility] donepeziL (ARICEPT) tablet 10 mg 2022-0 18 02:00: 00 Yes 10mg 10 mg, Oral, QHS, First dose on Fri10/11/22 at 2100, Until Discontinu ed, Routine [facility] melatonin (MELATIN) tablet 3 mg 2022-0 18 02:00: 00 10-12 23:01 :02 No 3mg 3 mg, Oral, QHS, First dose on Fri10/11/22 at 2100, Until Discontinu ed, Routine [facility] mirtazapine (REMERON) tablet 15 mg 3-0 -18 02:00: 00 10-12 23:01 :02 No 15mg 15 mg, Oral, QHS, First dose on Fri10/11/22 at 2100, Until Discontinu ed, [facility] 10 mg 10-12 02:00: 00 10-12 23:01 :02 No 10mg 10 mg, Oral, QHS, First dose on Fri10/11/22 at 2100, Until Discontinu ed, [facility] ticagrelor (BRILINTA) tablet 90 mg 10-12 01:00: 00 10-12 02:45 :00 No 90mg 90 mg, Oral, BID, 1 dose, First dose on Fri10/11/22 at 2000, Routine [facility] ticagrelor (BRILINTA) tablet 90 mg 10-12 01:00: 00 10-12 02:45 :00 No 90mg 90 mg, Oral, BID, 1 dose, First dose on Fri10/11/22 at 2000, Routine [facility] NaCl 0.9% (NS) IV infusion 1,000 mL 10-11 23:00: 00 Yes 1000mL at 75 mL/hr, IV Infusion, CONTINUOUS , Starting on Fri10/11/22 at 1800, Until Discontinu ed, Routine [facility] NaCl 0.9% (NS) IV infusion 1,000 mL 10-11 23:00: 00 10-12 23:01 :02 No 1000mL at 75 mL/hr, IV Infusion, CONTINUOUS , Starting on Fri10/11/22 at 1800, Until Fri10/12/22 at 1801, Routine [facility] famotidine (PEPCID AC) tablet 20 mg 10-11 22:45: 24 Yes 20mg 20 mg, Oral, BIDPRN, Starting on Fri10/11/22 at 1745, Until Discontinu ed, Routine, Indigestio n, Heartburn [facility] ondansetron (ZOFRAN (PF)) injection 4 mg 10-11 22:45: 24 Yes 4mg 4 mg, Slow IV Push, Q6HPRN, Starting on Fri10/11/22 at 1745, Until Discontinu ed, Routine, Nausea and Vomiting (N/V) [facility] bisacodyL (DULCOLAX) tablet 10 mg 2022-10-11 22:45: 24 Yes 10mg 10 mg, Oral, QDAILYPRN, Starting on Fri10/11/22 at 1745, Until Discontinu ed, Routine, Constipati on [facility] morpHINE (2 mg/mL) injection 4 mg 10-11 22:45: 24 10-12 22:44 :24 No 4mg 4 mg, Slow IV Push, Q4HPRN, Starting on Fri10/11/22 at 1745, Until 10/12/22 at 1744, Routine, Pain (scale 7-10) [facility] famotidine (PEPCID AC) tablet 20 mg 10-11 22:45: 24 10-12 23:01 :02 No 20mg 20 mg, Oral, BIDPRN, Starting on Fri10/11/22 at 1745, Until 10/12/22 at 1801, Routine, Indigestio n, Heartburn [facility] ondansetron (ZOFRAN (PF)) injection 4 mg 10-11 22:45: 24 10-12 23:01 :02 No 4mg 4 mg, Slow IV Push, Q6HPRN, Starting on Fri10/11/22 at 1745, Until 10/12/22 at 1801, Routine, Nausea and Vomiting (N/V) [facility] bisacodyL (DULCOLAX) tablet 10 mg 10-11 22:45: 24 10-12 23:01 :02 No 10mg 10 mg, Oral, QDAILYPRN, Starting on Fri10/11/22 at 1745, Until 10/12/22 at 1801, Routine, Constipati on [facility] morpHINE (2 mg/mL) injection 4 mg 2022-10-11 22:45: 24 10-12 22:44 :24 No 4mg 4 mg, Slow IV Push, Q4HPRN, Starting on Fri10/11/22 at 1745, Until 10/12/22 at 1744, Routine, Pain (scale 7-10) [facility] acetaminoph en (TYLENOL) tablet 650 mg 10-11 22:45: 23 Yes 650mg 650 mg, Oral, Q6HPRN, Starting on Fri10/11/22 at 1745, Until Discontinu ed, Routine, Pain (scale 1-3) [facility] HYDROcodone -acetaminop hen (NORCO 5) 5-325 mg tablet 1 tablet 10-11 22:45: 23 10-13 22:44 :23 No 1{tbl} 1 tablet, Oral, Q6HPRN, Starting on Fri10/11/22 at 1745, Until 10/13/22 at 1744, Routine, Pain (scale 4-6) [facility] HYDROcodone -acetaminop hen (NORCO 5) 5-325 mg tablet 1 tablet 10-11 22:45: 23 10-12 23:01 :02 No 1{tbl} 1 tablet, Oral, Q6HPRN, Starting on Fri10/11/22 at 1745, Until 10/12/22 at 1801, Routine, Pain (scale 4-6) [facility] acetaminoph en (TYLENOL) tablet 650 mg 10-11 22:45: 23 10-12 23:01 :02 No 650mg 650 mg, Oral, Q6HPRN, Starting on Fri10/11/22 at 1745, Until 10/12/22 at 1801, Routine, Pain (scale 1-3) [facility] atorvastati n (LIPITOR) tablet 40 mg 10-11 19:15: 00 10-12 02:45 :00 No 40mg 40 mg, Oral, ONCE, 1 dose, On Fri10/11/22 at 1415, Routine [facility] atorvastati n (LIPITOR) tablet 40 mg 10-11 19:15: 00 10-12 02:45 :00 No 40mg 40 mg, Oral, ONCE, 1 dose, On Fri10/11/22 at 1415, Routine [facility] iopamidol (ISOVUE 370-500 mL) injection 10-11 18:16: 28 10-11 18:17 :17 No ONCE INTRA PROCEDURE, Starting on Fri10/11/22 at 1316, Until Fri10/11/22 at 1317, Routine, CV Intraproce dure [facility] ticagrelor (BRILINTA) tablet 10-11 17:51: 37 10-11 18:17 :17 No ONCE INTRA PROCEDURE, Starting on Fri10/11/22 at 1251, Until Fri10/11/22 at 1317, Routine, CV Intraproce dure [facility] NaCl 0.9% (NS) bolus infusion 10-11 17:41: 36 10-11 17:41 :36 No CONTINUOUS PRN, Starting on Fri10/11/22 at 1241, Until Discontinu ed, STAT, CV Intraproce dure [facility] heparin 1,000 unit/mL injection 10-11 17:35: 12 10-11 18:17 :17 No ONCE INTRA PROCEDURE, Starting on Fri10/11/22 at 1235, Until Fri10/11/22 at 1317, Routine, CV Intraproce dure [facility] nitroglycer in (TRIDIL) 2 mg in 10 mL D5W for Cardiac Cath 10-11 17:34: 48 10-11 18:17 :17 No ONCE INTRA PROCEDURE, Starting on Fri10/11/22 at 1234, Until Fri10/11/22 at 1317, Routine, CV Intraproce dure [facility] lidocaine 1% (PF) (XYLOCAINE) injection 10-11 17:32: 51 10-11 18:17 :17 No ONCE INTRA PROCEDURE, Starting on Fri10/11/22 at 1232, Until Fri10/11/22 at 1317, Routine, CV Intraproce dure [facility] midazolam (VERSED) injection 10-11 17:30: 38 10-11 18:17 :17 No ONCE INTRA PROCEDURE, Starting on Fri10/11/22 at 1230, Until Fri10/11/22 at 1317, Routine, CV Intraproce dure [facility] FENTanyl PF (SUBLIMAZE (PF)) injection 10-11 17:30: 25 10-11 18:17 :17 No ONCE INTRA PROCEDURE, Starting on Fri10/11/22 at 1230, Until Fri10/11/22 at 1317, Routine, CV Intraproce dure [facility] aspirin tablet 325 mg 10-11 15:45: 00 10-11 15:08 :00 No 325mg 325 mg, Oral, ONCE, 1 dose, On Fri10/11/22 at 1045, Routine [facility] aspirin tablet 325 mg 10-11 15:45: 00 10-11 15:08 :00 No 325mg 325 mg, Oral, ONCE, 1 dose, On Fri10/11/22 at 1045, Routine [facility] aspirin 81 mg EC tablet 2021-07 12:49: 19 Yes 81mg Take 81 mg by mouth in the morning. [facility] atorvastati n (LIPITOR) 40 mg tablet 2021-07 12:49: 19 Yes 40mg Take 40 mg by mouth at bedtime. [facility] aspirin 81 mg EC tablet 2021-07 12:49: 19 Yes 81mg Take 81 mg by mouth in the morning. [facility] atorvastati n (LIPITOR) 40 mg tablet 2021-07 12:49: 19 Yes 40mg Take 40 mg by mouth at bedtime. [facility] aspirin 81 mg EC tablet 2021-07 12:49: 19 Yes 81mg Take 81 mg by mouth in the morning. [facility] atorvastati n (LIPITOR) 40 mg tablet 2021-07 12:49: 19 Yes 40mg Take 40 mg by mouth at bedtime. [facility] aspirin 81 mg EC tablet 2021-07 12:49: 19 Yes 81mg Take 81 mg by mouth in the morning. [facility] atorvastati n (LIPITOR) 40 mg tablet 2021-07 12:49: 19 Yes 40mg Take 40 mg by mouth at bedtime. [facility] aspirin 81 mg EC tablet 2021-07 12:49: 19 Yes 81mg Take 81 mg by mouth in the morning. [facility] atorvastati n (LIPITOR) 40 mg tablet 2021-07 12:49: 19 Yes 40mg Take 40 mg by mouth at bedtime. [facility] aspirin 81 mg EC tablet 2021-07 12:49: 19 Yes 81mg Take 81 mg by mouth in the morning. [facility] atorvastati n (LIPITOR) 40 mg tablet 2021-07 12:49: 19 Yes 40mg Take 40 mg by mouth at bedtime. [facility] aspirin 81 mg EC tablet 2021-07 12:49: 19 Yes 81mg Take 81 mg by mouth in the morning. [facility] atorvastati n (LIPITOR) 40 mg tablet 2021-07 12:49: 19 Yes 40mg Take 40 mg by mouth at bedtime. [facility] aspirin 81 mg EC tablet 2021-07 12:49: 19 Yes 81mg Take 81 mg by mouth in the morning. [facility] atorvastati n (LIPITOR) 40 mg tablet 2021-07 12:49: 19 Yes 40mg Take 40 mg by mouth at bedtime. [facility] aspirin 81 mg EC tablet 2021-07 12:49: 19 Yes 81mg Take 81 mg by mouth in the morning. [facility] atorvastati n (LIPITOR) 40 mg tablet 2021-07 12:49: 19 Yes 40mg Take 40 mg by mouth at bedtime. [facility] aspirin 81 mg EC tablet 2021-07 12:49: 19 Yes 81mg Take 81 mg by mouth in the morning. [facility] atorvastati n (LIPITOR) 40 mg tablet 2021-07 12:49: 19 Yes 40mg Take 40 mg by mouth at bedtime. [facility] aspirin 81 mg EC tablet 2021-07 12:49: 19 Yes 81mg Take 81 mg by mouth in the morning. [facility] atorvastati n (LIPITOR) 40 mg tablet 2021-07 12:49: 19 Yes 40mg Take 40 mg by mouth at bedtime. [facility] tc 99m-pertech netate injection 42.5 millicurie 2021-07 17:00: 00 07-09 16:49 :00 No [id number] 42.5mCi 42.5 millicurie , Intravenou s, ONCE, 1 dose, On Fri07/09/22 at 1100, Routine [facility] regadenoson (LEXISCAN) injection 0.4 mg 2021-07 16:30: 00 07-09 16:49 :00 No [id number] .4mg 0.4 mg, IV Push, ONCE, 1 dose, On Fri07/09/22 at 1030, Routine
produce team member approving Restricted medication : ALISSON MEZA [facility] tc 99m-tetrofo smin (MYOVIEW) injection 16 millicurie 2021-07 15:15: 00 07-09 15:04 :00 No [id number] 16mCi 16 millicurie , Intravenou s, ONCE, 1 dose, On Fri07/09/22 at 0915, Routine [facility] iopamidol (ISOVUE 370-500 mL) injection 85 mL 2021-07 17:00: 00 07-05 15:40 :00 No [id number] 85mL 85 mL, Intravenou s, ONCE, 1 dose, On Fri07/05/22 at 1100, Routine [facility] donepeziL 10 mg tablet 04-19 00:00: 00 Yes [id number] [facility] donepeziL 10 mg tablet 04-19 00:00: 00 Yes [id number] [facility] donepeziL 10 mg tablet 2-0 04-19 00:00: 00 Yes [id number] [facility] donepeziL 10 mg tablet 2-0 04-19 00:00: 00 Yes [id number] [facility] donepeziL 10 mg tablet 2-0 04-19 00:00: 00 Yes [id number] [facility] donepeziL 10 mg tablet 2-0 04-19 00:00: 00 Yes [id number] [facility] donepeziL 10 mg tablet 2-0 04-19 00:00: 00 Yes [id number] [facility] donepeziL 10 mg tablet 2-0 04-19 00:00: 00 Yes [id number] [facility] donepeziL 10 mg tablet 2-0 04-19 00:00: 00 Yes [id number] [facility] donepeziL 10 mg tablet 2-0 04-19 00:00: 00 Yes [id number] [facility] donepeziL 10 mg tablet 2-0 04-19 00:00: 00 Yes [id number] [facility] donepeziL 10 mg tablet 2021-0 04-19 00:00: 00 Yes [facility] donepeziL 10 mg tablet 2021-0 04-19 00:00: 00 Yes [id number] [facility] donepeziL 10 mg tablet 2-0 04-19 00:00: 00 Yes [id number] [facility] donepeziL 10 mg tablet 2-0 04-19 00:00: 00 Yes [id number] [facility] donepeziL 10 mg tablet 2-0 04-19 00:00: 00 Yes [id number] [facility] donepeziL 10 mg tablet 2-0 04-19 00:00: 00 Yes [id number] [facility] donepeziL 10 mg tablet 2-0 04-19 00:00: 00 Yes [id number] [facility] donepeziL 10 mg tablet 2-0 04-19 00:00: 00 Yes [id number] [facility] donepeziL 10 mg tablet 2022-0 04-19 00:00: 00 Yes [id number] [facility] donepeziL 10 mg tablet 2-0 04-19 00:00: 00 Yes [id number] [facility] donepeziL 10 mg tablet 2-0 04-19 00:00: 00 Yes [id number] [facility] donepeziL 10 mg tablet 2022-0 04-19 00:00: 00 Yes [id number] [facility] donepeziL 10 mg tablet 2-0 04-19 00:00: 00 Yes [id number] [facility] donepeziL 10 mg tablet 2-0 04-19 00:00: 00 Yes [id number] [facility] donepeziL 10 mg tablet 2-0 04-19 00:00: 00 Yes [id number] [facility] donepeziL 10 mg tablet 2-0 04-19 00:00: 00 Yes [id number] [facility] donepeziL 10 mg tablet 2-0 04-19 00:00: 00 Yes [id number] [facility] donepeziL 10 mg tablet 2-0 04-19 00:00: 00 Yes [id number] [facility] donepeziL 10 mg tablet 2-0 04-19 00:00: 00 Yes [id number] [facility] donepeziL 10 mg tablet 2-0 04-19 00:00: 00 Yes [id number] [facility] donepeziL 10 mg tablet 2-0 04-19 00:00: 00 Yes [id number] [facility] donepeziL 10 mg tablet 2-0 04-19 00:00: 00 Yes [id number] [facility] donepeziL 10 mg tablet 2-0 04-19 00:00: 00 Yes [id number] [facility] donepeziL 10 mg tablet 2-0 04-19 00:00: 00 Yes [id number] [facility] donepeziL 10 mg tablet 2022-0 04-19 00:00: 00 Yes [id number] [facility] donepeziL 10 mg tablet 0 04-19 00:00: 00 Yes [id number] [facility] donepeziL 10 mg tablet 0 04-19 00:00: 00 Yes [id number] [facility] donepeziL 10 mg tablet 0 04-19 00:00: 00 Yes [id number] [facility] donepeziL 10 mg tablet 0 04-19 00:00: 00 Yes [id number] [facility] donepeziL 10 mg tablet 0 04-19 00:00: 00 Yes [id number] [facility] donepeziL 10 mg tablet 0 04-19 00:00: 00 Yes [id number] [facility] donepeziL 10 mg tablet 0 04-19 00:00: 00 Yes [id number] [facility] donepeziL 10 mg tablet 0 04-19 00:00: 00 Yes [id number] [facility] donepeziL 10 mg tablet 0 04-19 00:00: 00 Yes [id number] [facility] donepeziL 10 mg tablet 0 04-19 00:00: 00 Yes [id number] [facility] allopurinoL 300 mg tablet 0 04-09 00:00: 00 Yes [id number] [facility] allopurinoL 300 mg tablet 0 04-09 00:00: 00 Yes [id number] [facility] allopurinoL 300 mg tablet 0 04-09 00:00: 00 Yes [id number] [facility] allopurinoL 300 mg tablet 0 04-09 00:00: 00 Yes [id number] [facility] allopurinoL 300 mg tablet 0 04-09 00:00: 00 Yes [id number] [facility] allopurinoL 300 mg tablet 0 04-09 00:00: 00 Yes [id number] [facility] allopurinoL 300 mg tablet 0 04-09 00:00: 00 Yes [id number] [facility] allopurinoL 300 mg tablet 2021-0 04-09 00:00: 00 Yes [id number] [facility] allopurinoL 300 mg tablet 0 04-09 00:00: 00 Yes [id number] [facility] allopurinoL 300 mg tablet 0 04-09 00:00: 00 Yes [facility] allopurinoL 300 mg tablet 0 04-09 00:00: 00 Yes [id number] [facility] allopurinoL 300 mg tablet 0 04-09 00:00: 00 Yes [id number] [facility] allopurinoL 300 mg tablet 0 04-09 00:00: 00 Yes [id number] [facility] allopurinoL 300 mg tablet 0 04-09 00:00: 00 Yes [id number] [facility] allopurinoL 300 mg tablet 0 04-09 00:00: 00 Yes [id number] [facility] allopurinoL 300 mg tablet 0 04-09 00:00: 00 Yes [id number] [facility] allopurinoL 300 mg tablet 0 04-09 00:00: 00 Yes [id number] [facility] allopurinoL 300 mg tablet 0 04-09 00:00: 00 Yes [id number] [facility] allopurinoL 300 mg tablet 0 04-09 00:00: 00 Yes [id number] [facility] allopurinoL 300 mg tablet 0 04-09 00:00: 00 Yes [id number] [facility] allopurinoL 300 mg tablet 2021-0 04-09 00:00: 00 Yes [id number] [facility] allopurinoL 300 mg tablet 0 04-09 00:00: 00 Yes [id number] [facility] allopurinoL 300 mg tablet 2021-0 04-09 00:00: 00 Yes [id number] [facility] allopurinoL 300 mg tablet 2021-0 04-09 00:00: 00 Yes [id number] [facility] allopurinoL 300 mg tablet 2021-0 13 00:00: 00 Yes [id number] [facility] allopurinoL 300 mg tablet 2021-0 04-09 00:00: 00 Yes [id number] [facility] allopurinoL 300 mg tablet 2021-0 04-09 00:00: 00 Yes [id number] [facility] allopurinoL 300 mg tablet 2021-0 04-09 00:00: 00 Yes [id number] [facility] allopurinoL 300 mg tablet 2021-0 04-09 00:00: 00 Yes [id number] [facility] allopurinoL 300 mg tablet 2021-0 04-09 00:00: 00 Yes [id number] [facility] allopurinoL 300 mg tablet 2021-0 04-09 00:00: 00 Yes [id number] [facility] allopurinoL 300 mg tablet 2021-0 04-09 00:00: 00 Yes [id number] [facility] allopurinoL 300 mg tablet 2021-0 04-09 00:00: 00 Yes [id number] [facility] allopurinoL 300 mg tablet 2021-0 04-09 00:00: 00 Yes [id number] [facility] allopurinoL 300 mg tablet 2021-0 04-09 00:00: 00 Yes [id number] [facility] allopurinoL 300 mg tablet 2021-0 04-09 00:00: 00 Yes [id number] [facility] allopurinoL 300 mg tablet 2021-0 04-09 00:00: 00 Yes [id number] [facility] allopurinoL 300 mg tablet 2021-0 04-09 00:00: 00 Yes [id number] [facility] allopurinoL 300 mg tablet 2021-0 04-09 00:00: 00 Yes [id number] [facility] allopurinoL 300 mg tablet 2021-0 04-09 00:00: 00 Yes [id number] [facility] allopurinoL 300 mg tablet 2021-0 04-09 00:00: 00 Yes [id number] [facility] allopurinoL 300 mg tablet 2021-0 -13 00:00: 00 Yes [id number] [facility] allopurinoL 300 mg tablet 2021-0 -13 00:00: 00 Yes [id number] [facility] allopurinoL 300 mg tablet 2-0 -13 00:00: 00 Yes [id number] [facility] allopurinoL 300 mg tablet 2021-0 -13 00:00: 00 Yes [id number] [facility] allopurinoL 300 mg tablet 2-0 13 00:00: 00 Yes [id number] [facility] carvediloL 6.25 mg tablet 2021-0 03-31 00:00: 00 Yes [id number] [facility] carvediloL 6.25 mg tablet 2-0 - 00:00: 00 Yes [id number] [facility] carvediloL 6.25 mg tablet 2-0 -04 00:00: 00 Yes [id number] [facility] carvediloL 6.25 mg tablet 2021-0 -04 00:00: 00 Yes [id number] [facility] carvediloL 6.25 mg tablet 2021-0 -04 00:00: 00 Yes [id number] [facility] carvediloL 6.25 mg tablet 2021-0 -04 00:00: 00 Yes [id number] [facility] carvediloL 6.25 mg tablet 2-0 9-04 00:00: 00 Yes [id number] [facility] carvediloL 6.25 mg tablet 2-0 9-04 00:00: 00 Yes [id number] [facility] carvediloL 6.25 mg tablet 2-0 -04 00:00: 00 Yes [id number] [facility] carvediloL 6.25 mg tablet 2-0 -04 00:00: 00 Yes [id number] [facility] carvediloL 6.25 mg tablet 2-0 9-04 00:00: 00 Yes [facility] carvediloL 6.25 mg tablet 2-0 04 00:00: 00 Yes [id number] [facility] carvediloL 6.25 mg tablet 2021-0 904 00:00: 00 Yes [id number] [facility] carvediloL 6.25 mg tablet 2021-0 03-31 00:00: 00 Yes [id number] [facility] carvediloL 6.25 mg tablet 2021-0 03-31 00:00: 00 Yes [id number] [facility] carvediloL 6.25 mg tablet 2021-0 03-31 00:00: 00 Yes [id number] [facility] carvediloL 6.25 mg tablet 2021-0 03-31 00:00: 00 Yes [id number] [facility] carvediloL 6.25 mg tablet 2021-0 03-31 00:00: 00 Yes [id number] [facility] carvediloL 6.25 mg tablet 2021-0 - 00:00: 00 Yes [id number] [facility] carvediloL 6.25 mg tablet 2021-0 03-31 00:00: 00 Yes [id number] [facility] carvediloL 6.25 mg tablet 2021-0 03-31 00:00: 00 Yes [id number] [facility] carvediloL 6.25 mg tablet 2021-0 03-31 00:00: 00 Yes [id number] [facility] carvediloL 6.25 mg tablet 2021-0 9-04 00:00: 00 Yes [id number] [facility] carvediloL 6.25 mg tablet 2021-0 9-04 00:00: 00 Yes [id number] [facility] carvediloL 6.25 mg tablet 2-0 -04 00:00: 00 Yes [id number] [facility] carvediloL 6.25 mg tablet 2021-0 9-04 00:00: 00 Yes [id number] [facility] carvediloL 6.25 mg tablet 2-0 9-04 00:00: 00 Yes [id number] [facility] carvediloL 6.25 mg tablet 0 03-31 00:00: 00 Yes [id number] [facility] carvediloL 6.25 mg tablet 03-31 00:00: 00 Yes [id number] [facility] carvediloL 6.25 mg tablet 03-31 00:00: 00 Yes [id number] [facility] carvediloL 6.25 mg tablet 03-31 00:00: 00 Yes [id number] [facility] carvediloL 6.25 mg tablet 03-31 00:00: 00 Yes [id number] [facility] carvediloL 6.25 mg tablet 03-31 00:00: 00 Yes [id number] [facility] carvediloL 6.25 mg tablet 03-31 00:00: 00 Yes [id number] [facility] carvediloL 6.25 mg tablet 03-31 00:00: 00 Yes [id number] [facility] carvediloL 6.25 mg tablet 03-31 00:00: 00 Yes [id number] [facility] carvediloL 6.25 mg tablet 03-31 00:00: 00 Yes [id number] [facility] carvediloL 6.25 mg tablet 0 03-31 00:00: 00 Yes [id number] [facility] carvediloL 6.25 mg tablet 0 03-31 00:00: 00 Yes [id number] [facility] carvediloL 6.25 mg tablet 0 03-31 00:00: 00 Yes [id number] [facility] carvediloL 6.25 mg tablet 03-31 00:00: 00 Yes [id number] [facility] carvediloL 6.25 mg tablet 0 03-31 00:00: 00 Yes [id number] [facility] carvediloL 6.25 mg tablet 03-31 00:00: 00 Yes [id number] [facility] carvediloL 6.25 mg tablet 03-31 00:00: 00 Yes [id number] [facility] carvediloL 6.25 mg tablet 03-31 00:00: 00 Yes [id number] [facility] carvediloL 6.25 mg tablet 03-31 00:00: 00 Yes [id number] [facility] mirtazapine 15 mg tablet 03-30 00:00: 00 Yes [id number] [facility] mirtazapine 15 mg tablet 03-30 00:00: 00 Yes [id number] [facility] mirtazapine 15 mg tablet 03-30 00:00: 00 Yes [id number] [facility] mirtazapine 15 mg tablet 03-30 00:00: 00 Yes [id number] [facility] mirtazapine 15 mg tablet 03-30 00:00: 00 Yes [id number] [facility] mirtazapine 15 mg tablet 03-30 00:00: 00 Yes [id number] [facility] mirtazapine 15 mg tablet 03-30 00:00: 00 Yes [id number] [facility] mirtazapine 15 mg tablet 03-30 00:00: 00 Yes [id number] [facility] mirtazapine 15 mg tablet 03-30 00:00: 00 Yes [id number] [facility] mirtazapine 15 mg tablet 03-30 00:00: 00 Yes [id number] [facility] mirtazapine 15 mg tablet 03-30 00:00: 00 Yes [id number] [facility] mirtazapine 15 mg tablet 03-30 00:00: 00 Yes [id number] [facility] mirtazapine 15 mg tablet 03-30 00:00: 00 Yes [id number] [facility] mirtazapine 15 mg tablet 0 03-30 00:00: 00 Yes [facility] mirtazapine 15 mg tablet 0 03-30 00:00: 00 Yes [id number] [facility] mirtazapine 15 mg tablet 0 03-30 00:00: 00 Yes [id number] [facility] mirtazapine 15 mg tablet 0 03-30 00:00: 00 Yes [id number] [facility] mirtazapine 15 mg tablet 0 03-30 00:00: 00 Yes [id number] [facility] mirtazapine 15 mg tablet 0 03-30 00:00: 00 Yes [id number] [facility] mirtazapine 15 mg tablet 03-30 00:00: 00 Yes [id number] [facility] mirtazapine 15 mg tablet 0 03-30 00:00: 00 Yes [id number] [facility] mirtazapine 15 mg tablet 03-30 00:00: 00 Yes [id number] [facility] mirtazapine 15 mg tablet 03-30 00:00: 00 Yes [id number] [facility] mirtazapine 15 mg tablet 03-30 00:00: 00 Yes [id number] [facility] mirtazapine 15 mg tablet 0 03-30 00:00: 00 Yes [id number] [facility] mirtazapine 15 mg tablet 0 03-30 00:00: 00 Yes [id number] [facility] mirtazapine 15 mg tablet 0 03-30 00:00: 00 Yes [id number] [facility] mirtazapine 15 mg tablet 0 03-30 00:00: 00 Yes [id number] [facility] mirtazapine 15 mg tablet 0 03-30 00:00: 00 Yes [id number] [facility] mirtazapine 15 mg tablet 03-30 00:00: 00 Yes [id number] [facility] mirtazapine 15 mg tablet 0 03-30 00:00: 00 Yes [id number] [facility] mirtazapine 15 mg tablet 03-30 00:00: 00 Yes [id number] [facility] mirtazapine 15 mg tablet 0 03-30 00:00: 00 Yes [id number] [facility] mirtazapine 15 mg tablet 0 03-30 00:00: 00 Yes [id number] [facility] mirtazapine 15 mg tablet 03-30 00:00: 00 Yes [id number] [facility] mirtazapine 15 mg tablet 03-30 00:00: 00 Yes [id number] [facility] mirtazapine 15 mg tablet 03-30 00:00: 00 Yes [id number] [facility] mirtazapine 15 mg tablet 03-30 00:00: 00 Yes [id number] [facility] mirtazapine 15 mg tablet 03-30 00:00: 00 Yes [id number] [facility] mirtazapine 15 mg tablet 03-30 00:00: 00 Yes [id number] [facility] mirtazapine 15 mg tablet 03-30 00:00: 00 Yes [id number] [facility] mirtazapine 15 mg tablet 03-30 00:00: 00 Yes [id number] [facility] mirtazapine 15 mg tablet 0 03-30 00:00: 00 Yes [id number] [facility] mirtazapine 15 mg tablet 03-30 00:00: 00 Yes [id number] [facility] mirtazapine 15 mg tablet 03-30 00:00: 00 Yes [id number] [facility] mirtazapine 15 mg tablet 0 03-30 00:00: 00 Yes [id number] [facility] cephALEXin 250 mg capsule 2-0 8-20 00:00: 00 Yes [id number] [facility] cephALEXin 250 mg capsule 2-0 8-20 00:00: 00 Yes [id number] [facility] cephALEXin 250 mg capsule 2-0 8-20 00:00: 00 Yes [id number] [facility] cephALEXin 250 mg capsule 2-0 8-20 00:00: 00 Yes [id number] [facility] cephALEXin 250 mg capsule 2-0 8-20 00:00: 00 Yes [id number] [facility] cephALEXin 250 mg capsule 2-0 8-20 00:00: 00 Yes [id number] [facility] cephALEXin 250 mg capsule 2-0 8-20 00:00: 00 Yes [id number] [facility] cephALEXin 250 mg capsule 2-0 8-20 00:00: 00 Yes [id number] [facility] cephALEXin 250 mg capsule 2-0 8-20 00:00: 00 Yes [id number] [facility] cephALEXin 250 mg capsule 2-0 8-20 00:00: 00 Yes [id number] [facility] cephALEXin 250 mg capsule 2-0 8-20 00:00: 00 Yes [facility] cephALEXin 250 mg capsule 2-0 8-20 00:00: 00 Yes [id number] [facility] cephALEXin 250 mg capsule 2-0 8-20 00:00: 00 Yes [id number] [facility] cephALEXin 250 mg capsule 2-0 8-20 00:00: 00 Yes [id number] [facility] cephALEXin 250 mg capsule 2-0 8-20 00:00: 00 Yes [id number] [facility] cephALEXin 250 mg capsule 2-0 8-20 00:00: 00 07-16 00:00 :00 No [id number] [facility] Vital Signs Vital Name Observation Time Observation Value Comments S ource Systolic blood pressure 2023-06-12 20:38:00 117 mm[Hg] [facility] Diastolic blood pressure 2023-06-12 20:38:00 60 mm[Hg] [facility] Heart rate 2023-06-12 20:38:00 83 /[facility] 2023-06-12 20:38:00 18 /min [facility] Body height 2023-06-12 20:38:00 180.3 cm [facility] Body weight 2023-06-12 20:38:00 74.844 kg [facility] BMI 2023-06-12 20:38:00 23.01 kg/m2 [facility] Systolic blood pressure 2023-05-26 19:16:00 109 mm[Hg] [facility] Diastolic blood pressure 2023-05-26 19:16:00 60 mm[Hg] [facility] Heart rate 2023-05-26 19:16:00 88 /[facility] height 2023-05-26 19:16:00 180.3 cm [facility] Body weight 2023-05-26 19:16:00 74.844 kg [facility] BMI 2023-05-26 19:16:00 23.01 kg/m2 [facility] Oxygen saturation in Arterial blood by Pulse oximetry 2023-05-26 19:16:00 84 /min [facility] Systolic blood pressure 2023-05-26 19:16:00 109 mm[Hg] [facility] Diastolic blood pressure 2023-05-26 19:16:00 60 mm[Hg] [facility] Heart rate 2023-05-26 19:16:00 88 /[facility] height 2023-05-26 19:16:00 180.3 cm [facility] Body weight 2023-05-26 19:16:00 74.844 kg [facility] BMI 2023-05-26 19:16:00 23.01 kg/m2 [facility] Oxygen saturation in Arterial blood by Pulse oximetry 2023-05-26 19:16:00 84 /min [facility] Body weight 2023-05-05 21:15:00 80.74 kg [facility] BMI 2023-05-05 21:15:00 24.83 kg/m2 [facility] Systolic blood pressure 2023-03-18 19:29:00 129 mm[Hg] [facility] Diastolic blood pressure 2023-03-18 19:29:00 72 mm[Hg] [facility] Heart rate 2023-03-18 19:29:00 86 /min Unive [facility] Body temperature 2023-03-18 19:29:00 36.83 Jessie [facility] Respiratory rate 2023-03-18 19:29:00 18 /min [facility] Oxygen saturation in Arterial blood by Pulse oximetry 2023-03-18 19:29:00 93 /min [facility] Systolic blood pressure 2022-10-12 16:33:00 115 mm[Hg] [facility] Diastolic blood pressure 2022-10-12 16:33:00 52 mm[Hg] [facility] Heart rate 2022-10-12 16:33:00 59 /min Un[facility] Body temperature 2022-10-12 16:33:00 36.83 Jessie [facility] Respiratory rate 2022-10-12 16:33:00 16 /min [facility] Oxygen saturation in Arterial blood by Pulse oximetry 2022-10-12 16:33:00 95 /min [facility] Body height 2022-10-12 00:36:00 180.3 cm [facility] Body weight 2022-10-12 00:36:00 81.103 kg [facility] BMI 2022-10-12 00:36:00 24.94 kg/m2 [facility] Systolic blood pressure 2022-10-11 14:24:00 105 mm[Hg] [facility] Diastolic blood pressure 2022-10-11 14:24:00 45 mm[Hg] [facility] Heart rate 2022-10-11 14:24:00 74 /min [facility] Body temperature 2022-10-11 14:24:00 36.56 Jessie [facility] Respiratory rate 2022-10-11 14:24:00 10 /min [facility] Body height 2022-10-11 14:24:00 180.3 cm [facility] Body weight 2022-10-11 14:24:00 83.915 kg [facility] BMI 2022-10-11 14:24:00 24.94 kg/m2 [facility] Oxygen saturation in Arterial blood by Pulse oximetry 2022-10-11 14:24:00 88 /min [facility] Systolic blood pressure 2022-07-15 16:17:00 120 mm[Hg] [facility] Diastolic blood pressure 2022-07-15 16:17:00 62 mm[Hg] [facility] Heart rate 2022-07-15 16:17:00 83 /min Un[facility] Body temperature 2022-07-15 16:17:00 36.61 Jessie [facility] Respiratory rate 2022-07-15 16:17:00 18 /min [facility] Body weight 2022-07-15 16:17:00 83.915 kg [facility] BMI 2022-07-15 16:17:00 25.80 kg/m2 [facility] Oxygen saturation in Arterial blood by Pulse oximetry 2022-07-15 16:17:00 96 /min [facility] Systolic blood pressure 2022-04-22 16:43:00 134 mm[Hg] [facility] Diastolic blood pressure 2022-04-22 16:43:00 64 mm[Hg] [facility] Heart rate 2022-04-22 16:43:00 87 /min Unive [facility] Body temperature 2022-04-22 16:43:00 36.33 Jessie [facility] Respiratory rate 2022-04-22 16:43:00 20 /min [facility] Body height 2022-04-22 16:43:00 180.3 cm [facility] Body weight 2022-04-22 16:43:00 83.915 kg [facility] BMI 2022-04-22 16:43:00 25.80 kg/m2 [facility] Oxygen saturation in Arterial blood by Pulse oximetry 2022-04-22 16:43:00 93 /min [facility] Procedures Procedure Date / Time Performed Performing Clinician Source HB ECG ROUTINE & RHYTHM STRIP 2023-05-26 19:12:12 Alisson Meza [facility] AUTHORIZATION TO RELEASE PHI TO [facility] 2023-05-26 05:01:00 Doctor Unassigned, Lee [facility] CONSENT/REFUSAL FOR DIAGNOSIS AND TREATMENT 2023-05-05 21:06:09 Doctor Unassigned, Lee [facility] MAGNESIUM 2022-10-12 09:57:00 Estella [facility] BASIC METABOLIC PANEL (NA, K, CL, CO2, GLUCOSE, BUN, CREATININE, CA) 2022-10-12 09:57:00 Estella [facility] LIPID PANEL ([id number])(TOTAL CHOLESTEROL, TRIGLYCERIDES, HDL) 2022-10-12 09:57:00 Kaleigh Jcarlos [facility] CBC WITH DIFF 2022-10-12 09:57[facility]22-10-12 09:57:00 Estella [facility] BASIC METABOLIC PANEL (NA, K, CL, CO2, GLUCOSE, BUN, CREATININE, CA) 2022-10-12 09:57:00 Estella [facility] LIPID PANEL ([id number])(TOTAL CHOLESTEROL, TRIGLYCERIDES, HDL) 2022-10-12 09:57:00 Kaleigh Jcarlos [facility] CBC WITH DIFF 2022-10-12 09:57:00 Elijah Soria [facility] POCT ACT LOW RANGE 2022-10-11 19:08:00 Estella [facility] CARDIAC CATHETERIZATION 2022-10-11 18:09:00 Se teresa Meza [facility] CARDIAC CATHETERIZATION 2022-10-11 18:09:00 Se teresa Meza [facility] CATH PROCEDURE LOG 2022-10-11 17:32:41 Alisson Meza [facility] CATH PROCEDURE LOG 2022-10-11 17:32:41 Alisson Meza [facility] POCT ACT LOW RANGE 2022-10-11 17:04:00 LoganShawnmia [facility] BASIC METABOLIC PANEL (NA, K, CL, CO2, GLUCOSE, BUN, CREATININE, CA) 2022-10-11 14:01:00 Logan [facility] CBC WITHOUT DIFF 2022-10-11 14:01:00 [facility] / INR 2022-10-11 14:01:00 Logan, A faq [facility] BASIC METABOLIC PANEL (NA, K, CL, CO2, GLUCOSE, BUN, CREATININE, CA) 2022-10-11 14:01:00 Logan [facility] CBC WITHOUT DIFF 2022-10-11 14:01:00 JairoSkylar bonilla [facility] PROT[facility] / INR 2022-10-11 14:01:00 Logan, A faq [facility] CONSENT/REFUSAL FOR DIAGNOSIS AND TREATMENT 2022-10-11 13:39:35 Doctor Unassigned, Lee [facility] EXTERNAL PROVIDER - ADC CARDIOLOGY 2022-10-07 05:01:00 Doctor Unassigned, Lee [facility] EXTERNAL PROVIDER - [facility] CARDIOLOGY 2022-10-02 06:01:00 Doctor Unassigned, Lee [facility] AUTHORIZATION FOR RELEASE OF PHI 2022-07-16 06:01:00 Doctor Unassigned, Lee [facility] MYOCARDIUM PERFUSION STRESS AND REST 2022-07-09 17:33:00 Alisson Meza [facility] MYOCARDIUM PERFUSION STRESS AND REST 2022-07-09 17:33:00 Alisson Meza [facility] MYOCARDIUM PERFUSION STRESS AND REST 2022-07-09 17:33:00 Alisson Meza [facility] MYOCARDIUM PERFUSION STRESS AND REST 2022-07-09 17:33:00 Alisson Meza [facility] HB CREATININE SERUM/BLOOD FOR IMAGING 2022-07-05 16:18:00 Alisson Meza [facility] CT ANGIOGRAM NECK 2022-07-05 15:40:00 Alisson Meza [facility] MEDICAL RELEASE/CLEARANCE FORMS 2022-06-14 06:01:00 Doctor Unassigned, Lee [facility] HB ECG ROUTINE & RHYTHM STRIP 2022-04-22 16:51:22 Alisson Meza [facility] ASSIGNMENT OF BENEFITS 2022-04-22 16:27:17 Docto r Unassigned, Lee [facility] Encounters Start Date/Time End Date/Time Encounter Type Admission Type Attending Clinicians Care Facility Care Department Encounter ID Source 2023-09-06 00:00:00 2023-09-06 00:00:00 Outpatient GC_BAHC_Tod d_J PRIV PRIV [id number] [facility] 2023-08-18 00:00:00 2023-08-18 00:00:00 Outpatient GC_BAHC_Tod d_J PRIV PRIV [id number] [facility] 2023-08-14 00:00:00 2023-08-14 00:00:00 Outpatient GC_BAHC_Tod d_J PRIV PRIV [id number] [facility] 2023-08-09 00:00:00 2023-08-09 00:00:00 Outpatient GC_BAHC_Tod d_J PRIV PRIV [id number] [facility] 2023-06-12 14:45:00 2023-06-12 14:57:44 Outpatient R CLAYTON MONTES DE OCA [facility] [id number] [facility] 2023-06-12 14:45:00 2023-06-12 14:57:44 Office Visit Clayton Montes De Oca [facility] 1.2.840.114 350.1.13.10 4.2.7.2.686 [id number] [facility] 2023-06-05 00:00:00 2023-06-05 00:00:00 Outpatient GC_BAHC_Tod d_J PRIV PRIV [id number] [facility] 2023-06-05 00:00:00 2023-06-05 00:00:00 Outpatient GC_BAHC_Tod d_J PRIV PRIV [id number] [facility] 2023-06-05 00:00:00 2023-06-05 00:00:00 Outpatient GC_BAHC_Tod d_J PRIV PRIV [id number] [facility] 2023-06-05 00:00:00 2023-06-05 00:00:00 Outpatient GC_BAHC_Tod d_J PRIV PRIV [id number] [facility] 2023-05-29 13:45:00 2023-05-29 13:45:00 Outpatient CLAYTON CALHOUN [facility] [id number] [facility] 2023-05-27 00:00:00 2023-05-27 00:00:00 Telephone Alisson Meza [facility] 1..840.114 350.1.13.10 4.2.7.2.686 [id number] [facility] 2023-05-26 14:00:00 2023-05-26 14:30:47 Outpatient R ALISSON MEZA [facility] [id number] [facility] 2023-05-26 14:00:00 2023-05-26 14:30:47 Office Visit Alisson Meza [facility] 1.2.840.114 350.1.13.10 4.2.7.2.686 [id number] [facility] 2023-05-26 00:00:00 2023-05-26 00:00:00 Orders Only Doctor Unassigned, Lee [facility] 1..840.114 350.1.13.10 4.2.7.2.686 [id number] [facility] 2023-05-14 00:00:00 2023-05-14 00:00:00 Outpatient GC_BAHC_Tod d_J PRIV PRIV [id number] [facility] 2023-05-14 00:00:00 2023-05-14 00:00:00 Outpatient GC_BAHC_Tod d_J PRIV PRIV [id number] [facility] 2023-05-14 00:00:00 2023-05-14 00:00:00 Outpatient GC_BAHC_Tod d_J PRIV PRIV [id number] [facility] 2023-05-05 16:17:05 2023-05-05 23:59:00 Hospital Encounter Bibi Rain[facility] 1.2.840.114 350.1.13.10 4.2.7.2.686 [id number] [facility] 2023-05-05 16:15:00 2023-05-05 16:30:00 Office Visit Bibi Rainey Craig L [facility] 1.2.840.114 350.1.13.10 4.2.7.2.686 [id number] [facility] 2023-05-05 16:15:00 2023-05-05 16:15:00 Outpatient R DONY NEVILLE CRAIG [facility] [id number] [facility] 2023-05-05 00:00:00 2023-05-05 00:00:00 Orders Only Doctor Unassigned, Lee [facility] 1.2.840.114 350.1.13.10 4.2.7.2.686 [id number] [facility] 2023-04-24 13:00:00 2023-04-24 13:00:00 Outpatient R BIBI RAINEY [facility] [id number] [facility] 2023-04-12 00:00:00 2023-04-12 00:00:00 Outpatient GC_BAHC_Tod d_J PRIV PRIV [id number] [facility] 2023-04-12 00:00:00 2023-04-12 00:00:00 Outpatient GC_BAHC_Tod d_J PRIV PRIV [id number] [facility] 2023-04-12 00:00:00 2023-04-12 00:00:00 Outpatient GC_BAHC_Tod d_J PRIV PRIV [id number] [facility] 2023-04-03 00:00:00 2023-04-03 00:00:00 Outpatient GC_BAHC_Tod d_J PRIV PRIV [id number] [facility] 2023-04-03 00:00:00 2023-04-03 00:00:00 Outpatient GC_BAHC_Tod d_J PRIV PRIV [id number] [facility] 2023-03-19 00:00:00 2023-03-19 00:00:00 [facility] 1.2.840.114 350.1.13.10 4.2.7.2.686 [id number] [facility] 2023-03-18 14:30:00 2023-03-18 15:00:07 Outpatient R LASHAWN DIOR [facility] [id number] [facility] 2023-03-18 14:30:00 2023-03-18 15:00:07 Office Visit Lashawn Dior [facility] 1.2.840.114 350.1.13.10 4.2.7.2.686 [id number] [facility] 2023-03-13 00:00:00 2023-03-13 00:00:00 Outpatient GC_BAHC_Tod d_J PRIV PRIV [id number] [facility] 2023-03-13 00:00:00 2023-03-13 00:00:00 Outpatient GC_BAHC_Tod d_J PRIV PRIV [id number] [facility] 2023-03-13 00:00:00 2023-03-13 00:00:00 Outpatient GC_BAHC_Tod d_J PRIV PRIV [id number] [facility] 2023-03-13 00:00:00 2023-03-13 00:00:00 Outpatient GC_BAHC_Tod d_J PRIV PRIV [id number] [facility] 2023-02-05 00:00:00 2023-02-05 00:00:00 Outpatient GC_BAHC_Tod d_J PRIV PRIV [id number] [facility] 2023-02-05 00:00:00 2023-02-05 00:00:00 Outpatient GC_BAHC_Tod d_J PRIV PRIV [id number] [facility] 2023-02-05 00:00:00 2023-02-05 00:00:00 Outpatient GC_BAHC_Tod d_J PRIV PRIV [id number] [facility] 2023-02-05 00:00:00 2023-02-05 00:00:00 Outpatient GC_BAHC_Tod d_J PRIV PRIV [id number] [facility] 2023-02-05 00:00:00 2023-02-05 00:00:00 Outpatient GC_BAHC_Tod d_J PRIV PRIV [id number] [facility] 2023-02-05 00:00:00 2023-02-05 00:00:00 Outpatient GC_BAHC_Tod d_J PRIV PRIV [id number] [facility] 2023-02-05 00:00:00 2023-02-05 00:00:00 Outpatient GC_BAHC_Tod d_J PRIV PRIV [id number] [facility] 2023-01-27 00:00:00 2023-01-27 00:00:00 Outpatient GC_BAHC_Tod d_J PRIV PRIV [id number] [facility] 2023-01-27 00:00:00 2023-01-27 00:00:00 Outpatient GC_BAHC_Tod d_J PRIV PRIV [id number] [facility] 2023-01-17 00:00:00 2023-01-17 00:00:00 Outpatient GC_BAHC_Tod d_J PRIV PRIV [id number] [facility] 2023-01-17 00:00:00 2023-01-17 00:00:00 Outpatient GC_BAHC_Tod d_J PRIV PRIV [id number] [facility] 2023-01-17 00:00:00 2023-01-17 00:00:00 Outpatient GC_BAHC_Tod d_J PRIV PRIV [id number] [facility] 2022-12-27 00:00:00 2022-12-27 00:00:00 Outpatient GC_BAHC_Tod d_J PRIV PRIV [id number] [facility] 2022-12-27 00:00:00 2022-12-27 00:00:00 Outpatient GC_BAHC_Tod d_J PRIV PRIV [id number] [facility] 2022-12-27 00:00:00 2022-12-27 00:00:00 Outpatient GC_BAHC_Tod d_J PRIV PRIV [id number] [facility] 2022-12-27 00:00:00 2022-12-27 00:00:00 Outpatient GC_BAHC_Tod d_J PRIV PRIV [id number] [facility] 2022-12-27 00:00:00 2022-12-27 00:00:00 Outpatient GC_BAHC_Tod d_J PRIV PRIV [id number] [facility] 2022-12-25 00:00:00 2022-12-25 00:00:00 Outpatient GC_BAHC_Tod d_J PRIV PRIV [id number] [facility] 2022-12-20 00:00:00 2022-12-20 00:00:00 Outpatient GC_BAHC_Tod d_J PRIV PRIV [id number] [facility] 2022-12-20 00:00:00 2022-12-20 00:00:00 Outpatient GC_BAHC_Tod d_J [facility] [id number] [facility] 2022-12-19 00:00:00 2022-12-19 00:00:00 Outpatient GC_BAHC_Tod d_J [facility] [id number] [facility] 2022-10-13 00:00:00 2022-10-13 00:00:00 Case Management Alisson Meza [facility] 1.2840.114 350.1.13.10 4.2.7.2.686 [id number] [facility] 2022-10-11 08:44:00 2022-10-12 15:00:00 Outpatient ELIJAH PETE SAMEER [facility] [id number] [facility] 2022-10-11 08:44:00 2022-10-12 15:00:00 Hospital [facility] 1.2.840.114 350.1.13.10 4.2.7.2.686 [id number] [facility] 2022-10-11 10:51:00 2022-10-11 11:51:00 Surgery [facility] ([facility]) 1.2.840.114 350.1.13.10 4.2.7.2.686 [id number] [facility] 2022-10-11 00:00:00 2022-10-11 00:00:00 Orders Only Doctor Unassigned, Lee [facility] 1.2840.114 350.1.13.10 4.2.7.2.686 [id number] [facility] 2022-10-07 00:00:00 2022-10-07 00:00:00 Orders Only Doctor Unassigned, [place] 22856.2840.114 350.1.13.10 4.2.7.2.686 [id number] [facility] 2022-10-02 11:00:00 2022-10-02 11:00:00 Outpatient R ALISSON MEZA [facility] [id number] [facility] 2022-10-02 00:00:00 2022-10-02 00:00:00 Orders Only Doctor Unassigned, Lee [facility] 1.2.840.114 350.1.13.10 4.2.7.2.686 [id number] [facility] 2022-10-01 00:00:00 2022-10-01 00:00:00 Telephone Alisson Meza [facility] 1.2.840.114 350.1.13.10 4.2.7.2.686 [id number] [facility] 2022-08-15 00:00:00 2022-08-15 00:00:00 Alisson Mistry [facility] 1.2.840.114 350.1.13.10 4.2.7.2.686 [id number] [facility] 2022-07-16 00:00:00 2022-07-16 00:00:00 Telephone Alisson Meza [facility] 1.2.840.114 350.1.13.10 4.2.7.2.686 [id number] [facility] 2022-07-16 00:00:00 2022-07-16 00:00:00 Orders Only Doctor Unassigned, Lee [facility] 1.2.840.114 350.1.13.10 4.2.7.2.686 [id number] [facility] 2022-07-15 10:00:00 2022-07-15 10:35:47 Outpatient R ALISSON MEZA [facility] [id number] [facility] 2022-07-15 10:00:00 2022-07-15 10:35:47 Office Visit Alisson Meza [facility] 1.2.840.114 350.1.13.10 4.2.7.2.686 [id number] [facility] 2022-07-11 00:00:00 2022-07-11 00:00:00 Telephone Alisson Meza [facility] 1.2.840.114 350.1.13.10 4.2.7.2.686 [id number] [facility] 2022-07-09 09:01:24 2022-07-09 23:59:00 Hospital Encounter Alisson Meza [facility] 1.2.840.114 350.1.13.10 4.2.7.2.686 [id number] [facility] 2022-07-09 08:59:51 2022-07-09 09:00:00 Hospital Encounter Alisson Meza [facility] 1.2.840.114 350.1.13.10 4.2.7.2.686 [id number] [facility] 2022-07-09 08:58:59 2022-07-09 08:58:59 Hospital Encounter Alisson Meza [facility] 1.2.840.114 350.1.13.10 4.2.7.2.686 [id number] [facility] 2022-07-09 08:58:12 2022-07-09 08:58:12 Hospital Encounter Alisson Meza [facility] 1.2.840.114 350.1.13.10 4.2.7.2.686 [id number] [facility] 2022-07-09 08:58:12 2022-07-09 08:58:12 Outpatient R ALISSON MEZA [facility] [id number] [facility] 2022-07-05 08:52:21 2022-07-05 23:59:00 Outpatient R ALISSON MEZA [facility] [id number] [facility] 2022-07-05 08:52:21 2022-07-05 23:59:00 Hospital Encounter Alisson MezaFernanda [facility] 1.2.840.114 350.1.13.10 4.2.7.2.686 [id number] [facility] 2022-06-19 00:00:00 2022-06-19 00:00:00 Telephone Alisson MezaFernanda [facility] 1.2.840.114 350.1.13.10 4.2.7.2.686 [id number] [facility] 2022-06-14 00:00:00 2022-06-14 00:00:00 Orders Only Doctor Unassigned, Lee [facility] 1.2840.114 350.1.13.10 4.2.7.2.686 [id number] [facility] 2022-06-13 00:00:00 2022-06-13 00:00:00 Telephone Alisson Meza LoriFernandaFernanda [facility] 1.2.840.114 350.1.13.10 4.2.7.2.686 [id number] [facility] 2022-06-05 10:00:00 2022-06-05 23:59:00 Outpatient R ALISSON MEZA [facility] [id number] [facility] 2022-05-20 09:00:00 2022-05-20 09:00:00 Outpatient R ALISSON MEZA [facility] [id number] [facility] 2022-05-16 09:00:00 2022-05-16 09:00:00 Outpatient R ALISSON MEZA [facility] [id number] [facility] 2022-05-03 11:00:00 2022-05-03 11:00:00 Outpatient R ALISSON MEZA [facility] [id number] [facility] 2022-04-24 00:00:00 2022-04-24 00:00:00 Telephone Alisson Meza [facility] 1..840.114 350.1.13.10 4.2.7.2.686 [id number] [facility] 2022-04-22 11:30:00 2022-04-22 15:42:32 Outpatient R ALISSON MEZA [facility] [id number] [facility] 2022-04-22 11:30:00 2022-04-22 15:42:32 Office Visit Alisson Meza [facility] 1.2.840.114 350.1.13.10 4.2.7.2.686 [id number] [facility] 2022-04-22 00:00:00 2022-04-22 00:00:00 Orders Only Doctor Unassigned, Lee [facility] 1..840.114 350.1.13.10 4.2.7.2.686 [id number] [facility] Results Test Description Test Time Test Comments Results Result Co mments Source [facility] LOW [id number] 22:49:52* Test Item Value Reference Range Interpretation Comme nts ACTLR (test code = 5670720916) 187 See_Comment H [Automated messa ge] The system which generated this result transmitted reference range: 89 - 169 Seconds. The reference range was not used to interpret this result as normal/abnormal. Lab Interpretation (test code = 50382-0) Abnormal [facility] METABOLIC PANEL (NA, K, CL, CO2, GLUCOSE, BUN, CREATININE, CA)2022-10-11 14:33:11* Test Item Value Reference Range Interpretation Comme nts NA (test code = 1451519864) 138 mmol/L 135-145 K (test code = 0091173696) 3.7 mmol/L 3.5-5.0 CL (test code = 1712136240) 104 mmol/L 98-108 CO2 TOTAL (test code = 4421565197) 31 mmol/L 23-31 AGAP (test code = 2456037407) 3 2-16 BUN (test code = 9452163486) 17 mg/dL 7-23 GLUCOSE (test code = 7840022697) 100 mg/dL 70-110 CREATININE (test code = 7874867685) 0.87 mg/dL 0.60-1.25 CALCIUM (test code = 2510064279) 8.6 mg/dL 8.6-10.6 eGFR (test code = 6974643250) 85.3 mL/min/1.73m2 RUBEN (test code = RUBEN) [...] or urine or abnormalities in imaging tests). [facility] METABOLIC PANEL (NA, K, CL, CO2, GLUCOSE, BUN, CREATININE, CA)2022-10-11 14:33:11* Test Item Value Reference Range Interpretation Comme nts NA (test code = 7621789661) 138 mmol/L 135-145 K (test code = 1962835964) 3.7 mmol/L 3.5-5.0 CL (test code = 8072907577) 104 mmol/L 98-108 CO2 TOTAL (test code = 5020970370) 31 mmol/L 23-31 AGAP (test code = 2999634837) 3 2-16 BUN (test code = 0905485744) 17 mg/dL 7-23 GLUCOSE (test code = 6264851128) 100 mg/dL 70-110 CREATININE (test code = 4174587942) 0.87 mg/dL 0.60-1.25 CALCIUM (test code = 7140996637) 8.6 mg/dL 8.6-10.6 eGFR (test code = 8933609386) 85.3 mL/min/1.73m2 RUBEN (test code = RUBEN) [...] or urine or abnormalities in imaging tests). [facility] Time / [id number] 14:28:09* Test Item Value Reference Range Interpretation Comme [facility] PROTIME PATIENT (test code = 5964-2) 12.9 See_Comment H [Automated [employer]] The system which generated this result transmitted reference range: 10.1 - 12.6 Seconds. The reference range was not used to interpret this result as normal/abnormal. INR (test code = 6301-6) 1.2 Normal INR <1.1; Warfarin Therapeutic range 2.0 to 3.0 or 2.5 to 3.5, depending upon the indications. Lab Interpretation (test code = 86686-9) Abnormal [facility] Time / [id number] 14:28:09* Test Item Value Reference Range Interpretation Comme nts PROTIME PATIENT (test code = 5964-2) 12.9 See_Comment H [Automated [employer]] The system which generated this result transmitted reference range: 10.1 - 12.6 Seconds. The reference range was not used to interpret this result as normal/abnormal. INR (test code = 6301-6) 1.2 Normal INR <1.1; Warfarin Therapeutic range 2.0 to 3.0 or 2.5 to 3.5, depending upon the indications. Lab Interpretation (test code = 77630-1) Abnormal [facility] America[facility] WITHOUT [id number] 14:09:49* Test Item Value Reference Range Interpretation Comme [facility] WBC (test code = 6690-2) 13.18 See_Comment [...] result as normal/abnormal. MPV (test code = 89941-6) 9.3 fL 9.8-13.0 L RDW-CV (test code = 788-0) 15.3 % 12.1-15.4 RDW-SD (test code = 10761-0) 53.8 fL 38.5-51.6 H NRBC x10^3 (test code = 6970143935) See_Comment [Automated messa ge] The system which generated this result transmitted reference range: 10*3/?L. The reference range was not used to interpret this result as normal/abnormal. NRBC/100 WBC (test code = 7945041896) 0.0 See_Comment [Automated messa ge] The system which generated this result transmitted reference range: 0.0 - 10.0 /100 WBCs. The reference range was not used to interpret this result as normal/abnormal. IPF % (test code = 1283071781) Lab Interpretation (test code = 61263-9) Abnormal [facility] WITHOUT [id number] 14:09:49* Test Item Value Reference Range Interpretation [...] result as normal/abnormal. MPV (test code = 41106-3) 9.3 fL 9.8-13.0 L RDW-CV (test code = 788-0) 15.3 % 12.1-15.4 RDW-SD (test code = 42713-5) 53.8 fL 38.5-51.6 H NRBC x10^3 (test code = 1511123263) See_Comment [Automated messa ge] The system which generated this result transmitted reference range: 10*3/?L. The reference range was not used to interpret this result as normal/abnormal. NRBC/100 WBC (test code = 9771848751) 0.0 See_Comment [Automated messa ge] The system which generated this result transmitted reference range: 0.0 - 10.0 /100 WBCs. The reference range was not used to interpret this result as normal/abnormal. IPF % (test code = 0166723394) Lab Interpretation (test code = 50781-3) Abnormal [facility] [id number] 17:59:13* Test Item Value Reference Range Interpretation Comme nts POCT Creatinine (test code = 8980428539) 0.9 mg/dL 0.6-1.3 Lab Interpretation (test cod e = 71130-3) Normal [facility] Notes Date/Time Note Provider Source 2023-03-19 09:17:35 91d4X3S55vDnVAZ5X7DR ouegXyzB/dXt/Dz nIp5k0m+zAs2Dn1lQFlWeDRd3ChrB0781-4 09:17:35 RX resent at this time and spouse notified. 19534-9Dnooysdoc encounter XwvtRE4483-40-58E30:18:54Telephone encounter NoteTXT1.2.840.805649.1.13.104.2.7. 2.713571|[id number] for patient xzll00617-7SsltKQJZJBSO[address] Mrbl[id number] 5QDTQDADLPVWENIKYYBELMM4315-12-30H5 9:18:541.2.840.911970.1.72.3.15|1.2 .840.688662.1.13.104.2.7.2.727879_1 [id number] [facility] 2023-03-19 08:56:39 eLArqVJQCX2z1yRMj7u4 bQIdKDThWY6RIxA gUagtkUAsZBm0iNvX7CpRVUaRag0I4104-8 08:56:39 Patient called asking about cream that was said to be prescribed but the pharmacy states no medication was called in. Please advise. 84700-4Hshzftdnt encounter KgijZN2679-96-42U04:08:14Telephone encounter NoteTXT1.2.840.225158.1.13.104.2.7. 2.525286|8092822621QMSeveuodyu for patient tpor89168-4QdsaSZ163767044Fmgdnt L [address] FiwsGktmgtjyaNsvpseirfPZUU741215134 4RJSIYXUTFTJDUAHJLFIDTC8755-99-85F6 9:08:141.2.840.956912.1.72.3.15|1.2 .840.377506.1.13.104.2.7.2.727879_1 [id number] [address] [facility]"
[2023-09-15 22:39] LABS: Specific Gravity 1.011 (1.005-1.030); Urine Bacteria <20 /HPF (<20); Urine Bilirubin NEGATIVE (Negative); Urine Blood 2+ (Negative); Urine Clarity Extremely Turbid (Clear); Urine Color Light-Orange (Yellow); Urine Crystals Unidentified Few /HPF (None Seen); Urine Glucose NEGATIVE (Negative); Urine Mucus Slight /HPF (None Seen); Urine Protein 1+ (Negative); Urine RBC 21-50 /HPF (None Seen); Urine Urobilinogen Normal (Normal); Urine WBC Clump Many /HPF (None Seen)
[2023-09-15 22:40] LABS: Absolute Lymphocytes (CBC) 0.7 K/uL (0.7-4.9); Hematocrit 34.1 % (39.6-49.0); Lymphocytes % 9.5 % (15.3-44.8); MCV 87.5 fL (80-100); MPV 8.2 fL (7.6-11.3); Platelets 167 thou/uL (152-406)
[2023-09-15] MEDS ORDERED: PIPERACIL/TAZO 3.375 GM VIAL IV ONE (22:52)
[2023-09-15] MEDS ORDERED: VANCOMYCIN 1 GM/VIAL ONE (22:52)
[2023-09-15] MEDS ORDERED: NA CHLORIDE 0.9% 250 ML ONE (22:52)
[2023-09-15] MEDS ORDERED: NA CHLORIDE 0.9% 500 ML ONE (22:52)
[2023-09-15] MEDS ORDERED: ONDANSETRON 4 MG/2 ML VIAL ONE (22:52)
[2023-09-15] MEDS ORDERED: NA CHLORIDE 0.9% 100 ML ONE (22:52)
[2023-09-15] MEDS ORDERED: ACETAMINOPHEN 650MG/RECT SUPP PR ONE (22:52)
[2023-09-15 22:53] LABS: Albumin 2.3 g/dL (3.4-5.0); Bilirubin Total 1.2 mg/dL (0.2-1.0); Potassium 3.4 mEq/L (3.5-5.1); Protein, Total 5.4 g/dL (6.4-8.2); Troponin High Sensitivity 11.9 pg/mL (<58.9)
[2023-09-15] MEDS ORDERED: NA CHLORIDE 0.9% 1,000 ML ONE (22:53)
[2023-09-15] MEDS ORDERED: ALBUMIN HUMAN 25% 50 ML IV ONE (22:53)
[2023-09-15 23:25] LABS: Protime INR 1.19
[2023-09-15 23:29] LABS: SARS-CoV-2 Antigen Rapid Res Negative (Negative)
[2023-09-15] MEDS ORDERED: ALBUMIN HUMAN 25% 150 ML IV ONE (23:32)
[2023-09-15 23:37] LABS: Arterial Blood Carboxyhemoglob 1.5 % (0-1.5); Blood Gas Oxyhemoglobin 82.3 % (94-97); Blood O2 Saturation 84.8 % (92-98.5)
[2023-09-16] MEDS ORDERED: HYDROCORTISONE SUC 100 MG INJ ONE (00:07)
[2023-09-16] MEDS ORDERED: ETOMIDATE 20 MG/10 ML VIAL IV ONE (00:07)
[2023-09-16] MEDS ORDERED: ALBUTEROL 2.5 MG/3 ML NEB SOL ONE (00:07)
[2023-09-16] MEDS ORDERED: MIDAZOLAM HCL IN 0.9 % NACL/PF 100 MG/100 ML BAG IVPB ONE (00:07)
[2023-09-16] MEDS ORDERED: ROCURONIUM 50 MG/5 ML VIAL IV ONE (00:08)
[2023-09-16] MEDS ORDERED: Magnesium Sulfate 2gm IVPB 2 G/50 ML BAG IV ONE (00:08)
[2023-09-16] MEDS ORDERED: FENTANYL CITR 100 MCG/2 ML ONE (00:08)
[2023-09-16] MEDS: ALBUTEROL 2.5 MG/3 ML NEB SOL ONE (00:30)
[2023-09-16] MEDS: IPRATROPIUM BROM 0.5MG/2.5ML ONE (00:30)
[2023-09-16 00:47] LABS: Anisocytosis 1+; Blood Morphology Comment NOTED (NOT SEEN); Platelet Estimate ADEQ; Polychromasia SLIGHT; White Blood Cell Scan OK (OK)
--- NOTE | 2023-09-16 02:28 | EDPHYS ---
Physician Documentation [facility] Name: Felix Rangel Age: 77 yrs Sex: Male : 1945 Arrival Date: 09/15/2023 Time: 22:11 Bed 3 Private MD: ED Physician Oliver Briones HPI: 09/15 22:14 This 77 yrs old Male presents to ER via Unassigned with complaints of sp4 dyspnea, fever . 09/16 02:14 77-year-old male [facility] EMS [facility] for shortness of breath associated sp4 with fever. Patient arrived on CPAP. EMS reported patient was hypotensive feeling unwell and persistently coughing. Patient has extensive past medical history he was admitted here on 08/22/2023 for 08/27/2023. He has history of hypertensive disorder, left carotid blockage, left carotid surgery, and Alzheimer's disease. Additional history includes frequent UTIs, congestive heart failure, essential hypertension, generalized muscle weakness, physical debility, dysphagia, lack of coordination, cognitive deficits, blepharoconjunctivitis, age-related cataracts, muscle wasting and atrophy, NSTEMI, hyperlipidemia, major depressive disorder, gout, coronary artery disease, status post coronary angioplasty, atherosclerotic heart disease.. On arrival patient's blood pressure is low and he has fever of 101. Patient is unable to provide any history. Patient does have history of adrenal insufficiency he is reported to be on hydrocortisone. Patient takes 20 mg p.o. twice daily hydrocortisone. Patient's additional medications include allopurinol, acetaminophen, aspirin 81 mg daily, atorvastatin 40 mg bedtime, donepezil 10 mg bedtime, memantine 10 mg twice daily, mirtazapine 30 mg bedtime, guaifenesin 10 mL every 6 hours as needed, hydrocortisone 10 mg p.o. twice daily, albuterol nebulized as needed, sorbic acid daily, atropine sulfate ophthalmic drops, cholecalciferol daily, dextromethorphan as needed, Senokot twice daily as needed,. Historical: - Allergies: 09/15 23:03 No Known Allergies; jw7 - Home Meds: 23:03 acetaminophen 500 mg Oral tablet 2 tabs Daily PRN [Active]; acetaminophen 325 mg Oral jw7 tablet 2 tab Q4H PRN [Active]; allopurinol 300 mg Oral tablet 1 tab daily [Active]; aspirin 81 mg Oral tablet,chewable 1 tab daily [Active]; atorvastatin 40 mg oral tablet 1 tab every day at bedtime [Active]; atropine sulfate (PF) 1 % ophthalmic (eye) Dropperette 5 drop Q4H PRN [Active]; donepezil 10 mg oral tablet 1 tab every day at bedtime [Active]; hydrocortisone 10 mg Oral tablet 1 tab 2 times per day [Active]; ipratropium-albuterol 0.5 mg-3 mg(2.5 mg base)/3 mL Inhl Solution for Nebulization 1 Inhalation Q6H PRN SOB [Active]; loratadine 10 mg oral tablet 1 tab daily [Active]; memantine 10 mg oral tablet 1 tab Daily [Active]; Remeron 30 mg Oral tablet 1 tab every day at bedtime [Active]; Senokot 8.6 mg Oral tablet 1 tab 2 times per day for constipation [Active]; Refresh Tears 0.5 % ophthalmic (eye) drops 2 drops every 8 hours [Active]; - PMHx: 23:03 blockage L carotid; Congestive heart failure; Dementia; Hyperlipidemia; Hypertensive jw7 disorder; Gout; Alzheimer's disease; Cataract; Myocardial infarction; - PSHx: 23:03 Stented artery; jw7 - Immunization history:: Adult Immunizations unknown. - Social history:: Smoking status: unknown. - Family history:: not pertinent. ROS: 09/16 02:14 Constitutional: ROS positive for shortness of breath and fever. Other ROS not sp4 available All other systems are negative, Unable to obtain ROS due to obtunded state, Exam: 02:14 Constitutional: This is a well developed, ill-appearing, toxic appearing male, sp4 hypertensive on arrival, signs of severe physical debility and prolonged immobility, very frail skin, multiple skin tears, sacral stage I decubitus ulcer, incontinent of bowel and bladder, arrived with CPAP in place . Febrile and hypotensive on arrival. Head/Face: Normocephalic, atraumatic. Eyes: Pupils equal round and reactive to light, extra-ocular motions intact. Lids and lashes normal. Conjunctiva and sclera are not injected. Cornea within normal limits. Periorbital areas with no swelling, redness, or edema. ENT: Nares patent. No nasal discharge, no septal abnormalities noted. Tympanic membranes are normal and external auditory canals are clear. Oropharynx with no redness, swelling, or masses, exudates, or evidence of obstruction, uvula midline. Dry mucous membranes Neck: Trachea midline, no thyromegaly or masses palpated, and no cervical lymphadenopathy. Supple, full range of motion without nuchal rigidity, or vertebral point tenderness. Chest/axilla: Normal chest wall appearance and motion. Nontender with no deformity. No lesions are appreciated. Cardiovascular: Tachycardia and pallor on arrival hypotension on arrival. No gallops, murmurs, or rubs. Normal PMI, no JVD. No pulse deficits. Respiratory: Lungs have equal breath sounds bilaterally, bilateral crackles, negative wheezing, decreased bilateral breath sounds, feeling , dyspnea tachypnea and increased work of breathing, bilateral retractions , BiPAP support Abdomen/GI: Soft, with normal bowel sounds. No distension or tympany. No guarding or rebound. No evidence of tenderness throughout. Back: No spinal tenderness. No costovertebral tenderness. Positive sacral decubitus ulcer Male : Normal genitalia with no discharge or lesions. Skin: Warm, dry with poor skin turgor, overall pallor, multiple skin tears secondary to skin frailty MS/ Extremity: Pulses equal, no cyanosis. Notable contracture secondary to prolonged immobility Neuro: Awake and but difficult to respond, GCS 13 Cranial nerves II-XII grossly intact. Generalized weakness limits examination, grossly no lateralizing neurologic deficits 02:28 ECG was reviewed by the Attending Physician. EKG at 2254, sinus rhythm at the rate of sp4 100 with premature atrial contractions Vital Signs: 09/15 22:10 BP 86 / 57; Pulse 104; Resp 28 S; Temp 101(A); Pulse Ox 98% on CPAP; Weight 90.72 kg; jw7 Pain 0/10; 22:20 BP 113 / 91; Pulse 92; Resp 20; Pulse Ox 98% on CPAP; km8 22:30 BP 110 / 60; Pulse 82; Resp 24; Temp 99.8(Ca); Pulse Ox 100% on CPAP; 22:45 BP 109 / 50; Pulse 87; Resp 20; Pulse Ox 97% on CPAP; km8 23:00 BP 139 / 62; Pulse 91; Resp 22; Temp 99.4(Ca); Pulse Ox 97% on CPAP; km8 23:20 BP 101 / 59; Pulse 69; Resp 22; Pulse Ox 95% on CPAP; :30 BP 115 / 62; Pulse 82; Resp 24; Temp 99.2(Ca); Pulse Ox 93% on CPAP; :45 BP 128 / 55; Pulse 61; Resp 20; Pulse Ox 97% on CPAP; 09/16 00:00 BP 132 / 67; Pulse 83; Resp 22; Temp 98.4(Ca); Pulse Ox 93% on CPAP; 00:16 BP 122 / 60; Pulse 78; Resp 21; Pulse Ox 95% on CPAP; 00:30 BP 117 / 61; Pulse 78; Resp 21; Temp 98.1(Ca); Pulse Ox 99% on CPAP; 00:45 BP 117 / 49; Pulse 73; Resp 20; Pulse Ox 100% on CPAP; :00 BP 116 / 53; Pulse 69; Resp 20; Temp 97.9(Ca); Pulse Ox 100% on CPAP; :15 BP 110 / 54; Pulse 75; Resp 18; Pulse Ox 100% on CPAP; :30 BP 119 / 55; Pulse 71; Resp 20; Temp 97.8(Ca); Pulse Ox 100% on CPAP; 01:45 BP 123 / 60; Pulse 81; Resp 19; Temp 97.7(Ca); Pulse Ox 100% on CPAP; :00 BP 113 / 47; Pulse 76; Resp 18; Temp 97.7(Ca); Pulse Ox 100% on CPAP; :15 BP 121 / 52; Pulse 86; Resp 20; Temp 97.7(Ca); Pulse Ox 99% on CPAP; 02:30 BP 117 / 52; Pulse 72; Resp 20; Temp 97.2(Ca); Pulse Ox 100% on CPAP; 02:45 BP 125 / 55; Pulse 85; Resp 18; Temp 97.7(Ca); Pulse Ox 99% on CPAP; 03:00 BP 117 / 60; Pulse 85; Resp 18; Temp 97.6(Ca); Pulse Ox 99% on CPAP; 03:15 BP 123 / 51; Pulse 84; Resp 19; Temp 97.6(Ca); Pulse Ox 98% on CPAP; 03:30 BP 124 / 59; Pulse 83; Resp 20; Temp 97.5(Ca); Pulse Ox 99% on CPAP; 8 03:45 BP 117 / 62; Pulse 79; Resp 17; Temp 97.5(Ca); Pulse Ox 99% on CPAP; km8 04:00 BP 125 / 53; Pulse 85; Resp 18; Temp 97.5(Ca); Pulse Ox 99% on CPAP; 8 04:15 BP 120 / 59; Pulse 84; Resp 18; Temp 97.5(Ca); Pulse Ox 98% on CPAP; km8 04:30 BP 119 / 63; Pulse 84; Resp 19; Temp 97.4(Ca); Pulse Ox 99% on CPAP; 8 04:45 BP 112 / 62; Pulse 76; Resp 19; Temp 97.4(Ca); Pulse Ox 98% on CPAP; [facility] 05:00 BP 126 / 54; Pulse 82; Resp 18; Temp 97.4(Ca); Pulse Ox 99% on CPAP; [facility] 05:15 BP 120 / 61; Pulse 76; Resp 20; Temp 97.3(Ca); Pulse Ox 98% on CPAP; [facility] 05:30 BP 126 / 58; Pulse 66; Resp 18; Temp 97.2(Ca); Pulse Ox 98% on CPAP; 8 05:45 BP 109 / 59; Pulse 74; Resp 20; Temp 97.2(Ca); Pulse Ox 98% on CPAP; km8 06:00 BP 119 / 56; Pulse 76; Resp 18; Temp 97.2(Ca); Pulse Ox 98% on CPAP; [facility] 06:15 BP 116 / 63; Pulse 71; Resp 18; Temp 97.1(Ca); Pulse Ox 98% on CPAP; 8 09/15 22:10 Pain Scale: Adult jw7 [place] Coma Score: 02:14 Eye Response: to voice(3). Motor Response: obeys commands(6). Verbal Response: sp4 confused(4). Total: 13. Procedures: 02:14 Central Line: the site was prepped with in sterile fashion, Chlorhexidine prep, a sp4 triple lumen catheter was inserted, in the left internal jugular vein, in 1 attempts. placement was verified, by CXR, by blood return, Ultrasound-guided central line , the site was dressed with 4X4s, Tegaderm, using sterile technique, the patient tolerated the procedure, well, Ultrasound-guided left internal jugular CVL placed, triple-lumen, no complication. MDM: 09/15 22:17 Patient medically screened. sp4 09/16 02:08 ED course: COMPARISON: CT Chest Abdomen Pelvis dated 08/22/2023 FINDINGS: CHEST: Lungs: sp4 Mild peripheral fibrotic change. Minimal right basilar consolidation. No mass. Pleural space: Unremarkable. No significant effusion. No pneumothorax. Heart: Coronary artery calcification. No cardiomegaly. No significant pericardial effusion. ABDOMEN: Liver: Unremarkable. Gallbladder and bile ducts: 2.7 cm gallstone. No gallbladder wall thickening or pericholecystic fluid. No ductal dilation. Pancreas: Unremarkable. No ductal dilation. Spleen: Unremarkable. No splenomegaly. Adrenals: Unremarkable. No mass. Kidneys and ureters: Left renal calculi. There are a couple adjacent 4 mm calculi within the dependent aspect of the left renal pelvis. No hydronephrosis. Stomach and bowel: Colonic diverticula without adjacent inflammatory change. No bowel obstruction. No appreciable mucosal thickening. PELVIS: Appendix: Normal caliber appendix. No findings to suggest acute appendicitis. Bladder: The urinary bladder is partially decompressed around a Ramirez catheter. Small to moderate urinary bladder wall thickening. Infiltrative changes in the perivesical fat. No stones. Reproductive: Unremarkable as visualized. CHEST, ABDOMEN and PELVIS: Intraperitoneal space: Unremarkable. No significant fluid collection. No free air. Bones/joints: Osseous structures are osteopenic. Moderate to severe degenerative changes at the glenohumeral joints bilaterally. Remote bilateral rib fractures. Numerous remote compression deformities most pronounced at L1 and L2. Remote left superior and inferior pubic rami fractures. No acute fracture. No dislocation. Soft tissues: Unremarkable. Vasculature: Moderate atherosclerotic disease. 3 cm infrarenal abdominal aortic aneurysm similar to the prior. Lymph nodes: Unremarkable. No enlarged lymph nodes. IMPRESSION: 1. Minimal right basilar consolidation (atelectasis and/or infiltrate). 2. Findings which may reflect cystitis. 3. There are a couple 4 mm calculi within the dependent aspect of the left renal pelvis. No hydronephrosis. 4. 3 cm abdominal aortic aneurysm. Recommend follow-up every 3 years. 5. Other findings as above. Electronically signed by: Car Hawthorne MD 09/16/2023 12:08 AM. ED course: EXAM: XR Chest, 1 View CLINICAL HISTORY: CHEST PAIN TECHNIQUE: Frontal view of the chest. COMPARISON: XR Chest dated 08/22/2023 FINDINGS: Lungs: Coarsened interstitial markings. No focal consolidation. Pleural space: Unremarkable. No pneumothorax. Heart: Unremarkable. No cardiomegaly. Mediastinum: Unremarkable. Normal mediastinal contour. Bones/joints: Unremarkable. No acute fracture. Tubes, lines and devices: Left internal jugular central venous catheter tip projects over the proximal to mid superior vena cava. IMPRESSION: No acute disease. Electronically signed by: Car Hawthorne MD 09/15/2023 11:39 PM. 02:10 ED course: CT revealed - IMPRESSION: 1. Minimal right basilar consolidation sp4 (atelectasis and/or infiltrate). 2. Findings which may reflect cystitis. 3. There are a couple 4 mm calculi within the dependent aspect of the left renal pelvis. No hydronephrosis. 4. 3 cm abdominal aortic aneurysm. Recommend follow-up every 3 years. 5. Other findings as above.. 02:14 Post IV fluid administration reassessment for Sepsis: Client not prescribed the 30 sp4 mL/kg IVF due to: concern related to heart failure. Sepsis focused reassessment complete. ED course: Patient warrants ICU management for septic shock acute pyelonephritis and pneumonia. Will entertain transfer for ICU management to [facility]. ED course: Right basilar consolidation- patient was administered vancomycin and Zosyn IV. 02:27 Differential Diagnosis altered mental status, sepsis, flu. Data reviewed: vital signs, sp4 nurses notes, EMS record, old medical records, lab test result(s), EKG, radiologic studies, CT scan, plain films. Consideration of Admission/Observation Escalation of care including admission/observation considered. Management of patient was discussed with the following: Oxygen System Tester: Attending physician [facility]. 04:23 ED course: Time patient is excepted to [facility]. sp4 09/15 22:15 Order name: Blood Culture Adult (2) sp4 09/15 22:15 Order name: CBC with Diff; Complete Time: 00:49 sp4 09/15 22:15 Order name: CMP; Complete Time: 23:45 sp4 09/15 22:15 Order name: Lactate w/ 2H reflex if indic.; Complete Time: 23:45 [facility] 09/15 22:15 Order name: Protime (+inr); Complete Time: 23:45 [facility] 09/15 22:15 Order name: Ptt, Activated; Complete Time: 23:45 [facility] 09/15 22:15 Order name: Urinalysis w/ reflexes; Complete Time: 23:45 [facility] 09/15 22:15 Order name: ABG; Complete Time: 00:41 [facility] 09/15 22:15 Order name: Troponin High Sensitivity; Complete Time: 23:45 [facility] 09/15 22:15 Order name: BNP; Complete Time: 23:45 [facility] 09/15 22:15 Order name: CRP; Complete Time: 23:45 [facility] 09/15 22:15 Order name: Procalcitonin; Complete Time: 00:41 [facility] 09/15 22:16 Order name: SARS RAPID; Complete Time: 23:45 [facility] 09/15 22:16 Order name: Influenza Screen (a \T\ B); Complete Time: 00:41 [facility] 09/15 22:46 Order name: Urine Culture [facility] 09/15 22:59 Order name: CBC Smear Scan; Complete Time: 00:49 [facility] 09/15 22:15 Order name: Chest Single View XRAY [facility] 09/15 22:16 Order name: CT Chest Abdomen Pelvis W/O Contrast [facility] 09/15 22:15 Order name: EKG; Complete Time: 22:15 [facility] 09/15 22:15 Order name: Accucheck; Complete Time: 22:49 [facility] 09/15 22:15 Order name: Cardiac monitoring; Complete Time: 22:44 [facility] 09/15 22:15 Order name: Cath; Complete Time: 22:44 [facility] 09/15 22:15 Order name: EKG - Nurse/Tech; Complete Time: 23:09 [facility] 09/15 22:15 Order name: IV Saline Lock - Large Bore; Complete Time: 22:44 [facility] 09/15 22:15 Order name: Labs collected and sent; Complete Time: 22:44 [facility] 09/15 22:15 Order name: O2 Per Protocol; Complete Time: 22:44 [facility] 09/15 22:15 Order name: O2 Sat Monitoring; Complete Time: 22:44 [facility] 09/15 22:15 Order name: Vital Signs; Complete Time: :44 sp4 09/15 22:16 Order name: Central Line Kit; Complete Time: : sp4 09/16 00:01 Order name: Intubation Setup; Complete Time: 00:17 sp4 EC: Rate is 100 beats/min. Rhythm is irregular, Sinus Rhythm with PACs. QRS [place] is Normal. sp4 GA interval is normal. QRS interval is normal. QT interval is normal. No Q waves. T waves are Normal. No ST changes noted. Clinical impression: No evidence of ischemia. Interpreted by me. Reviewed by me. Administered Medications: 09/15 22:18 Drug: Norepinephrine IV 5 mcg/min IV at calculated rate Per protocol; (Standard km8 concentration 4 mg / 250 mL D5W); Recommended max rate 3 mcg/kg/min; Titrate 0.05 mcg/kg/min as often as every 5 minutes to achieve goal (see titration policy); Goal parameter MAP greater than 65 mmHg. Route: IV; Rate: calculated rate; Site: left forearm; 09/16 06:28 Follow up: IV Status: Infusion continued upon transfer [facility] 09/15 22:48 CANCELLED (Other Intervention Used): norepinephrine0.1 mcg/kg/min IV at calculated rate km8 See Administration Instructions; (Standard concentration 4 mg / 250 mL D5W); Recommended max rate 3 mcg/kg/min; Titrate 0.05 mcg/kg/min as often as every 5 minutes to achieve goal (see titration policy); Goal parameter MAP greater than 65 mmHg. 23:30 Drug: Piperacillin-Tazobactam IVPB 3.375 grams IVPB once over 60 mins; (mix in NS 100 km8 mL) Route: IVPB; Infused Over: 60 mins; Site: left jugular; 09/16 00:00 Follow up: IV Status: Completed infusion; IV Intake: 100ml [facility] 09/15 23:30 Drug: NS 0.9% IV 1000 ml IV at 125 ml/hr continuous Route: IV; Rate: 125 ml/hr; Site: km8 left jugular; 09/16 06:29 Follow up: IV Status: Infusion continued upon transfer [facility] 09/15 23:30 Drug: Albumin IVPB 25 grams 100 ml IVPB once; (Note: Albumin 25% concentration) Volume: km8 100 ml; Route: IVPB; Site: left jugular; 09/16 00:00 Follow up: IV Status: Completed infusion; IV Intake: 100ml 09/15 23:30 Drug: Ondansetron IVP 4 mg IVP once; over 2 minutes Route: IVP; Site: left jugular; km8 09/16 00:01 Follow up: Response: No adverse reaction 00:00 Drug: vancoMYCIN IVPB 2 grams IVPB at calculated rate once Route: IVPB; Rate: km8 calculated rate; Site: left jugular; 02:00 Follow up: IV Status: Completed infusion; IV Intake: 500ml 00:00 Drug: Albumin IVPB 25 grams 100 ml IVPB once; (Note: Albumin 25% concentration) Volume: km8 100 ml; Route: IVPB; Site: left jugular; 01:00 Follow up: IV Status: Completed infusion; IV Intake: 100ml 00:17 Drug: Albuterol Inhalation 2.5 mg Inhalation once Route: Inhalation; 00:17 Drug: Solu-CORTEF IVP 100 mg IVP once Route: IVP; Site: right forearm; km8 01:35 Follow up: Response: No adverse reaction 00:36 Drug: Magnesium Sulfate IVPB 2 grams IVPB once over 2 hrs Route: IVPB; Infused Over: 2 km8 hrs; Site: right forearm; 02:30 Follow up: IV Status: Completed infusion; IV Intake: 50ml 03:17 Not Given (Physician Discretion): midazolam ivp or0.01 mg/kg/h IV at calculated rate See Administration Instructions; (Standard concentration: 100 mg / 100 mL NS); Recommended max rate 0.1 mg/kg/hr; Titrate 0.01 mg/kg/hr as often as every 30 minutes to achieve goal (see titration policy); Goal parameter RASS 0 to -2 03:17 Not Given (Physician Discretion): fentanyl (pf)100 mcg IVP once 8 03:17 Not Given (Physician Discretion): mg IVP once 8 03:17 Not Given (Physician Discretion): [id number] mg IVP once 8 03:18 Not Given (Other Intervention Used): acetaminophensuppository 650 mg GA once 8 05:00 Drug: Piperacillin-Tazobactam IVPB 3.375 grams IVPB once over 60 mins; (mix in NS 100 km8 mL) Route: IVPB; Infused Over: 60 mins; Site: left jugular; 06:00 Follow up: IV Status: Completed infusion; IV Intake: 100ml km8 Disposition Summary: 09/16/23 02:27 Transfer Ordered Notes: Transfer Location: [facility] sp4 Reason: Higher level of care sp4 Condition: Serious sp4 Problem: new sp4 Symptoms: have improved sp4 Accepting Physician: [facility] attending(09/16/23 06:37) km8 Diagnosis - Other pneumonia, unspecified organism sp4 - Pyelonephritis acute sp4 - Severe sepsis with septic shock sp4 - Physical debility, prolonged immobility, sacral decubitus ulcers, congestive heart sp4 failure, combined systolic and diastolic heart failure Forms: - Medication Reconciliation Form sp4 - SBAR form sp4 Critical care time excluding procedures: 02:27 Critical care time: Bedside Care: 36 minutes, Consultation: 12 minutes, Family sp4 Intervention: 12 minutes. Total time: 60 minutes Signatures: Dispatcher [employer] EDMS Bessie Mart RN RN jw7 Oliver Briones MD MD sp4 Brooke Corrales RN RN km8 Essence Carrizales MD MD cu Corrections: (The following items were deleted from the chart) 09/15 22:48 22:14 Norepinephrine IV 0.1 mcg/kg/min IV at calculated rate See Administration km8 Instructions; (Standard concentration 4 mg / 250 mL D5W); Recommended max rate 3 mcg/kg/min; Titrate 0.05 mcg/kg/min as often as every 5 minutes to achieve goal (see titration policy); Goal parameter MAP greater than 65 mmHg. ordered. sp4 23:21 23:03 Allergies: Aspirin; jw7 jw7 09/16 02:27 02:14 Central Line: the site was prepped with in sterile fashion, Chlorhexidine prep, a sp4 triple lumen catheter was inserted, in the left internal jugular vein, in 1 attempts. placement was verified, by CXR, by blood return, Ultrasound-guided central line , sp4 06:37 02:27 [facility] km8
--- NOTE | 2023-09-16 02:28 | ER ---
Nurse's Notes [facility] Name: Felix Rangel Age: 77 yrs Sex: Male : 1945 Arrival Date: 09/15/2023 Time: 22:11 Bed 3 Private MD: Diagnosis: Other pneumonia, unspecified organism;Pyelonephritis acute;Severe sepsis with septic shock;Physical debility, prolonged immobility, sacral decubitus ulcers, congestive heart failure, combined systolic and diastolic heart failure Presentation: 09/15 22:10 Chief complaint: EMS states: "We got toned out for difficulty breathing, upon arrival jw7 pt was being suctioned by [facility] Staff. Audible crackles could be heard upon entering pts room, Smith upper and lower lobe crackles heard throughout lung busby. [facility] Staff could not tell us when his difficulty breathing started. He was stating at 82% on 2 L NC. We placed patient on CPAP and his O2 increased to 94-95%.". Coronavirus screen: Client denies travel out of the [place] in the last 14 days. Ebola Screen: No symptoms or risks identified at this time. Initial Sepsis Screen: Does the patient meet any 2 criteria? RR > 20 per min. Temp <36.0*C (96.8*F)) or > 38.3*C (100.9*F). Systolic BP < 90 mmHg. HR > 90 bpm. Yes Does the patient have a suspected source of infection? Yes: Productive cough/pneumonia Dysuria/Frequency/Urgency/UTI If YES to both, name of provider notified: Oliver Briones MD Risk Assessment: Do you want to hurt yourself or someone else? Patient reports no desire to harm self or others. Onset of symptoms was September 15, 2023. Care prior to arrival: IV initiated. 20 GA, in the right forearm, Glucose check: 81 Oxygen administered. via CPAP or BiPAP. 22:10 Method Of Arrival: EMS: [facility] jw7 22:10 Acuity: TARIQ 2 jw7 Triage Assessment: 22:15 General: Appears distressed, uncomfortable, ill, obese, Behavior is calm, cooperative, jw7 appropriate for age. Pain: Unable to use pain scale. Patient appears quiet, restless. EENT: Eyes are tearing on right inner canthus and left inner canthus Sclera/Cornea are reddened in Smith eyes. Neuro: Level of Consciousness is awake, alert, obeys commands, Oriented to Appropriate for age. Cardiovascular: Heart tones S1 S2 present Patient's skin is warm and dry. Rhythm is sinus tachycardia. Respiratory: Airway is patent Trachea midline Respiratory effort is even, labored, Respiratory pattern is symmetrical, tachypnea Patient placed on BiPAP: Breath sounds with crackles bilaterally. Onset: The symptoms/episode began/occurred at an unknown time. GI: Abdomen is round non-distended, obese, Stools are reported to be normal. Last BM was September 15, 2023. Bowel sounds present X 4 quads. : Ramirez in place to gravity drainage Urine is cloudy. Derm: Skin is fragile, is thin, has skin tears on Throughout Skin is dry, Skin temperature is warm Bruising that is bright red, dark purple, brown, green, yellow, Decubitus located on sacrum approximately 2.6 cm to 7.5 cm is stage I. Musculoskeletal: Circulation, motion, and sensation intact. Range of motion: intact in all extremities. Historical: - Allergies: 23:03 No Known Allergies; jw7 - Home Meds: 23:03 acetaminophen 500 mg Oral tablet 2 tabs Daily PRN [Active]; acetaminophen 325 mg Oral jw7 tablet 2 tab Q4H PRN [Active]; allopurinol 300 mg Oral tablet 1 tab daily [Active]; aspirin 81 mg Oral tablet,chewable 1 tab daily [Active]; atorvastatin 40 mg oral tablet 1 tab every day at bedtime [Active]; atropine sulfate (PF) 1 % ophthalmic (eye) Dropperette 5 drop Q4H PRN [Active]; donepezil 10 mg oral tablet 1 tab every day at bedtime [Active]; hydrocortisone 10 mg Oral tablet 1 tab 2 times per day [Active]; ipratropium-albuterol 0.5 mg-3 mg(2.5 mg base)/3 mL Inhl Solution for Nebulization 1 Inhalation Q6H PRN SOB [Active]; loratadine 10 mg oral tablet 1 tab daily [Active]; memantine 10 mg oral tablet 1 tab Daily [Active]; Remeron 30 mg Oral tablet 1 tab every day at bedtime [Active]; Senokot 8.6 mg Oral tablet 1 tab 2 times per day for constipation [Active]; Refresh Tears 0.5 % ophthalmic (eye) drops 2 drops every 8 hours [Active]; - PMHx: 23:03 blockage L carotid; Congestive heart failure; Dementia; Hyperlipidemia; Hypertensive jw7 disorder; Gout; Alzheimer's disease; Cataract; Myocardial infarction; - PSHx: 23:03 Stented artery; jw7 - Immunization history:: Adult Immunizations unknown. - Social history:: Smoking status: unknown. - Family history:: not pertinent. Screenin:15 [facility] ED Fall Risk Assessment (Adult) History of falling in the last 3 months, jw7 including since admission No falls in past 3 months (0 pts) Score/Fall Risk Level 0 - 2 = Low Risk Oriented to surroundings, Maintained a safe environment, Educated pt \\T\\ family on fall prevention, incl call for assistance when getting out of bed. Abuse screen: Denies threats or abuse. Denies injuries from another. Nutritional screening: No deficits noted. Tuberculosis screening: No symptoms or risk factors identified. Assessment: 22:15 General: See Triage Assessment. jw7 23:00 Reassessment: Patient appears in no apparent distress at this time. No changes from jw7 previously documented assessment. Patient and/or family updated on plan of care and expected duration. Pain level reassessed. 09/16 00:00 Reassessment: Patient appears in no apparent distress at this time. No changes from jw7 previously documented assessment. Patient and/or family updated on plan of care and expected duration. Pain level reassessed. 01:00 Reassessment: Patient appears in no apparent distress at this time. No changes from jw7 previously documented assessment. Patient and/or family updated on plan of care and expected duration. Pain level reassessed. 01:00 Cardiovascular: Rhythm is irregular. Respiratory: Airway is patent Trachea midline jw7 Respiratory effort is even, labored, Respiratory pattern is regular, symmetrical. 02:00 Reassessment: Patient appears in no apparent distress at this time. No changes from km8 previously documented assessment. Patient and/or family updated on plan of care and expected duration. Pain level reassessed. Respiratory: Airway is patent Respiratory effort is even, unlabored, Respiratory pattern is regular, symmetrical. 03:00 Reassessment: Patient appears in no apparent distress at this time. No changes from km8 previously documented assessment. Patient and/or family updated on plan of care and expected duration. Pain level reassessed. 04:00 Reassessment: Patient appears in no apparent distress at this time. No changes from km8 previously documented assessment. Patient and/or family updated on plan of care and expected duration. Pain level reassessed. 05:08 Reassessment: REPORT GIVEN TO JAXSON CRANDALL jj7 06:00 Reassessment: Patient appears in no apparent distress at this time. No changes from km8 previously documented assessment. Vital Signs: 09/15 22:10 BP 86 / 57; Pulse 104; Resp 28 S; Temp 101(A); Pulse Ox 98% on CPAP; Weight 90.72 kg; jw7 Pain 0/10; 22:20 BP 113 / 91; Pulse 92; Resp 20; Pulse Ox 98% on CPAP; 22:30 BP 110 / 60; Pulse 82; Resp 24; Temp 99.8(Ca); Pulse Ox 100% on CPAP; 22:45 BP 109 / 50; Pulse 87; Resp 20; Pulse Ox 97% on CPAP; 23:00 BP 139 / 62; Pulse 91; Resp 22; Temp 99.4(Ca); Pulse Ox 97% on CPAP; 23:20 BP 101 / 59; Pulse 69; Resp 22; Pulse Ox 95% on CPAP; 23:30 BP 115 / 62; Pulse 82; Resp 24; Temp 99.2(Ca); Pulse Ox 93% on CPAP; 23:45 BP 128 / 55; Pulse 61; Resp 20; Pulse Ox 97% on CPAP; 09/16 00:00 BP 132 / 67; Pulse 83; Resp 22; Temp 98.4(Ca); Pulse Ox 93% on CPAP; 00:16 BP 122 / 60; Pulse 78; Resp 21; Pulse Ox 95% on CPAP; 00:30 BP 117 / 61; Pulse 78; Resp 21; Temp 98.1(Ca); Pulse Ox 99% on CPAP; 00:45 BP 117 / 49; Pulse 73; Resp 20; Pulse Ox 100% on CPAP; 01:00 BP 116 / 53; Pulse 69; Resp 20; Temp 97.9(Ca); Pulse Ox 100% on CPAP; 01:15 BP 110 / 54; Pulse 75; Resp 18; Pulse Ox 100% on CPAP; km8 01:30 BP 119 / 55; Pulse 71; Resp 20; Temp 97.8(Ca); Pulse Ox 100% on CPAP; km8 01:45 BP 123 / 60; Pulse 81; Resp 19; Temp 97.7(Ca); Pulse Ox 100% on CPAP; km8 02:00 BP 113 / 47; Pulse 76; Resp 18; Temp 97.7(Ca); Pulse Ox 100% on CPAP; km8 02:15 BP 121 / 52; Pulse 86; Resp 20; Temp 97.7(Ca); Pulse Ox 99% on CPAP; km8 02:30 BP 117 / 52; Pulse 72; Resp 20; Temp 97.2(Ca); Pulse Ox 100% on CPAP; km8 02:45 BP 125 / 55; Pulse 85; Resp 18; Temp 97.7(Ca); Pulse Ox 99% on CPAP; km8 03:00 BP 117 / 60; Pulse 85; Resp 18; Temp 97.6(Ca); Pulse Ox 99% on CPAP; km8 03:15 BP 123 / 51; Pulse 84; Resp 19; Temp 97.6(Ca); Pulse Ox 98% on CPAP; km8 03:30 BP 124 / 59; Pulse 83; Resp 20; Temp 97.5(Ca); Pulse Ox 99% on CPAP; km8 03:45 BP 117 / 62; Pulse 79; Resp 17; Temp 97.5(Ca); Pulse Ox 99% on CPAP; km8 04:00 BP 125 / 53; Pulse 85; Resp 18; Temp 97.5(Ca); Pulse Ox 99% on CPAP; km8 04:15 BP 120 / 59; Pulse 84; Resp 18; Temp 97.5(Ca); Pulse Ox 98% on CPAP; km8 04:30 BP 119 / 63; Pulse 84; Resp 19; Temp 97.4(Ca); Pulse Ox 99% on CPAP; km8 04:45 BP 112 / 62; Pulse 76; Resp 19; Temp 97.4(Ca); Pulse Ox 98% on CPAP; km8 05:00 BP 126 / 54; Pulse 82; Resp 18; Temp 97.4(Ca); Pulse Ox 99% on CPAP; km8 05:15 BP 120 / 61; Pulse 76; Resp 20; Temp 97.3(Ca); Pulse Ox 98% on CPAP; [facility] 05:30 BP 126 / 58; Pulse 66; Resp 18; Temp 97.2(Ca); Pulse Ox 98% on CPAP; [facility] 05:45 BP 109 / 59; Pulse 74; Resp 20; Temp 97.2(Ca); Pulse Ox 98% on CPAP; 8 06:00 BP 119 / 56; Pulse 76; Resp 18; Temp 97.2(Ca); Pulse Ox 98% on CPAP; 8 06:15 BP 116 / 63; Pulse 71; Resp 18; Temp 97.1(Ca); Pulse Ox 98% on CPAP; km8 09/15 22:10 Pain Scale: Adult jw7 Ambrose Coma Score: 02:14 Eye Response: to voice(3). Motor Response: obeys commands(6). Verbal Response: sp4 confused(4). Total: 13. ED Course: 09/15 22:12 Patient arrived in ED. km8 22:14 Oliver Briones MD is Attending Physician. sp4 22:15 Maintain EMS IV. Dressing intact. Good blood return noted. Site clean \\T\\ dry. Gauge \\T\\ jw 7 site: 20G R Forearm. 22:15 Patient has correct armband on for positive identification. Placed in gown. Bed in low jw7 position. Call light in reach. Side rails up X2. 22:15 Arm band placed on. jw7 22:20 Ramirez cath inserted, using sterile technique, 16 Fr., by ED staff, balloon inflated, to km8 gravity drainage, urine specimen collected. returned cloudy urine. Patient tolerated well. 22:44 Procalcitonin Sent. km8 22:44 CRP Sent. km8 22:44 BNP Sent. km8 22:44 Troponin High Sensitivity Sent. km8 22:44 Blood Culture Adult (2) Sent. 8 22:44 CBC with Diff Sent. 8 22:44 CMP Sent. km8 22:44 Lactate w/ 2H reflex if indic. Sent. 8 22:44 Protime (+inr) Sent. 8 22:44 Ptt, Activated Sent. km8 22:45 Assisted provider with central line placement. Set up central line tray. Triple lumen km8 line placed in left internal jugular. Line placed by Oliver Potepalov MD Placement verified by CXR, blood return, Dressed with Tegaderm, Blood was collected. Patient tolerated well. Before procedure, did Practitioner(s) obtain informed consent? Yes. Patient \\T\\ family education about procedure, CLABSI prevention and S/S of infection? Yes. Was handwashing/sanitizing done immediately prior to procedure? Yes. Was patient positioned to in a way to prevent air embolism? Yes. Was procedure site sterilized? Yes, with chlorhexidine. Was the site allowed to dry? Yes. Was local anesthetic and/or sedation utilized? Yes. During the procedure, did the Practitioner(s) maintain a sterile field? Yes. Were unused ports clamped during insertion? Yes. Was blood aspirated from each lumen? Yes. After the procedure, did the Practitioner(s) clean the site and apply a sterile dressing? Yes. 22:56 Chest Single View XRAY In Process Unspecified. EDMS 23:03 Triage completed. [facility] 23:24 CT Chest Abdomen Pelvis W/O Contrast In Process Unspecified. EDMA 09/16 00:19 Brooke Corrales, EDER is Primary Nurse. km8 02:03 Initiated transfer to [facility], spoke with Ruthy Owens. 02:59 [facility] [[email or web address] denied due to capacity. 03:08 Initiated transfer to [facility], spoke with Arya Whitman. 04:49 Contacted EMS for patient transport, unable to transport due limited Paramedics. 05:07 Contacted [facility] for Patient transfer, ETA 0730 will contact other services for earlier ETA. 05:17 Contacted [facility] for patient transport, ETA 45-55 minutes. Contacted [facility] and cancelled transport. 05:46 Patient transferred, IV remains in place. [facility] 05:46 Provided Education on: ADMISSION PROCESS. km8 Administered Medications: 09/15 22:18 Drug: Norepinephrine IV 5 mcg/min IV at calculated rate Per protocol; (Standard km8 concentration 4 mg / 250 mL D5W); Recommended max rate 3 mcg/kg/min; Titrate 0.05 mcg/kg/min as often as every 5 minutes to achieve goal (see titration policy); Goal parameter MAP greater than 65 mmHg. Route: IV; Rate: calculated rate; Site: left forearm; 09/16 06:28 Follow up: IV Status: Infusion continued upon transfer [facility] 09/15 22:48 CANCELLED (Other Intervention Used): norepinephrine0.1 mcg/kg/min IV at calculated rate 8 See Administration Instructions; (Standard concentration 4 mg / 250 mL D5W); Recommended max rate 3 mcg/kg/min; Titrate 0.05 mcg/kg/min as often as every 5 minutes to achieve goal (see titration policy); Goal parameter MAP greater than 65 mmHg. 23:30 Drug: Piperacillin-Tazobactam IVPB 3.375 grams IVPB once over 60 mins; (mix in NS 100 km8 mL) Route: IVPB; Infused Over: 60 mins; Site: left jugular; 09/16 00:00 Follow up: IV Status: Completed infusion; IV Intake: 100ml 09/15 23:30 Drug: NS 0.9% IV 1000 ml IV at 125 ml/hr continuous Route: IV; Rate: 125 ml/hr; Site: [facility] left jugular; 09/16 06:29 Follow up: IV Status: Infusion continued upon transfer 09/15 23:30 Drug: Albumin IVPB 25 grams 100 ml IVPB once; (Note: Albumin 25% concentration) Volume: km8 100 ml; Route: IVPB; Site: left jugular; 09/16 00:00 Follow up: IV Status: Completed infusion; IV Intake: 100ml 09/15 23:30 Drug: Ondansetron IVP 4 mg IVP once; over 2 minutes Route: IVP; Site: left jugular; 09/16 00:01 Follow up: Response: No adverse reaction 00:00 Drug: vancoMYCIN IVPB 2 grams IVPB at calculated rate once Route: IVPB; Rate: km8 calculated rate; Site: left jugular; 02:00 Follow up: IV Status: Completed infusion; IV Intake: 500ml 00:00 Drug: Albumin IVPB 25 grams 100 ml IVPB once; (Note: Albumin 25% concentration) Volume: km8 100 ml; Route: IVPB; Site: left jugular; 01:00 Follow up: IV Status: Completed infusion; IV Intake: 100ml 00:17 Drug: Albuterol Inhalation 2.5 mg Inhalation once Route: Inhalation; 00:17 Drug: Solu-CORTEF IVP 100 mg IVP once Route: IVP; Site: right forearm; [facility] 01:35 Follow up: Response: No adverse reaction km8 00:36 Drug: Magnesium Sulfate IVPB 2 grams IVPB once over 2 hrs Route: IVPB; Infused Over: 2 km8 hrs; Site: right forearm; 02:30 Follow up: IV Status: Completed infusion; IV Intake: 50ml 03:17 Not Given (Physician Discretion): midazolam ivp or0.01 mg/kg/h IV at calculated rate km8 See Administration Instructions; (Standard concentration: 100 mg / 100 mL NS); Recommended max rate 0.1 mg/kg/hr; Titrate 0.01 mg/kg/hr as often as every 30 minutes to achieve goal (see titration policy); Goal parameter RASS 0 to -2 03:17 Not Given (Physician Discretion): fentanyl (pf)100 mcg IVP once km8 03:17 Not Given (Physician Discretion): [id number] mg IVP once km8 03:17 Not Given (Physician Discretion): [id number] mg IVP once km8 03:18 Not Given (Other Intervention Used): acetaminophensuppository 650 mg RI once km8 05:00 Drug: Piperacillin-Tazobactam IVPB 3.375 grams IVPB once over 60 mins; (mix in NS 100 km8 mL) Route: IVPB; Infused Over: 60 mins; Site: left jugular; 06:00 Follow up: IV Status: Completed infusion; IV Intake: 100ml Medication: 05:46 VIS not applicable for this client. km8 Intake: 00:00 IV: 100ml; Total: 100ml. km8 00:00 IV: 100ml; Total: 200ml. km8 01:00 IV: 100ml; Total: 300ml. km8 02:00 IV: 500ml; Total: 800ml. 8 02:30 IV: 50ml; Total: 850ml. km8 06:00 IV: 100ml; Total: 950ml. km8 Output: 06:25 Urine: 1700ml (Ramirez); Total: 1700ml. 8 Outcome: 02:27 ER care complete, transfer ordered by MD. pryor 05:08 Transferred jj7 06:28 Transferred by ground EMS to [facility], Transfer form completed. km 06:28 Condition: stable 06:37 Patient left the ED. Signatures: Dispatcher [employer] EDMarysol Mccormicky Bessie Mart, RN RN jw7 Anu Ward RN RN jj7 Oliver Briones MD MD sp4 Brooke Corrales RN RN km8 Corrections: (The following items were deleted from the chart) 09/15 23:21 23:03 Allergies: Aspirin; [place] [id number] 23:29 22:15 General: Appears distressed, uncomfortable, ill, obese, [place] [id number] 09/16 02:02 09/15 22:30 BP 110 / 60; Pulse 82bpm; Resp 24bpm; Pulse Ox 100% CPAP; [place] [id number] 09/16 02:02 09/15 23:00 BP 139 / 62; Pulse 91bpm; Resp 22bpm; Pulse Ox 97% CPAP; [place] [id number] 09/16 02:02 09/15 23:30 BP 115 / 62; Pulse 82bpm; Resp 24bpm; Pulse Ox 93% CPAP; [place] [id number] 09/16 02:02 00:00 BP 132 / 67; Pulse 83bpm; Resp 22bpm; Pulse Ox 93% CPAP; [place] [id number] 02:02 00:30 BP 117 / 61; Pulse 78bpm; Resp 21bpm; Pulse Ox 99% CPAP; [place] [id number] 02:02 01:00 BP 116 / 53; Pulse 69bpm; Resp 20bpm; Pulse Ox 100% CPAP; [place] [id number] 02:02 01:30 BP 119 / 55; Pulse 71bpm; Resp 20bpm; Pulse Ox 100% CPAP; [place] [id number] 03:08 03:02 Initiated transfer to [facility], spoke with Ruthy Owens [facility] 03:37 03:02 Initiated transfer to [facility], spoke with Ruthy Owens [facility]
[2023-09-16] MEDS ORDERED: NA CHLORIDE 0.9% 100 ML ONE (04:58)
[2023-09-16] MEDS ORDERED: PIPERACIL/TAZO 3.375 GM VIAL IV ONE (04:58)
[2023-09-16 07:16] VITALS: O2SAT 98
[2023-09-16 07:38] VITALS: BP 116/63; TEMP 97.1
--- NOTE | 2023-09-16 14:39 | RAD REPORT ---
EXAM DESCRIPTION: XR Chest, 1 View CLINICAL HISTORY: CHEST PAIN TECHNIQUE: Frontal view of the chest. COMPARISON: XR Chest dated 08/22/2023 FINDINGS: Lungs: Coarsened interstitial markings. No focal consolidation. Pleural space: Unremarkable. No pneumothorax. Heart: Unremarkable. No cardiomegaly. Mediastinum: Unremarkable. Normal mediastinal contour. Bones/joints: Unremarkable. No acute fracture. Tubes, lines and devices: Left internal jugular central venous catheter tip projects over the proxi mal to mid superior vena cava. IMPRESSION: No acute disease. Electronically signed by: Car Hawthorne MD 09/15/2023 11:39 PM OPERATIONS CHIEF Due to temporary technical issues with the PACS/Fluency reporting system, reports are being signed by the in house radiologists without review as a courtesy to insure prompt reporting. The interpreting radiologist is fully responsible for the content of the report.
--- NOTE | 2023-09-16 14:55 | RAD REPORT ---
EXAM DESCRIPTION: CT Chest, Abdomen and Pelvis Without Intravenous Contrast CLINICAL HISTORY: Sepsis TECHNIQUE: Axial computed tomography images of the chest, abdomen and pelvis without intravenous con trast. Sagittal and coronal reformatted images were created and reviewed. This CT exam was perfor med using one or more of the following dose reduction techniques: automated exposure control, adjus tment of the mA and/or kV according to patient size, and/or use of iterative reconstruction technique . COMPARISON: CT Chest Abdomen Pelvis dated 08/22/2023 FINDINGS: CHEST: Lungs: Mild peripheral fibrotic change. Minimal right basilar consolidation. No mass. Pleural space: Unremarkable. No significant effusion. No pneumothorax. Heart: Coronary artery calcification. No cardiomegaly. No significant pericardial effusion. ABDOMEN: Liver: Unremarkable. Gallbladder and bile ducts: 2.7 cm gallstone. No gallbladder wall thickening or pericholecystic flu id. No ductal dilation. Pancreas: Unremarkable. No ductal dilation. Spleen: Unremarkable. No splenomegaly. Adrenals: Unremarkable. No mass. Kidneys and ureters: Left renal calculi. There are a couple adjacent 4 mm calculi within the depend ent aspect of the left renal pelvis. No hydronephrosis. Stomach and bowel: Colonic diverticula without adjacent inflammatory change. No bowel obstruction. No appreciable mucosal thickening. PELVIS: Appendix: Normal caliber appendix. No findings to suggest acute appendicitis. Bladder: The urinary bladder is partially decompressed around a Ramirez catheter. Small to moderate u rinary bladder wall thickening. Infiltrative changes in the perivesical fat. No stones. Reproductive: Unremarkable as visualized. CHEST, ABDOMEN and PELVIS: Intraperitoneal space: Unremarkable. No significant fluid collection. No free air. Bones/joints: Osseous structures are osteopenic. Moderate to severe degenerative changes at the gle nohumeral joints bilaterally. Remote bilateral rib fractures. Numerous remote compression deformities most pronounced at L1 and L2. Remote left superior and inferior pubic rami fractures. No acute fract ure. No dislocation. Soft tissues: Unremarkable. Vasculature: Moderate atherosclerotic disease. 3 cm infrarenal abdominal aortic aneurysm similar to the prior. Lymph nodes: Unremarkable. No enlarged lymph nodes. IMPRESSION: 1. Minimal right basilar consolidation (atelectasis and/or infiltrate). 2. Findings which may reflect cystitis. 3. There are a couple 4 mm calculi within the dependent aspect of the left renal pelvis. No hydrone phrosis. 4. 3 cm abdominal aortic aneurysm. Recommend follow-up every 3 years. Reference: J Am Maxine Radiol 2 013;10:789-794. 5. Other findings as above. Electronically signed by: Car Hawthorne MD 09/16/2023 12:08 AM SNAG GRINDER Due to temporary technical issues with the PACS/Fluency reporting system, reports are being signed by the in house radiologists without review as a courtesy to insure prompt reporting. The interpreting radiologist is fully responsible for the content of the report.
--- NOTE | 2023-09-18 16:15 | EKG ---
Test Date: 2023-09-15 Test Time: 22:54:06 [facility] Supervisor: ALEKS MEASUREMENT RESULTS: Intervals: Rate: 100 AL: 188 QRSD: 86 QT: 360 QTc: 464 [place]: P: 42 AL: 188 QRS: -21 T: 31 INTERPRETIVE STATEMENTS: Sinus rhythm with premature atrial complexes with aberrant conduction Otherwise normal ECG Compared to ECG 08/22/2023 04:43:31 Aberrant conduction of supraventricular beat(s) now present T-wave abnormality no longer present Electronically Signed On 09-18-23 16:07:20 ROSE GROWER by Rehan Hicks
== END 2023-09-16 06:37 | disposition home or self-care (01) ==
LOC: ER 22:11
PROC: 05HN33Z Insertion of Infusion Device into Left Internal Jugular Vein, Percutaneous Approach (ICD-10-PCS; principal; 2023-09-16)
PROC: B544ZZA Ultrasonography of Left Jugular Veins, Guidance (ICD-10-PCS; 2023-09-16)
DX: A41.9 Sepsis, unspecified organism (principal); J18.8 Other pneumonia, unspecified organism; R65.21 Severe sepsis with septic shock; N10 Acute pyelonephritis; I50.40 Unspecified combined systolic (congestive) and diastolic (congestive) heart failure; L89.151 Pressure ulcer of sacral region, stage 1; R54 Age-related physical debility; G30.9 Alzheimer's disease, unspecified; F02.80 Dementia in other diseases classified elsewhere, unspecified severity, without behavioral disturbance, psychotic disturbance, mood disturbance, and anxiety; I10 Essential (primary) hypertension; I25.2 Old myocardial infarction; Z79.82 Long term (current) use of aspirin; Z95.1 Presence of aortocoronary bypass graft; Z11.52 Encounter for screening for COVID-19
CPT/HCPCS: 93005; 87040 ×2; 87088; 85025; 81001; 87086; 36415; 87205; 85610; 83605; 85730; 87077; 87186; 84484; 80053; 84145; 83880; 86140; 87804 ×2; 71250; 74176; 71045; 94640; 82805; 51702; 99291; 99292; 87811; 36600; 94660; 36556; J2543; J2405; P9047 ×2; J7050; J7040; J7030

== ENCOUNTER 2024-05-13 11:14 | Observation (INO) | payer OTHER ==
[2024-05-13 11:43] LABS: Absolute Basophils 0.1 K/uL (0-0.5); Absolute Eosinophils 0.3 K/uL (0-0.5); Absolute Lymphocytes (CBC) 1.6 K/uL (0.7-4.9); Absolute Monocytes 0.7 K/uL (0.1-1.3); Absolute Neutrophil 8.1 K/uL (1.8-8.0); Basophils % 1.3 % (0-1.3); Eosinophils % 2.7 % (0-4.4); Hematocrit 41.9 % (39.6-49.0); Hemoglobin 13.1 g/dL (13.6-17.9); Lymphocytes % 15.2 % (15.3-44.8); MCH 26.3 pg (27.0-35.0); MCHC 31.3 g/dL (32.0-36.0); MPV 8.2 fL (7.6-11.3); Monocytes % 6.5 % (3.3-12.3); Neutrophils % 74.3 % (41.7-73.7); Platelets 198 thou/uL (152-406); RBC Red Blood Cell Count 4.99 M/uL (4.33-5.43); Red Cell Distribution Width 19.8 % (12.1-15.2)
[2024-05-13 11:49] LABS: PT Prothrombin Time 10.9 SECONDS (9.4-12.5); PTT, Activated Partial Thromb 28.4 SECONDS (24.3-36.9); Protime INR 0.97
--- NOTE | 2024-05-13 11:53 | RAD REPORT ---
EXAM: Ct Stroke Brain Wo Cont HISTORY: STROKE ALERT COMPARISON: 11/25/2020 TECHNIQUE: Multiple contiguous axial images were obtained for a CT of the brain without contrast. Sag ittal and coronal reformats were performed. One or more of the following dose reduction techniques were used: Automated exposure control, adjus tment of the mA and kV according to patient size, and iterative reconstruction. Unless otherwise specified, incidental findings do not require dedicated imaging follow-up. FINDINGS: No evidence of hydrocephalus, intracranial hemorrhage, or extra-axial fluid collection. Moderate brain atrophy with moderate periventricular and deep white matter hypodensities, nonspecifi c, but suggest chronic microvascular ischemic changes present. The calvarium is intact. The visualized paranasal sinuses and mastoid air cells are essentially clear . IMPRESSION: No evidence of acute intracranial abnormality. Chronic findings as above. THIS REPORT CONTAINS FINDINGS THAT MAY BE CRITICAL TO PATIENT CARE. The findings were verbally commun icated via telephone to Olive Harrington MD on 05/13/2024 11:51 AM.
[2024-05-13 12:02] LABS: Troponin High Sensitivity 6.9 pg/mL (<58.9)
--- NOTE | 2024-05-13 12:16 | RAD REPORT ---
EXAMINATION: CTA HEAD CLINICAL INDICATION: Male, 78 years old. code stroke TECHNIQUE: Axial CT images were obtained through the head after intravenous contrast utilizing angiog raphic protocol with 3D post-processing (maximum intensity projection images, volume rendered images and/or shaded surface rendered images). One or more of the following dose reduction technique s were used: Automated exposure control, adjustment of the mA and/or kV according to patient size, and/or iterative reconstruction. Unless otherwise specified, incidental findings do not require dedic ated imaging follow-up. COMPARISON: Noncontrast head CT of the same day FINDINGS: ICA: The petrous, cavernous, and supraclinoid segments of the bilateral internal carotid arteries are normal. Mild to moderate atherosclerotic calcifications without significant stenosis. The ophthalmic artery origins are visualized and normal. The posterior communicating arteries are patent. LY: Anterior cerebral arteries are normal bilaterally. The anterior communicating artery is patent. MCA: Middle cerebral arteries are normal bilaterally. MOP MAN: Posterior cerebral arteries are normal bilaterally. Vertebrobasilar: The vertebral arteries are patent. The basilar artery is normal in appearance. 3D images confirm these findings. IMPRESSION: No evidence of large vessel occlusion or hemodynamically significant stenosis.
--- NOTE | 2024-05-13 12:21 | RAD REPORT ---
EXAMINATION: Neck Angio CLINICAL INDICATION: Male, 78 years old. [facility] MAIN HEADACHE Bed Name: 3 TECHNIQUE: Axial CT images were obtained from the aortic arch to the skull base after intravenous con trast utilizing angiographic protocol. Multiplanar reformats, as well as 3D post-processing (maximum intensity projection images, volume rendered images and/or shaded surface rendered images) w ere generated and reviewed. One or more of the following dose reduction techniques were used: Automated exposure control, adjustment of the mA and/or kV according to patient size, and/or iterativ e reconstruction. Unless otherwise specified, incidental findings do not require dedicated imaging follow-up. COMPARISON: No prior exam. FINDINGS: AORTA: The imaged aortic arch is normal. Normal three-vessel configuration of the arch. CCA: No artifact The common carotid arteries are patent and normal in caliber. ICA/ECA: Moderately dense atherosclerotic calcifications at the ICA bifurcations and proximal segment s, with a noncalcified component on the left. This results in multifocal luminal irregularity at the origin and proximal left ICA, with a short segment of markedly narrowed lumen, measuring up to 6 mm in length, where luminal diameter measures 1.1 mm at the narrowest, compared to 4.1 mm distally. No significant right ICA stenosis. VERTEBRAL: The cervical vertebral arteries are patent to the skull base. Vertebral arteries are codom inant. SOFT TISSUE: No significant neck soft tissue abnormalities. The visualized lung apices are clear. Max illa and mandible are edentulous. 3D images confirm these findings. IMPRESSION: Short segment of pronounced narrowing at the left ICA origin and proximal segment, measuring up to 6 mm in length, secondary to mixed density atherosclerotic plaque, with degree of stenosis amounting to 74% minus criteria. No hemodynamically significant stenosis of the right ICA or vertebral arteries. . NASCET criteria used to quantify ICA stenosis, with the following grading scheme: Mild 0-49% stenosis Moderate 50-69% stenosis Severe 70-99% stenosis Reference: [place] Symptomatic Carotid Endarterectomy Trial Collaborators; Jose TAVAREZ, Linda DW, Maricel RB, et al. Beneficial effect of carotid endarterectomy in symptomatic patients with high-grade carotid stenosis. N Engl J Med. 1990 15;325(7):445-53.
[2024-05-13 12:29] LABS: Atypical Lymphocytes 1 %; Blood Morphology Comment NOT SEEN (NOT SEEN); Differential Total Cells Count 100; Eosinophils 4 % (0-3); Lymphocytes 20 % (15-42); Monocytes 3 % (0-10); Platelet Estimate ADEQ; Segmented Neutrophils 70 % (40-80); Toxic Granulation 1+
[2024-05-13 12:52] LABS: Specific Gravity > 1.030 (1.005-1.030); Urine Bilirubin NEGATIVE (Negative); Urine Blood Negative (Negative); Urine Clarity Clear (Clear); Urine Color Light-Yellow (Yellow); Urine Glucose NEGATIVE (Negative); Urine Ketones NEGATIVE (Negative); Urine Microscopic Reflex YN NO UMIC; Urine Nitrite NEGATIVE (Negative); Urine Protein NEGATIVE (Negative); Urine Urobilinogen Normal (Normal)
[2024-05-13] MEDS ORDERED: NA CHLORIDE 0.9% 500 ML ONE (13:16)
--- NOTE | 2024-05-13 13:37 | RAD REPORT ---
EXAMINATION: ONE VIEW CHEST XR CLINICAL INDICATION: COUGH TECHNIQUE: Frontal chest projection is submitted. Examination is limited by patient positioning and t echnique. COMPARISON: 09/15/2023 FINDINGS: Lungs are underinflated with mild vascular prominence. The heart is normal in size. No displaced frac tures identified. IMPRESSION: Mild underinflated lung busby with atelectasis likely present in both lung bases.
[2024-05-13 14:02] LABS: Thyroid Stimulating Hormone 4.51 uIU/mL (0.358-3.740)
[2024-05-13 14:40] LABS: SARS-CoV-2 Antigen CONTROL BLUE LINE VIS/BG OK; SARS-CoV-2 Antigen Rapid Res Negative (Negative)
--- NOTE | 2024-05-13 15:27 | EDPHYS ---
Physician Documentation [facility] Name: Felix Rangel Age: 78 yrs Sex: Male : 1945 Arrival Date: 05/13/2024 Time: 11:14 Bed 3 Private MD: ED Physician Olive Harrington HPI: 05/13 15:41 This 78 yrs old Male presents to ER via EMS with complaints of Unresponsive. gb1 Historical: - Allergies: 11:40 No Known Allergies; cm10 - Home Meds: 11:40 memantine 10 mg oral tablet 1 tab 2 times per day [Active]; donepezil 10 mg Oral tablet cm10 1 tab every day at bedtime [Active]; atorvastatin 40 mg Oral tablet 1 tab every day at bedtime [Active]; atropine sulfate (PF) 1 % ophthalmic (eye) Dropperette 5 drop Q4H prn [Active]; Refresh Tears 0.5 % ophthalmic (eye) drops 2 drops every 8 hours [Active]; Remeron 30 mg Oral tablet 1 tab every day at bedtime [Active]; memantine 10 mg Oral tablet 1 tab daily [Active]; aspirin 81 mg Oral tablet 1 tab daily [Active]; allopurinol 300 mg Oral tablet 1 tab daily [Active]; hydrocortisone 10 mg Oral tablet 1 tab 2 times per day [Active]; acetaminophen 325 mg Oral tablet 2 tab Q4H prn [Active]; ipratropium-albuterol 0.5 mg-3 mg(2.5 mg base)/3 mL Inhl Solution for Nebulization 1 inhalation Q6H PRN SOB [Active]; - PMHx: 11:40 Atherosclerotic Heart Disease; Depressive disorder; Hyperlipidemia; Gout; Dementia; cm10 Hypertensive disorder; Cataract; Myocardial infarction; Peripheral vascular disease; Congestive heart failure; Alzheimer's disease; blockage L carotid; - PSHx: 11:40 Coronary artery bypass graft; Coronary Angioplasty; Stented artery; cm10 - Immunization history:: Adult Immunizations up to date. - Infectious Disease History:: Denies. - Social history:: Smoking status: unknown. - Code Status:: DNAR. Exam: 15:41 Constitutional: This is a well developed, well nourished patient who is awake, alert, gb1 and in no acute distress. Head/Face: Normocephalic, atraumatic. Eyes: Pupils equal round and reactive to light, extra-ocular motions intact. Lids and lashes normal. Conjunctiva and sclera are non-icteric and not injected. Cornea within normal limits. Periorbital areas with no swelling, redness, or edema. Neck: Trachea midline, no thyromegaly or masses palpated, and no cervical lymphadenopathy. Supple, full range of motion without nuchal rigidity, or vertebral point tenderness. No Meningismus. Chest/axilla: Normal chest wall appearance and motion. Nontender with no deformity. No lesions are appreciated. Cardiovascular: Tachycardic rate and rhythm with a normal S1 and S2. No gallops, murmurs, or rubs. Normal PMI, no JVD. No pulse deficits. Respiratory: Lungs have equal breath sounds bilaterally, clear to auscultation and percussion. No rales, rhonchi or wheezes noted. No increased work of breathing, no retractions or nasal flaring. Abdomen/GI: Soft, non-tender, with normal bowel sounds. No distension or tympany. No guarding or rebound. No evidence of tenderness throughout. Back: No spinal tenderness. No costovertebral tenderness. Full range of motion. Skin: Warm, dry with decreased skin turgor and dry. Normal color with no rashes, no lesions, and no evidence of cellulitis. Vital Signs: 11:36 BP 128 / 83; Pulse 95; Resp 12; Temp 97.8(A); Pulse Ox 96% on 3 lpm NC; cm10 11:44 BP 112 / 94; Pulse 105; Resp 14; Pulse Ox 100% on 5 lpm NC; cm10 12:00 BP 132 / 70; Pulse 103; Resp 19; Pulse Ox 100% on 5 lpm NC; cm10 12:15 BP 132 / 83; Pulse 96; Resp 19; Pulse Ox 100% on 5 lpm NC; cm10 12:30 BP 152 / 73; Pulse 105; Resp 19; Pulse Ox 99% on 5 lpm NC; cm10 12:51 Temp 98.2(Ca); cm10 13:20 BP 127 / 72; Pulse 101; Resp 16; Pulse Ox 95% on R/A; FiO2 2 %; mb9 14:24 BP 125 / 78; Pulse 94; Resp 15; Temp 98.8; Pulse Ox 98% on 4 lpm NC; mb9 15:00 BP 125 / 69; Pulse 91; Resp 17; Pulse Ox 94% on 4 lpm NC; mb9 15:30 BP 119 / 67; Pulse 87; Resp 17; Temp 99.2; Pulse Ox 94% on 4 lpm NC; cm10 15:45 BP 116 / 64; Pulse 85; Resp 15; Temp 99.2(Ca); Pulse Ox 100% 4 lpm ; cm10 16:00 BP 118 / 71; Pulse 85; Resp 19; Temp 99.2; Pulse Ox 96% on 4 lpm NC; cm10 16:30 BP 128 / 75; Pulse 85; Resp 18; Temp 99.3; Pulse Ox 100% on 4 lpm NC; cm10 17:45 BP 133 / 65; Pulse 88; Resp 18; Pulse Ox 100% on 4 lpm NC; cm10 18:30 BP 126 / 64; Pulse 88; Resp 17; Temp 99.4; Pulse Ox 100% on 4 lpm NC; cm10 NIH Stroke Scale Scores: 11:30 NIHSS Score: 31 mb9 12:44 NIHSS Score: 24 cm10 MDM: 11:46 Medical Screening Exam initiated gb1 15:41 ED course: 78-year-old male from a longterm who was found with altered gb1 mental status with decreased lethargy on arrival not following commands, code stroke was called which was subsequently negative for LVO or any sign of vertebral basilar artery occlusion. CTA was also Negative. There were no overt signs of sepsis. On exam and chest x-ray showed no focal pneumonia and urinalysis was without infection. Patient's other lab work was normal as well. I discussed the case with Dr. Giron the on-call neurologist who recommended MRI brain evaluation for TIA versus CVA. Patient is admitted by Dr. stephenson on telemetry inpatient.. 15:45 Data reviewed: vital signs, nurses notes, lab test result(s), cardiac enzymes, CBC, gb1 electrolytes, hepatic panel, urinalysis. 05/13 11:36 Order name: Basic Metabolic Panel; Complete Time: 12:05 mb9 05/13 11:36 Order name: CBC with Diff; Complete Time: 12:41 mb9 05/13 11:36 Order name: High Sensitivity Troponin; Complete Time: 12:05 mb9 05/13 11:36 Order name: Protime (+inr); Complete Time: 11:54 mb9 05/13 11:36 Order name: Ptt, Activated; Complete Time: 11:54 mb9 05/13 12:21 Order name: Urinalysis w/ reflexes; Complete Time: 12:54 cm10 05/13 12:29 Order name: Manual Differential; Complete Time: 12:41 EDMS 05/13 13:22 Order name: SARS RAPID; Complete Time: 14:42 gb1 05/13 13:22 Order name: Influenza Screen (a \T\ B); Complete Time: 14:42 gb1 05/13 13:22 Order name: TSH; Complete Time: 14:35 gb1 05/13 14:05 Order name: T4 Free; Complete Time: 14:35 EDMS 05/13 14:15 Order name: CREATININE WHOLE BLOOD; Complete Time: 14:16 EDMS 05/13 15:57 Order name: Vitamin B12 Level EDMS 05/13 15:57 Order name: RPR EDMS 05/13 15:57 Order name: Anti-Thrombin III Activity EDMS 05/13 15:57 Order name: Cardiolipin Antibodies G,M EDMS 05/13 15:57 Order name: C-ANCA Anti-Proteinase 3 EDMS 05/13 15:57 Order name: Factor V Leiden Mutation EDMS 05/13 15:57 Order name: Homocysteine EDMS 05/13 15:57 Order name: Miscellaneous Test Lab EDMS 05/13 15:57 Order name: P-ANCA Anti-Myeloperoxidase Ab EDMS 05/13 15:57 Order name: Protein C Antigen EDMS 05/13 15:57 Order name: Protein Electo w/M Rodger Serum EDMS 05/13 15:57 Order name: Protein S (Total EDMS 05/13 15:57 Order name: PROTHROMBIN GENE ANALYSIS (F2) EDMS 05/13 15:58 Order name: Vitamin D, 25 (OH), TOTAL EDMS 05/13 15:58 Order name: Basic Metabolic Panel EDMS 05/13 15:58 Order name: Basic Metabolic Panel EDMS 05/13 15:58 Order name: Basic Metabolic Panel EDMS 05/13 15:58 Order name: Basic Metabolic Panel EDMS 05/13 15:58 Order name: Basic Metabolic Panel EDMS 05/13 15:58 Order name: Basic Metabolic Panel EDMS 05/13 15:58 Order name: Basic Metabolic Panel EDMS 05/13 15:58 Order name: Basic Metabolic Panel EDMS 05/13 15:58 Order name: CBC with Automated Diff EDMS 05/13 15:58 Order name: CBC with Automated Diff EDMS 05/13 15:58 Order name: CBC with Automated Diff EDMS 05/13 15:58 Order name: CBC with Automated Diff EDMS 05/13 15:58 Order name: CBC with Automated Diff EDMS 05/13 15:58 Order name: CBC with Automated Diff EDMS 05/13 15:58 Order name: CBC with Automated Diff EDMS 05/13 15:58 Order name: CBC with Automated Diff EDMS 05/13 15:58 Order name: Lipid Profile EDMS 05/13 15:58 Order name: Lipid Profile EDMS 05/13 15:58 Order name: Magnesium EDMS 05/13 15:58 Order name: Magnesium EDMS 05/13 15:58 Order name: Magnesium EDMS 05/13 15:58 Order name: Magnesium EDMS 05/13 15:58 Order name: Magnesium EDMS 05/13 15:58 Order name: Magnesium EDMS 05/13 15:58 Order name: Magnesium EDMS 05/13 15:58 Order name: Magnesium EDMS 05/13 15:58 Order name: Phosphorus EDMS 05/13 15:58 Order name: Phosphorus EDMS 05/13 15:58 Order name: Phosphorus EDMS 05/13 15:58 Order name: Phosphorus EDMS 05/13 15:58 Order name: Phosphorus EDMS 05/13 15:58 Order name: Phosphorus EDMS 05/13 15:58 Order name: Phosphorus EDMS 05/13 15:58 Order name: Phosphorus EDMS 05/13 15:58 Order name: T4,Total EDMS 05/13 15:58 Order name: T4,Total EDMS 05/13 15:58 Order name: Thyroid Stimulating Hormone EDMS 05/13 15:58 Order name: Thyroid Stimulating Hormone EDMS 05/13 15:58 Order name: Troponin High Sensitivity EDMS 05/13 15:58 Order name: Troponin High Sensitivity EDMS 05/13 15:58 Order name: Troponin High Sensitivity EDMS 05/13 11:36 Order name: CT Stroke Brain w/o Contrast; Complete Time: 12:05 mb9 05/13 11:41 Order name: Head angio; Complete Time: 12:41 EDMS 05/13 11:47 Order name: CT Neck Angio; Complete Time: 12:41 gb1 05/13 13:22 Order name: Chest Single View XRAY; Complete Time: 13:39 gb1 05/13 15:57 Order name: Echo with Doppler EDMS 05/13 15:58 Order name: Stroke Protocol EDCT 05/13 17:48 Order name: MRI EDCT 05/13 15:57 Order name: IRF Screen EDCT 05/13 15:57 Order name: Physical Therapy Consult EDCT 05/13 15:57 Order name: Speech Therapy Consult EDCT 05/13 11:36 Order name: Accucheck; Complete Time: 11:37 mb9 05/13 11:36 Order name: Cardiac monitoring; Complete Time: 11:37 mb9 05/13 11:36 Order name: EKG - Nurse/Tech; Complete Time: 11:37 mb9 05/13 11:36 Order name: IV Saline Lock; Complete Time: 11:37 mb9 05/13 11:36 Order name: Labs collected and sent; Complete Time: 11:37 mb9 05/13 11:36 Order name: NPO; Complete Time: 11:37 mb9 05/13 11:36 Order name: O2 Per Protocol; Complete Time: 11:37 mb9 05/13 11:36 Order name: O2 Sat Monitoring; Complete Time: 11:37 mb9 05/13 11:36 Order name: Stroke Swallow Screen; Complete Time: 11:58 mb9 05/13 12:43 Order name: Raimrez; Complete Time: 12:44 cm10 Administered Medications: 13:08 CANCELLED (Other Intervention Used): sodium chloride3 % 30 ml/kg 500 ml IV at bolus cm10 once; *specify rate* 13:19 Drug: Sodium Chloride 0.9% IVPB 500 ml IVPB once Route: IVPB; Site: right forearm; mb9 14:00 Follow up: Response: No adverse reaction; IV Status: Completed infusion; IV Intake: cm10 500ml Disposition Summary: 05/13/24 15:26 Hospitalization Ordered Notes: Hospitalization Status: Inpatient Admission gb1 Provider: Maxime Stephenson Condition: Guarded gb1 Problem: new gb1 Symptoms: have improved gb1 Bed/Room Type: Standard gb1 Location: Telemetry/MedSurg (observation)(05/13/24 18:53) bc6 Room Assignment: 411(05/13/24 18:53) 6 Diagnosis - Altered mental status, unspecified gb1 Forms: - Medication Reconciliation Form gb1 - SBAR form gb1 - Leadership Thank You Letter gb1 NIH Stroke Scale - NIH Stroke Score Date: 05/13/2024 Time: 11:30 Total Score = 31 10. Dysarthria (speech clarity - read or repeat words) - 2(Severe) 11. Extinction and Inattention (visual/tactile/auditory/spatial/personal) - 2(Profound) 1a. Level of Consciousness (LOC) - 2(Not Alert, obtunded) 1b. Level of Consciousness (LOC) (Month \T\ Age) - 2(Neither) 1c. LOC Commands (Open \T\ Closes Eyes/Director Of Strategic Partnerships) - 2(Neither) 2. Best Gaze (Lateral Gaze Paresis) - 1(Partial gaze palsy) 3. Visual Field Loss - 1(Partial hemianopia) 4. Facial Palsy - 0(Normal) 5a. Left Arm: Motor (10-second hold) - 3(No effort against gravity) 5b. Right Arm: Motor (10-second hold) - 3(No effort against gravity) 6a. Left Leg: Motor (5-second hold - always test supine) - 3(No effort against gravity) 6b. Right Leg: Motor (5-second hold - always test supine) - 3(No effort against gravity) 7. Limb Ataxia (finger/nose \T\ heel/proctor - test with eyes open) - 2(Present in two limbs) 8. Sensory Loss (pinprick arms/legs/face) - 2(Severe to total loss) 9. Best Language: Aphasia (description/naming/reading) - 3(Mute, global aphasia) Initials: mb9 NIH Stroke Scale - NIH Stroke Score Date: 05/13/2024 Time: 12:44 Total Score = 24 10. Dysarthria (speech clarity - read or repeat words) - 2(Severe) 11. Extinction and Inattention (visual/tactile/auditory/spatial/personal) - 0(No abnormality) 1a. Level of Consciousness (LOC) - 0(Alert) 1b. Level of Consciousness (LOC) (Month \T\ Age) - 2(Neither) 1c. LOC Commands (Open \T\ Closes Eyes/Director Of Strategic Partnerships) - 2(Neither) 2. Best Gaze (Lateral Gaze Paresis) - 0(Normal) 3. Visual Field Loss - 0(No visual loss) 4. Facial Palsy - 0(Normal) 5a. Left Arm: Motor (10-second hold) - 3(No effort against gravity) 5b. Right Arm: Motor (10-second hold) - 3(No effort against gravity) 6a. Left Leg: Motor (5-second hold - always test supine) - 3(No effort against gravity) 6b. Right Leg: Motor (5-second hold - always test supine) - 3(No effort against gravity) 7. Limb Ataxia (finger/nose \T\ heel/proctor - test with eyes open) - 2(Present in two limbs) 8. Sensory Loss (pinprick arms/legs/face) - 2(Severe to total loss) 9. Best Language: Aphasia (description/naming/reading) - 2(Severe aphasia) Initials: cm10 Signatures: Dispatcher [employer] EDCT Lanette Chahal RN RN Juan, Jasmin Christensen, RN RN mb9 Rossana Pizarro6 Harper Dickerson RN RN cm10 Olive Harrington MD MD gb1 Corrections: (The following items were deleted from the chart) 11:37 11:37 CT-STROKE BRAIN W/O CONTRAST+CT.RAD.BRZ ordered. EDCT EDMS 11:47 11:40 Home Meds: atropine 1 % Opht drops 5 drops; cm10 cm10 11:47 11:40 Home Meds: Remeron 30 mg Oral tablet 1 tab every day at bedtime; cm10 cm10 11:49 11:49 Head angio ordered. EDCT EDMS 11:58 11:41 Neck Angio ordered. EDMS EDMS 13:08 12:54 Sodium Chloride IV 3 % 30 ml/kg 500 ml IV at bolus once; *specify rate* cm10 ordered. gb1 13: 13:22 Chest Single View+RAD.RAD.BRZ ordered. EDMS EDMS : 13:22 SARS-COV-2 Antigen Rapid+I.LAB.BRZ ordered. EDMS EDMS : 13:22 Influenza Screen (A \T\ B)+BA.LAB.BRZ ordered. EDMS EDMS 18:15 15:26 Telemetry/MedSurg (Inpatient) gb1 ph 18:15 15:26 gb1 ph 18:53 18:15 [facility] ER HOLD ph bc6 18:53 18:15 ERHOLD- ph bc6
--- NOTE | 2024-05-13 15:27 | ER ---
Nurse's Notes [facility] Name: Felix Rangel Age: 78 yrs Sex: Male : 1945 Arrival Date: 05/13/2024 Time: 11:14 Bed 3 Private MD: Diagnosis: Altered mental status, unspecified Presentation: 05/13 11:36 Chief complaint: EMS states: Toned out to [facility] due to patient being cm10 unresponsive onset 1hr GIVER. Per EMS report, pt was in his wheelchair at the nurses station and his head fell back and patient became unresponsive. Upon arrival, pt awake but not responding to stimuli. Pt unable to follow commands. At baseline, pt can talk and follow commands. Pts pupils unequal upon assessment. Pt placed on 3L via NC due to O2 sat dropping to 74% on RA. Coronavirus screen: Client denies travel out of the [place] in the last 14 days. Ebola Screen: Patient denies travel to an Ebola-affected area in the 21 days before illness onset. No symptoms or risks identified at this time. Initial Sepsis Screen: Does the patient meet any 2 criteria? Altered Mental Status. Does the patient have a suspected source of infection? No. Patient's initial sepsis screen is negative. Risk Assessment: Do you want to hurt yourself or someone else? Patient reports no desire to harm self or others. Onset of symptoms was May 13, 2024. Care prior to arrival: IV initiated. 18 GA, in the left forearm, Glucose check: 89 Oxygen administered. via nasal cannula. Transition of care: [facility]. 11:36 Method Of Arrival: EMS: [facility] cm10 11:36 Acuity: TARIQ 2 cm10 Triage Assessment: 11:47 General: Appears uncomfortable, Behavior is unresponsive. Pain: Unable to use pain cm10 scale. Does not appear to understand pain scale. Neuro: Level of Consciousness is unresponsive, Oriented to none Pupils are irregular. Cardiovascular: No deficits noted. Heart tones present Rhythm is regular. Respiratory: No deficits noted. Airway is patent Respiratory effort is even, unlabored, Respiratory pattern is regular, Breath sounds with rales bilaterally. Historical: - Allergies: 11:40 No Known Allergies; cm10 - Home Meds: 11:40 memantine 10 mg oral tablet 1 tab 2 times per day [Active]; donepezil 10 mg Oral tablet cm10 1 tab every day at bedtime [Active]; atorvastatin 40 mg Oral tablet 1 tab every day at bedtime [Active]; atropine sulfate (PF) 1 % ophthalmic (eye) Dropperette 5 drop Q4H prn [Active]; Refresh Tears 0.5 % ophthalmic (eye) drops 2 drops every 8 hours [Active]; Remeron 30 mg Oral tablet 1 tab every day at bedtime [Active]; memantine 10 mg Oral tablet 1 tab daily [Active]; aspirin 81 mg Oral tablet 1 tab daily [Active]; allopurinol 300 mg Oral tablet 1 tab daily [Active]; hydrocortisone 10 mg Oral tablet 1 tab 2 times per day [Active]; acetaminophen 325 mg Oral tablet 2 tab Q4H prn [Active]; ipratropium-albuterol 0.5 mg-3 mg(2.5 mg base)/3 mL Inhl Solution for Nebulization 1 inhalation Q6H PRN SOB [Active]; - PMHx: 11:40 Atherosclerotic Heart Disease; Depressive disorder; Hyperlipidemia; Gout; Dementia; cm10 Hypertensive disorder; Cataract; Myocardial infarction; Peripheral vascular disease; Congestive heart failure; Alzheimer's disease; blockage L carotid; - PSHx: 11:40 Coronary artery bypass graft; Coronary Angioplasty; Stented artery; cm10 - Immunization history:: Adult Immunizations up to date. - Infectious Disease History:: Denies. - Social history:: Smoking status: unknown. - Code Status:: DNAR. Screenin:30 [place] Swallow Protocol Exclusion Criteria: Unable to remain alert for testing: Yes Brief mb9 Cognitive Screen What is your name? Abnormal Where are you right now? Abnormal What year is it? Abnormal Oral Mechanism Examination Facial Symmetry: Abnormal Motion: Abnormal Lip Closure: Abnormal Result: FAIL Notified: Olive Harrington MD. 11:44 [facility] ED Fall Risk Assessment (Adult) History of falling in the last 3 months, mb9 including since admission No falls in past 3 months (0 pts) Confusion or Disorientation Yes (5 pts) Intoxicated or Sedated No (0 pts) Impaired Gait Yes (1 pt) Mobility Assist Device Used Yes (1 pt) Altered Elimination Yes (1 pt) Score/Fall Risk Level 3 or more points = High Risk Oriented to surroundings, Maintained a safe environment, Educated pt \T\ family on fall prevention, incl call for assistance when getting out of bed, Assessed \T\ reinforced patient's understanding of fall precautions, Provided non-skid footwear, Hourly rounding (assess needs \T\ fall precautionary measures) done. Abuse screen: Denies threats or abuse. Nutritional screening: No deficits noted. Tuberculosis screening: No symptoms or risk factors identified. Assessment: 11:31 General: CODE STROKE CALLED AT THIS TIME.. cm10 11:32 Reassessment: Pt taken to CT via stretcher accompanied by this nurse. mb9 12:11 Reassessment: Family at bedside. mb9 12:44 Reassessment: Pt starting to move extremities and follow commands at this time. Linens cm10 changed. 15:00 Reassessment: Patient appears in no apparent distress at this time. No changes from cm10 previously documented assessment. Patient and/or family updated on plan of care and expected duration. Pain level reassessed. 17:06 General: Pt to MRI. cm10 18:56 Reassessment: Patient appears in no apparent distress at this time. No changes from cm10 previously documented assessment. Patient and/or family updated on plan of care and expected duration. Pain level reassessed. Pt more awake and alert at this time. Vital Signs: 11:36 BP 128 / 83; Pulse 95; Resp 12; Temp 97.8(A); Pulse Ox 96% on 3 lpm NC; cm10 11:44 BP 112 / 94; Pulse 105; Resp 14; Pulse Ox 100% on 5 lpm NC; cm10 12:00 BP 132 / 70; Pulse 103; Resp 19; Pulse Ox 100% on 5 lpm NC; cm10 12:15 BP 132 / 83; Pulse 96; Resp 19; Pulse Ox 100% on 5 lpm NC; cm10 12:30 BP 152 / 73; Pulse 105; Resp 19; Pulse Ox 99% on 5 lpm NC; cm10 12:51 Temp 98.2(Ca); cm10 13:20 BP 127 / 72; Pulse 101; Resp 16; Pulse Ox 95% on R/A; FiO2 2 %; mb9 14:24 BP 125 / 78; Pulse 94; Resp 15; Temp 98.8; Pulse Ox 98% on 4 lpm NC; mb9 15:00 BP 125 / 69; Pulse 91; Resp 17; Pulse Ox 94% on 4 lpm NC; mb9 15:30 BP 119 / 67; Pulse 87; Resp 17; Temp 99.2; Pulse Ox 94% on 4 lpm NC; cm10 15:45 BP 116 / 64; Pulse 85; Resp 15; Temp 99.2(Ca); Pulse Ox 100% 4 lpm ; cm10 16:00 BP 118 / 71; Pulse 85; Resp 19; Temp 99.2; Pulse Ox 96% on 4 lpm NC; cm10 16:30 BP 128 / 75; Pulse 85; Resp 18; Temp 99.3; Pulse Ox 100% on 4 lpm NC; cm10 17:45 BP 133 / 65; Pulse 88; Resp 18; Pulse Ox 100% on 4 lpm NC; cm10 18:30 BP 126 / 64; Pulse 88; Resp 17; Temp 99.4; Pulse Ox 100% on 4 lpm NC; cm10 NIH Stroke Scale Scores: 11:30 NIHSS Score: 31 mb9 12:44 NIHSS Score: 24 cm10 ED Course: 11:28 Patient arrived in ED. cm10 11:29 Olive Harrington MD is Attending Physician. gb1 11:30 EKG done, by ED staff, reviewed by Olive Harrington MD. mb9 11:30 Initial lab(s) drawn, by me, sent to lab. Maintain EMS IV. Dressing intact. Good blood mb9 return noted. Site clean \T\ dry. Gauge \T\ site: 18g let FA. Flushed with 10 mL NS. 11:30 Placed in gown. Bed in low position. Call light in reach. Side rails up X 1. Provided mb9 Education on:. Client placed on continuous cardiac and pulse oximetry monitoring. NIBP monitoring applied. 11:31 RN/NET SOFTWARE ENGINEER escort patient out of department to CT scan with oxygen, relationship counselor. cm10 11:35 Harper Dickerson, RN is Primary Nurse. cm10 11:39 Triage completed. cm10 11:42 CT Stroke Brain w/o Contrast In Process Unspecified. EDMS 11:44 Inserted saline lock: 18 gauge in right forearm, using aseptic technique. Flushed with mb9 10 mL NS. 11:44 Arm band placed on. mb9 12:00 Head angio In Process Unspecified. EDMS 12:00 CT Neck Angio In Process Unspecified. EDMS 12:43 Urinalysis w/ reflexes Sent. cm10 12:44 Urine collected: Ramirez catheter specimen, clear. Ramirez cath inserted, using sterile cm10 technique, 16 Fr., by ri, balloon inflated, to gravity drainage, urine specimen collected. returned clear yellow urine. Patient tolerated well. 13:34 Chest Single View XRAY In Process Unspecified. EDMS 15:26 Maxime Stephenson is Hospitalizing Provider. gb1 18:53 No provider procedures requiring assistance completed. Patient admitted, IV remains in cm10 place. 19:10 Report given to Carol and Andressa. cm10 19:35 1934 CM met with , his daughter Tri and his Lennie at the bedside in ane the ED exam room. Patient identified by name and . Tri states patient live at [facility], room 32 A. Prior to admission, he was able to ambulate with a walker and needs assistance with ADLs. No MPOA in place at this time. Patient's PCP is Dr. Campos De La Cruz. No HH,home oxygen or other medical services. Plan is for patient to return to [facility]. CM team will continue to follow and coordinate care during this hospital stay. 20:46 Carol Stevens is Primary Nurse. cp4 Administered Medications: 13:08 CANCELLED (Other Intervention Used): sodium chloride3 % 30 ml/kg 500 ml IV at bolus cm10 once; *specify rate* 13:19 Drug: Sodium Chloride 0.9% IVPB 500 ml IVPB once Route: IVPB; Site: right forearm; mb9 14:00 Follow up: Response: No adverse reaction; IV Status: Completed infusion; IV Intake: cm10 500ml Medication: 11:36 VIS not applicable for this client. mb9 Intake: 14:00 IV: 500ml; Total: 500ml. cm10 Outcome: 15:26 Decision to Hospitalize by Provider. gb1 18:53 Admitted to ER Hold. Please see [facility] for further documentation. cm10 18:53 Condition: stable 18:53 Instructed on the need for admit, 20:47 Patient left the ED. cp4 NIH Stroke Scale - NIH Stroke Score Date: 05/13/2024 Time: 11:30 Total Score = 31 10. Dysarthria (speech clarity - read or repeat words) - 2(Severe) 11. Extinction and Inattention (visual/tactile/auditory/spatial/personal) - 2(Profound) 1a. Level of Consciousness (LOC) - 2(Not Alert, obtunded) 1b. Level of Consciousness (LOC) (Month \T\ Age) - 2(Neither) 1c. LOC Commands (Open \T\ Closes Eyes/Fur Blowing Machine Operator) - 2(Neither) 2. Best Gaze (Lateral Gaze Paresis) - 1(Partial gaze palsy) 3. Visual Field Loss - 1(Partial hemianopia) 4. Facial Palsy - 0(Normal) 5a. Left Arm: Motor (10-second hold) - 3(No effort against gravity) 5b. Right Arm: Motor (10-second hold) - 3(No effort against gravity) 6a. Left Leg: Motor (5-second hold - always test supine) - 3(No effort against gravity) 6b. Right Leg: Motor (5-second hold - always test supine) - 3(No effort against gravity) 7. Limb Ataxia (finger/nose \T\ heel/proctor - test with eyes open) - 2(Present in two limbs) 8. Sensory Loss (pinprick arms/legs/face) - 2(Severe to total loss) 9. Best Language: Aphasia (description/naming/reading) - 3(Mute, global aphasia) Initials: mb9 NIH Stroke Scale - NIH Stroke Score Date: 05/13/2024 Time: 12:44 Total Score = 24 10. Dysarthria (speech clarity - read or repeat words) - 2(Severe) 11. Extinction and Inattention (visual/tactile/auditory/spatial/personal) - 0(No abnormality) 1a. Level of Consciousness (LOC) - 0(Alert) 1b. Level of Consciousness (LOC) (Month \T\ Age) - 2(Neither) 1c. LOC Commands (Open \T\ Closes Eyes/Fur Blowing Machine Operator) - 2(Neither) 2. Best Gaze (Lateral Gaze Paresis) - 0(Normal) 3. Visual Field Loss - 0(No visual loss) 4. Facial Palsy - 0(Normal) 5a. Left Arm: Motor (10-second hold) - 3(No effort against gravity) 5b. Right Arm: Motor (10-second hold) - 3(No effort against gravity) 6a. Left Leg: Motor (5-second hold - always test supine) - 3(No effort against gravity) 6b. Right Leg: Motor (5-second hold - always test supine) - 3(No effort against gravity) 7. Limb Ataxia (finger/nose \T\ heel/proctor - test with eyes open) - 2(Present in two limbs) 8. Sensory Loss (pinprick arms/legs/face) - 2(Severe to total loss) 9. Best Language: Aphasia (description/naming/reading) - 2(Severe aphasia) Initials: cm10 Signatures: Dispatcher [employer] Jasmin Carnes RN RN mb9 Harper Dickerson RN RN cm10 Olive Harrington MD MD gb1 Carol Stevens cp4 Meka Tavares RN RN ane Corrections: (The following items were deleted from the chart) 11:47 11:40 Home Meds: atropine 1 % Opht drops 5 drops; 10 10 11:47 11:40 Home Meds: Remeron 30 mg Oral tablet 1 tab every day at bedtime; 10 10 12:49 11:59 BP 112 / 94; Pulse 105bpm; Resp 14bpm; Pulse Ox 100% 5 lpm Nasal Cannula; 10 mb9 14:24 14:24 BP 125 / 78; Pulse 94bpm; Resp 15bpm; Pulse Ox 98% 4 lpm Nasal Cannula; mb9 mb9
[2024-05-13] MEDS ORDERED: ACETAMINOPHEN 650MG/RECT SUPP PR PRN (15:50)
--- NOTE | 2024-05-13 15:58 | P.HP ---
Certification for Inpatient Patient admitted to: Observation With expected LOS: <2 Midnights Patient will require the following post-hospital care: None Practitioner: I am a practitioner with admitting privileges, knowledge of patient current condition, hospital course, and medical plan of care. Services: Services provided to patient in accordance with Admission requirements found in Title 42 Section 412.3 of the Code of Federal Regulations Patient History Date of Service: 05/13/24 Reason for admission: CVA r/o vs syncopal episode Allergies No Known Allergies Allergy (Verified 05/24/21 10:07) Home Medications: Allopurinol 300 mg PO DAILY #30 tablet 06/14/21 Acetaminophen [Tylenol Extra Strength] 1,000 mg PO DAILY 10/19/22 Aspirin 81 mg PO DAILY 10/19/22 Atorvastatin Calcium [Lipitor] 40 mg PO BEDTIME 10/19/22 Donepezil HCl [Aricept] 10 mg PO BEDTIME 10/19/22 Memantine HCl [Namenda] 10 mg PO BID 10/19/22 Mirtazapine [Remeron] 30 mg PO BEDTIME 10/19/22 guaiFENesin [Celsa-Tussin] 10 ml PO Q6HP PRN 10/19/22 Hydrocortisone [Cortef*] 10 mg PO BID #0 tab 11/02/22 Albuterol Neb [Proventil 0.083% Neb Soln] 2.5 mg NEB [id number] PRN 08/23/23 Albuterol Sulfate [Proair Hfa] 8.5 gm IH Q4H PRN 08/23/23 Ascorbic Acid 500 mg PO DAILY 08/23/23 Atropine Sulfate/Pf [Atropine 1% Eye Drops] 5 each OP Q4H PRN 08/23/23 Carboxymethylcellulose Sodium [Refresh Tears] 2 drops OPTH Q8H PRN 08/23/23 Cholecalciferol (Vitamin D3) [Vitamin D 1000 Iu Tab*] 1,000 unit PO DAILY 08/23/23 Dextromethorphan HBr [Tussin Long-Acting] 10 ml PO Q6H PRN 08/23/23 Sennosides [Senokot] 8.6 mg PO BID 08/23/23 Zinc Amino Acid Chelate [Zinc] 50 mg PO BEDTIME 08/23/23 - Past Medical/Surgical History Diabetic: No -: Cardiac stent 10/11/22 -: HTN -: Dementia -: History of carotid artery stenosis -: R foot surgery - Family History Mother -: Hypertension - Social History Alcohol use: Yes CD- Drugs: No Caffeine use: Yes Physical Examination - Studies Laboratory Data (last 24 hrs) 05/13/24 05/13/24 05/13/24 11:30 11:30 11:30 WBC 10.80 Hgb 13.1 L Hct 41.9 Plt Count 198 PT 10.9 INR 0.97 APTT 28.4 Sodium 143 Potassium 4.0 BUN 18 Creatinine 0.92 Glucose 97 Microbiology Data (last 24 hrs): 05/13/24 13:33 Nasopharnyx Influenza Type A Antigen Screen - Final 05/13/24 13:33 Nasopharnyx Influenza Type B Antigen Screen - Final Assessment and Plan - Plan Assessment and Plan CVA r/o Syncopal episode - Discharge Plan: [facility] Plan to discharge in: 24 Hours - Advance Directives Does patient have a Living Will: No Does patient have a Durable POA for Healthcare: No
--- NOTE | 2024-05-13 17:47 | RAD REPORT ---
EXAMINATION: MRI BRAIN WITHOUT CONTRAST CLINICAL INDICATION: CVA r/o TECHNIQUE: Multiplanar multisequence MR images of the brain were obtained without intravenous contras t. Unless otherwise specified, incidental findings do not require dedicated imaging follow-up. COMPARISON: 05/13/2024 FINDINGS: INTRACRANIAL: Diffusion-weighted images show no acute or early subacute infarction. There is moderate brain atrophy with moderateT2/FLAIR hyperintensities in the periventricular and deep white matter regions, likely representing chronic microvascular ischemic changes. There is no mass effect or midli ne shift. No abnormal extraaxial fluid collection. VASCULATURE: Normal signal voids in the larger intracranial arteries and dural venous sinuses. SINUSES: Mild right mastoid effusion. BONE: The marrow signal pattern is within normal limits. IMPRESSION: Negative for acutre CVA or other acute intracranial finding.
[2024-05-13] MEDS ORDERED: NA CHLORIDE 0.9% 1,000 ML ONE (18:03)
[2024-05-13] MEDS: NA CHLORIDE 0.9% 1,000 ML IV SCH (18:08)
[2024-05-13 18:52] VITALS: BMI 26.0
--- NOTE | 2024-05-13 19:39 | P.HP ---
Certification for Inpatient Patient admitted to: Observation With expected LOS: <2 Midnights Practitioner: I am a practitioner with admitting privileges, knowledge of patient current condition, hospital course, and medical plan of care. Services: Services provided to patient in accordance with Admission requirements found in Title 42 Section 412.3 of the Code of Federal Regulations Patient History Date of Service: 05/13/24 Reason for admission: CVA r/o vs syncopal episode History of Present Illness: 78-year-old gentleman, long-term resident reported to have passed out yamileth denly while seated in a wheelchair in a long-term, patient became unresponsive, EMS was called, daughter reports patient blood pressure and his blood sugar were within normal range when EMS examined him, patient was still unresponsive on arrival to the ED, no spontaneous limb movement, eyes closed. Stroke protocol was initiated, head CT did not show any acute disease, CTA head and neck unremarkable, neurology Dr. Giron contacted who recommended hospitalization to continue acute stroke rule out. Patient was more responsive, eyes open with spontaneous limb movement during my examination in the ED. Daughter reported no witnessed seizures. Patient admitted for further management. Allergies No Known Allergies Allergy (Verified 05/24/21 10:07) Home Medications: Allopurinol 300 mg PO DAILY #30 tablet 06/14/21 Acetaminophen [Tylenol Extra Strength] 650 mg PO Q4HR PRN 10/19/22 Aspirin 81 mg PO DAILY 10/19/22 Atorvastatin Calcium [Lipitor] 40 mg PO BEDTIME 10/19/22 Donepezil HCl [Aricept] 10 mg PO BEDTIME 10/19/22 Memantine HCl [Namenda] 10 mg PO BID 10/19/22 Mirtazapine [Remeron] 30 mg PO BEDTIME 10/19/22 Hydrocortisone [Cortef*] 10 mg PO BID #0 tab 11/02/22 Albuterol Sulfate [Proair Hfa] 8.5 gm IH Q4H PRN 08/23/23 Atropine Sulfate/Pf [Atropine 1% Eye Drops] 5 each OP Q12HR 08/23/23 Carboxymethylcellulose Sodium [Refresh Tears] 2 drops OPTH Q12HR 08/23/23 - Past Medical/Surgical History Diabetic: No -: Cardiac stent 10/11/22 -: HTN -: Dementia -: History of carotid artery stenosis -: R foot surgery - Family History Mother -: Hypertension - Social History Alcohol use: Yes CD- Drugs: No Caffeine use: Yes Review of Systems Other: Unable to obtain full review of systems due to altered mental status. No reported diarrhea, no reported vomiting, no reported stool or urine incontinence. Physical Examination - Vital Signs Temperature: 99.4 F Blood Pressure: 141/69 Pulse: 85 Respirations: 16 Pulse Ox (%): 100 - Physical Exam General: Unresponsive, Obese HEENT: PERRLA, Other (Dry mucous membrane), EOMI, Sclerae nonicteric Neck: Supple, JVD not distended Respiratory: Clear to auscultation bilaterally, Normal air movement Cardiovascular: Regular rate/rhythm, Normal S1 S2, Edema (1+ bilateral lower extremity edema) Capillary refill: <2 Seconds Gastrointestinal: Normal bowel sounds, Soft and benign, Non-distended, No tenderness Musculoskeletal: No swelling, No tenderness Integumentary: No cyanosis, Other (Scattered bruises all over limbs and trunk.) Neurological: Other (Patient moves all limbs spontaneously, track with his eyes. Nonverbal) Lymphatics: No axilla or inguinal lymphadenopathy - Studies Laboratory Data (last 24 hrs) 05/13/24 05/13/24 05/13/24 11:30 11:30 11:30 WBC 10.80 Hgb 13.1 L Hct 41.9 Plt Count 198 PT 10.9 INR 0.97 APTT 28.4 Sodium 143 Potassium 4.0 BUN 18 Creatinine 0.92 Glucose 97 Microbiology Data (last 24 hrs): 05/13/24 13:33 Nasopharnyx Influenza Type A Antigen Screen - Final 05/13/24 13:33 Nasopharnyx Influenza Type B Antigen Screen - Final Assessment and Plan - Problems (Diagnosis) (1) AMS (altered mental status) Current Visit: No Status: Acute (2) Acute metabolic encephalopathy Current Visit: No Status: Acute (3) Dementia Current Visit: Yes Status: Acute (4) Hypertension Current Visit: Yes Status: Acute - Plan Altered mental status Acute metabolic encephalopathy Patient's home medication reviewed and noted no significant psychotropic medications. Differential diagnosis for sudden altered mental status include stroke versus syncopal episode versus seizures Place patient in observation on the medical floor Continue stroke protocol Obtain MRI of the brain to further assess acute stroke Obtain echocardiogram Lipitor. No aspirin for now due to multiple bruises and history of easy bruisability and bleeding. Check lipid profile PT consult Speech therapy consult Obtain EEG Neurology consult Telemetry. Neurochecks. Alzheimer Dementia Continue donepezil and Namenda Essential hypertension Resume antihypertensives and monitor BP closely. DVT prophylaxis: SCD, cannot anticoagulate due to severe easy bruisability. Advanced directive: DNR. - Advance Directives Does patient have a Living Will: No Does patient have a Durable POA for Healthcare: No
[2024-05-13 19:49] LABS: RPR (Rapid Plasma Reagin) NON-REACT (NON-REACT)
[2024-05-13] MEDS: ATORVASTATIN 20 MG TAB PO SCH (21:00)
[2024-05-13] MEDS: CARBOXYMETHYLCELLULOSE SODIUM 0.5% 15 ML OPTH SCH (21:00)
[2024-05-13] MEDS: DONEPEZIL HCL 5 MG TAB PO SCH (21:00)
[2024-05-13] MEDS: MEMANTINE HCL 10 MG TABLET PO SCH (21:00)
[2024-05-13] MEDS ORDERED: ATORVASTATIN 40 MG TAB PO SCH (21:00)
[2024-05-14 06:57] LABS: Absolute Basophils 0.2 K/uL (0-0.5); Absolute Eosinophils 0.6 K/uL (0-0.5); Absolute Lymphocytes (CBC) 1.9 K/uL (0.7-4.9); Absolute Monocytes 0.7 K/uL (0.1-1.3); Absolute Neutrophil 4.9 K/uL (1.8-8.0); Basophils % 2.6 % (0-1.3); Eosinophils % 6.7 % (0-4.4); Hematocrit 35.3 % (39.6-49.0); Hemoglobin 11.2 g/dL (13.6-17.9); Lymphocytes % 22.6 % (15.3-44.8); MCH 26.3 pg (27.0-35.0); MCHC 31.6 g/dL (32.0-36.0); MCV 83.3 fL (80-100); MPV 8.1 fL (7.6-11.3); Monocytes % 8.3 % (3.3-12.3); Neutrophils % 59.8 % (41.7-73.7); Platelets 179 thou/uL (152-406); RBC Red Blood Cell Count 4.24 M/uL (4.33-5.43); Red Cell Distribution Width 19.9 % (12.1-15.2)
[2024-05-14 07:20] LABS: Anion Gap 5.9 mEq/L (5.0-15.0); Magnesium 1.9 mg/dL (1.6-2.4); Phosphorus 2.9 mg/dL (2.5-4.9); Potassium 3.9 mEq/L (3.5-5.1); T4,Total 5.7 ug/dL (4.5-12.1)
[2024-05-14 07:21] LABS: Thyroid Stimulating Hormone 8.29 uIU/mL (0.358-3.740)
[2024-05-14] MEDS: allopurinoL 300 MG TAB PO SCH (09:38)
[2024-05-14] MEDS: ASPIRIN EC 81 MG TAB PO SCH (09:38)
[2024-05-14 10:02] VITALS: O2SAT 96
--- NOTE | 2024-05-14 17:42 | P.DS ---
Admission Date: 05/13/24 Discharge Date: 05/14/24 Disposition: TRANSFER TO LONG TERM Discharge Condition: GOOD Reason for Admission: CVA r/o vs syncopal episode Brief History of Present Illness: Diagnosis Altered mental status Acute metabolic encephalopathy CVA ruled out Alzheimer Dementia Essential hypertension HPI 05/13/2024 Felix Rangel is a 78-year-old gentleman, half-way resident reported to have passed out suddenly while seated in a wheelchair in a half-way, patient became unresponsive, EMS was called, daughter reports patient blood pressure and his blood sugar were within normal range when EMS examined him, patient was still unresponsive on arrival to the ED, no spontaneous limb movement, eyes closed. Stroke protocol was initiated, head CT did not show any acute disease, CTA head and neck unremarkable, neurology Dr. Giron contacted who recommended hospitalization to continue acute stroke rule out. Patient was more responsive, eyes open with spontaneous limb movement during my examination in the ED. Daughter reported no witnessed seizures. Patient admitted for further management. Hospital Course: Felix Rangel is a pleasant 78-year-old male with a past medical history significant for Alzheimer/dementia, hypertension, CAD (s/p CABG), [place], depressive disorder, gout, cataracts, PVD, congestive heart failure, left carotid stenosis who was admitted to the [facility] on 05/13/2024 for syncopal episode. Felix presented to the Ed d/t a syncopal episode while sitting in his wheelchair at the half-way. No reported witnessed seizure. Upon arrival to the ED he had no spontaneous limb movement, eyes were closed, and Dr. Giron recommended hospitalization for stroke rule out. CT head did not show an acute d isease, CTA head/neck unremarkable. Prior to admission, Felix became responsive with eyes open, tracking and speaking. MRI brain w/o contrast reports "Negative for acutre CVA or other acute intracranial finding." Physical therapy and speech therapy consulted. Recommendations to continue with physical therapy at discharge and soft bite sized food with mild thick liquid followed. Felix remains confused with dementia but is able to answer questions, makes eye contact, follow some commands with PT, and tolerating PO diet. On 05/14/2024, Deandre was seen on morning rounds and deemed medically stable for discharge to [facility]. Felix was discharged with instructions to schedule follow-up appointments with Dr. Giron and PCP. Physical Exam General: Awake and alert, confused, Obese HEENT: PERRLA, Other (Dry mucous membrane), EOMI, Sclerae nonicteric Neck: Supple, JVD not distended Respiratory: Clear to auscultation bilaterally, nonlabored breathing Cardiovascular: NSR, Normal S1 S2, Edema (1+ bilateral lower extremity edema) Capillary refill: <2 Seconds Gastrointestinal: Normal bowel sounds, Soft and benign on palpation, ND/NT Musculoskeletal: No swelling, No tenderness Integumentary: No cyanosis, Other (Scattered bruises all over limbs and trunk.) Neurological: Other (Patient moves all limbs spontaneously, track with his eyes. Nonverbal) Lymphatics: No axilla or inguinal lymphadenopathy Vital Signs/Physical Exam: Temp Pulse Resp BP Pulse Ox 97.6 F 51 16 115/52 L 94 05/14/24 12:00 05/14/24 12:00 05/14/24 12:00 05/14/24 12:00 05/14/24 12:00 Laboratory Data at Discharge: WBC 8.30 thou/uL (4.3-10.9) 05/14/24 06:32 Hgb 11.2 g/dL (13.6-17.9) L D 05/14/24 06:32 Hct 35.3 % (39.6-49.0) L 05/14/24 06:32 Plt Count 179 thou/uL (152-406) 05/14/24 06:32 PT 10.9 SECONDS (9.4-12.5) 05/13/24 11:30 INR 0.97 05/13/24 11:30 APTT 28.4 SECONDS (24.3-36.9) 05/13/24 11:30 Sodium 144 mEq/L (136-145) 05/14/24 06:32 Potassium 3.9 mEq/L (3.5-5.1) 05/14/24 06:32 BUN 14 mg/dL (7-18) 05/14/24 06:32 Creatinine 0.77 mg/dL (0.70-1.30) 05/14/24 06:32 Glucose 89 mg/dL (74-106) 05/14/24 06:32 Phosphorus 2.9 mg/dL (2.5-4.9) 05/14/24 06:32 Magnesium 1.9 mg/dL (1.6-2.4) 05/14/24 06:32 Triglycerides 89 mg/dL (<150) 05/14/24 06:32 Cholesterol 95 mg/dL (<200) 05/14/24 06:32 HDL Cholesterol 44 mg/dL (40-60) 05/14/24 06:32 Cholesterol/HDL Ratio 2.16 05/14/24 06:32 Home Medications: Allopurinol 300 mg PO DAILY #30 tablet 06/14/21 Acetaminophen [Tylenol Extra Strength] 650 mg PO Q4HR PRN 10/19/22 Aspirin 81 mg PO DAILY 10/19/22 Atorvastatin Calcium [Lipitor] 40 mg PO BEDTIME 10/19/22 Donepezil HCl [Aricept] 10 mg PO BEDTIME 10/19/22 Memantine HCl [Namenda] 10 mg PO BID 10/19/22 Mirtazapine [Remeron] 30 mg PO BEDTIME 10/19/22 Hydrocortisone [Cortef*] 10 mg PO BID #0 tab 11/02/22 Albuterol Sulfate [Proair Hfa] 8.5 gm IH Q4H PRN 08/23/23 Atropine Sulfate/Pf [Atropine 1% Eye Drops] 5 each OP Q12HR 08/23/23 Carboxymethylcellulose Sodium [Refresh Tears] 2 drops OPTH Q12HR 08/23/23 Cholecalciferol (Vitamin D3) [Vitamin D 1000 Iu Tab] 1,000 unit PO DAILY 30 Days #30 tab 05/14/24 New Medications: Cholecalciferol (Vitamin D3) [Vitamin D 1000 Iu Tab] 1,000 unit PO DAILY 30 Days #30 tab Physician Discharge Instructions: 1. Please call and schedule a follow-up appointment with your PCP in 3-5 days - Please follow-up with your PCP for medication refills/adjustments -TSH 8.290, follow up with PCP for further management -Vitamin D 19.8, start taking vitamin D daily 2. Please call and schedule a follow-up appointment with Dr. Giron in 3-5 days 3. Continue heart healthy diet, pureed with mild thick liquid 4. activity restrictions, fall precautions, work with Physical therapy 5. Return to the ED if symptoms worsen New medications Vitamin D 1000 IU daily Diet: AHA Activity: Fall precautions Followup: Campos Deleon MD [Primary Care Provider] - Mehul Giron MD [ASSOCIATE-ACTIVE - CAN ADMIT] -
[2024-05-14 17:46] VITALS: BP 133/58; TEMP 97.8
--- NOTE | 2024-05-17 07:13 | ECHO ---
HEIGHT: 5 ft 11 in WEIGHT: 187 lb 0 oz DATE OF STUDY: 05/14/[address]: Kimberley Goodson NP 2-DIMENSIONAL: YES M.MODE: YES DOPPLER: YES COLOR FLOW: YES TDS: YES PORTABLE: YES DEFINITY: BUBBLE STUDY: DIAGNOSIS: STROKE CARDIAC HISTORY: CATHERIZATION: SURGERY: PROSTHETIC VALVE: PACEMAKER: MEASUREMENTS (cm) DIASTOLIC (NORMALS) SYSTOLIC (NORMALS) IVSd 1.1 (0.6-1.2) LA Diam 3.0 (1.9-4.0) LVEF 55-60% LVIDd 2.5 (3.5-5.7) LVIDs 1.6 (2.0-3.5) %FS 37% LVPWd 1.1 (0.6-1.2) Ao Diam 2.7 (2.0-3.7) 2 DIMENSIONAL ASSESSMENT: RIGHT ATRIUM: NORMAL LEFT ATRIUM: NORMAL RIGHT VENTRICLE: NORMAL LEFT VENTRICLE: NORMAL TRICUSPID VALVE: NORMAL MITRAL VALVE: MILD MITRAL REGURGITATION PULMONIC VALVE: NOT SEEN AORTIC VALVE: NORMAL PERICARDIAL EFFUSION: NONE AORTIC ROOT: NORMAL LEFT VENTRICULAR WALL MOTION: APPEARS NORMAL DOPPLER/COLOR FLOW: SEE BELOW COMMENTS: 1. POOR WINDOWS 2. OVERALL LEFT VENTRICULAR EJECTION FRACTION IS NORMAL 55-60% TECHNOLOGIST: SEAN PÉREZ
[2024-05-17 08:08] LABS: Homocysteine 12.4 umol/L (<11.4)
[2024-05-17 13:46] LABS: Abnormal Protein Band 1 REPORT; Albumin, (SPE) 3.1 g/dL (3.8-4.8); Alpha-1-Globulins 0.3 g/dL (0.2-0.3); Alpha-2-Globulins 0.7 g/dL (0.5-0.9); Beta 1 Globulin 0.3 g/dL (0.4-0.6); Gamma Globulins 0.7 g/dL (0.8-1.7); INTERPRETATION REPORT; Total Protein 5.5 g/dL (6.1-8.1)
== END 2024-05-14 18:55 ==
LOC: ER 11:14 → ERHOLD 15:50 → 4TH 19:41
PROVIDERS: ADMIT Internal Medicine; ATTEND Internal Medicine
DX: R41.82 Altered mental status, unspecified (principal); G93.41 Metabolic encephalopathy; I10 Essential (primary) hypertension; G30.9 Alzheimer's disease, unspecified; F02.80 Dementia in other diseases classified elsewhere, unspecified severity, without behavioral disturbance, psychotic disturbance, mood disturbance, and anxiety; I25.10 Atherosclerotic heart disease of native coronary artery without angina pectoris; I25.2 Old myocardial infarction; M10.9 Gout, unspecified; H26.9 Unspecified cataract; I73.9 Peripheral vascular disease, unspecified; I50.9 Heart failure, unspecified; I65.22 Occlusion and stenosis of left carotid artery; Z95.1 Presence of aortocoronary bypass graft; Z11.52 Encounter for screening for COVID-19
CPT/HCPCS: 96365; 93005; 93306; 85025 ×2; 80048 ×2; 36415; 83735; 84100; 85610; 80061; 82565; 86592; 86593; 85730; 84436; 84443 ×2; 81003; 84484 ×3; 84439 ×2; 82607; 81241; 81240; 82306; 84425; 83090; 85300; 85302; 85305; 85306; 86021 ×2; 86147 ×2; 84165; 87804 ×2; 70496; 70498; 70450; 71045; 70551; 92610; 97161; 97530 ×2; 51702; 99285; 87811; Q9967; J7040; J7030 ×2; G0378